=== PATIENT | female | born 1960 | race Caucasian/White ===

== ENCOUNTER 2017-08-25 00:15 | Inpatient (IN) ==
--- NOTE | 2017-08-25 00:44 | Emergency Department Note ---
Disposition Clinical Impression: New onset a-fib, New onset of congestive heart failure Disposition: Admitted As Inpatient Condition: Good Referrals: NONE,PCP [Primary Care Provider] - Forms: ED Satisfaction Letter Time of Disposition: 01:49 SOB [facility] - General Chief Complaint: ED Shortness of Breath/Dyspnea Stated Complaint: SOB Time Seen by Provider: 08/25/17 00:38 Source: patient Mode of arrival: ambulatory Limitations: no limitations Nursing Notes Reviewed: Yes Vital Signs Reviewed: Yes - History of Present Illness Patient presents to the ED with the chief complaint of dyspnea and peripheral edema. States that onset about 2 weeks ago and the shortness of breath has gradually worsened to the point today where she bent over to pick something up and almost passed out. No chest pain or heaviness. She does have bilateral large semi-swelling. No history of DVT, PE or malignancy. States that she does not go to doctors and she is otherwise healthy. No fever or rash. - Related Data Allergies Allergy/AdvReac Type Severity Reaction Status Date / Time No Known Allergies Allergy Verified 08/25/17 00:25 Review of Systems: As reviewed in the HPI. All other systems reviewed are negative or normal. Constitutional: Reports: as per HPI Eyes: Reports: as per HPI Cardiovascular: Reports: as per HPI Past Medical History - Past Medical History Attestation: Yes The following information was validated with the patient. Source: patient Medical history: Reports: no medical history Psychiatric history: Reports: no psych history - Social History Smoking Status: Current every day smoker Alcohol use: Reports: none Drug use: Reports: none Physical Exam - General Limitations: no limitations General appearance: alert, in no apparent distress, anxious - Respiratory Respiratory exam: Present: normal lung sounds bilaterally - Cardiovascular Cardiovascular exam: Present: tachycardia, irregular rhythm - Abdominal Exam Abdominal exam: Present: soft, Non-Tender. Absent: tenderness, distention, guarding, rebound, rigidity - Extremities Exam Extremities exam: Present: full ROM, pedal edema - Neurological Exam Neurological exam: Present: alert, oriented X3 - Psychiatric Psychiatric exam: Present: anxious - Skin Skin exam: Present: warm, dry, intact, normal color Course Course Narrative: Patient presenting with new onset A. fib with RVR. We will workup and admit - Reevaluation(s) Reevaluation #1: Workup his back. Troponins normal, but BNP is elevated. We will give her dose of Lasix. Cardizem bolus and ip started. Admitted to the hospitalist service. Patient stable. Vital Signs Temperature 97.3 F L 08/25/17 00:19 Pulse Rate 160 08/25/17 00:19 Respiratory Rate 22 08/25/17 00:19 Blood Pressure 142/101 08/25/17 00:19 O2 Sat by Pulse Oximetry 96 08/25/17 00:19 Temperature 97.3 F L 08/25/17 00:19 Pulse Rate 150 08/25/17 01:39 Respiratory Rate 17 08/25/17 01:39 Blood Pressure 143/103 08/25/17 01:39 O2 Sat by Pulse Oximetry 96 08/25/17 01:39 Oxygen Delivery Oxygen Delivery Room Air Shortness of Breath/Dyspnea - Medical Records Medical records reviewed: Yes I reviewed the patient's medical records. - Lab Data Lab results reviewed: Yes I reviewed the patient's lab results. Result diagrams: 08/25/17 00:12 08/25/17 00:12 Lab Results 08/25/17 08/25/17 08/25/17 Range/Units 00:12 00:12 00:12 WBC 4.4 (4.3-11.1) K/mcL RBC 3.55 L (3.82-4.97) M/mcL Hgb 10.5 L (11.5-15.4) g/dL Hct 32.7 L (35.3-44.9) % MCV 92.1 (83.0-100.0) fL MCH 29.6 (28.0-33.3) pg MCHC 32.1 (31.6-35.5) g/dL RDW 17.4 H (11.5-14.5) % Plt Count 91 L (140-400) K/mcL MPV 9.5 (9.4-12.4) fL Immature Gran % 0.7 (0-4) % Seg Neutrophils % 72.2 % Lymphocytes % 20.0 % Monocytes % 6.4 % Eosinophils % 0.2 % Basophils % 0.5 % Neutrophils # 3.2 (1.6-8.9) K/mcL Lymphocytes # 0.9 (0.6-4.6) K/mcL Monocytes # 0.3 (0.0-1.3) K/mcL Eosinophils # 0.0 (0.0-0.6) K/mcL Basophils # 0.0 (0.0-0.2) K/mcL Platelet Estimate Decreased L (Normal) Immature Plt Fraction 2.5 (1.1-6.1) % Polychromasia 1+ A (Not Present) Hypochromasia Present A (Not Present) Anisocytosis 2+ A (Not Present) Macrocytosis Present A (Not Present) PT 16.9 H (9.4-12.1) Seconds INR 1.6 APTT 34.0 (26.0-36.0) Seconds Sodium (136-145) mEq/L Potassium (3.5-5.1) mEq/L Chloride (98-107) mEq/L Carbon Dioxide (23-29) mEq/L BUN (6-20) mg/dL Creatinine (0.60-1.20) mg/dL Est GFR ( Amer) (> 60) Est GFR (Non-Af Amer) (> 60) BUN/Creatinine Ratio (6-26) Glucose (70-105) mg/dL Calculated Osmolality (280-300) Calcium (8.6-10.3) mg/dL Troponin I (< 0.04) ng/mL B-Natriuretic Peptide 604 H (Less than 100) pg/mL 08/25/17 Range/Units 00:12 WBC (4.3-11.1) K/mcL RBC (3.82-4.97) M/mcL Hgb (11.5-15.4) g/dL Hct (35.3-44.9) % MCV (83.0-100.0) fL MCH (28.0-33.3) pg MCHC (31.6-35.5) g/dL RDW (11.5-14.5) % Plt Count (140-400) K/mcL MPV (9.4-12.4) fL Immature Gran % (0-4) % Seg Neutrophils % % Lymphocytes % % Monocytes % % Eosinophils % % Basophils % % Neutrophils # (1.6-8.9) K/mcL Lymphocytes # (0.6-4.6) K/mcL Monocytes # (0.0-1.3) K/mcL Eosinophils # (0.0-0.6) K/mcL Basophils # (0.0-0.2) K/mcL Platelet Estimate (Normal) Immature Plt Fraction (1.1-6.1) % Polychromasia (Not Present) Hypochromasia (Not Present) Anisocytosis (Not Present) Macrocytosis (Not Present) PT (9.4-12.1) Seconds INR APTT (26.0-36.0) Seconds Sodium 133 L (136-145) mEq/L Potassium 3.8 (3.5-5.1) mEq/L Chloride 105 (98-107) mEq/L Carbon Dioxide 21 L (23-29) mEq/L BUN 22 H (6-20) mg/dL Creatinine 0.72 (0.60-1.20) mg/dL Est GFR ( Amer) > 60 (> 60) Est GFR (Non-Af Amer) > 60 (> 60) BUN/Creatinine Ratio 31 H (6-26) Glucose 130 H (70-105) mg/dL Calculated Osmolality 281 (280-300) Calcium 9.0 (8.6-10.3) mg/dL Troponin I < 0.03 (< 0.04) ng/mL B-Natriuretic Peptide (Less than 100) pg/mL - Radiology Data Radiology results reviewed: Yes I reviewed the patient's radiology results. - EKG Data EKG attestation: Yes I reviewed and interpreted this EKG. EKG results narrative: A. fib with RVR, rate 163, QRS 84, QTC 377, right axis deviation, no acute ischemic changes
[2017-08-25 00:49] LABS: Basophils % 0.5 %; Immature Granulocytes % 0.7 % (0-4); Segmented Neutrophils % 72.2 %
[2017-08-25 00:51] LABS: Eosinophils % 0.2 %; Hematocrit 32.7 % (35.3-44.9); Hemoglobin 10.5 g/dL (11.5-15.4); Immature Platelets 2.5 % (1.1-6.1); Lymphocytes # 0.9 K/mcL (0.6-4.6); Mean Corpuscular HGB Conc 32.1 g/dL (31.6-35.5); Mean Corpuscular Hemoglobin 29.6 pg (28.0-33.3); Mean Corpuscular Volume 92.1 fL (83.0-100.0); Mean Platelet Volume 9.5 fL (9.4-12.4); Monocytes # 0.3 K/mcL (0.0-1.3); Monocytes % 6.4 %; Neutrophils # 3.2 K/mcL (1.6-8.9); Red Blood Count 3.55 M/mcL (3.82-4.97); Red Cell Distribution Width 17.4 % (11.5-14.5)
[2017-08-25 00:58] LABS: INR 1.6; Prothrombin Time 16.9 Seconds (9.4-12.1)
[2017-08-25 01:16] LABS: Platelet Count 91 K/mcL (140-400)
[2017-08-25 01:18] LABS: Anisocytosis 2+ (Not Present); Hypochromasia Present (Not Present); Macrocytosis Present (Not Present); Polychromasia 1+ (Not Present)
[2017-08-25 01:19] LABS: Platelet Estimate Decreased (Normal)
[2017-08-25 01:38] LABS: BUN/Creatinine Ratio 31 (6-26); Blood Urea Nitrogen 22 mg/dL (6-20); Carbon Dioxide 21 mEq/L (23-29); Chloride 105 mEq/L (98-107); Glucose 130 mg/dL (70-105); Osmolality,Calculated 281 (280-300); Potassium 3.8 mEq/L (3.5-5.1); Sodium 133 mEq/L (136-145); eGFR For African Americans > 60 (> 60); eGFR For Non-African Americans > 60 (> 60)
[2017-08-25 01:39] LABS: Troponin I < 0.03 ng/mL (< 0.04)
[2017-08-25] MEDS ORDERED: Furosemide 40 MG/4 ML VIAL IVP ONE (01:46)
[2017-08-25] MEDS ORDERED: Furosemide 40 MG/4 ML VIAL ONE (01:47)
[2017-08-25] MEDS ORDERED: 0.9 % Sodium Chloride 500 ML ONE (02:04)
[2017-08-25] MEDS: 0.9 % Sodium Chloride 500 ML IVC SCH (02:07)
[2017-08-25] MEDS ORDERED: Acetaminophen 325 MG TABLET PO ONE (03:57)
--- NOTE | 2017-08-25 04:10 | Internal Med History&Physical ---
<Marce White H - Last Filed: 08/25/17 04:30> Date of Encounter: 08/25/17 Time of Encounter: 04:10 Internal Medicine - H&P: HPI Chief complaint: shortness of breath and lower extremity edema Admitted From: Emergency Dept Plans for Post Hospital Care: Home History of present illness: Ms. Sales is a 57 year old female with no known past medical history who presented to [facility] on 08/25/2017 with chief complaints of shortness of breath and bilateral lower extremity edema. Ms. Sales states she has not seen a doctor or been to a hospital in several years. She denies any medical problems whatsoever. She states for the past 2 weeks she has been experiencing progressively worsening shortness of breath and lower extremity swelling. She states this evening she was bending over when she became lightheaded, dizzy, and felt as though she would pass out. At that point she decided to present to the emergency department. In the emergency department she was found to be in atrial fibrillation with RVR. She was started on a Cardizem drip. Her BNP was elevated and she was given a dose of IV Lasix. During examination, patient is resting comfortably. She states her shortness of breath has improved since being started on the medication given in the emergency department. She denies any active chest pain, nausea, vomiting, or diaphoresis. She does report shortness of air. She denies feeling palpitations. She denies orthopnea. She denies nausea, vomiting, diarrhea, melena, hematochezia, or hematemesis. She reports a headache. She denies any visual changes or sensory or motor weaknesses. Past Med Surg Social Fam HX - Past Medical History Attestation: Yes The following information was validated with the patient. Source: patient Medical history: no medical history Psychiatric history: no psych history - Social History Smoking Status: Current every day smoker Alcohol use: none Drug use: none - Family History Mother Adopted: No Cause of : heart attack Hx Family Cardiac Disorders: Yes (mother heart attack) Hx Family Respiratory Disorders: Yes (mother, brother, father COPD) Hx Family Cancer: Yes (mother, breast) Hx Family GI Disorders: No Hx Family Genitourinary Disorders: No Hx Family Endocrine Disorder: Yes (mother dm) Hx Family Musculoskeletal Disorders: No Hx Family Neuromuscular Disorders: No Hx Family Neurologic Disorders: No Hx Family HEENT Disorders: No Hx Family Autoimmune Disorders: No Hx Family Reproductive Disorders: No Hx Family Psychosocial Disorders: No Hx Family Medical Disorders: No Internal Medicine - H&P: Meds 3 Allergy/AdvReac Type Severity Reaction Status Date / Time No Known Allergies Allergy Verified 08/25/17 00:25 All Systems PM: A 10-system review of systems was performed and is negative for pertinent findings except as documented above in the HPI. - Constitutional Constitutional: lethargy, no chills, no fever(s), no falls, no night sweats, no weakness, no weight gain, no weight loss - EENT Eyes: no change in vision Nose, mouth and throat: no nasal congestion, no nasal discharge - Cardiovascular Cardiovascular ROS IM: dyspnea, dyspnea on exertion, edema, irregular heart rhythm, lightheadedness, no chest pain, no claudication, no diaphoresis, no orthopnea, no palpitations, no paroxysmal nocturnal dyspnea - Respiratory Respiratory: no cough, no dyspnea - Gastrointestinal Gastrointestinal: no abdominal pain, no diarrhea, no hematemesis, no hematochezia, no melena, no nausea, no vomiting - Musculoskeletal Musculoskeletal ROS IM: no numbness, no tingling - Integumentary Integumentary IM: no rash, no jaundice - Neurological Neurological ROS: headache(s), no abnormal hearing, no abnormal movements, no abnormal speech, no focal weakness, no loss of vision - Psychiatric Psychiatric: depression (Son two months ago) - Hematologic/Lymphatic Hematologic/Lymphatic: no easy bruising - Constitutional Vitals: Temp Pulse Resp BP Pulse Ox 98.2 F 130 18 118/65 96 08/25/17 03:10 08/25/17 03:10 08/25/17 03:10 08/25/17 03:10 08/25/17 03:10 General appearance: Present: A&O X 3, pleasant, no acute distress, answers questions appropriately - Head Head exam: Present: atraumatic, normocephalic - Eye Eye exam: Present: conjuntiva pink, sclera anicteric - Neck Neck exam general surgery: Present: supple, trachea midline. Absent: lymphadenopathy - Respiratory Respiratory exam: Present: prolonged expiratory phase, rhonchi. Absent: accessory muscle use, rales, respiratory distress, wheezes - Cardiovascular Cardiovascular exam: Present: irregular rhythm, +S1, +S2, tachycardia. Absent: diastolic murmur, gallop, rubs, systolic murmur - GI/Abdominal GI/Abdominal exam: Present: normal bowel sounds, soft, no peritoneal signs. Absent: distended, firm, guarding, tenderness - Extremities Exam Extremities exam: Present: pedal edema (3+), warm, radial pulses palpable and symmetrical. Absent: calf tenderness, cyanotic - Neurological Exam Neurological exam: Present: alert, oriented X3, no focal deficits. Absent: motor sensory deficit, facial droop, speech deficit - Psychiatric Psychiatric exam: Present: normal affect, normal mood - Skin Skin exam: Present: dry, intact, normal color Internal Med - H&P Results - Labs CBC & Chem 7: 08/25/17 00:12 08/25/17 00:12 - Assessment and plan (1) Atrial fibrillation with RVR Current Visit: Yes Status: Acute Assessment and plan: 57-year-old lady with unknown medical history of present with new onset atrial fibrillation with RVR. -Continue Cardizem drip. -Consult to cardiology. Day team to call in the morning. -Echocardiogram. -Aspirin -Cardiac monitoring. -TSH, magnesium (2) New onset of congestive heart failure Current Visit: Yes Status: Acute Assessment and plan: Patient given one-time dose of Lasix in the emergency department. -Significant pedal edema appreciated during physical exam and elevated BNP. -Echocardiogram ordered for the morning. Consult to cardiology placed. -Daily weights, I&O. -ASA (3) Anemia Current Visit: Yes Status: Acute Assessment and plan: Patient with anemia. Unknown chronicity. -We will perform anemia workup including iron profile, ferritin, B12, and folic levels. Qualifiers: Anemia type: unspecified type Qualified Code(s): D64.9 - Anemia, unspecified (4) Tobacco abuse Current Visit: Yes Status: Acute Assessment and plan: Nicotine replacement therapy. (5) DVT prophylaxis Current Visit: Yes Status: Acute Assessment and plan: Heparin 5000 units subcutaneous twice a day. - Time Spent With Patient Total time spent is greater than 50% in coordination of care (as documented) at patient's floor/unit and/or counseling patient: <Deni Eisenberg - Last Filed: 08/25/17 06:07> Date of Encounter: 04/14/18 Internal Medicine - H&P: HPI History of present illness: Ms. Sales is a 57 year old female All Systems PM: A 10-system review of systems was performed and is negative for pertinent findings except as documented above in the HPI. - Constitutional Vitals: Temp Pulse Resp BP Pulse Ox 98.2 F 130 18 118/65 96 08/25/17 03:10 08/25/17 03:10 08/25/17 03:10 08/25/17 03:10 08/25/17 03:10 Internal Med - H&P Results - Labs CBC & Chem 7: 08/25/17 00:12 08/25/17 00:12 - Attending Attestation I have seen and examined this patient independently. I have discussed with resident physician Dr. White regarding the management plan. Agree with the documentation. - Assessment and plan (1) New onset of congestive heart failure Current Visit: Yes Status: Acute (2) Atrial fibrillation with RVR Current Visit: Yes Status: Acute (3) Anemia Current Visit: Yes Status: Acute Qualifiers: Anemia type: unspecified type Qualified Code(s): D64.9 - Anemia, unspecified (4) Tobacco abuse Current Visit: Yes Status: Acute (5) DVT prophylaxis Current Visit: Yes Status: Acute - Time Spent With Patient Total time spent is greater than 50% in coordination of care (as documented) at patient's floor/unit and/or counseling patient:
[2017-08-25] MEDS ORDERED: Naloxone 0.4 MG/ML INJ IVP PRN (04:24)
--- NOTE | 2017-08-25 05:30 | Emergency Department Note ---
Disposition Clinical Impression: New onset a-fib, New onset of congestive heart failure Disposition: Admitted As Inpatient Condition: Good General Adult HPI - General Chief complaint: ED Shortness of Breath/Dyspnea Stated complaint: SOB Time Seen by Provider: 08/25/17 00:38 Source: patient Mode of arrival: ambulatory Limitations: no limitations Nursing Notes Reviewed: Yes Vital Signs Reviewed: Yes - History of Present Illness Pain Scale: 0 - Related Data Allergies Allergy/AdvReac Type Severity Reaction Status Date / Time No Known Allergies Allergy Verified 08/25/17 00:25 Constitutional: Reports: as per HPI Eyes: Reports: as per HPI Cardiovascular: Reports: as per HPI Past Medical History - Past Medical History Medical history: Reports: no medical history Psychiatric history: Reports: no psych history - Social History Smoking Status: Current every day smoker Alcohol use: Reports: none Drug use: Reports: none Physical Exam - General Limitations: no limitations General appearance: alert, in no apparent distress, anxious Course Vital Signs Temperature 97.3 F L 08/25/17 00:19 Pulse Rate 160 08/25/17 00:19 Respiratory Rate 22 08/25/17 00:19 Blood Pressure 142/101 08/25/17 00:19 O2 Sat by Pulse Oximetry 96 08/25/17 00:19 Temperature 98.2 F 08/25/17 03:10 Pulse Rate 130 08/25/17 03:10 Respiratory Rate 18 08/25/17 03:10 Blood Pressure 118/65 08/25/17 03:10 O2 Sat by Pulse Oximetry 96 08/25/17 03:10 Oxygen Delivery Oxygen Delivery Room Air Medical Decision Making - Lab Data Result diagrams: 08/25/17 00:12 08/25/17 00:12 Lab Results 08/25/17 08/25/17 08/25/17 Range/Units 00:12 00:12 00:12 WBC 4.4 (4.3-11.1) K/mcL RBC 3.55 L (3.82-4.97) M/mcL Hgb 10.5 L (11.5-15.4) g/dL Hct 32.7 L (35.3-44.9) % MCV 92.1 (83.0-100.0) fL MCH 29.6 (28.0-33.3) pg MCHC 32.1 (31.6-35.5) g/dL RDW 17.4 H (11.5-14.5) % Plt Count 91 L (140-400) K/mcL MPV 9.5 (9.4-12.4) fL Immature Gran % 0.7 (0-4) % Seg Neutrophils % 72.2 % Lymphocytes % 20.0 % Monocytes % 6.4 % Eosinophils % 0.2 % Basophils % 0.5 % Neutrophils # 3.2 (1.6-8.9) K/mcL Lymphocytes # 0.9 (0.6-4.6) K/mcL Monocytes # 0.3 (0.0-1.3) K/mcL Eosinophils # 0.0 (0.0-0.6) K/mcL Basophils # 0.0 (0.0-0.2) K/mcL Platelet Estimate Decreased L (Normal) Immature Plt Fraction 2.5 (1.1-6.1) % Polychromasia 1+ A (Not Present) Hypochromasia Present A (Not Present) Anisocytosis 2+ A (Not Present) Macrocytosis Present A (Not Present) PT 16.9 H (9.4-12.1) Seconds INR 1.6 APTT 34.0 (26.0-36.0) Seconds Sodium (136-145) mEq/L Potassium (3.5-5.1) mEq/L Chloride (98-107) mEq/L Carbon Dioxide (23-29) mEq/L BUN (6-20) mg/dL Creatinine (0.60-1.20) mg/dL Est GFR ( Amer) (> 60) Est GFR (Non-Af Amer) (> 60) BUN/Creatinine Ratio (6-26) Glucose (70-105) mg/dL Calculated Osmolality (280-300) Calcium (8.6-10.3) mg/dL Troponin I (< 0.04) ng/mL B-Natriuretic Peptide 604 H (Less than 100) pg/mL 08/25/17 Range/Units 00:12 WBC (4.3-11.1) K/mcL RBC (3.82-4.97) M/mcL Hgb (11.5-15.4) g/dL Hct (35.3-44.9) % MCV (83.0-100.0) fL MCH (28.0-33.3) pg MCHC (31.6-35.5) g/dL RDW (11.5-14.5) % Plt Count (140-400) K/mcL MPV (9.4-12.4) fL Immature Gran % (0-4) % Seg Neutrophils % % Lymphocytes % % Monocytes % % Eosinophils % % Basophils % % Neutrophils # (1.6-8.9) K/mcL Lymphocytes # (0.6-4.6) K/mcL Monocytes # (0.0-1.3) K/mcL Eosinophils # (0.0-0.6) K/mcL Basophils # (0.0-0.2) K/mcL Platelet Estimate (Normal) Immature Plt Fraction (1.1-6.1) % Polychromasia (Not Present) Hypochromasia (Not Present) Anisocytosis (Not Present) Macrocytosis (Not Present) PT (9.4-12.1) Seconds INR APTT (26.0-36.0) Seconds Sodium 133 L (136-145) mEq/L Potassium 3.8 (3.5-5.1) mEq/L Chloride 105 (98-107) mEq/L Carbon Dioxide 21 L (23-29) mEq/L BUN 22 H (6-20) mg/dL Creatinine 0.72 (0.60-1.20) mg/dL Est GFR ( Amer) > 60 (> 60) Est GFR (Non-Af Amer) > 60 (> 60) BUN/Creatinine Ratio 31 H (6-26) Glucose 130 H (70-105) mg/dL Calculated Osmolality 281 (280-300) Calcium 9.0 (8.6-10.3) mg/dL Troponin I < 0.03 (< 0.04) ng/mL B-Natriuretic Peptide (Less than 100) pg/mL Critical Care Time Critical Care Time: Yes Total Critical Care Time: 35 Attestation: Critical care performed: Time is exclusive of separately billable procedures. Time includes: direct patient care, patient reassessment, coordination of patient care, interpretation of data (laboratory data, radiology data, and respiratory data), review of patient's medical records, medical consultation and documentation of patient care. Procedures included in critical care time: Procedures excluded from critical care time: Attestation Statement - Attestation Attestation: Cesar Berrios MD, personally evaluated this patient and discussed their management with the resident physician. I reviewed the resident's note and agree with the documented findings, medical decision making, and plan of care. 57-year-old female presents to the emergency department with a one-day history of shortness of breath. She states it started last evening and she had some difficulty sleeping. No chest pain. No cough or fever. She denies history of breathing problems previously. No history of heart problems. She does admit to some palpitations today. On arrival the patient was found to be in atrial fibrillation with RVR with a heart rate in the 160s. On examination patient is a well-developed obese female in no acute distress. She is alert and oriented 3. There is no cyanosis or diaphoresis. Chest is nontender to palpation. Breath sounds are clear and equal bilaterally. Heart is irregularly irregular with a marked tachycardia. Abdomen soft and nontender with normal bowel sounds. There is 1+ pedal edema bilaterally. EKG shows atrial fibrillation with RVR with a ventricular rate of 163. No acute ST segment elevation or depression noted. Chest x-ray negative. Labs reviewed. Patient received IV Cardizem and placed on Cardizem drip. The hospitalist, Dr. Eisenberg, was consulted and accepted admission of the patient.
[2017-08-25] MEDS: Nicotine 21 MG PATCH.TD24 TD SCH (07:10)
[2017-08-25] MEDS: Aspirin 81 MG TAB.CHEW PO SCH (07:10)
[2017-08-25] MEDS: Acetaminophen 325 MG TABLET PO PRN ×2 (10:03→16:36)
--- NOTE | 2017-08-25 11:15 | Cardiology Consult Note ---
<Martha Perkins Bree - Last Filed: 08/25/17 11:38> Date of Encounter: 08/25/17 Time of Encounter: 11:20 Assessment and Plan (1) New onset a-fib Current Visit: Yes Status: Acute Newly discovered atrial fibrillation, etiology/chronicity unclear. HR 167 RVR upon admission, control improved with cardizem gtt. Continue cardizem gtt, titrate to keep HR less than 100. Will add low dose betablocker today. Check TTE, TSH. CHA2Ds Vasc=1 (female) currently, however has not followed with provider in 10+ years. TTE pending, may need ischemic eval. Unable to anticoagulate at this time d/t anemia/thrombocytopenia of unclear origin. Recommend further work-up. (2) CHF (congestive heart failure) Current Visit: Yes Status: Acute Presents with CHF symptoms--etiology/type/chroncity unclear. No prior work-up. Reports increased stress d/t passing of her son 2 months ago. IFB=589, CXR stable. Check TTE. Start low dose betablocker today. Cautious diuresis. Strict I&Os, daily weights, and Na/fluid restriction diet. Will continue to follow. Qualifiers: Heart failure type: unspecified Heart failure chronicity: unspecified Qualified Code(s): I50.9 - Heart failure, unspecified (3) Anemia Current Visit: Yes Status: Acute With thrombocytopenia, PLT 91. Recommend hem/onc consult. Qualifiers: Anemia type: unspecified type Qualified Code(s): D64.9 - Anemia, unspecified Discussion w patient/family: The assessment and plan as outlined above was discussed with the patient and/or family members who expressed understanding and agreement. All questions were answered. Thank you for involving us in the care of your patient. Please call with any questions. History of Present Illness Consult date: 08/25/17 Requesting physician: Marce White Consult reason: CHF, AFib Chief complaint: Shortness of breath History of present illness: Ms. Sales is a 57 year old female with no significant PMHx who presented to the ED with complaints of a 2 week history shortness of breath. Associated symptoms include fatigue, activity intolerance, PND, and orthopnea. Notes has been sleeping in the recliner. Reports was making a bed yesterday and nearly passed out which prompted ED evaluation. Ms. Sales has not followed with healthcare provider in 10+ years. Reports 1.5 ppd smoking since she was 14 years old. Significant family hx for CAD, [place]. Upon arrival she was noted to be in atrial fibrillation with RVR and was started on a cardizem gtt. Past Med Surg Social Fam HX - Past Medical History Medical history: no medical history Psychiatric history: no psych history - Social History Smoking Status: Current every day smoker Alcohol use: none Drug use: none - Family History Mother Adopted: No Cause of : heart attack Hx Family Cardiac Disorders: Yes (mother heart attack) Hx Family Respiratory Disorders: Yes (mother, brother, father COPD) Hx Family Cancer: Yes (mother, breast) Hx Family GI Disorders: No Hx Family Genitourinary Disorders: No Hx Family Endocrine Disorder: Yes (mother dm) Hx Family Musculoskeletal Disorders: No Hx Family Neuromuscular Disorders: No Hx Family Neurologic Disorders: No Hx Family HEENT Disorders: No Hx Family Autoimmune Disorders: No Hx Family Reproductive Disorders: No Hx Family Psychosocial Disorders: No Hx Family Medical Disorders: No Medications and Allergies No Known Home Drugs 08/25/17 [History] 3 Allergy/AdvReac Type Severity Reaction Status Date / Time No Known Allergies Allergy Verified 08/25/17 00:25 All Systems Review: The remainder of the systems were reviewed and are negative - Cardiovascular Cardiovascular: as per HPI Physical Examination Vital Signs, Last 4 Hours Temp Pulse Resp BP Pulse Ox 08/25/17 07:37 98.2 F 108 18 105/71 96 General: Conversant HEENT: Atraumatic, Normocephaly Cardiac: Other (irregularly irregular) Neuro: Alert and responsive Abdomen: Soft Skin: Other (palmar erythema) Extremities: Other (+2 BLE edema) Results 08/25/17 00:12 08/25/17 00:12 Active Medications Acetaminophen (Tylenol) 650 mg PO Q6H PRN PRN Reason: Mild Pain/Fever Stop: 02/24/18 04:25 Last Admin: 08/25/17 10:03 Dose: 650 mg Aspirin (Aspirin) 81 mg PO DAILY LEANN Stop: 02/24/18 09:01 Last Admin: 08/25/17 07:10 Dose: 81 mg Diltiazem HCl 125 mg/ Sodium (Chloride) 125 mls @ 5 mls/hr IVC .Q24H LEANN PRN Reason: 5 MG/HR Stop: 02/24/18 01:31 Last Infusion: 08/25/17 09:57 Dose: 10 mg/hr, 10 mls/hr Sodium Chloride (0.9 % Sodium Chloride) 500 mls @ 20 mls/hr IVC .Q24H LEANN Stop: 02/24/18 02:16 Last Admin: 08/25/17 02:07 Dose: 20 mls/hr Naloxone HCl (Narcan) 0.4 mg IVP Q2MIN PRN PRN Reason: SEE COMMENTS Stop: 02/24/18 04:25 Nicotine (Nicoderm) 21 mg TD DAILY LEANN PRN Reason: Protocol Stop: 02/24/18 09:01 Last Admin: 08/25/17 07:10 Dose: 21 mg - Imaging and Cardiology Echo: pending Other Results: 12 hour tele: avg BY=[id number] afib. 7 beat run NSVT - EKG Interpretation EKG results cardiology: personally reviewed Consult Discharge Plan - Plan Referrals: NONE,PCP [Primary Care Provider] - <Barrett Nuno - Last Filed: 08/25/17 19:17> Date of Encounter: 08/25/17 - Attending Attestation I have personally performed a face to face evaluation on this patient. I have reviewed and agree with the care plan. History and Exam by me shows: CC: Shortness of breath PT reports increasing shortness of breath over the last two weeks. She first noted symptoms with exercise, with progressive less tolerance of physical exertion. She was able to mop and sweep her entire house without stopping a month ago, now has to stop after two rooms sweeping only due to SOB. She has three pillow orthopnea, and has been unable to sleep in a bed the last three nights. She also notes increased lower extremity edema. She denies chest pain or pressure, does feel occasional palpitations, however reports activity does not provoke palpitations. PMH reviewed, pt has chronic back pain due to lumbar disc disease. PE: pt seen and examined, agree with documented findings, with addendum lungs are clear anteriorly, bilat basilar crackles, normal S1 and S2. IMP/Plan 1. Atrial fib with rapid ventricular response, 160s to 180s in ER, improved with IV diltiazem, now mid 80s, continue IV dilt, heparin, will need echo, nocturnal pulse ox. 2. Acute congestive heart failure, unclear if systolic or diastolic, echo pending, continue IV diuresis, further recs pending cardiac imaging. 3. Anemia - unlcear etiolgy, no labs to compare in last decade, will monitor stools for occult blood, TSH, free TX 4. Chronic low back pain - reports she is just tolerating pain, does not like hospitals. Assessment and Plan Discussion w patient/family: The assessment and plan as outlined above was discussed with the patient and/or family members who expressed understanding and agreement. All questions were answered. Thank you for involving us in the care of your patient. Please call with any questions. History of Present Illness History of present illness: Ms. Sales is a 57 year old female All Systems Review: The remainder of the systems were reviewed and are negative Physical Examination Vital Signs, Last 4 Hours Temp Pulse Resp BP Pulse Ox 08/25/17 18:56 98.6 F 90 16 112/58 95 08/25/17 15:54 98.2 F 93 18 111/78 93 Results 08/25/17 00:12 08/25/17 00:12 Lab Results 08/25/17 11:21 Troponin I < 0.03
[2017-08-25] MEDS: Metoprolol XL (24 HR) Succ 25 MG TAB.ER.24H PO SCH (12:43)
[2017-08-25] MEDS: *HR* OxyCODONE Immed Rel 5 MG TABLET PO PRN ×2 (14:33→20:35)
--- NOTE | 2017-08-25 15:47 | Internal Med Progress Note ---
Date of Encounter: 08/25/17 Time of Encounter: 15:44 - Assessment and plan (1) New onset of congestive heart failure Current Visit: Yes Status: Acute Assessment and plan: Possible diastolic CHF exacerbation in the setting of A. fib with RVR Chest x-ray does not report normality but there is some vascular congestion Patient given one-time dose of Lasix in the emergency department. -Echocardiogram ordered Continue IV Lasix . Consulted cardiology -Daily weights, I&O. -ASA (2) Atrial fibrillation with RVR Current Visit: Yes Status: Acute Assessment and plan: 57-year-old lady with unknown medical history of present with new onset atrial fibrillation with RVR. -Continue Cardizem drip. Cardiology recommendations appreciated -Echocardiogram. -Aspirin -Cardiac monitoring. - Test for respiratory viral panel (3) Anemia Current Visit: Yes Status: Acute Assessment and plan: Patient with anemia. Unknown chronicity. Possible iron deficiency anemia. Qualifiers: Anemia type: unspecified type Qualified Code(s): D64.9 - Anemia, unspecified (4) Tobacco abuse Current Visit: Yes Status: Acute Assessment and plan: Nicotine replacement therapy. (5) DVT prophylaxis Current Visit: Yes Status: Acute Assessment and plan: Heparin 5000 units subcutaneous twice a day. (6) Thrombocytopenia Current Visit: Yes Status: Acute Assessment and plan: Unknown etiology - Time Spent With Patient Total time spent is greater than 50% in coordination of care (as documented) at patient's floor/unit and/or counseling patient: - Subjective Interval history: Feeling less short of breath, irregular heart rate, palpitations at times, dry cough, sporadic abdominal pain crampy like, no dysuria or diarrhea, no fevers - Constitutional Vitals: Temp Pulse Resp BP Pulse Ox 98.1 F 92 17 105/73 96 08/25/17 11:48 08/25/17 11:48 08/25/17 11:48 08/25/17 11:48 08/25/17 11:48 General appearance: Present: A&O X 3, pleasant, no acute distress, answers questions appropriately - Head Head exam: Present: atraumatic, normocephalic - Eye Eye exam: Present: PERRL, conjuntiva pink, sclera anicteric Pupils: Present: PERRL - Neck Neck exam general surgery: Present: supple, trachea midline. Absent: lymphadenopathy - Respiratory Respiratory exam: Present: CTAB, rales (Bibasilar fine crackles). Absent: accessory muscle use, rhonchi, wheezes - Cardiovascular Cardiovascular exam: Present: RRR, +S1, +S2. Absent: diastolic murmur, gallop, rubs, systolic murmur - GI/Abdominal GI/Abdominal exam: Present: normal bowel sounds, soft, no peritoneal signs. Absent: distended, tenderness - Extremities Exam Extremities exam: Present: pedal edema (+1 pitting edema in both lower extremities has improved), warm, radial pulses palpable and symmetrical. Absent : calf tenderness, cyanotic - Neurological Exam Neurological exam: Present: CN II-XII intact, oriented X3, no focal deficits. Absent: pronater drift, facial droop, speech deficit - Skin Skin exam: Present: dry, intact Internal Medicine: Result - Labs CBC & Chem 7: 08/25/17 00:12 08/25/17 00:12 Labs: Cardiac Enzymes 08/25/17 Range/Units 11:21 Troponin I < 0.03 (< 0.04) ng/mL - ABG Interpretation ABG results: PT/INR, D-dimer PT 16.9 Seconds (9.4-12.1) H 08/25/17 00:12 Consult Discharge Plan - Plan Referrals: NONE,PCP [Primary Care Provider] -
[2017-08-25 18:09] LABS: Adenovirus Not Detected (Not Detect); Bordetella Pertussis Not Detected (Not Detect); Chlamydophila pneumoniae Not Detected (Not Detect); Coronavirus 229E Not Detected (Not Detect); Coronavirus HKU1 Not Detected (Not Detect); Coronavirus NL63 Not Detected (Not Detect); Coronavirus OC43 Not Detected (Not Detect); Human Metapneumovirus Not Detected (Not Detect); Human Rhinovirus/Enterovirus Not Detected (Not Detect); Influenza A Subtype 2009 H1 Not Detected (Not Detect); Influenza A Untypeable Not Detected (Not Detect); Influenza B Not Detected (Not Detect); Mycoplasma pneumoniae Not Detected (Not Detect); Parainfluenza Virus 1 Not Detected (Not Detect); Parainfluenza Virus 2 Not Detected (Not Detect); Parainfluenza Virus 3 Not Detected (Not Detect); Parainfluenza Virus 4 Not Detected (Not Detect); Respiratory Syncytial Virus Not Detected (Not Detect)
[2017-08-25] MEDS: Furosemide 20 MG/2 ML VIAL IVP SCH (20:29)
[2017-08-26] MEDS: *HR* OxyCODONE Immed Rel 5 MG TABLET PO PRN ×4 (02:32→20:49)
[2017-08-26 05:06] LABS: % Iron Saturation 3 % (15-50); Alanine Aminotransferase 17 Units/L (7-52); Albumin 3.4 g/dL (3.5-5.7); Albumin/Globulin Ratio 0.8 (1.1-2.2); Alkaline Phosphatase 80 Units/L (34-104); Aspartate Amino Transferase 37 Units/L (13-39); BUN/Creatinine Ratio 31 (6-26); Bilirubin,Total 0.8 mg/dL (0.3-1.0); Blood Urea Nitrogen 26 mg/dL (6-20); Calcium 8.6 mg/dL (8.6-10.3); Carbon Dioxide 23 mEq/L (23-29); Chloride 105 mEq/L (98-107); Ferritin 33 ng/ml (10-120); Globulin 4.1 g/dL (2.4-3.5); Glucose 92 mg/dL (70-105); Iron 18 mcg/dL (50-170); Osmolality,Calculated 284 (280-300); Potassium 3.7 mEq/L (3.5-5.1); Sodium 135 mEq/L (136-145); Total Protein 7.5 g/dL (6.4-8.9); Transferrin 406 mg/dL (203-362); eGFR For African Americans > 60 (> 60); eGFR For Non-African Americans > 60 (> 60)
[2017-08-26 05:18] LABS: Thyroid Stimulating Hormone 7.583 mcIU/mL (0.340-5.600)
[2017-08-26] MEDS: 0.9 % Sodium Chloride 500 ML IVC SCH (05:26)
[2017-08-26 05:28] LABS: Folate 15.7 ng/mL (3.0-16.0)
[2017-08-26 05:30] LABS: Vitamin B12 > 1500 pg/mL (250-1100)
[2017-08-26] MEDS: Acetaminophen 325 MG TABLET PO PRN ×3 (05:32→23:17)
[2017-08-26] MEDS: Aspirin 81 MG TAB.CHEW PO SCH (08:32)
[2017-08-26] MEDS: Nicotine 21 MG PATCH.TD24 TD SCH (08:32)
[2017-08-26] MEDS: Metoprolol XL (24 HR) Succ 25 MG TAB.ER.24H PO SCH (08:32)
[2017-08-26] MEDS: Furosemide 20 MG/2 ML VIAL IVP SCH ×3 (08:32→16:47)
[2017-08-26] MEDS ORDERED: Ipratropium/Albuterol Neb 3 ML IH PRN (10:24)
--- NOTE | 2017-08-26 10:29 | Internal Med Progress Note ---
Date of Encounter: 08/26/17 Time of Encounter: 10:26 - Assessment and plan (1) New onset of congestive heart failure Current Visit: Yes Status: Acute Assessment and plan: Possible diastolic CHF exacerbation in the setting of A. fib with RVR, and acute COPD exacerbation Chest x-ray does not report normal findings but there is some vascular congestion Patient given one-time dose of Lasix in the emergency department. -Echocardiogram ordered, pending Increased IV Lasix up to 40 mg twice a day . Consulted cardiology -Daily weights, I&O. -ASA (2) Acute exacerbation of chronic obstructive pulmonary disease (COPD) Current Visit: Yes Status: Acute Assessment and plan: Acute COPD exacerbation likely secondary to acute bacterial bronchitis Start Solu-Medrol, Rocephin DuoNeb nebs as needed, oxygen therapy Needs pulmonary function tests as outpatient (3) Atrial fibrillation with RVR Current Visit: Yes Status: Acute Assessment and plan: 57-year-old lady with unknown medical history of present with new onset atrial fibrillation with RVR. -Continue Cardizem drip. Cardiology recommendations appreciated -Echocardiogram. -Aspirin -Cardiac monitoring. - Tested negative for respiratory viral panel (4) Anemia Current Visit: Yes Status: Acute Assessment and plan: Patient with anemia. Unknown chronicity. Possible iron deficiency anemia. Qualifiers: Anemia type: unspecified type Qualified Code(s): D64.9 - Anemia, unspecified (5) Tobacco abuse Current Visit: Yes Status: Acute Assessment and plan: Nicotine replacement therapy. (6) DVT prophylaxis Current Visit: Yes Status: Acute Assessment and plan: Heparin 5000 units subcutaneous twice a day. (7) Thrombocytopenia Current Visit: Yes Status: Acute Assessment and plan: Unknown etiology - Time Spent With Patient Total time spent is greater than 50% in coordination of care (as documented) at patient's floor/unit and/or counseling patient: - Subjective Interval history: Feeling still short of breath, irregular heart rate, palpitations at times, dry cough, sporadic abdominal pain crampy like, no dysuria or diarrhea, no fevers - Constitutional Vitals: Temp Pulse Resp BP Pulse Ox 98.3 F 104 16 119/83 95 08/26/17 07:54 08/26/17 07:54 08/26/17 07:54 08/26/17 07:54 08/26/17 09:45 General appearance: Present: A&O X 3, pleasant, no acute distress, answers questions appropriately Exam: - Head Head exam: Present: atraumatic, normocephalic - Eye Eye exam: Present: PERRL, conjuntiva pink, sclera anicteric Pupils: Present: PERRL - Neck Neck exam general surgery: Present: supple, trachea midline. Absent: lymphadenopathy - Respiratory Respiratory exam: Present: CTAB, rales (Bibasilar fine crackles with wheezing). Absent: accessory muscle use, rhonchi, wheezes - Cardiovascular Cardiovascular exam: Present: RRR, +S1, +S2. Absent: diastolic murmur, gallop, rubs, systolic murmur - GI/Abdominal GI/Abdominal exam: Present: normal bowel sounds, soft, no peritoneal signs. Absent: distended, tenderness - Extremities Exam Extremities exam: Present: pedal edema (+1 pitting edema in both lower extremities has improved), warm, radial pulses palpable and symmetrical. Absent : calf tenderness, cyanotic - Neurological Exam Neurological exam: Present: CN II-XII intact, oriented X3, no focal deficits. Absent: pronater drift, facial droop, speech deficit - Skin Skin exam: Present: dry, intact Internal Medicine: Result - Labs CBC & Chem 7: 08/25/17 00:12 08/26/17 04:11 Labs: BMP 08/26/17 04:11 Sodium 135 L Potassium 3.7 Chloride 105 Carbon Dioxide 23 BUN 26 H Creatinine 0.85 Glucose 92 Calcium 8.6 Cardiac Enzymes 08/25/17 Range/Units 11:21 Troponin I < 0.03 (< 0.04) ng/mL Liver Function 08/26/17 Range/Units 04:11 Total Bilirubin 0.8 (0.3-1.0) mg/dL AST 37 (13-39) Units/L ALT 17 (7-52) Units/L Alkaline Phosphatase 80 (34-104) Units/L Albumin 3.4 L (3.5-5.7) g/dL - ABG Interpretation ABG results: PT/INR, D-dimer PT 16.9 Seconds (9.4-12.1) H 08/25/17 00:12 Consult Discharge Plan - Plan Referrals: NONE,PCP [Primary Care Provider] -
[2017-08-26] MEDS: MethylPREDNISolone 40 MG/ML VIAL IVP SCH ×3 (10:48→23:21)
[2017-08-26] MEDS: cefTRIAXone 1,000 MG in Water for inj. (sterile) 20 ML 10 ML IVP SCH (11:12)
--- NOTE | 2017-08-26 12:36 | Cardiology Progress Note ---
Date of Encounter: 08/26/17 Time of Encounter: 12:00 Assessment and Plan (1) New onset a-fib Current Visit: Yes Status: Acute Newly discovered atrial fibrillation, etiology/chronicity unclear. HR 167 RVR upon admission, control improved with cardizem gtt. Improved from yesterday, not ideal. Recommend rate control strategy for now, unable to anticoagulate. Continue cardizem gtt, titrate to keep HR less than 100. Will increase BB today. TTE pending. TSH abnormal--defer to primary service. CHA2Ds Vasc=1 (female) currently, however has not followed with provider in 10+ years. TTE pending, may need ischemic eval. Unable to anticoagulate at this time d/t anemia/thrombocytopenia of unclear origin. Recommend further work-up. (2) CHF (congestive heart failure) Current Visit: Yes Status: Acute Presents with CHF symptoms--etiology/type/chroncity unclear. No prior work-up. Suspect systolic CHF. Reports increased stress d/t passing of her son 2 months ago. EDG=805, CXR stable. Echo pending. Optimize betablocker today. Cautious diuresis. Consider ACEi/ARB upon d/c if able Strict I&Os, daily weights, and Na/fluid restriction diet. Will continue to follow. Qualifiers: Heart failure type: unspecified Heart failure chronicity: unspecified Qualified Code(s): I50.9 - Heart failure, unspecified (3) Anemia Current Visit: Yes Status: Acute With thrombocytopenia, PLT 91. Recommend hem/onc consult. Qualifiers: Anemia type: unspecified type Qualified Code(s): D64.9 - Anemia, unspecified Discussion w patient/family: The assessment and plan as outlined above was discussed with the patient and/or family members who expressed understanding and agreement. All questions were answered. Thank you for involving us in the care of your patient. Please call with any questions. The patient will be discussed and reviewed with Dr. Nuno; changes to be made accordingly. Subjective Principal diagnosis: Afib, CHF Interval history: Seen and examined. Overall feels better today, continues to have dyspnea with minimal exertion. No reported chest pain. Objective Vital Signs, Last 4 Hours Pulse Ox 08/26/17 09:45 95 General: Conversant HEENT: Atraumatic, Normocephaly Cardiac: Other (tachycardiac, irregularly irregular) Lungs: Normal Breath Sounds Neuro: Alert and responsive Abdomen: Soft Skin: No rashes noted on visualized skin Musculoskeletal: No Chest Wall Tenderness Extremities: Other (+2 BLE edema to knees) Results 08/25/17 00:12 08/26/17 04:11 Lab Results 08/26/17 04:11 Sodium 135 L Potassium 3.7 Chloride 105 Carbon Dioxide 23 BUN 26 H Creatinine 0.85 Glucose 92 Calcium 8.6 Total Bilirubin 0.8 AST 37 ALT 17 Alkaline Phosphatase 80 TSH 7.583 H Active Medications Acetaminophen (Tylenol) 650 mg PO Q6H PRN PRN Reason: Mild Pain/Fever Stop: 02/24/18 04:25 Last Admin: 08/26/17 11:12 Dose: 650 mg Albuterol/Ipratropium (Duoneb) 3 ml IH [id number] PRN; Protocol PRN Reason: Shortness Of Breath/Wheezing Stop: 02/25/18 10:25 Aspirin (Aspirin) 81 mg PO DAILY LEANN Stop: 02/24/18 09:01 Last Admin: 08/26/17 08:32 Dose: 81 mg Furosemide (Lasix) 40 mg IVP BIDDIURETIC LEANN Stop: 02/25/18 10:26 Last Admin: 08/26/17 10:47 Dose: 40 mg Ceftriaxone Sodium 1,000 mg/ (Sterile Water) 10 mls @ 300 mls/hr IVP DAILY LEANN Stop: 02/25/18 11:01 Last Admin: 08/26/17 11:12 Dose: 300 mls/hr Diltiazem HCl 125 mg/ Sodium (Chloride) 125 mls @ 7.5 mls/hr IVC .[id number] LEANN; Titrate PRN Reason: Protocol Stop: 02/25/18 10:39 Last Admin: 08/26/17 12:02 Dose: 10 mls/hr, 10 mls/hr Methylprednisolone (Solu-Medrol) 40 mg IVP Q8HR LEANN Stop: 02/25/18 10:26 Last Admin: 08/26/17 10:48 Dose: 40 mg Metoprolol Succinate (Toprol Xl) 12.5 mg PO DAILY [facility] Stop: 02/25/18 12:46 Metoprolol Succinate (Toprol Xl) 25 mg PO DAILY [facility] Stop: 02/26/18 09:01 Naloxone HCl (Narcan) 0.4 mg IVP Q2MIN PRN PRN Reason: SEE COMMENTS Stop: 02/24/18 04:25 Nicotine (Nicoderm) 21 mg TD DAILY LEANN PRN Reason: Protocol Stop: 02/24/18 09:01 Last Admin: 08/26/17 08:32 Dose: 21 mg Oxycodone HCl (Roxicodone) 5 mg PO Q6H PRN; Protocol PRN Reason: Moderate Pain Stop: 02/24/18 14:11 Last Admin: 08/26/17 08:32 Dose: 5 mg Potassium Chloride (Potassium Chloride) 10 meq PO DAILY LEANN Stop: 02/25/18 10:31 Last Admin: 08/26/17 10:48 Dose: 10 meq Zolpidem Tartrate (Ambien) 5 mg PO HS PRN; Protocol PRN Reason: Insomnia Stop: 02/24/18 20:44 Last Admin: 08/25/17 21:49 Dose: 5 mg - Imaging and Cardiology Echo: pending Other Results: 12 hour tele: avg EC=270 afib. NSVT noted. - EKG Interpretation EKG results cardiology: personally reviewed Consult Discharge Plan - Plan Referrals: NONE,PCP [Primary Care Provider] -
[2017-08-26] MEDS ORDERED: Metoprolol XL (24 HR) Succ 25 MG TAB.ER.24H PO ONE (12:45)
[2017-08-26 22:54] LABS: Estimated Average Glucose 114 mg/dl; Hemoglobin A1C 5.6 %
[2017-08-27] MEDS: *HR* OxyCODONE Immed Rel 5 MG TABLET PO PRN ×4 (02:51→22:47)
[2017-08-27 05:16] LABS: Hemoglobin 9.7 g/dL (11.5-15.4)
[2017-08-27 05:18] LABS: Hematocrit 30.1 % (35.3-44.9); Immature Platelets 2.3 % (1.1-6.1); Mean Corpuscular HGB Conc 32.2 g/dL (31.6-35.5); Mean Corpuscular Hemoglobin 29.4 pg (28.0-33.3); Mean Corpuscular Volume 91.2 fL (83.0-100.0); Mean Platelet Volume 9.6 fL (9.4-12.4); Red Blood Count 3.3 M/mcL (3.82-4.97); Red Cell Distribution Width 17.4 % (11.5-14.5)
[2017-08-27 05:34] LABS: BUN/Creatinine Ratio 36 (6-26); Blood Urea Nitrogen 36 mg/dL (6-20); Calcium 8.6 mg/dL (8.6-10.3); Carbon Dioxide 21 mEq/L (23-29); Chloride 105 mEq/L (98-107); Glucose 177 mg/dL (70-105); Osmolality,Calculated 287 (280-300); Potassium 3.9 mEq/L (3.5-5.1); Sodium 132 mEq/L (136-145); eGFR For African Americans > 60 (> 60); eGFR For Non-African Americans 58 (> 60)
[2017-08-27] MEDS ORDERED: 0.9 % Sodium Chloride 250 ML ONE (06:50)
[2017-08-27] MEDS: 0.9 % Sodium Chloride 500 ML IVC SCH (06:51)
[2017-08-27] MEDS: Aspirin 81 MG TAB.CHEW PO SCH (07:55)
[2017-08-27] MEDS: Metoprolol XL (24 HR) Succ 25 MG TAB.ER.24H PO SCH (07:55)
[2017-08-27] MEDS: MethylPREDNISolone 40 MG/ML VIAL IVP SCH ×3 (07:56→22:47)
[2017-08-27] MEDS: Furosemide 20 MG/2 ML VIAL IVP SCH ×2 (07:56→17:10)
[2017-08-27] MEDS: Nicotine 21 MG PATCH.TD24 TD SCH (07:56)
[2017-08-27] MEDS: cefTRIAXone 1,000 MG in Water for inj. (sterile) 20 ML 10 ML IVP SCH (07:56)
--- NOTE | 2017-08-27 08:18 | Internal Med Progress Note ---
Date of Encounter: 08/27/17 Time of Encounter: 08:16 - Assessment and plan (1) New onset of congestive heart failure Current Visit: Yes Status: Acute Assessment and plan: Possible diastolic CHF exacerbation in the setting of A. fib with RVR, and acute COPD exacerbation Chest x-ray does not report normal findings but there is some vascular congestion Patient given one-time dose of Lasix in the emergency department. -Echocardiogram ordered, pending Continue IV Lasix up to 40 mg twice a day Cardiology recommendations appreciated -Daily weights, I&O. -ASA (2) Acute exacerbation of chronic obstructive pulmonary disease (COPD) Current Visit: Yes Status: Acute Assessment and plan: Acute COPD exacerbation likely secondary to acute bacterial bronchitis Decrease dose of Solu-Medrol, Rocephin day #2 DuoNeb nebs as needed, oxygen therapy Needs pulmonary function tests as outpatient (3) Atrial fibrillation with RVR Current Visit: Yes Status: Acute Assessment and plan: 57-year-old lady with unknown medical history of present with new onset atrial fibrillation with RVR. -Continue Cardizem drip. Cardiology recommendations appreciated -Echocardiogram still pending. -Aspirin -Cardiac monitoring. - Tested negative for respiratory viral panel (4) Anemia Current Visit: Yes Status: Acute Assessment and plan: Patient with anemia. Unknown chronicity. Possible iron deficiency anemia. Qualifiers: Anemia type: unspecified type Qualified Code(s): D64.9 - Anemia, unspecified (5) Tobacco abuse Current Visit: Yes Status: Acute Assessment and plan: Nicotine replacement therapy. (6) DVT prophylaxis Current Visit: Yes Status: Acute Assessment and plan: Heparin 5000 units subcutaneous twice a day. (7) Thrombocytopenia Current Visit: Yes Status: Acute Assessment and plan: Unknown etiology (8) Hypothyroidism Current Visit: Yes Status: Acute Assessment and plan: Start low dose levothyroxine TSH was 7.5 Qualifiers: Hypothyroidism type: unspecified Qualified Code(s): E03.9 - Hypothyroidism , unspecified (9) Anxiety Current Visit: Yes Status: Acute Assessment and plan: Hydroxyzine as needed - Time Spent With Patient Total time spent is greater than 50% in coordination of care (as documented) at patient's floor/unit and/or counseling patient: - Subjective Interval history: Very anxious. Feeling less short of breath, irregular heart rate, palpitations at times, dry cough, sporadic abdominal pain crampy like, no dysuria or diarrhea , no fevers - Constitutional Vitals: Temp Pulse Resp BP Pulse Ox 97.5 F L 98 16 125/65 92 08/27/17 07:38 08/27/17 07:38 08/27/17 07:38 08/27/17 07:38 08/27/17 08:11 General appearance: Present: A&O X 3, pleasant, no acute distress, answers questions appropriately Exam: - Head Head exam: Present: atraumatic, normocephalic - Eye Eye exam: Present: PERRL, conjuntiva pink, sclera anicteric Pupils: Present: PERRL - Neck Neck exam general surgery: Present: supple, trachea midline. Absent: lymphadenopathy - Respiratory Respiratory exam: Present: CTAB, rales (Bibasilar fine crackles with minimal wheezing). Absent: accessory muscle use, rhonchi, wheezes - Cardiovascular Cardiovascular exam: Present: RRR, +S1, +S2. Absent: diastolic murmur, gallop, rubs, systolic murmur - GI/Abdominal GI/Abdominal exam: Present: normal bowel sounds, soft, no peritoneal signs. Absent: distended, tenderness - Extremities Exam Extremities exam: Present: pedal edema (+1 pitting edema in both lower extremities has improved), warm, radial pulses palpable and symmetrical. Absent : calf tenderness, cyanotic - Neurological Exam Neurological exam: Present: CN II-XII intact, oriented X3, no focal deficits. Absent: pronater drift, facial droop, speech deficit - Skin Skin exam: Present: dry, intact Internal Medicine: Result - Labs CBC & Chem 7: 08/27/17 05:03 08/27/17 05:03 Labs: Short CBC 08/27/17 Range/Units 05:03 WBC 7.9 D (4.3-11.1) K/mcL Hgb 9.7 L (11.5-15.4) g/dL Hct 30.1 L (35.3-44.9) % Plt Count 76 L (140-400) K/mcL BMP 08/27/17 05:03 Sodium 132 L Potassium 3.9 Chloride 105 Carbon Dioxide 21 L BUN 36 H Creatinine 0.99 Glucose 177 H Calcium 8.6 - ABG Interpretation ABG results: PT/INR, D-dimer PT 16.9 Seconds (9.4-12.1) H 08/25/17 00:12 Consult Discharge Plan - Plan Referrals: NONE,PCP [Primary Care Provider] -
[2017-08-27] MEDS ORDERED: *HR* Digoxin 0.5 MG/2 ML AMPUL IVP ONE (10:31)
--- NOTE | 2017-08-27 10:44 | Cardiology Progress Note ---
Date of Encounter: 08/27/17 Time of Encounter: 10:30 Assessment and Plan (1) New onset a-fib Current Visit: Yes Status: Acute Newly discovered atrial fibrillation, etiology/chronicity unclear. HR 167 RVR upon admission, control improved with cardizem gtt. Improved from yesterday, not ideal. Recommend rate control strategy for now, unable to anticoagulate. Discussed with Dr. Mercado; will IV digoxin load today, stop IV cardizem gtt as not ideal d/t systolic CHF. Continue BB. TTE shows severely reduced LVEF, 35%, mild-moderate MR, moderate PH TSH abnormal--defer to primary service. CHA2Ds Vasc=2 (female, CHF). H/H and platelets continue to downtrend, unable to safely anticoagulate. Discussed with primary service, recommend inpatient Hem/ Onc consult. (2) CHF (congestive heart failure) Current Visit: Yes Status: Acute Presents with CHF symptoms--found to have acute systolic CHF, chronicity unclear. Patient reports feeling unwell for months. Reports increased stress d/t passing of her son 2 months ago. FFT=179, CXR stable. Cumulative I&O: +2200 mL (? accuracy) Recommend LHC to r/o ischemic etiology; however unable to safely proceed due to declining H/H and platelets. Again, recommend Hem/Onc consult. Continue BB. Cautious diuresis. Consider ACEi/ARB upon d/c if able Strict I&Os, daily weights, and Na/fluid restriction diet. Will continue to follow. Qualifiers: Heart failure type: unspecified Heart failure chronicity: unspecified Qualified Code(s): I50.9 - Heart failure, unspecified (3) Anemia Current Visit: Yes Status: Acute With thrombocytopenia, PLT 76 Patient reports she takes 3-6 OTC excedrin for years for chronic headaches. Recommend hem/onc consult. Qualifiers: Anemia type: unspecified type Qualified Code(s): D64.9 - Anemia, unspecified Discussion w patient/family: The assessment and plan as outlined above was discussed with the patient and/or family members who expressed understanding and agreement. All questions were answered. Thank you for involving us in the care of your patient. Please call with any questions. The patient will be discussed and reviewed with Dr. Mercado; changes to be made accordingly. Subjective Principal diagnosis: Afib, CHF Interval history: Seen and examined. Overall feels better today, continues to have dyspnea with minimal exertion. Reports leg edema somewhat improved. Tearful, anxious upon exam. Objective Vital Signs, Last 4 Hours Temp Pulse Resp BP Pulse Ox 08/27/17 08:11 92 08/27/17 07:38 97.5 F L 98 16 125/65 92 General: Conversant, No Apparent Distress HEENT: Atraumatic, Normocephaly, Mucus Membranes Moist Cardiac: Other (irregularly irregular) Lungs: Normal Breath Sounds Neuro: Alert and responsive Abdomen: Soft Skin: Other (palmar erythema) Extremities: Other (+1-2 BLE to knees) Results 08/27/17 05:03 08/27/17 05:03 Lab Results 08/27/17 08/27/17 05:03 05:03 WBC 7.9 D Hgb 9.7 L Hct 30.1 L Plt Count 76 L Sodium 132 L Potassium 3.9 Chloride 105 Carbon Dioxide 21 L BUN 36 H Creatinine 0.99 Glucose 177 H Calcium 8.6 Active Medications Acetaminophen (Tylenol) 650 mg PO Q6H PRN PRN Reason: Mild Pain/Fever Stop: 02/24/18 04:25 Last Admin: 08/26/17 23:17 Dose: 650 mg Albuterol/Ipratropium (Duoneb) 3 ml IH [id number] PRN; Protocol PRN Reason: Shortness Of Breath/Wheezing Stop: 02/25/18 10:25 Aspirin (Aspirin) 81 mg PO DAILY LEANN Stop: 02/24/18 09:01 Last Admin: 08/27/17 07:55 Dose: 81 mg Digoxin (Lanoxin) 0.25 mg IVP Q8H LEANN Stop: 08/28/17 02:01 Furosemide (Lasix) 40 mg IVP BIDDIURETIC LEANN Stop: 02/25/18 10:26 Last Admin: 08/27/17 07:56 Dose: 40 mg Hydroxyzine HCl (Hydroxyzine) 10 mg PO TID PRN PRN Reason: Anxiety Stop: 02/25/18 15:48 Last Admin: 08/27/17 07:56 Dose: 10 mg Ceftriaxone Sodium 1,000 mg/ (Sterile Water) 10 mls @ 300 mls/hr IVP DAILY LEANN Stop: 02/25/18 11:01 Last Admin: 08/27/17 07:56 Dose: 300 mls/hr Diltiazem HCl 125 mg/ Sodium (Chloride) 125 mls @ 7.5 mls/hr IVC .[id number] [facility]; Titrate PRN Reason: Protocol Stop: 02/25/18 10:39 Last Titration: 08/26/17 18:29 Dose: 5 mls/hr, 5 mls/hr Levothyroxine Sodium (Synthroid) 25 mcg PO DAILY@0630 [facility] Stop: 02/27/18 07:38 Methylprednisolone (Solu-Medrol) 40 mg IVP BID [facility] Stop: 02/26/18 09:01 Last Admin: 08/27/17 09:04 Dose: 40 mg Metoprolol Succinate (Toprol Xl) 25 mg PO DAILY [facility] Stop: 02/26/18 09:01 Last Admin: 08/27/17 07:55 Dose: 25 mg Naloxone HCl (Narcan) 0.4 mg IVP Q2MIN PRN PRN Reason: SEE COMMENTS Stop: 02/24/18 04:25 Nicotine (Nicoderm) 21 mg TD DAILY [facility] PRN Reason: Protocol Stop: 02/24/18 09:01 Last Admin: 08/27/17 07:56 Dose: 21 mg Oxycodone HCl (Roxicodone) 10 mg PO Q6H PRN; Protocol PRN Reason: Moderate Pain Stop: 02/24/18 14:11 Last Admin: 08/27/17 09:06 Dose: 10 mg Potassium Chloride (Potassium Chloride) 10 meq PO DAILY [facility] Stop: 02/25/18 10:31 Last Admin: 08/27/17 07:56 Dose: 10 meq Zolpidem Tartrate (Ambien) 5 mg PO HS PRN; Protocol PRN Reason: Insomnia Stop: 02/24/18 20:44 Last Admin: 08/26/17 20:49 Dose: 5 mg - Imaging and Cardiology Echo: report reviewed Other Results: 12 hour tele: avg HR=92 - EKG Interpretation EKG results cardiology: personally reviewed Consult Discharge Plan - Plan Referrals: NONE,PCP [Primary Care Provider] -
[2017-08-27] MEDS: Acetaminophen 325 MG TABLET PO PRN ×2 (11:52→23:38)
[2017-08-27 13:16] LABS: Immature Reticulocyte % 27.8 % (11.0-38.0); Retculocyte # 0.07 M/mcL (0.05-0.10); Reticulocyte % 2.3 % (1.6-2.8)
[2017-08-27 14:20] LABS: HIV-1&2 Antibody & p24 Ag Nonreactive (Nonreactive); Hepatitis A Antibody IgM Nonreactive (Nonreactive)
[2017-08-27 14:56] LABS: Hepatitis B Surface Antigen Reactive (Nonreactive); Hepatitis C Virus Antibody Reactive (Nonreactive)
[2017-08-27 14:57] LABS: Hepatitis B Core IgM Reactive (Nonreactive)
--- NOTE | 2017-08-27 16:09 | Oncology Inp Consult Note ---
<Aleida Lobo L - Last Filed: 08/27/17 15:54> Date of Encounter: 08/27/17 Time of Encounter: 14:00 Assessment and Plan (1) Anemia Status: Acute Assessment and plan: Normocytic, Normochromic. Chronicity unclear as patient has not had regular health care in a number of years. Etiology unclear at this time-likely secondary to anemia of chronic disease pending further workup, however, given her iron deficiency acute blood loss cannot be ruled out at this time/may play factor in anemia. Underlying liver disease is of suspect- Patient is reactive for hepatitis C Ab and Hepatitis Bs Antigen/Hepatitis B Core IgM Abdominal US-pending, scheduled for 8 pm tonight If signs of end stage liver disease identified with varices, upper GI blood loss cannot be ruled out. Occult stool sample ordered-pending No history of prior screening colonoscopy/EGD, denies recent s/s bleeding such as melena, hematochezia, hematemesis, hematuria. B12 and folate replete. LDH normal. Iron deficient-start oral iron Further GI consultation inpatient vs. outpatient to be considered. Presently, patient is not receiving anticoagulation for new onset A-fib given her anemia/thrombocytopenia with unestablished etiology. She is rate controlled at this time. Qualifiers: Anemia type: unspecified type Qualified Code(s): D64.9 - Anemia, unspecified (2) Thrombocytopenia Status: Acute Assessment and plan: As discussed above, acute vs chronic in nature is TBD pending further workup. Given reactive hepatitis B&C, thrombocytopenia may be chronic in nature and secondary to liver disease. Abdominal US planned for this evening. Further determination on etiology to be determined pending US results. Please refer to Dr. Rivera's attestation below for additional details. - Data of Consult Patient: new to practice Consult date: 08/27/17 Requesting Physician: Shawn Vick Primary Care Provider: PCP NONE - Consult Narrative Reason for consult: Bicytopenia History of present illness: Ms. Sales is a 57 year old female who presented to ER on 08/25/2017 with acute and progressively worsening SOB and LE edema. Patient states she has not been to physician or hospital in years and has no prior medical history. She was found to be in a-fib with RVR and placed on cardizem gtt. Her BNP is elevated with signs of congestion on her CXR. She was admitted with further cardiology workup. She was found to have acute systolic CHF with LVEF 35%, chronicity unclear. Patient states she has not felt well over past 2 months since her son has . Cardiology considering [facility], hematology consulted for further evaluation of bicytopenia. Unable to safely anticoagulate at this time. Past Med Surg Social Fam HX - Past Medical History Medical history: no medical history Psychiatric history: no psych history - Social History Smoking Status: Current every day smoker Alcohol use: none Drug use: none - Family History Mother Adopted: No Cause of : heart attack Hx Family Cardiac Disorders: Yes (mother heart attack) Hx Family Respiratory Disorders: Yes (mother, brother, father COPD) Hx Family Cancer: Yes (mother, breast) Hx Family GI Disorders: No Hx Family Genitourinary Disorders: No Hx Family Endocrine Disorder: Yes (mother dm) Hx Family Musculoskeletal Disorders: No Hx Family Neuromuscular Disorders: No Hx Family Neurologic Disorders: No Hx Family HEENT Disorders: No Hx Family Autoimmune Disorders: No Hx Family Reproductive Disorders: No Hx Family Psychosocial Disorders: No Hx Family Medical Disorders: No Medications and Allergies No Known Home Drugs 08/25/17 [History] 3 Allergy/AdvReac Type Severity Reaction Status Date / Time No Known Allergies Allergy Verified 08/25/17 00:25 Constitutional: Present: fatigue, headache(s). Absent: chills, fever(s) Eyes: Present: floaters. Absent: blurry vision Nose, mouth and throat: Present: headache(s) Additional comments: reports chronic migraines Cardiovascular: Present: dyspnea, edema. Absent: chest pain Respiratory: Present: dyspnea. Absent: cough Gastrointestinal: Present: abdominal pain. Absent: change in bowel habits, change in stool character, diarrhea, hematemesis, hematochezia, melena, nausea, vomiting Genitourinary: Absent: dysuria, hematuria Integumentary: Absent: wounds Neurological: Absent: focal weakness, frequent falls Psychiatric: Absent: change in appetite Hematologic/Lymphatic: Present: as per HPI Oncology - Exam - Constitutional Vitals: Temp Pulse Resp BP Pulse Ox 98.2 F 82 16 94/65 98 08/27/17 11:00 08/27/17 11:00 08/27/17 11:00 08/27/17 11:00 08/27/17 11:00 General appearance: cooperative, no acute distress, obese, no febrile - Head Head exam: Present: atraumatic - ENT ENT exam: Present: mucous membranes moist - Respiratory Respiratory exam: Present: CTAB. Absent: respiratory distress - Cardiovascular Cardiovascular exam: Present: irregular rhythm - GI/Abdominal GI/Abdominal exam: Present: normal bowel sounds, soft. Absent: tenderness - Extremities Exam Extremities exam: Absent: calf tenderness Additional comments: +2 BLE edema extending to knees - Neurological Exam Neurological exam: Present: alert, oriented X3, no focal deficits, strengths equal and symetr throughout - Psychiatric Psychiatric exam: Present: anxious Additional comments: tearful at times - Skin Skin exam: Present: dry, intact, normal color, warm Oncology - Results Labs: Short CBC 08/27/17 Range/Units 05:03 WBC 7.9 D (4.3-11.1) K/mcL Hgb 9.7 L (11.5-15.4) g/dL Hct 30.1 L (35.3-44.9) % Plt Count 76 L (140-400) K/mcL BMP 08/27/17 05:03 Sodium 132 L Potassium 3.9 Chloride 105 Carbon Dioxide 21 L BUN 36 H Creatinine 0.99 Glucose 177 H Calcium 8.6 Consult Discharge Plan - Plan Referrals: NONE,PCP [Primary Care Provider] - <Jonn Rivera - Last Filed: 08/28/17 08:19> Date of Encounter: 08/27/17 - Data of Consult Requesting Physician: Shawn Vick Primary Care Provider: CÉSAR NONE - Consult Narrative History of present illness: Ms. Sales is a 57 year old female Oncology - Exam - Constitutional Vitals: Temp Pulse Resp BP Pulse Ox 98.0 F 81 17 102/65 92 08/28/17 06:38 08/28/17 06:38 08/28/17 06:38 08/28/17 06:38 08/28/17 06:38 Oncology - Results Labs: Short CBC 08/28/17 Range/Units 05:23 WBC 14.3 H D (4.3-11.1) K/mcL Hgb 9.6 L (11.5-15.4) g/dL Hct 29.7 L (35.3-44.9) % Plt Count 85 L (140-400) K/mcL Neutrophils # 12.6 H (1.6-8.9) K/mcL BMP 08/28/17 05:23 Sodium 133 L Potassium 4.3 Chloride 105 Carbon Dioxide 22 L BUN 50 H Creatinine 1.30 H Glucose 142 H Calcium 8.7 - Attending Attestation Seen and examined patient and agree with assessment and plan. Patient with iron deficiency anemia and thrombocytopenia. Getting u/s. I suspect that she likely has liver disease casusing portal hypertension resulting in splenic sequestration and potentially varices causing blood loss anemia. Will need endoscopic evaluation.
[2017-08-27] MEDS: *HR* Digoxin 0.5 MG/2 ML AMPUL IVP SCH (17:10)
--- NOTE | 2017-08-28 00:03 | Event Note ---
Date of Encounter: 08/27/17 Time of Encounter: 21:15 Notified by ultrasound that patient's ordered ultrasound of abdomen was going to be inconclusive due to presence of extensive gas in colon which would make results of US essentially inconclusive. I canceled ultrasound and had patient transported back to room. Patient reported she had not had bowel movement in 2 days. MiraLAX ordered. Pt. to be NPO at midnight d/t planned cardiology intervention. US will need to be re-scheduled once pt. is able to have BM and provide better imaging.
[2017-08-28] MEDS: *HR* Digoxin 0.5 MG/2 ML AMPUL IVP SCH (01:33)
[2017-08-28] MEDS: *HR* OxyCODONE Immed Rel 5 MG TABLET PO PRN ×3 (05:18→18:10)
[2017-08-28 05:36] LABS: Basophils % 0.1 %; Immature Granulocytes % 1.1 % (0-4); Mean Corpuscular Volume 93.1 fL (83.0-100.0); Red Cell Distribution Width 17.4 % (11.5-14.5)
[2017-08-28 05:38] LABS: Hematocrit 29.7 % (35.3-44.9); Hemoglobin 9.6 g/dL (11.5-15.4); Immature Platelets 2.1 % (1.1-6.1); Mean Corpuscular HGB Conc 32.3 g/dL (31.6-35.5); Mean Corpuscular Hemoglobin 30.1 pg (28.0-33.3); Monocytes # 0.5 K/mcL (0.0-1.3); Monocytes % 3.6 %; Red Blood Count 3.19 M/mcL (3.82-4.97); Segmented Neutrophils % 88.2 %
[2017-08-28 05:39] LABS: Neutrophils # 12.6 K/mcL (1.6-8.9); Platelet Count 85 K/mcL (140-400)
[2017-08-28 05:59] LABS: Calcium 8.7 mg/dL (8.6-10.3); Potassium 4.3 mEq/L (3.5-5.1)
[2017-08-28] MEDS: Metoprolol XL (24 HR) Succ 25 MG TAB.ER.24H PO SCH (07:26)
[2017-08-28] MEDS: Aspirin 81 MG TAB.CHEW PO SCH (07:26)
[2017-08-28] MEDS: Acetaminophen 325 MG TABLET PO PRN ×3 (07:26→21:20)
[2017-08-28] MEDS: Nicotine 21 MG PATCH.TD24 TD SCH (07:26)
[2017-08-28] MEDS: MethylPREDNISolone 40 MG/ML VIAL IVP SCH ×2 (07:26→21:21)
[2017-08-28] MEDS: Furosemide 20 MG/2 ML VIAL IVP SCH (07:27)
[2017-08-28] MEDS: cefTRIAXone 1,000 MG in Water for inj. (sterile) 20 ML 10 ML IVP SCH (07:27)
[2017-08-28] MEDS: Levothyroxine 25 MCG TABLET PO SCH (07:28)
--- NOTE | 2017-08-28 09:14 | Cardiology Progress Note ---
Date of Encounter: 08/28/17 Time of Encounter: 08:30 Assessment and Plan (1) New onset a-fib Current Visit: Yes Status: Acute Newly discovered atrial fibrillation, etiology/chronicity unclear. HR 167 RVR upon admission, control improved with cardizem gtt. Improved from yesterday, not ideal. Recommend rate control strategy for now, unable to anticoagulate. Avg HR=82 afib overnight s/p IV digoxin load. Stop cardizem gtt. Continue BB-- continue to increase as BP will tolerate. TTE shows severely reduced LVEF, 35%, mild-moderate MR, moderate PH TSH abnormal--defer to primary service. CHA2Ds Vasc=2 (female, CHF). H/H and platelets continue to downtrend, unable to safely anticoagulate. Hem/onc consulted, appreciate recommendations. (2) CHF (congestive heart failure) Current Visit: Yes Status: Acute Presents with CHF symptoms--found to have acute systolic CHF, chronicity unclear. Patient reports feeling unwell for months. Reports increased stress d/t passing of her son 2 months ago. BTA=287, CXR stable. Cumulative I&O: +2645 mL (? accuracy) Weight appears to have increased; however patient reports symptoms have improved. Mild SCr bump today, 1.3--will stop IV lasix and start PO lasix daily. Recommend LHC to r/o ischemic etiology; however unable to safely proceed due to declining H/H and platelets. Occult stool pending. Continue BB. Consider ACEi/ARB upon d/c if able Strict I&Os, daily weights, and Na/fluid restriction diet. Will continue to follow. Qualifiers: Heart failure type: unspecified Heart failure chronicity: unspecified Qualified Code(s): I50.9 - Heart failure, unspecified (3) Anemia Current Visit: Yes Status: Acute With thrombocytopenia, PLT 76 Patient reports she takes 3-6 OTC excedrin for years for chronic headaches. Hep B/C positive--pending ultrasound of Abd/liver today, was unable to complete yesterday d/t gas--will keep NPO until completed. Appreciate hem/onc recommendations. Qualifiers: Anemia type: unspecified type Qualified Code(s): D64.9 - Anemia, unspecified Discussion w patient/family: The assessment and plan as outlined above was discussed with the patient and/or family members who expressed understanding and agreement. All questions were answered. Thank you for involving us in the care of your patient. Please call with any questions. The patient will be discussed and reviewed with Dr. Mercado; changes to be made accordingly. Subjective Principal diagnosis: Afib, CHF Interval history: Seen and examined. Overall feels better today, continues to have dyspnea with minimal exertion. Reports leg edema somewhat improved. No chest pain reported. Tachycardia improved. Tearful, anxious upon exam. Objective Vital Signs, Last 4 Hours Temp Pulse Resp BP Pulse Ox 08/28/17 06:38 98.0 F 81 17 102/65 92 General: Conversant, No Apparent Distress, Other (tearful, anxious) HEENT: Atraumatic, Normocephaly, Mucus Membranes Moist Neck: No JVD Cardiac: Other (irregularly irregular) Lungs: Other (Wheezes throughout) Neuro: Alert and responsive Abdomen: Soft Skin: No rashes noted on visualized skin Musculoskeletal: No Chest Wall Tenderness Extremities: Other (+1-2 BLE edema to knees) Results 08/28/17 05:23 08/28/17 05:23 Lab Results 08/28/17 08/28/17 05:23 05:23 WBC 14.3 H D Hgb 9.6 L Hct 29.7 L Plt Count 85 L Sodium 133 L Potassium 4.3 Chloride 105 Carbon Dioxide 22 L BUN 50 H Creatinine 1.30 H Glucose 142 H Calcium 8.7 Active Medications Acetaminophen (Tylenol) 650 mg PO Q6H PRN PRN Reason: Mild Pain/Fever Stop: 02/24/18 04:25 Last Admin: 08/28/17 07:26 Dose: 650 mg Albuterol/Ipratropium (Duoneb) 3 ml IH [id number] PRN; Protocol PRN Reason: Shortness Of Breath/Wheezing Stop: 02/25/18 10:25 Aspirin (Aspirin) 81 mg PO DAILY LEANN Stop: 02/24/18 09:01 Last Admin: 08/28/17 07:26 Dose: 81 mg Ferrous Sulfate (Ferrous Sulfate) 325 mg PO DAILY@0800 LEANN Stop: 03/01/18 08:01 Furosemide (Lasix) 40 mg PO DAILY LEANN Stop: 02/27/18 09:01 Hydroxyzine HCl (Hydroxyzine) 10 mg PO TID PRN PRN Reason: Anxiety Stop: 02/25/18 15:48 Last Admin: 08/28/17 07:26 Dose: 10 mg Ceftriaxone Sodium 1,000 mg/ (Sterile Water) 10 mls @ 300 mls/hr IVP DAILY [facility] Stop: 02/25/18 11:01 Last Admin: 08/28/17 07:27 Dose: 300 mls/hr Levothyroxine Sodium (Synthroid) 25 mcg PO DAILY@0630 [facility] Stop: 02/27/18 07:38 Last Admin: 08/28/17 07:28 Dose: 25 mcg Methylprednisolone (Solu-Medrol) 40 mg IVP BID [facility] Stop: 02/26/18 09:01 Last Admin: 08/28/17 07:26 Dose: 40 mg Metoprolol Succinate (Toprol Xl) 25 mg PO DAILY [facility] Stop: 02/26/18 09:01 Last Admin: 08/28/17 07:26 Dose: 25 mg Naloxone HCl (Narcan) 0.4 mg IVP Q2MIN PRN PRN Reason: SEE COMMENTS Stop: 02/24/18 04:25 Nicotine (Nicoderm) 21 mg TD DAILY LEANN PRN Reason: Protocol Stop: 02/24/18 09:01 Last Admin: 08/28/17 07:26 Dose: 21 mg Oxycodone HCl (Roxicodone) 10 mg PO Q6H PRN; Protocol PRN Reason: Moderate Pain Stop: 02/24/18 14:11 Last Admin: 08/28/17 05:18 Dose: 10 mg Polyethylene Glycol (Miralax) 17 gm PO DAILY [facility] Stop: 02/26/18 22:31 Last Admin: 08/27/17 23:33 Dose: 17 gm Potassium Chloride (Potassium Chloride) 10 meq PO DAILY [facility] Stop: 02/25/18 10:31 Last Admin: 08/28/17 07:26 Dose: 10 meq Zolpidem Tartrate (Ambien) 5 mg PO HS PRN; Protocol PRN Reason: Insomnia Stop: 02/24/18 20:44 Last Admin: 08/27/17 22:48 Dose: 5 mg - Imaging and Cardiology Echo: report reviewed Other Results: 12 hour tele: avg HR=82 afib. - EKG Interpretation EKG results cardiology: personally reviewed Consult Discharge Plan - Plan Referrals: NONE,PCP [Primary Care Provider] -
[2017-08-28] MEDS: Furosemide 40 MG TABLET PO SCH (09:39)
[2017-08-28] MEDS ORDERED: *HR* OxyCODONE/APAP 5/325 TABLET PO PRN (10:26)
--- NOTE | 2017-08-28 11:04 | Internal Med Progress Note ---
<Asia Romeo - Last Filed: 08/28/17 14:48> Date of Encounter: 08/28/17 Time of Encounter: 10:51 - Assessment and plan (1) New onset of congestive heart failure Current Visit: Yes Status: Acute Assessment and plan: Acute systolic heart failure Cardiology recommends LHC, possibly tomorrow, to rule out ischemic etiology. Stop IV lasix, start PO lasix Cardiology recommendations appreciated Daily weights, I&O (2) Atrial fibrillation with RVR Current Visit: Yes Status: Acute Assessment and plan: Rate currently controlled. Completed IV digoxin load last night. New onset Afib with RVR, etiology and chronicity remain unclear. Cardizem drip stopped. Continue Toprol XL 25 mg once daily; if further rate control needed change to BID dosing. Not anticoagulated d/t thrombocytopenia and anemia, CHA2Ds VASC=2. Cardiology following, further recommendations appreciated. (3) Anemia Current Visit: Yes Status: Acute Assessment and plan: Normochromic, normocytic iron deficiency anemia Iron supplementation started No signs of active bleeding Heme/onc following, recommendations appreciated Qualifiers: Anemia type: unspecified type Qualified Code(s): D64.9 - Anemia, unspecified (4) Thrombocytopenia Current Visit: Yes Status: Acute Assessment and plan: Stable. Platelet count 85. Etiology unclear. Suspect related to liver disease, given reactive Hep B and C results. Abdominal ultrasound to assist in determining etiology. Abdominal ultrasound pending--Unable to be performed last night d/t large amounts of gas in colon. Heme/onc following, recommendations appreciated. (5) Acute exacerbation of chronic obstructive pulmonary disease (COPD) Current Visit: Yes Status: Acute Assessment and plan: Needs PFT as out-patient Continue DuoNebs as needed Continue Rocephin, day 3 Stop IV Solu-medrol, start PO prednisone (6) Hypothyroidism Current Visit: Yes Status: Acute Assessment and plan: TSH elevated 7.58 Begin synthroid 24 mcg daily Qualifiers: Hypothyroidism type: unspecified Qualified Code(s): E03.9 - Hypothyroidism , unspecified (7) Tobacco abuse Current Visit: Yes Status: Acute Assessment and plan: Nicotine patch. (8) DVT prophylaxis Current Visit: Yes Status: Acute Assessment and plan: Heparin 5000 units subcutaneous twice a day. (9) Anxiety Current Visit: Yes Status: Acute Assessment and plan: Hydroxyzine 10 mg TID PRN - Time Spent With Patient Total time spent is greater than 50% in coordination of care (as documented) at patient's floor/unit and/or counseling patient: - Subjective Interval history: Seen and examined at bedside. Pt is feeling okay today. Continues to have generalized abdominal discomfort worse with palpation and sitting up or leaning forward. Bilateral lower extremities continue to feel "tight." Hasn't had bowel movement yet, but reports flatus last night. Denies nausea, vomiting, fever, chills, chest pain, dysuria, hematuria. Admits: some shortness of breath on exertion, migraine this morning (resolved), constipation. - Constitutional Vitals: Temp Pulse Resp BP Pulse Ox 98.0 F 81 17 102/65 92 08/28/17 06:38 08/28/17 06:38 08/28/17 06:38 08/28/17 06:38 08/28/17 06:38 General appearance: Present: A&O X 3, pleasant, no acute distress, answers questions appropriately - Head Head exam: Present: atraumatic, normocephalic - Eye Eye exam: Present: EOMI, sclera anicteric - Neck Neck exam general surgery: Present: supple, trachea midline - Respiratory Respiratory exam: Present: CTAB. Absent: rales, respiratory distress, rhonchi, wheezes - Cardiovascular Cardiovascular exam: Present: RRR, +S1, +S2. Absent: diastolic murmur, systolic murmur - GI/Abdominal GI/Abdominal exam: Present: normal bowel sounds, soft, tenderness. Absent: distended, guarding, rigid - Extremities Exam Extremities exam: Present: pedal edema, tenderness, warm. Absent: cyanotic, mottling Additional comments: DP pulses present and equal bilaterally - Neurological Exam Neurological exam: Present: alert, oriented X3. Absent: motor sensory deficit, no focal deficits, speech deficit - Psychiatric Psychiatric exam: Present: normal affect, normal mood - Skin Skin exam: Present: rash, warm Additional comments: petechial-like; bilateral palms peripherally, central aspect of palms clear Internal Medicine: Result - Labs CBC & Chem 7: 08/28/17 05:23 08/28/17 05:23 Labs: Short CBC 08/28/17 Range/Units 05:23 WBC 14.3 H D (4.3-11.1) K/mcL Hgb 9.6 L (11.5-15.4) g/dL Hct 29.7 L (35.3-44.9) % Plt Count 85 L (140-400) K/mcL Neutrophils # 12.6 H (1.6-8.9) K/mcL BMP 08/28/17 05:23 Sodium 133 L Potassium 4.3 Chloride 105 Carbon Dioxide 22 L BUN 50 H Creatinine 1.30 H Glucose 142 H Calcium 8.7 - ABG Interpretation ABG results: PT/INR, D-dimer PT 16.9 Seconds (9.4-12.1) H 08/25/17 00:12 Consult Discharge Plan - Plan Referrals: NONE,PCP [Primary Care Provider] - Abner Mcdaniels MD [Non-Partnered Physician] - 09/05/17 10:30 am (Please follow up as schedule...) <Nettie Verdin - Last Filed: 08/28/17 16:37> Date of Encounter: 08/28/17 - Assessment and plan (1) New onset of congestive heart failure Current Visit: Yes Status: Acute (2) Atrial fibrillation with RVR Current Visit: Yes Status: Acute (3) Anemia Current Visit: Yes Status: Acute Qualifiers: Anemia type: unspecified type Qualified Code(s): D64.9 - Anemia, unspecified (4) Tobacco abuse Current Visit: Yes Status: Acute (5) DVT prophylaxis Current Visit: Yes Status: Acute (6) Thrombocytopenia Current Visit: Yes Status: Acute (7) Acute exacerbation of chronic obstructive pulmonary disease (COPD) Current Visit: Yes Status: Acute (8) Hypothyroidism Current Visit: Yes Status: Acute Qualifiers: Hypothyroidism type: unspecified Qualified Code(s): E03.9 - Hypothyroidism , unspecified (9) Anxiety Current Visit: Yes Status: Acute - Time Spent With Patient Total time spent is greater than 50% in coordination of care (as documented) at patient's floor/unit and/or counseling patient: - Constitutional Vitals: Temp Pulse Resp BP Pulse Ox 96.5 F L 90 18 113/69 93 08/28/17 16:19 08/28/17 16:19 08/28/17 16:19 08/28/17 16:19 08/28/17 16:19 Internal Medicine: Result - Labs CBC & Chem 7: 08/28/17 05:23 08/28/17 05:23 Labs: Short CBC 08/28/17 Range/Units 05:23 WBC 14.3 H D (4.3-11.1) K/mcL Hgb 9.6 L (11.5-15.4) g/dL Hct 29.7 L (35.3-44.9) % Plt Count 85 L (140-400) K/mcL Neutrophils # 12.6 H (1.6-8.9) K/mcL BMP 08/28/17 05:23 Sodium 133 L Potassium 4.3 Chloride 105 Carbon Dioxide 22 L BUN 50 H Creatinine 1.30 H Glucose 142 H Calcium 8.7 - ABG Interpretation ABG results: PT/INR, D-dimer PT 16.9 Seconds (9.4-12.1) H 08/25/17 00:12 - Attending Attestation I examined this patient and my medical decision-making was reviewed with the Resident Physician Dr. Romeo. I agree with the documented findings, disposition and treatment plan as described except to the extent set forth below. Ms. Sales is a 57 y/o F admitted here for acute CHF exacerbation. She also happened to have slightly elevated LFT's, anemia and throbocytopenia. Pt states she is feeling little better today. Denied any CP. Denied any Abd pain. Gen: A, A< O x 3 Chest: Diminished BS b/l no crackles Heart: S1S2 + No murmurs Abd: Soft, NT a/p 1. Acute systolic CHF exacerbation Improving Scheduled for LHC in AM Switched to PO Lasix cont ACEI ad BB 2.Afib with RVR rate controlled with Digoxin and Metoprolol d/c cardizem after GI work up will start her on anti coag 3. Acute vs Chronic anemia 4. Thrombocytopenia U/S Liver - P GI consulted Heme onc on board 5. Hepatitis B inf GI consulted
[2017-08-29] MEDS: *HR* OxyCODONE Immed Rel 5 MG TABLET PO PRN ×4 (03:03→21:58)
[2017-08-29] MEDS: Levothyroxine 25 MCG TABLET PO SCH (05:08)
[2017-08-29] MEDS: Acetaminophen 325 MG TABLET PO PRN ×2 (06:21→13:49)
[2017-08-29 06:43] LABS: Mean Corpuscular HGB Conc 31.1 g/dL (31.6-35.5); Red Cell Distribution Width 17.3 % (11.5-14.5)
[2017-08-29 06:45] LABS: Basophils % 0.1 %; Hematocrit 30.2 % (35.3-44.9); Hemoglobin 9.4 g/dL (11.5-15.4); Immature Granulocytes % 0.7 % (0-4); Immature Platelets 1.8 % (1.1-6.1); Lymphocytes # 0.8 K/mcL (0.6-4.6); Lymphocytes % 9.5 %; Mean Corpuscular Hemoglobin 29.1 pg (28.0-33.3); Mean Corpuscular Volume 93.5 fL (83.0-100.0); Mean Platelet Volume 9.5 fL (9.4-12.4); Monocytes # 0.3 K/mcL (0.0-1.3); Monocytes % 3.3 %; Neutrophils # 7.6 K/mcL (1.6-8.9); Platelet Count 73 K/mcL (140-400); Red Blood Count 3.23 M/mcL (3.82-4.97); Segmented Neutrophils % 86.4 %
[2017-08-29 07:23] LABS: BUN/Creatinine Ratio 50 (6-26); Blood Urea Nitrogen 43 mg/dL (6-20); Calcium 8.5 mg/dL (8.6-10.3); Carbon Dioxide 25 mEq/L (23-29); Chloride 110 mEq/L (98-107); Glucose 157 mg/dL (70-105); Osmolality,Calculated 298 (280-300); Potassium 4.3 mEq/L (3.5-5.1); Sodium 137 mEq/L (136-145); eGFR For African Americans > 60 (> 60); eGFR For Non-African Americans > 60 (> 60)
[2017-08-29] MEDS: cefTRIAXone 1,000 MG in Water for inj. (sterile) 20 ML 10 ML IVP SCH (09:31)
[2017-08-29] MEDS: *HR* Digoxin 0.125 MG TABLET PO SCH (09:32)
[2017-08-29] MEDS: Nicotine 21 MG PATCH.TD24 TD SCH (09:32)
[2017-08-29] MEDS: Metoprolol XL (24 HR) Succ 25 MG TAB.ER.24H PO SCH (09:32)
[2017-08-29] MEDS: Aspirin 81 MG TAB.CHEW PO SCH (09:32)
[2017-08-29] MEDS: Furosemide 40 MG TABLET PO SCH (09:32)
[2017-08-29] MEDS: MethylPREDNISolone 40 MG/ML VIAL IVP SCH (09:33)
--- NOTE | 2017-08-29 09:58 | Internal Med Progress Note ---
<Asia Romeo - Last Filed: 08/29/17 18:45> Date of Encounter: 08/29/17 Time of Encounter: 09:58 - Assessment and plan (1) New onset of congestive heart failure Current Visit: Yes Status: Acute Assessment and plan: Acute systolic heart failure Cardiology recommends LHC to rule out ischemic etiology. Continue PO lasix Cardiology recommendations appreciated Daily weights, I&O (2) Atrial fibrillation with RVR Current Visit: Yes Status: Acute Assessment and plan: Rate currently controlled. New onset Afib with RVR, etiology and chronicity remain unclear--Cardiology recommends LHC to rule out ischemia as cause. Continue digoxin 0.125mg daily Continue Toprol XL 25 mg once daily; if further rate control needed change to BID dosing. Not anticoagulated d/t thrombocytopenia and anemia, CHA2Ds VASC=2. Cardiology following, further recommendations appreciated. (3) Anemia Current Visit: Yes Status: Acute Assessment and plan: Hgb 9.4 and Hct 30.2 today Normochromic, normocytic iron deficiency anemia--stable since admission Iron supplementation started, continue No signs of active bleeding Possible slow GI bleed, stool occult ordered and pending GI consulted for possible endoscopy need Heme/onc following, recommendations appreciated Qualifiers: Anemia type: unspecified type Qualified Code(s): D64.9 - Anemia, unspecified (4) Thrombocytopenia Current Visit: Yes Status: Acute Assessment and plan: Stable. Platelet count 73. Etiology unclear, but likely related to underlying liver cirrhosis. . Heme/onc following, recommendations appreciated. (5) Acute exacerbation of chronic obstructive pulmonary disease (COPD) Current Visit: Yes Status: Acute Assessment and plan: Needs PFT as out-patient Continue DuoNebs as needed Continue Rocephin, day 4 Start PO prednisone (6) Cirrhosis Current Visit: Yes Status: Acute Assessment and plan: Cirrhotic appearance of liver seen on RUQ ultrasound Most likely d/t Hep B and Hep C infection. LFTs have been within normal range. Will need endoscopy per GI GI following, recommendations appreciated Qualifiers: Hepatic cirrhosis type: unspecified hepatic cirrhosis Ascites presence: without ascites Qualified Code(s): K74.60 - Unspecified cirrhosis of liver (7) Hepatitis B Current Visit: Yes Status: Acute Assessment and plan: Hep B (+) on hepatitis panel Labs for active infection currently pending GI consulted, recommendations appreciated (8) Hepatitis C Current Visit: Yes Status: Acute Assessment and plan: Hep C (+) on hepatitis panel Labs pending for active infection Likely d/t multiple non-professional tattoosl GI consulted, recommendations appreciated Qualifiers: Viral hepatitis chronicity: unspecified Hepatic coma status: without hepatic coma Qualified Code(s): B19.20 - Unspecified viral hepatitis C without hepatic coma (9) Hypothyroidism Current Visit: Yes Status: Acute Assessment and plan: TSH elevated 7.58 Continue synthroid 24 mcg daily Qualifiers: Hypothyroidism type: unspecified Qualified Code(s): E03.9 - Hypothyroidism , unspecified (10) Anxiety Current Visit: Yes Status: Acute Assessment and plan: Hydroxyzine 10 mg TID PRN (11) Tobacco abuse Current Visit: Yes Status: Acute Assessment and plan: Nicotine patch. (12) DVT prophylaxis Current Visit: Yes Status: Acute Assessment and plan: Not on anticoagulation d/t thrombocytopenia and suspicion for slow GI bleed. (13) Common bile duct dilation Current Visit: Yes Status: Acute Assessment and plan: RUQ ultrasound shows CBD dilated to 11 mm, no intrahepatic biliary dilation, gallbladder visualization was limited but no findings specific for acute cholecystitis GI following - Time Spent With Patient Total time spent is greater than 50% in coordination of care (as documented) at patient's floor/unit and/or counseling patient: - Subjective Interval history: Seen and examined at bedside. Pt is feeling okay today.Denies nausea, vomiting, fever, chills, chest pain, dysuria, hematuria. - Constitutional Vitals: Temp Pulse Resp BP Pulse Ox 98.1 F 101 15 113/76 94 08/29/17 07:23 08/29/17 07:23 08/29/17 07:23 08/29/17 07:23 08/29/17 07:23 General appearance: Present: A&O X 3, pleasant, no acute distress, answers questions appropriately - Other Additional findings: General: AAOx3, No acute distress, resting comfortably in bed HEENT: PERRL/ EOMI, moist mucus membranes, non traumatic, normocephalic Neck: Supple, trachea midline Cardio: RRR, no murmurs, S1/S2 Pulm: CTAB, no wheezing, rhonchi, rales. Normal respiratory effort. Abdomen: soft, generalized tenderness, BS+, no rebound, rigidity, guarding, distention Extremities: Bilateral pedal edema, DP pulses present and equal bilaterally Back: Nontender throughout Neuro: AAOx3, no focal neurological defecit, normal gait, CN II-XII intact grossly MSK: Strength 5/5 throughout Psych: Appropriate mood and affect. Answers questions appropriately. Cooperative with exam Internal Medicine: Result - Labs CBC & Chem 7: 08/29/17 06:13 08/29/17 08:33 Labs: Short CBC 08/29/17 Range/Units 06:13 WBC 8.8 (4.3-11.1) K/mcL Hgb 9.4 L (11.5-15.4) g/dL Hct 30.2 L (35.3-44.9) % Plt Count 73 L (140-400) K/mcL Neutrophils # 7.6 (1.6-8.9) K/mcL BMP 08/29/17 06:13 Sodium 137 Potassium 4.3 Chloride 110 H Carbon Dioxide 25 BUN 43 H Creatinine 0.86 Glucose 157 H Calcium 8.5 L - ABG Interpretation ABG results: PT/INR, D-dimer PT 16.9 Seconds (9.4-12.1) H 08/25/17 00:12 Consult Discharge Plan - Plan Referrals: NONE,PCP [Primary Care Provider] - Abner Mcdaniels MD [Non-Partnered Physician] - 09/05/17 10:30 am (Please follow up as schedule...) <Nettie Verdin - Last Filed: 08/30/17 07:57> Date of Encounter: 08/29/17 - Assessment and plan (1) New onset of congestive heart failure Current Visit: Yes Status: Acute (2) Atrial fibrillation with RVR Current Visit: Yes Status: Acute (3) Anemia Current Visit: Yes Status: Acute Qualifiers: Anemia type: unspecified type Qualified Code(s): D64.9 - Anemia, unspecified (4) Tobacco abuse Current Visit: Yes Status: Acute (5) DVT prophylaxis Current Visit: Yes Status: Acute (6) Thrombocytopenia Current Visit: Yes Status: Acute (7) Acute exacerbation of chronic obstructive pulmonary disease (COPD) Current Visit: Yes Status: Acute (8) Hypothyroidism Current Visit: Yes Status: Acute Qualifiers: Hypothyroidism type: unspecified Qualified Code(s): E03.9 - Hypothyroidism , unspecified (9) Anxiety Current Visit: Yes Status: Acute (10) Cirrhosis Current Visit: Yes Status: Acute Qualifiers: Hepatic cirrhosis type: unspecified hepatic cirrhosis Ascites presence: without ascites Qualified Code(s): K74.60 - Unspecified cirrhosis of liver (11) Hepatitis B Current Visit: Yes Status: Acute Qualifiers: Viral hepatitis chronicity: unspecified Hepatic coma status: without hepatic coma Qualified Code(s): B19.10 - Unspecified viral hepatitis B without hepatic coma (12) Hepatitis C Current Visit: Yes Status: Acute Qualifiers: Viral hepatitis chronicity: unspecified Hepatic coma status: without hepatic coma Qualified Code(s): B19.20 - Unspecified viral hepatitis C without hepatic coma (13) Common bile duct dilation Current Visit: Yes Status: Acute - Time Spent With Patient Total time spent is greater than 50% in coordination of care (as documented) at patient's floor/unit and/or counseling patient: - Constitutional Vitals: Temp Pulse Resp BP Pulse Ox 98.0 F 95 16 116/77 97 08/30/17 06:47 08/30/17 06:47 08/30/17 06:47 08/30/17 06:47 08/30/17 06:47 Internal Medicine: Result - Labs CBC & Chem 7: 08/30/17 03:25 08/30/17 03:25 Labs: Short CBC 08/30/17 Range/Units 03:25 WBC 10.3 (4.3-11.1) K/mcL Hgb 10.2 L (11.5-15.4) g/dL Hct 32.4 L (35.3-44.9) % Plt Count 84 L (140-400) K/mcL Neutrophils # 7.5 (1.6-8.9) K/mcL BMP 08/29/17 08/30/17 08:33 03:25 Sodium 136 136 Potassium 4.2 4.4 Chloride 108 H 108 H Carbon Dioxide 23 23 BUN 42 H 35 H Creatinine 0.81 0.71 Glucose 155 H 124 H Calcium 8.4 L 8.9 Liver Function 08/29/17 Range/Units 08:33 Total Bilirubin 0.9 (0.3-1.0) mg/dL AST 27 (13-39) Units/L ALT 17 (7-52) Units/L Alkaline Phosphatase 71 (34-104) Units/L Albumin 3.2 L (3.5-5.7) g/dL - ABG Interpretation ABG results: PT/INR, D-dimer PT 16.9 Seconds (9.4-12.1) H 08/25/17 00:12 - Impressions Impressions Liver Ultrasound 08/29/17 08:24 IMPRESSION: 1. Limited visualization of the gallbladder, which may contain internal stones or sludge. No findings specific for acute cholecystitis are present. 2. The common bile duct is dilated to 11 mm. No evidence of intrahepatic biliary dilation. 3. Cirrhotic appearance of the liver, without focal mass. D/ / 08/29/2017 11:11:29 Berto Jackson MD / [facility] Interpreting Provider: Berto Jackson MD Abdomen MRI 08/29/17 13:14 IMPRESSION: Motion limited study. Markedly dilated common bile duct and dilated pancreatic duct. Obstructing mass is not excluded on the basis of this examination. Consider further evaluation with ERCP. Hepatic cirrhosis. Cholelithiasis. D/ / 08/29/2017 18:34:55 Mykel Rivera MD / [facility] Interpreting Provider: Mykel Rivera MD - Attending Attestation I examined this patient and my medical decision-making was reviewed with the Resident Physician Dr. Romeo. I agree with the documented findings, disposition and treatment plan as described except to the extent set forth below. Ms. Sales is a 57 y/o F admitted here for acute CHF exacerbation. She also happened to have slightly elevated LFT's, anemia and throbocytopenia. Pt states she is feeling little better today. Denied any CP. She does c/o epigastric pain Gen: A, A, O x 3 Chest: Diminished BS b/l no crackles Heart: S1S2 + No murmurs Abd: Soft, NT a/p 1. Acute systolic CHF exacerbation Improving LHC by Card when pt cleared from GI stand point Cont PO Lasix cont ACEI ad BB 2.Afib with RVR rate controlled with Digoxin and Metoprolol d/c cardizem after GI work up will start her on anti coag 3. Acute vs Chronic anemia 4. Thrombocytopenia U/S Liver -slightly dilated CBD MRCP needed GI consulted Heme onc on board 5. Hepatitis B inf GI consulted
[2017-08-29 10:54] LABS: Alanine Aminotransferase 17 Units/L (7-52); Albumin 3.2 g/dL (3.5-5.7); Albumin/Globulin Ratio 0.8 (1.1-2.2); Alkaline Phosphatase 71 Units/L (34-104); Aspartate Amino Transferase 27 Units/L (13-39); BUN/Creatinine Ratio 52 (6-26); Bilirubin,Total 0.9 mg/dL (0.3-1.0); Blood Urea Nitrogen 42 mg/dL (6-20); Calcium 8.4 mg/dL (8.6-10.3); Carbon Dioxide 23 mEq/L (23-29); Chloride 108 mEq/L (98-107); Globulin 4.1 g/dL (2.4-3.5); Glucose 155 mg/dL (70-105); Osmolality,Calculated 296 (280-300); Potassium 4.2 mEq/L (3.5-5.1); Sodium 136 mEq/L (136-145); Total Protein 7.3 g/dL (6.4-8.9); eGFR For African Americans > 60 (> 60); eGFR For Non-African Americans > 60 (> 60)
[2017-08-29 12:16] LABS: Hepatitis B Surface Antibody 7.52 mIU/mL
--- NOTE | 2017-08-29 12:23 | Cardiology Progress Note ---
Date of Encounter: 08/29/17 Time of Encounter: 08:45 Assessment and Plan (1) New onset a-fib Current Visit: Yes Status: Acute Newly diagnosed atrial fibrillation this admisson. Deies previous history. HR 167 RVR upon admission, control improved with cardizem gtt and IV dig load. Converted to oral cardizem yesterday. BB continued. Telemetry review shows avg HR 72 bmp. There was intermittent runs NSVT up to 22 beats long. TTE shows severely reduced LVEF, 35%, mild-moderate MR, moderate PH TSH abnormal--defer to primary service. CHA2Ds Vasc=2 (female, CHF). H/H and platelets continue to downtrend, unable to safely anticoagulate. Hem/onc consulted. Oncology and GI eval pending. (2) CHF (congestive heart failure) Current Visit: Yes Status: Acute Presents with CHF symptoms--found to have acute systolic CHF, chronicity unclear. Patient reports feeling unwell for months. UEX=984, CXR stable. Cumulative I&O: +2400 mL, negative 450 for 24 hours. Continues to have BLE edema but improved per patient. Mild SCr bump yesterday and IV lasix changed to oral. May have been intravascularly dry. Edema likely multifactoral. Continue oral lasix. Recommend LHC to r/o ischemic etiology once GI evaluation for possible esophogeal varicies completed. Continue to monitor PLT and HGB. Continue BB. Consider ACEi/ARB upon d/c if able Strict I&Os, daily weights, and Na/fluid restriction diet. Will continue to follow. Qualifiers: Heart failure type: unspecified Heart failure chronicity: unspecified Qualified Code(s): I50.9 - Heart failure, unspecified (3) Anemia Current Visit: Yes Status: Acute With thrombocytopenia, PLT 73 Patient reports she takes 3-6 OTC excedrin for years for chronic headaches. Hep B/C positive-liver US completed. Cirrhotic appearing liver. Appreciate hem/onc and GI recommendations. Qualifiers: Anemia type: unspecified type Qualified Code(s): D64.9 - Anemia, unspecified Discussion w patient/family: The assessment and plan as outlined above was discussed with the patient and/or family members who expressed understanding and agreement. All questions were answered. Thank you for involving us in the care of your patient. Please call with any questions. Subjective Principal diagnosis: Afib, CHF Interval history: C/o lower back pain and stomach burning today. Objective Vital Signs, Last 4 Hours Temp Pulse Resp BP Pulse Ox 08/29/17 11:05 98.0 F 94 18 123/88 95 General: Conversant, No Apparent Distress HEENT: Atraumatic, Normocephaly, Mucus Membranes Moist Neck: No JVD, Normal carotid pulses Cardiac: Reg Rate and Rhythm, Normal S1 and S2, No Murmur Lungs: Normal Breath Sounds, No Wheeze, Rales, Rhonchi Neuro: Alert and responsive, No focal deficits noted Abdomen: Soft, Non-Tender Skin: No rashes noted on visualized skin Musculoskeletal: Other (mid epigastric pain. ) Extremities: No Clubbing, No Cyanosis, No Edema, Normal Pulses Results 08/29/17 06:13 08/29/17 08:33 Lab Results 08/29/17 08/29/17 08/29/17 06:13 06:13 08:33 WBC 8.8 Hgb 9.4 L Hct 30.2 L Plt Count 73 L Sodium 137 136 Potassium 4.3 4.2 Chloride 110 H 108 H Carbon Dioxide 25 23 BUN 43 H 42 H Creatinine 0.86 0.81 Glucose 157 H 155 H Calcium 8.5 L 8.4 L Total Bilirubin 0.9 AST 27 ALT 17 Alkaline Phosphatase 71 Consult Discharge Plan - Plan Referrals: NONE,PCP [Primary Care Provider] - Abner Mcdaniels MD [Non-Partnered Physician] - 09/05/17 10:30 am (Please follow up as schedule...)
[2017-08-29 12:36] LABS: Hepatitis B Core IgM Nonreactive (Nonreactive)
--- NOTE | 2017-08-29 14:12 | Gastroenterology Consult Note ---
<Reginaldo Elizabethn Kem - Last Filed: 08/30/17 09:47> Date of Encounter: 08/30/17 Time of Encounter: 12:00 - Assessment and plan (1) Cirrhosis Status: Acute Assessment and plan: Likely due to Hep B/C infection. Labs ordered. LFTs normal. Will need EGD. Advised pt to avoid tylenol, alcohol. Qualifiers: Hepatic cirrhosis type: unspecified hepatic cirrhosis Ascites presence: without ascites Qualified Code(s): K74.60 - Unspecified cirrhosis of liver (2) Hepatitis B Status: Acute Assessment and plan: Labs ordered to test for active infection Qualifiers: Viral hepatitis chronicity: unspecified Hepatic coma status: without hepatic coma Qualified Code(s): B19.10 - Unspecified viral hepatitis B without hepatic coma (3) Hepatitis C Status: Acute Assessment and plan: Likely due to nonprofessional tattoos. labs pending for active infection Qualifiers: Viral hepatitis chronicity: unspecified Hepatic coma status: without hepatic coma Qualified Code(s): B19.20 - Unspecified viral hepatitis C without hepatic coma (4) Common bile duct dilation Status: Acute Assessment and plan: Pt has abdominal pain, MRCP ordered, may need ERcP if abnormal - Time Spent With Patient Total time spent is greater than 50% in coordination of care (as documented) at patient's floor/unit and/or counseling patient: GI History of Present Illness - Data of Consult Patient: new to practice Consult date: 08/29/17 Requesting Physician: Shawn Vick - Consult Narrative Reason for consult: abd pain, hepb/c History of present illness: Ms. Sales is a 57 year old female with no known past medical history who presented to [facility] on 08/25/2017 with chief complaints of shortness of breath and bilateral lower extremity edema. Ms. Sales states she has not seen a doctor or been to a hospital in at least 10 years. She states for the past 2 weeks she has been experiencing progressively worsening shortness of breath and lower extremity swelling. In the emergency department she was found to be in atrial fibrillation with RVR. She was started on a Cardizem drip. Her BNP was elevated and she was given a dose of IV Lasix. During examination, patient is resting comfortably. She states her shortness of breath has improved since being started on the medication given in the emergency department. She denies any active chest pain, nausea, vomiting, or diaphoresis. She does report shortness of air. She denies feeling palpitations. She denies orthopnea. She admits to nausea and vomiting, she denies diarrhea, melena, hematochezia, or hematemesis. She complains of constipation. She reports a headache and reports that she takes otc NSAIDS several times a day at home. She was also found to have anemia and thrombocytopenia. Hep B and C were reactive. She denies knowing about hepatitis infection. she denies history of IV drug use. She states she has 11 homemade tattoos. She denies any alcohol use. MELD NA 14 CHILD PEARL: 6 Colonoscopy: denies EGD: denies NSAIDS/ASA: ASA 81 mg Anticoagulants: denies Past Med Surg Social Fam HX - Past Medical History Medical history: no medical history Psychiatric history: no psych history - Social History Smoking Status: Current every day smoker Alcohol use: none Drug use: none - Family History Mother Adopted: No Cause of : heart attack Hx Family Cardiac Disorders: Yes (mother heart attack) Hx Family Respiratory Disorders: Yes (mother, brother, father COPD) Hx Family Cancer: Yes (mother, breast) Hx Family GI Disorders: No Hx Family Genitourinary Disorders: No Hx Family Endocrine Disorder: Yes (mother dm) Hx Family Musculoskeletal Disorders: No Hx Family Neuromuscular Disorders: No Hx Family Neurologic Disorders: No Hx Family HEENT Disorders: No Hx Family Autoimmune Disorders: No Hx Family Reproductive Disorders: No Hx Family Psychosocial Disorders: No Hx Family Medical Disorders: No Review of Systems: GI: as per [place] GENERAL: denies fever or chills EYES: denies yellow discoloration ENT: denies pain with swallowing or difficulty swallowing CARDIO: denies chest pain, palpitations RESP: Shortness of breath with exertion : dark urine NEURO: weakness HEME: Denies any bruising MS: chronic back and joint pain DERM: denies rash or itching PSYCH: history of anxiety and depression - Constitutional Vitals: Temp Pulse Resp BP Pulse Ox 98.0 F 94 18 123/88 95 08/29/17 11:05 08/29/17 11:05 08/29/17 11:05 08/29/17 11:05 08/29/17 11:05 Exam: CONSTITUTIONAL:~alert, no acute distress.~HEAD:~normocephalic.~EYES:~no jaundice.~NECK:~no obvious swelling.~HEART:~regular rate and rhythm, no murmurs. ~LUNGS:~bilateral poor air entry.~ABDOMEN:~non distended, soft, non tender, no masses palpable, no organomegaly.~RECTAL EXAM:~Deferred.~EXTREMITIES:~no clubbing, cyanosis or edema.~SKIN:~no stigmata of chronic liver disease.~ NEUROLOGIC:~no obvious focal defect.~~~~ Results - Labs CBC & Chem 7: 08/30/17 03:25 08/30/17 03:25 Labs: Last Result Calcium 8.4 mg/dL (8.6-10.3) L 08/29/17 08:33 Iron 18 mcg/dL (50-170) L 08/26/17 04:11 % Saturation 3 % (15-50) L 08/26/17 04:11 Transferrin 406 mg/dL (203-362) H 08/26/17 04:11 Ferritin 33 ng/ml (10-120) 08/26/17 04:11 Troponin I < 0.03 ng/mL (< 0.04) 08/25/17 11:21 Vitamin B12 > 1500 pg/mL (250-1100) H 08/26/17 04:11 Folate 15.7 ng/mL (3.0-16.0) 08/26/17 04:11 Entire Visit Hgb 9.4 g/dL (11.5-15.4) L 08/29/17 06:13 Hct 30.2 % (35.3-44.9) L 08/29/17 06:13 Haptoglobin 83 mg/dL (30-200) 08/27/17 12:13 PT 16.9 Seconds (9.4-12.1) H 08/25/17 00:12 Ferritin 33 ng/ml (10-120) 08/26/17 04:11 Total Bilirubin 0.9 mg/dL (0.3-1.0) 08/29/17 08:33 AST 27 Units/L (13-39) 08/29/17 08:33 ALT 17 Units/L (7-52) 08/29/17 08:33 Folate 15.7 ng/mL (3.0-16.0) 08/26/17 04:11 - ABG ABG results: PT/INR, D-dimer PT 16.9 Seconds (9.4-12.1) H 08/25/17 00:12 - Impressions Impressions Liver Ultrasound 08/29/17 08:24 IMPRESSION: 1. Limited visualization of the gallbladder, which may contain internal stones or sludge. No findings specific for acute cholecystitis are present. 2. The common bile duct is dilated to 11 mm. No evidence of intrahepatic biliary dilation. 3. Cirrhotic appearance of the liver, without focal mass. D/ / 08/29/2017 11:11:29 Berto Jackson MD / [facility] Interpreting Provider: Berto Jackson MD Consult Discharge Plan - Plan Referrals: NONE,PCP [Primary Care Provider] - Abner Mcdaniels MD [Non-Partnered Physician] - 09/05/17 10:30 am (Please follow up as schedule...) - Attending Attestation alejandra <Bandar Brewster - Last Filed: 09/05/17 05:35> Date of Encounter: 08/30/17 - Time Spent With Patient Total time spent is greater than 50% in coordination of care (as documented) at patient's floor/unit and/or counseling patient: GI History of Present Illness - Data of Consult Requesting Physician: Shawn Vick - Consult Narrative History of present illness: Ms. Sales is a 57 year old female - Constitutional Vitals: Temp Pulse Resp BP Pulse Ox 97.9 F 110 16 110/69 98 08/30/17 18:52 08/30/17 18:52 08/30/17 18:52 08/30/17 18:52 08/30/17 18:52 Results - Labs CBC & Chem 7: 08/30/17 03:25 08/30/17 03:25 Labs: Last Result Calcium 8.9 mg/dL (8.6-10.3) 08/30/17 03:25 Iron 18 mcg/dL (50-170) L 08/26/17 04:11 % Saturation 3 % (15-50) L 08/26/17 04:11 Transferrin 406 mg/dL (203-362) H 08/26/17 04:11 Ferritin 33 ng/ml (10-120) 08/26/17 04:11 Troponin I < 0.03 ng/mL (< 0.04) 08/25/17 11:21 Vitamin B12 > 1500 pg/mL (250-1100) H 08/26/17 04:11 Folate 15.7 ng/mL (3.0-16.0) 08/26/17 04:11 Hep Bs Ag Confirmation POSITIVE (Non Confirmed) A 08/27/17 12:13 HCV RNA (PCR) IUs/ml <15 IU/mL 08/29/17 08:33 HCV RNA PCR log IUs/ml <1.2 log IU 08/29/17 08:33 HCV RNA (PCR) Interp NOT DETECTED (Not Detected) 08/29/17 08:33 Entire Visit Hgb 10.2 g/dL (11.5-15.4) L 08/30/17 03:25 Hct 32.4 % (35.3-44.9) L 08/30/17 03:25 Haptoglobin 83 mg/dL (30-200) 08/27/17 12:13 PT 16.9 Seconds (9.4-12.1) H 08/25/17 00:12 Ferritin 33 ng/ml (10-120) 08/26/17 04:11 Total Bilirubin 1.0 mg/dL (0.3-1.0) 08/30/17 09:03 AST 32 Units/L (13-39) 08/30/17 09:03 ALT 21 Units/L (7-52) 08/30/17 09:03 Folate 15.7 ng/mL (3.0-16.0) 08/26/17 04:11 - ABG ABG results: PT/INR, D-dimer PT 16.9 Seconds (9.4-12.1) H 08/25/17 00:12 - Attending Attestation Patient with double duct sign. Multiple comorbid problems. Normal liver enzymes. Grade III esophageal varices. Hepatitis B and C. Recommend transferring this patient to [facility] for present. Discussed with team. I have personally performed a face to face evaluation on this patient. I have reviewed and agree with the care plan. History and Exam by me shows:
--- NOTE | 2017-08-29 15:11 | Oncology Inp Progress Note ---
Date of Encounter: 08/29/17 Time of Encounter: 14:30 (1) Anemia Current Visit: Yes Status: Acute Assessment and plan: Normocytic, Normochromic. Stable since admission. NATHANAEL of unclear etiology, slow GI loss is of concern, will defer to GI for scopes needed inpatient vs. outpatient. Occult stool sample ordered-pending, no BM since admission. No history of prior screening colonoscopy/EGD, denies recent s/s bleeding such as melena, hematochezia, hematemesis, hematuria. B12 and folate replete. LDH normal. Iron deficient-started oral iron Presently, patient is not receiving anticoagulation for new onset A-fib given her anemia. This may be better determined following EGD. She is rate controlled at this time, cardiology managing. Awaiting GI consultation prior to decision on LHC. Discussed the above plan with patient at today's visit. Qualifiers: Anemia type: unspecified type Qualified Code(s): D64.9 - Anemia, unspecified (2) Thrombocytopenia Current Visit: Yes Status: Acute Assessment and plan: Stable since admission. Patient is reactive for hepatitis C Ab and Hepatitis Bs Antigen/Hepatitis B Core IgM-GI has been consulted. Lab work pending to help delineate active infection. Thrombocytopenia secondary to underlying liver cirrhosis. Discussed with patient at appointment today. GI now on board, appreciate recommendations. At this time, hematology will sign off case. Please feel free to contact with any further questions or concerns. Oncology: Subj Interval history: Ms. Sales is resting in bed. She is preparing for her MRI soon. She reports generalized weakness. Her sister is at bedside. She is frustrated and upset regarding her newly diagnosed hepatitis infection. Verbal support given. - Constitutional Vitals: Vital Signs Temp Pulse Resp BP Pulse Ox 08/29/17 11:05 98.0 F 94 18 123/88 95 08/29/17 07:23 98.1 F 101 15 113/76 94 08/29/17 04:02 97.9 F 85 16 111/74 96 08/28/17 23:30 97.9 F 71 16 117/80 96 08/28/17 18:50 97.5 F L 76 16 108/70 97 08/28/17 16:19 96.5 F L 90 18 113/69 93 Intake and Output 08/28/17 08/29/17 08/29/17 23:59 07:59 15:59 Other: Weight 119 kg Patient Weight 08/29/17 23:59 Weight 119 kg General appearance: cooperative, no acute distress, no febrile - Head Head exam: Present: atraumatic - ENT ENT exam: Present: mucous membranes moist - Respiratory Respiratory exam: Present: CTAB. Absent: respiratory distress - Cardiovascular Cardiovascular exam: Present: irregular rhythm - GI/Abdominal GI/Abdominal exam: Present: normal bowel sounds, soft, tenderness - Extremities Exam Extremities exam: Present: pedal edema Additional comments: +1-2 pitting edema BLE - Neurological Exam Neurological exam: Present: alert, oriented X3, no focal deficits, strengths equal and symetr throughout - Psychiatric Psychiatric exam: Present: depressed Additional comments: tearful at times - Skin Skin exam: Present: dry, intact, normal color, warm Oncology: Obj Data - Labs CBC & Chem 7: 08/29/17 06:13 08/29/17 08:33 - Impressions Impressions Liver Ultrasound 08/29/17 08:24 IMPRESSION: 1. Limited visualization of the gallbladder, which may contain internal stones or sludge. No findings specific for acute cholecystitis are present. 2. The common bile duct is dilated to 11 mm. No evidence of intrahepatic biliary dilation. 3. Cirrhotic appearance of the liver, without focal mass. D/ / 08/29/2017 11:11:29 Berto Jackson MD / [facility] Interpreting Provider: Berto Jackson MD - ABG Interpretation ABG results: PT/INR, D-dimer PT 16.9 Seconds (9.4-12.1) H 08/25/17 00:12 Consult Discharge Plan - Plan Referrals: NONE,PCP [Primary Care Provider] - Abner Mcdaniels MD [Non-Partnered Physician] - 09/05/17 10:30 am (Please follow up as schedule...)
[2017-08-29] MEDS: *HR* OxyCODONE/APAP 5/325 TABLET PO PRN (18:53)
[2017-08-29] MEDS: Ondansetron 4 MG/2 ML VIAL IVP PRN (21:04)
[2017-08-30] MEDS: *HR* OxyCODONE/APAP 5/325 TABLET PO PRN (01:01)
[2017-08-30 03:43] LABS: Red Blood Count 3.44 M/mcL (3.82-4.97); Red Cell Distribution Width 17.5 % (11.5-14.5)
[2017-08-30 03:45] LABS: Hematocrit 32.4 % (35.3-44.9); Hemoglobin 10.2 g/dL (11.5-15.4); Immature Granulocytes % 0.9 % (0-4); Immature Platelets 1.6 % (1.1-6.1); Lymphocytes # 1.6 K/mcL (0.6-4.6); Lymphocytes % 15.5 %; Mean Corpuscular HGB Conc 31.5 g/dL (31.6-35.5); Mean Corpuscular Hemoglobin 29.7 pg (28.0-33.3); Mean Corpuscular Volume 94.2 fL (83.0-100.0); Mean Platelet Volume 9.4 fL (9.4-12.4); Monocytes # 1.1 K/mcL (0.0-1.3); Monocytes % 10.5 %; Neutrophils # 7.5 K/mcL (1.6-8.9); Nucleated Red Blood Cells 0.2 /100 WBC (0); Segmented Neutrophils % 73.1 %
[2017-08-30 03:50] LABS: Platelet Count 84 K/mcL (140-400)
[2017-08-30] MEDS: *HR* OxyCODONE Immed Rel 5 MG TABLET PO PRN (04:04)
[2017-08-30 04:09] LABS: BUN/Creatinine Ratio 49 (6-26); Blood Urea Nitrogen 35 mg/dL (6-20); Calcium 8.9 mg/dL (8.6-10.3); Carbon Dioxide 23 mEq/L (23-29); Chloride 108 mEq/L (98-107); Glucose 124 mg/dL (70-105); Osmolality,Calculated 291 (280-300); Potassium 4.4 mEq/L (3.5-5.1); Sodium 136 mEq/L (136-145); eGFR For African Americans > 60 (> 60); eGFR For Non-African Americans > 60 (> 60)
[2017-08-30] MEDS: Levothyroxine 25 MCG TABLET PO SCH (05:54)
[2017-08-30] MEDS ORDERED: Sennosides/Docusate Sodium TABLET PO PRN (07:59)
[2017-08-30 08:09] LABS: Magnesium 2.1 mg/dL (1.6-2.6)
[2017-08-30] MEDS ORDERED: *HR* FentaNYL (PF) 100 MCG/2 ML VIAL IVP PRN (08:30)
[2017-08-30] MEDS ORDERED: Morphine Oral CONC 5 MG/0.25 ML ORAL.SYG PO PRN (08:30)
[2017-08-30] MEDS ORDERED: predniSONE 20 MG TABLET PO SCH ×2 (09:00)
[2017-08-30] MEDS: Aspirin 81 MG TAB.CHEW PO SCH (09:08)
[2017-08-30] MEDS: *HR* Digoxin 0.125 MG TABLET PO SCH (09:09)
[2017-08-30] MEDS: Nicotine 21 MG PATCH.TD24 TD SCH (09:10)
[2017-08-30] MEDS: cefTRIAXone 1,000 MG in Water for inj. (sterile) 20 ML 10 ML IVP SCH (09:10)
[2017-08-30] MEDS: Metoprolol XL (24 HR) Succ 25 MG TAB.ER.24H PO SCH (09:10)
[2017-08-30] MEDS: Furosemide 40 MG TABLET PO SCH (09:10)
[2017-08-30] MEDS: MORPHINE SUL Oral CONC 10 MG/0.5 ML ORAL.SYG SL PRN ×3 (09:16→18:03)
[2017-08-30] MEDS: Ondansetron 4 MG/2 ML VIAL IVP PRN ×2 (09:16→18:03)
[2017-08-30 09:37] LABS: Albumin 3.2 g/dL (3.5-5.7); Albumin/Globulin Ratio 0.8 (1.1-2.2); Bilirubin,Direct 0.4 mg/dL (0.0-0.2); Bilirubin,Indirect 0.6 mg/dL (0.0-1.2); Globulin 4.1 g/dL (2.4-3.5); Total Protein 7.3 g/dL (6.4-8.9)
--- NOTE | 2017-08-30 09:37 | Gastroenterology Progress Note ---
<Cynthia Elizabeth - Last Filed: 08/30/17 09:34> Date of Encounter: 08/30/17 Time of Encounter: 09:00 - Assessment and plan (1) Cirrhosis Status: Acute Assessment and plan: Likely due to Hep B/C infection. Labs ordered. LFTs normal. Will need EGD. Advised pt to avoid tylenol, alcohol. US does not show discreet mass.LFTs pending. Qualifiers: Hepatic cirrhosis type: unspecified hepatic cirrhosis Ascites presence: without ascites Qualified Code(s): K74.60 - Unspecified cirrhosis of liver (2) Hepatitis B Status: Acute Assessment and plan: Labs pending Qualifiers: Viral hepatitis chronicity: unspecified Hepatic coma status: without hepatic coma Qualified Code(s): B19.10 - Unspecified viral hepatitis B without hepatic coma (3) Hepatitis C Status: Acute Assessment and plan: Labs pending Qualifiers: Viral hepatitis chronicity: unspecified Hepatic coma status: without hepatic coma Qualified Code(s): B19.20 - Unspecified viral hepatitis C without hepatic coma (4) Common bile duct dilation Status: Acute Assessment and plan: MRCP showed Nodular contour of the liver with areas of fibrosis and widening of the perifissural spaces is consistent with hepatic cirrhosis. No focal liver lesion is seen. Mild intrahepatic ductal dilatation. Cholelithiasis. Common bile duct is markedly dilated measuring up to 18 mm. There is focal narrowing near the pancreatic head. The pancreatic duct appears dilated near the head of the pancreas. No discrete pancreatic lesion is seen although evaluation is limited by significant motion. Discussed with Dr Brewster, he feels pt is a very high risk bleeding due to varices and thrombocytopenia he will discuss transfer to [facility] with Dr Verdin. Discussed with pt and she verbalizes understanding. - Time Spent With Patient Total time spent is greater than 50% in coordination of care (as documented) at patient's floor/unit and/or counseling patient: - Subjective Interval history: 57 year old female. She continues to complain of pain across her abdomen. She is tearful and asking for something for pain. She complains of nausea denies vomiting. - Constitutional Vitals: Temp Pulse Resp BP Pulse Ox 98.0 F 95 16 116/77 97 08/30/17 06:47 08/30/17 06:47 08/30/17 06:47 08/30/17 06:47 08/30/17 06:47 Exam: CONSTITUTIONAL:~alert, acute distress.~HEAD:~normocephalic.~EYES:~no jaundice.~ NECK:~no obvious swelling.~HEART:~ tachycardia, no murmurs.~LUNGS:~bilateral good air entry.~ABDOMEN:~ softly distended, very tender, difficult to assess due to tenderness.~RECTAL EXAM:~Deferred.~EXTREMITIES:~no clubbing, cyanosis, 2 + ble edema, multiple tattoos, linear scars to left forearm.~SKIN:~sallow color noted.~NEUROLOGIC:~no obvious focal defect.~~~~ Results - Labs CBC & Chem 7: 08/30/17 03:25 08/30/17 03:25 Labs: Last Result Calcium 8.9 mg/dL (8.6-10.3) 08/30/17 03:25 Iron 18 mcg/dL (50-170) L 08/26/17 04:11 % Saturation 3 % (15-50) L 08/26/17 04:11 Transferrin 406 mg/dL (203-362) H 08/26/17 04:11 Ferritin 33 ng/ml (10-120) 08/26/17 04:11 Troponin I < 0.03 ng/mL (< 0.04) 08/25/17 11:21 Vitamin B12 > 1500 pg/mL (250-1100) H 08/26/17 04:11 Folate 15.7 ng/mL (3.0-16.0) 08/26/17 04:11 Entire Visit Hgb 10.2 g/dL (11.5-15.4) L 08/30/17 03:25 Hct 32.4 % (35.3-44.9) L 08/30/17 03:25 Haptoglobin 83 mg/dL (30-200) 08/27/17 12:13 PT 16.9 Seconds (9.4-12.1) H 08/25/17 00:12 Ferritin 33 ng/ml (10-120) 08/26/17 04:11 Total Bilirubin 0.9 mg/dL (0.3-1.0) 08/29/17 08:33 AST 27 Units/L (13-39) 08/29/17 08:33 ALT 17 Units/L (7-52) 08/29/17 08:33 Folate 15.7 ng/mL (3.0-16.0) 08/26/17 04:11 - ABG ABG results: PT/INR, D-dimer PT 16.9 Seconds (9.4-12.1) H 08/25/17 00:12 - Impressions Impressions Liver Ultrasound 08/29/17 08:24 IMPRESSION: 1. Limited visualization of the gallbladder, which may contain internal stones or sludge. No findings specific for acute cholecystitis are present. 2. The common bile duct is dilated to 11 mm. No evidence of intrahepatic biliary dilation. 3. Cirrhotic appearance of the liver, without focal mass. D/ / 08/29/2017 11:11:29 Berto Jackson MD / [facility] Interpreting Provider: Berto Jackson MD Abdomen MRI 08/29/17 13:14 IMPRESSION: Motion limited study. Markedly dilated common bile duct and dilated pancreatic duct. Obstructing mass is not excluded on the basis of this examination. Consider further evaluation with ERCP. Hepatic cirrhosis. Cholelithiasis. D/ / 08/29/2017 18:34:55 Mykel Rivera MD / [facility] Interpreting Provider: Mykel Rivera MD Consult Discharge Plan - Plan Referrals: NONE,PCP [Primary Care Provider] - Abner Mcdaniels MD [Non-Partnered Physician] - 09/05/17 10:30 am (Please follow up as schedule...) <Bandar Brewster - Last Filed: 09/05/17 05:55> Date of Encounter: 08/30/17 - Time Spent With Patient Total time spent is greater than 50% in coordination of care (as documented) at patient's floor/unit and/or counseling patient: - Constitutional Vitals: Temp Pulse Resp BP Pulse Ox 97.9 F 110 16 110/69 98 08/30/17 18:52 08/30/17 18:52 08/30/17 18:52 08/30/17 18:52 08/30/17 18:52 Results - Labs CBC & Chem 7: 08/30/17 03:25 08/30/17 03:25 Labs: Last Result Calcium 8.9 mg/dL (8.6-10.3) 08/30/17 03:25 Iron 18 mcg/dL (50-170) L 08/26/17 04:11 % Saturation 3 % (15-50) L 08/26/17 04:11 Transferrin 406 mg/dL (203-362) H 08/26/17 04:11 Ferritin 33 ng/ml (10-120) 08/26/17 04:11 Troponin I < 0.03 ng/mL (< 0.04) 08/25/17 11:21 Vitamin B12 > 1500 pg/mL (250-1100) H 08/26/17 04:11 Folate 15.7 ng/mL (3.0-16.0) 08/26/17 04:11 Hep Bs Ag Confirmation POSITIVE (Non Confirmed) A 08/27/17 12:13 HCV RNA (PCR) IUs/ml <15 IU/mL 08/29/17 08:33 HCV RNA PCR log IUs/ml <1.2 log IU 08/29/17 08:33 HCV RNA (PCR) Interp NOT DETECTED (Not Detected) 08/29/17 08:33 Entire Visit Hgb 10.2 g/dL (11.5-15.4) L 08/30/17 03:25 Hct 32.4 % (35.3-44.9) L 08/30/17 03:25 Haptoglobin 83 mg/dL (30-200) 08/27/17 12:13 PT 16.9 Seconds (9.4-12.1) H 08/25/17 00:12 Ferritin 33 ng/ml (10-120) 08/26/17 04:11 Total Bilirubin 1.0 mg/dL (0.3-1.0) 08/30/17 09:03 AST 32 Units/L (13-39) 08/30/17 09:03 ALT 21 Units/L (7-52) 08/30/17 09:03 Folate 15.7 ng/mL (3.0-16.0) 08/26/17 04:11 - ABG ABG results: PT/INR, D-dimer PT 16.9 Seconds (9.4-12.1) H 08/25/17 00:12 - Attending Attestation Double duct sign. Severe comorbidities. Grade III varices. Recommend transfer to [facility]. I have personally performed a face to face evaluation on this patient. I have reviewed and agree with the care plan. History and Exam by me shows:
--- NOTE | 2017-08-30 10:22 | Cardiology Progress Note ---
Date of Encounter: 08/30/17 Time of Encounter: 10:20 Assessment and Plan (1) New onset a-fib Current Visit: Yes Status: Acute Newly diagnosed atrial fibrillation this admission. Denies previous history. HR 167 RVR upon admission, control improved with cardizem gtt and IV dig load. On toprol XL and digoxin and maintaining rate control. Telemetry review shows avg HR 75 bmp. There was intermittent runs NSVT during stay up to 22 beats long, no recurrent VT seen in last 24 hours. TTE shows severely reduced LVEF, 35%, mild-moderate MR, moderate PH, TSH abnormal--defer to primary service. CHA2Ds Vasc=2 (female, CHF). H/H and platelets downtrend ed during stay and now stable today. Consider AC after ERCP. (2) CHF (congestive heart failure) Current Visit: Yes Status: Acute Presents with CHF symptoms--found to have acute systolic CHF, chronicity unclear. Patient reports feeling unwell for months. Troponin negative x3. SCO=193, CXR stable. Cumulative I&O: +2400 mL, negative 450 for 24 hours. Continues to have BLE edema but improved per patient. Mild SCr bump with IV lasix, changed to oral. May have been intravascularly dry. Edema likely multifactoral. Continue oral lasix. Recommend LHC to r/o ischemic etiology once GI evaluation for possible esophogeal varicies completed/ ERCP completed. Agree with transfer to facility with high level of care. Continue BB. Consider ACEi/ARB upon d/c if able Strict I&Os, daily weights, and Na/fluid restriction diet. We will sign off now that patient is being transferred to [facility]. Please call with changes. Qualifiers: Heart failure type: unspecified Heart failure chronicity: unspecified Qualified Code(s): I50.9 - Heart failure, unspecified (3) Anemia Current Visit: Yes Status: Acute With thrombocytopenia, PLT stable today. GI eval pending. Patient reports she takes 3-6 OTC excedrin for years for chronic headaches. Qualifiers: Anemia type: unspecified type Qualified Code(s): D64.9 - Anemia, unspecified Discussion w patient/family: The assessment and plan as outlined above was discussed with the patient and/or family members who expressed understanding and agreement. All questions were answered. Thank you for involving us in the care of your patient. Please call with any questions. Subjective Principal diagnosis: Afib, CHF Interval history: C/o "pain all over". Patient just given pain medication. Reports she is going to [facility] today. Objective Vital Signs, Last 4 Hours Temp Pulse Resp BP Pulse Ox 08/30/17 06:47 98.0 F 95 16 116/77 97 General: Conversant HEENT: Atraumatic, Normocephaly, Mucus Membranes Moist Neck: No JVD, Normal carotid pulses Cardiac: Other (Irregular) Lungs: Other (Respirations easy, LSCTA) Neuro: Alert and responsive Abdomen: Soft, Other (Tender to palpation) Musculoskeletal: Other (Reproducible lower mid sternal wall pain.) Extremities: Other (genralized edema) Results 08/30/17 03:25 08/30/17 03:25 Lab Results 08/29/17 08/30/17 08/30/17 08:33 03:25 03:25 WBC 10.3 Hgb 10.2 L Hct 32.4 L Plt Count 84 L Sodium 136 136 Potassium 4.2 4.4 Chloride 108 H 108 H Carbon Dioxide 23 23 BUN 42 H 35 H Creatinine 0.81 0.71 Glucose 155 H 124 H Calcium 8.4 L 8.9 Magnesium 2.1 Total Bilirubin 0.9 AST 27 ALT 17 Alkaline Phosphatase 71 08/30/17 09:03 WBC Hgb Hct Plt Count Sodium Potassium Chloride Carbon Dioxide BUN Creatinine Glucose Calcium Magnesium Total Bilirubin 1.0 AST 32 ALT 21 Alkaline Phosphatase 74 - Imaging and Cardiology Echo: report reviewed - EKG Interpretation EKG results cardiology: personally reviewed Consult Discharge Plan - Plan Referrals: NONE,PCP [Primary Care Provider] - Abner Mcdaniels MD [Non-Partnered Physician] - 09/05/17 10:30 am (Please follow up as schedule...)
--- NOTE | 2017-08-30 12:00 | Discharge Summary ---
<CalinNettie najera - Last Filed: 08/30/17 15:27> Orders not resulted at time of discharge: Pending orders 08/27/17 12:13 HBSAG Confirmation Routine 08/27/17 12:58 Occult Blood,Stool [BF] Routine 08/29/17 08:33 AFP Tumor Marker Non- Routine Hepatitis B Virus Quant PCR Routine Hepatitis C Qnt Reflx Genotype Routine Date of Encounter: 08/30/17 - Discharge Diagnosis (1) New onset of congestive heart failure Status: Acute (2) Atrial fibrillation with RVR Status: Acute (3) Anemia Status: Acute Qualifiers: Anemia type: unspecified type Qualified Code(s): D64.9 - Anemia, unspecified (4) Tobacco abuse Status: Acute (5) DVT prophylaxis Status: Acute (6) Thrombocytopenia Status: Acute (7) Acute exacerbation of chronic obstructive pulmonary disease (COPD) Status: Acute (8) Hypothyroidism Status: Acute Qualifiers: Hypothyroidism type: unspecified Qualified Code(s): E03.9 - Hypothyroidism , unspecified (9) Anxiety Status: Acute (10) Cirrhosis Status: Acute Qualifiers: Hepatic cirrhosis type: unspecified hepatic cirrhosis Ascites presence: without ascites Qualified Code(s): K74.60 - Unspecified cirrhosis of liver (11) Hepatitis B Status: Acute Qualifiers: Viral hepatitis chronicity: unspecified Hepatic coma status: without hepatic coma (12) Hepatitis C Status: Acute Qualifiers: Viral hepatitis chronicity: unspecified Hepatic coma status: without hepatic coma Qualified Code(s): B19.20 - Unspecified viral hepatitis C without hepatic coma (13) Common bile duct dilation Status: Acute Hospital course: Ms. Sales is a 57 year old female - Time Spent with Patient Total time spent providing and/or coordinating discharge services: - Discharge Medications Home Medications: No Known Home Drugs 08/25/17 [History] Allergies/Adverse Reactions: 3 Allergy/AdvReac Type Severity Reaction Status Date / Time No Known Allergies Allergy Verified 08/25/17 00:25 Date of admission: 08/25/17 06:08 Primary care physician: PCP NONE Consults: 08/27/17 11:51 Consult to Oncology [CONS] Routine Consulting Provider: [facility] Reason for Consult: Pancytopenia Call Completed: Yes 08/28/17 11:09 Consult to Nurse Navigator [CONS] Routine Comment: CHF 08/28/17 21:55 Consult to Gastroenterology [CONS] Routine Consulting Provider: Cristian Aaron Reason for Consult: rule out GI bleed Call Completed: No - Constitutional Vitals: Temp Pulse Resp BP Pulse Ox 98.2 F 97 16 116/78 96 08/30/17 10:44 08/30/17 10:44 08/30/17 10:44 08/30/17 10:44 08/30/17 10:44 - Patient Status Disposition: Transfer Other Condition: Good - Discharge Instructions Follow Up With: NONE,PCP [Primary Care Provider] - Abner Mcdaniels MD [Non-Partnered Physician] - 09/05/17 10:30 am (Please follow up as schedule...) - Attending Attestation I examined this patient and my medical decision-making was reviewed with the Resident Physician Dr. Romeo. I agree with the documented findings, disposition and treatment plan as described except to the extent set forth below. Ms. Sales is a 57 y/o F admitted here for acute CHF exacerbation. She also happened to have slightly elevated LFT's, anemia and throbocytopenia. Pt states she is feeling little better today. Denied any CP. She does c/o epigastric pain Gen: A, A, O x 3 Chest: Diminished BS b/l no crackles Heart: S1S2 + No murmurs Abd: Soft, NT a/p 1. Acute systolic CHF exacerbation Improving LHC by Card when pt cleared from GI stand point Cont PO Lasix cont ACEI ad BB 2.Afib with RVR rate controlled with Digoxin and Metoprolol d/c cardizem after GI work up will start her on anti coag 3. Acute vs Chronic anemia 4. Thrombocytopenia U/S Liver -slightly dilated CBD MRI of abd showed - CBD dilation and ?? obstruction at pancreatic head need ERCP GI suggested to transfer to [facility] for higher level of care so will transfer to [facility] today GI consulted Heme onc on board 5. Hepatitis B inf out pt f/u GI <Asia Romeo - Last Filed: 08/30/17 15:57> Orders not resulted at time of discharge: Pending orders 08/27/17 12:13 HBSAG Confirmation Routine 08/27/17 12:58 Occult Blood,Stool [BF] Routine 08/29/17 08:33 AFP Tumor Marker Non- Routine Hepatitis B Virus Quant PCR Routine Hepatitis C Qnt Reflx Genotype Routine Date of Encounter: 08/30/17 Time of Encounter: 10:40 - Discharge Diagnosis (1) New onset of congestive heart failure Priority: Primary Status: Acute (2) Atrial fibrillation with RVR Priority: Secondary Status: Acute (3) Anemia Priority: Secondary Status: Acute Qualifiers: Anemia type: unspecified type Qualified Code(s): D64.9 - Anemia, unspecified (4) Thrombocytopenia Priority: Secondary Status: Acute (5) Common bile duct dilation Priority: Secondary Status: Acute (6) Acute exacerbation of chronic obstructive pulmonary disease (COPD) Priority: Secondary Status: Acute (7) Cirrhosis Priority: Secondary Status: Acute Qualifiers: Hepatic cirrhosis type: unspecified hepatic cirrhosis Ascites presence: without ascites Qualified Code(s): K74.60 - Unspecified cirrhosis of liver (8) Hepatitis B Priority: Secondary Status: Acute Qualifiers: Viral hepatitis chronicity: unspecified Hepatic coma status: without hepatic coma (9) Hepatitis C Priority: Secondary Status: Acute Qualifiers: Viral hepatitis chronicity: unspecified Hepatic coma status: without hepatic coma Qualified Code(s): B19.20 - Unspecified viral hepatitis C without hepatic coma (10) Hypothyroidism Priority: Secondary Status: Acute Qualifiers: Hypothyroidism type: unspecified Qualified Code(s): E03.9 - Hypothyroidism , unspecified (11) Anxiety Priority: Secondary Status: Acute (12) Tobacco abuse Priority: Secondary Status: Acute (13) DVT prophylaxis Priority: Secondary Status: Acute Hospital course: Ms. Sales is a 57 year old female who presented to the emergency department for shortness of breath and bilateral LE swelling. She denied past hx of any heart problems. On arrival, she was found to be in atrial fibrillation with RVR and pulse in the 160's as seen on EKG, no ST segment elevations or depressions noted. CXR was negative. Initial lab work showed Hgb 10.5, Hct 32.7, Plt count 91, troponin negative, INR 1.6, and BNP 604. Pt received IV cardizem drip and was accepted for admission. Echocardiogram showed CHF with EF 35%, pulmonary hypertension, and tricuspid and mitral regurgitation. Unknown etiology of new onset CHF, ischemic etiology unable to be ruled out and [facility] recommended--but has been delayed by anemia and thrombocytopenia. Afib rate controlled with metoprolol and digoxin. Further work up showed positive Hep B and Hep C, liver ultrasound showed cirrhotic appearance and dilated CBD. Based on liver ultrasound and complaints of abdominal pain, MRCP and possible ERCP recommended ; gastroenterology also recommended EGD. Abdominal MRI showed hepatic cirrhosis , cholelithiasis, markedly dilated CBD and pancreatic duct, focal narrowing near the pancreatic head, and splenic varices. After discussion with gastroenterology, due to complexity and high risk of this patient it was decided that transfer to [facility] for ERCP and eventual LHC was necessary. Patient and her family were informed, they agreed to the transfer. [facility] transfer center was contacted and patient was accepted for transfer; accepting physician Dr. Noel. Patient is medically stable for transfer. Discharge discussed with: patient, family - Time Spent with Patient Total time spent providing and/or coordinating discharge services: Date of admission: 08/25/17 06:08 Primary care physician: PCP NONE Consults: 08/27/17 11:51 Consult to Oncology [CONS] Routine Consulting Provider: [facility] Reason for Consult: Pancytopenia Call Completed: Yes 08/28/17 11:09 Consult to Nurse Navigator [CONS] Routine Comment: CHF 08/28/17 21:55 Consult to Gastroenterology [CONS] Routine Consulting Provider: [facility] Reason for Consult: rule out GI bleed Call Completed: No Discharging clinician: Asia Romeo Anticipated date of discharge: 08/30/17 - Constitutional Vitals: Temp Pulse Resp BP Pulse Ox 98.2 F 97 16 116/78 96 08/30/17 10:44 08/30/17 10:44 08/30/17 10:44 08/30/17 10:44 08/30/17 10:44 General appearance: Present: A&O X 3, pleasant, no acute distress, answers questions appropriately - Other Additional findings: General: AAOx3, No acute distress, resting in bed HEENT: PERRL/ EOMI, moist mucus membranes, non traumatic, normocephalic Neck: Supple, trachea midline Cardio: RRR, no murmurs, S1/S2 Pulm: CTAB, no wheezing, rhonchi, rales. Normal respiratory effort. Abdomen: soft, nontender to palpation, BS+, no rebound, rigidity, guarding, distention Extremities: improving lower extremitiy edema, no calf tenderness, no cyanosis Back: Nontender throughout Neuro: AAOx3, no focal neurological defecit, normal gait, mentation intact MSK: Strength 5/5 throughout Psych: Appropriate mood and affect. Answers questions appropriately. Cooperative with exam - Patient Status Functional capacity at discharge: independent ambulation Overall status at discharge: patient is not back to baseline
[2017-08-30] MEDS ORDERED: *HR* Promethazine 25 MG/ML VIAL IVP PRN (13:32)
[2017-08-30 18:54] VITALS: BP 110/69
--- NOTE | 2017-08-31 09:04 | Electrocardiograph Report ---
[address] [place] [address] Test Date: 2017-08-25 Pat Name: Rosi Sales Department: [id number] Room: 2A24 Gender: F Cell Maker: DAMON : 1960 Requested By: Cesar Vazquez Order Number: [id number] Reading MD: Dayne Antonio Measurements Intervals Sharon Rate: 163 P: AR: 0 QRS: 115 QRSD: 84 T: 25 QT: 287 QTc: 377 Interpretive Statements ATRIAL FIBRILLATION WITH RAPID VENTRICULAR RESPONSE MARKED RIGHT AXIS DEVIATION LOW QRS VOLTAGE POSSIBLE ANTERIOR MYOCARDIAL INFARCTION, PROBABLY OLD Electronically Signed On 08-31-2017 9:03:14 EDT by Dayne Antonio
[2017-08-31 13:14] LABS: HCV Quant Interpretation NOT DETECTED (Not Detected)
[2017-08-31 14:54] LABS: HBV Quant Interpretation DETECTED (Not Detected); HBV Quant Log by PCR >8.2 log IU
== END 2017-08-30 22:09 | disposition other institution (70) | DRG 292 ==
LOC: EMEROO 00:15 → 2ANU 00:15
PROVIDERS: ADMIT Internal Medicine; ATTEND Internal Medicine

== ENCOUNTER 2018-01-09 19:47 | Inpatient (IN) ==
--- NOTE | 2018-01-09 20:39 | Emergency Department Note ---
Disposition Clinical Impression: Atrial fibrillation with RVR CHF (congestive heart failure) Qualifiers: Heart failure type: unspecified Heart failure chronicity: acute on chronic Qualified Code(s): I50.9 - Heart failure, unspecified Disposition: Admitted As Inpatient Condition: Fair Referrals: NONE,PCP [Primary Care Provider] - General Adult HPI - General Chief complaint: ED Shortness of Breath/Dyspnea Stated complaint: swelling in both legs/sob Time Seen by Provider: 01/09/18 19:51 Source: patient Mode of arrival: ambulatory Limitations: no limitations Nursing Notes Reviewed: Yes Vital Signs Reviewed: Yes - History of Present Illness HPI Narrative: Patient is a 57-year-old female presenting with bilateral lower cavity swelling and increased dyspnea. Patient has history significant for COPD, CHF, atrial fibrillation, hepatitis, cirrhosis. Patient states that over the past couple of weeks she has been having increasing shortness of breath as well as bilateral lower extrude a swelling however over the past 2-3 days she has noticed significant progression of the symptoms. She states that over the past few days she has had increased shortness of breath only when sleeping at night, has had to prop herself up with multiple pillows and wakes up short of breath in the middle the night. She denies associated chest pain. She has also noticed increasing bilateral lower extremity edema, generally takes 20 mg Lasix however over the past 2 days has increased this to 40 mg Lasix. She states that this has not changed her swelling, also has developed pain surrounding the swelling areas. She denies history of DVT or blood clots in the lower extremities. She also has had a mild headache over the past couple of days, she has history of migraines and states this is her typical mild headache, no blurry vision or vision changes. She denies photophobia or phonophobia, had gradual onset over the past 4 days, no abrupt onset. She denies nausea vomiting or abdominal pain. She denies fever chills or recent illness. Patient states that she has been taking her usual medications as prescribed, however has been unable to take her beta sania this evening as she has currently run out of medication. Pain Scale: 3 - Related Data Previous Rx's Medication Instructions Recorded Furosemide [Lasix] 20 mg PO DAILY #60 tablet 12/20/17 Metoprolol XL (24 HR) Succ [Toprol 25 mg PO BID 60 Days #180 12/20/17 Xl] tab.er.24h Allergies Allergy/AdvReac Type Severity Reaction Status Date / Time No Known Allergies Allergy Verified 12/19/17 21:16 All systems ED: reviewed and negative except as stated. Review of Systems: As Per HPI Constitutional: Denies: fever, chills, weakness ENT ED: Denies: congestion Cardiovascular: Reports: palpitations, dyspnea on exertion, orthopnea, edema, paroxysmal nocturnal dyspnea. Denies: chest pain, syncope Respiratory: Reports: cough (Chronic), dyspnea, wheezes. Denies: hemoptysis, stridor, sputum production Gastrointestinal: Denies: abdominal pain, nausea, vomiting, diarrhea, constipation Genitourinary: Denies: urgency, dysuria Musculoskeletal: Denies: back pain Integumentary: Denies: rash Neurological: Reports: headache. Denies: weakness Endocrine: Denies: fatigue Hematological/Lymphatic: Reports: easy bruising (On warfarin) Past Medical History - Past Medical History Medical history: Reports: atrial fibrillation, cirrhosis, COPD, hepatitis Psychiatric history: Reports: no psych history - Social History Smoking Status: Current every day smoker Smokeless Tobacco Status: No Alcohol use: Reports: none Drug use: Reports: none Physical Exam - General Limitations: no limitations General appearance: alert, in no apparent distress - Head Head exam: atraumatic, normocephalic - Eye Eye exam: Present: normal appearance, PERRL, EOMI - ENT ENT exam: normal exam, mucous membranes moist - Neck Neck exam: Present: normal inspection - Chest Chest inspection: Present: normal inspection, symmetric chest wall rise - Respiratory Respiratory exam: Present: wheezes (Throughout, scattered crackles at the bases) , prolonged expiratory phase. Absent: accessory muscle use - Cardiovascular Cardiovascular exam: Present: tachycardia (And irregularly irregular rhythm) - Abdominal Exam Abdominal exam: Present: soft, Non-Tender, normal bowel sounds. Absent: distention, guarding, rebound, rigidity - Extremities Exam Extremities exam: Present: normal capillary refill, pedal edema (2+ to 3+ bilaterally [place] brace throughout the ankle and feet up to the knee). Absent: tenderness - Expanded Lower Extremity Exam Neurovascular/Tendon exam: Present: normal capillary refill. Absent: pulse deficit, motor deficit, sensory deficit - Back Exam Back exam: Present: normal inspection. Absent: tenderness - Neurological Exam Neurological exam: Present: alert, oriented X3, CN II-XII intact - Psychiatric Psychiatric exam: Present: normal affect, normal mood - Skin Skin exam: Present: warm, dry, intact Course Course Narrative: We will order CBC, BMP, BNP, LFTs, chest x-ray, troponin. Vital Signs Temperature 97.9 F 01/09/18 19:57 Pulse Rate 158 01/09/18 19:57 Respiratory Rate 22 01/09/18 19:57 Blood Pressure 114/81 01/09/18 19:57 O2 Sat by Pulse Oximetry 99 01/09/18 19:57 Temperature 97.9 F 01/09/18 19:58 Pulse Rate 158 01/09/18 19:58 Respiratory Rate 22 01/09/18 19:58 Blood Pressure 114/81 01/09/18 19:58 O2 Sat by Pulse Oximetry 99 01/09/18 19:58 Oxygen Delivery Oxygen Delivery Room Air Medical Decision Making - MDM Narrative Medical decision making narrative: Patient is a 57-year-old female presenting with bilateral lower extremity swelling and increasing dyspnea. On initial evaluation, patient's heart rate was tachycardic in the 160s and irregular irregular, patient was immediately started on Cardizem bolus and drip. Workup in the emergency department showed CBC that was relatively unremarkable, BMP that was read as limited unremarkable , BNP that was elevated around 320, over the baseline however elevated, troponins within normal limits, LFTs within normal limits. Chest x-ray showed mild yet stable cardiomegaly, with pulmonary venous congestion. Upon reevaluation, patient has essentially started the Cardizem drip, heart rate has come down to 118 at this point in time, we will continue Cardizem drip at this point. We will continue to titrate until patient's heart rate is below 100. Patient was also given migraine cocktail as well as Lasix 40 mg IV. Overall, patient was recommended to be admitted for further evaluation for A. fib with RVR, currently on Cardizem drip as well as CHF exacerbation. Spoke with hospitalist at 2200, hospitalist has excepted the patient's plan time did recommend possible PE rule out with CTA, however with discussion with my attending, Dr. Pfeiffer, at this time, low suspicion as well as INR being therapeutic and currently on warfarin low likelihood at this point in time and recommend that CTA be performed when patient is up to the floor if hospitalist evaluation requires this management . - Medical Records Medical records reviewed: Yes I reviewed the patient's medical records. - Lab Data Lab results reviewed: Yes I reviewed the patient's lab results. Result diagrams: 01/09/18 20:18 01/09/18 20:18 Lab Results 01/09/18 01/09/18 01/09/18 Range/Units 20:18 20:18 20:19 WBC 5.5 (4.3-11.1) K/mcL RBC 4.00 (3.82-4.97) M/mcL Hgb 13.3 (11.5-15.4) g/dL Hct 40.0 (35.3-44.9) % MCV 100.0 (83.0-100.0) fL MCH 33.3 (28.0-33.3) pg MCHC 33.3 (31.6-35.5) g/dL RDW 16.8 H (11.5-14.5) % Plt Count 75 L (140-400) K/mcL MPV 9.6 (9.4-12.4) fL Immature Gran % 0.4 (0-4) % Seg Neutrophils % 53.7 % Lymphocytes % 28.1 % Monocytes % 15.0 % Eosinophils % 2.4 % Basophils % 0.4 % Neutrophils # 3.0 (1.6-8.9) K/mcL Lymphocytes # 1.6 (0.6-4.6) K/mcL Monocytes # 0.8 (0.0-1.3) K/mcL Eosinophils # 0.1 (0.0-0.6) K/mcL Basophils # 0.0 (0.0-0.2) K/mcL PT 27.5 H (9.4-12.1) Seconds INR 2.4 APTT 43.8 H (26.0-36.0) Seconds Sodium 138 (136-145) mEq/L Potassium 4.2 (3.5-5.1) mEq/L Chloride 106 (98-107) mEq/L Carbon Dioxide 28 (23-29) mEq/L BUN 18 (6-20) mg/dL Creatinine 0.70 (0.60-1.20) mg/dL Est GFR ( Amer) > 60 (> 60) Est GFR (Non-Af Amer) > 60 (> 60) BUN/Creatinine Ratio 26 (6-26) Glucose 108 H (70-105) mg/dL Calculated Osmolality 288 (280-300) Lactic Acid (0.5-2.2) mmol/L Calcium 9.1 (8.6-10.3) mg/dL Total Bilirubin 0.7 (0.3-1.0) mg/dL Direct Bilirubin 0.2 (0.0-0.2) mg/dL Indirect Bilirubin 0.5 (0.0-1.2) mg/dL AST 26 (13-39) Units/L ALT 14 (7-52) Units/L Alkaline Phosphatase 74 (34-104) Units/L Troponin I < 0.03 (< 0.04) ng/mL B-Natriuretic Peptide (Less than 100) pg/mL Serum Total Protein 6.9 (6.4-8.9) g/dL Albumin 3.3 L (3.5-5.7) g/dL Globulin 3.6 H (2.4-3.5) g/dL Albumin/Globulin Ratio 0.9 L (1.1-2.2) 01/09/18 01/09/18 Range/Units 20:35 20:39 WBC (4.3-11.1) K/mcL RBC (3.82-4.97) M/mcL Hgb (11.5-15.4) g/dL Hct (35.3-44.9) % MCV (83.0-100.0) fL MCH (28.0-33.3) pg MCHC (31.6-35.5) g/dL RDW (11.5-14.5) % Plt Count (140-400) K/mcL MPV (9.4-12.4) fL Immature Gran % (0-4) % Seg Neutrophils % % Lymphocytes % % Monocytes % % Eosinophils % % Basophils % % Neutrophils # (1.6-8.9) K/mcL Lymphocytes # (0.6-4.6) K/mcL Monocytes # (0.0-1.3) K/mcL Eosinophils # (0.0-0.6) K/mcL Basophils # (0.0-0.2) K/mcL PT (9.4-12.1) Seconds INR APTT (26.0-36.0) Seconds Sodium (136-145) mEq/L Potassium (3.5-5.1) mEq/L Chloride (98-107) mEq/L Carbon Dioxide (23-29) mEq/L BUN (6-20) mg/dL Creatinine (0.60-1.20) mg/dL Est GFR ( Amer) (> 60) Est GFR (Non-Af Amer) (> 60) BUN/Creatinine Ratio (6-26) Glucose (70-105) mg/dL Calculated Osmolality (280-300) Lactic Acid 1.1 (0.5-2.2) mmol/L Calcium (8.6-10.3) mg/dL Total Bilirubin (0.3-1.0) mg/dL Direct Bilirubin (0.0-0.2) mg/dL Indirect Bilirubin (0.0-1.2) mg/dL AST (13-39) Units/L ALT (7-52) Units/L Alkaline Phosphatase (34-104) Units/L Troponin I (< 0.04) ng/mL B-Natriuretic Peptide 320 H (Less than 100) pg/mL Serum Total Protein (6.4-8.9) g/dL Albumin (3.5-5.7) g/dL Globulin (2.4-3.5) g/dL Albumin/Globulin Ratio (1.1-2.2) - Radiology Data Radiology results reviewed: Yes I reviewed the patient's radiology results. Chest X-Ray 01/09/18 20:18 IMPRESSION: 1. Stable chest with mild cardiomegaly. 2. Mild pulmonary venous congestion. D/ / Tu Ulloa / Tu Ulloa Interpreting Provider: Tu Ulloa - EKG Data EKG #1 EKG attestation: Yes I reviewed and interpreted this EKG. EKG results narrative: EKG performed on 2017 with ventricular rate of 161, irregularly irregular rate, QRS at 79, QT at 305, QTC at 509, low voltage noted, left axis deviation, no acute ischemic changes noted. Overall impression is atrial fibrillation with RVR When compared to previous EKG there are: previous EKG unavailable
[2018-01-09 20:50] LABS: Basophils % 0.4 %; Eosinophils # 0.1 K/mcL (0.0-0.6); Eosinophils % 2.4 %; Hemoglobin 13.3 g/dL (11.5-15.4); Immature Granulocytes % 0.4 % (0-4); Lymphocytes % 28.1 %; Mean Corpuscular HGB Conc 33.3 g/dL (31.6-35.5); Mean Corpuscular Hemoglobin 33.3 pg (28.0-33.3); Mean Platelet Volume 9.6 fL (9.4-12.4); Monocytes # 0.8 K/mcL (0.0-1.3); Red Cell Distribution Width 16.8 % (11.5-14.5); Segmented Neutrophils % 53.7 %
[2018-01-09 20:51] LABS: Lymphocytes # 1.6 K/mcL (0.6-4.6); Platelet Count 75 K/mcL (140-400)
[2018-01-09] MEDS ORDERED: Acetaminophen 325 MG TABLET PO ONE (20:52)
[2018-01-09 20:55] LABS: INR 2.4; Prothrombin Time 27.5 Seconds (9.4-12.1)
[2018-01-09 20:58] LABS: Activated Partial Thrombo Time 43.8 Seconds (26.0-36.0)
[2018-01-09 21:15] LABS: Alanine Aminotransferase 14 Units/L (7-52); Albumin 3.3 g/dL (3.5-5.7); Albumin/Globulin Ratio 0.9 (1.1-2.2); Alkaline Phosphatase 74 Units/L (34-104); Aspartate Amino Transferase 26 Units/L (13-39); BUN/Creatinine Ratio 26 (6-26); Bilirubin,Direct 0.2 mg/dL (0.0-0.2); Bilirubin,Indirect 0.5 mg/dL (0.0-1.2); Bilirubin,Total 0.7 mg/dL (0.3-1.0); Blood Urea Nitrogen 18 mg/dL (6-20); Calcium 9.1 mg/dL (8.6-10.3); Carbon Dioxide 28 mEq/L (23-29); Chloride 106 mEq/L (98-107); Globulin 3.6 g/dL (2.4-3.5); Glucose 108 mg/dL (70-105); Osmolality,Calculated 288 (280-300); Potassium 4.2 mEq/L (3.5-5.1); Sodium 138 mEq/L (136-145); Total Protein 6.9 g/dL (6.4-8.9); Troponin I < 0.03 ng/mL (< 0.04); eGFR For Non-African Americans > 60 (> 60)
[2018-01-09] MEDS ORDERED: Ketorolac 30 MG/ML VIAL IVP ONE (21:25)
[2018-01-09] MEDS ORDERED: Ondansetron 4 MG/2 ML VIAL IVP ONE (21:25)
[2018-01-09] MEDS ORDERED: Metoclopramide 10 MG/2 ML VIAL IVP ONE (21:25)
[2018-01-09] MEDS ORDERED: Furosemide 40 MG/4 ML VIAL IVP ONE (21:25)
[2018-01-09] MEDS ORDERED: Ondansetron 4 MG/2 ML VIAL ONE (21:44)
--- NOTE | 2018-01-09 21:53 | Emergency Department Note ---
Disposition Clinical Impression: Atrial fibrillation with RVR CHF (congestive heart failure) Qualifiers: Heart failure type: systolic Heart failure chronicity: acute on chronic Qualified Code(s): I50.23 - Acute on chronic systolic (congestive) heart failure Disposition: Admitted As Inpatient Condition: Fair General Adult HPI - General Chief complaint: ED Shortness of Breath/Dyspnea Stated complaint: swelling in both legs/sob Time Seen by Provider: 01/09/18 19:51 Source: patient Mode of arrival: ambulatory Limitations: no limitations - History of Present Illness Pain Scale: 3 - Related Data Home Medications Medication Instructions Recorded Confirmed Warfarin [Coumadin] 1.25 mg PO SUMOWETHFR 01/10/18 01/10/18 Warfarin [Coumadin] 2.5 mg PO TUSA 01/10/18 01/10/18 Previous Rx's Medication Instructions Recorded Furosemide [Lasix] 40 mg PO BID 30 Days #60 tablet 01/11/18 Metoprolol XL (24 HR) Succ [Toprol 25 mg PO BID 30 Days #60 tab.er.24h 01/11/18 Xl] Spironolactone [Aldactone] 50 mg PO DAILY 30 Days #30 tablet 01/11/18 Allergies Allergy/AdvReac Type Severity Reaction Status Date / Time No Known Allergies Allergy Verified 12/19/17 21:16 Constitutional: Denies: fever, chills, weakness ENT ED: Denies: congestion Cardiovascular: Reports: palpitations, dyspnea on exertion, orthopnea, edema, paroxysmal nocturnal dyspnea. Denies: chest pain, syncope Respiratory: Reports: cough (Chronic), dyspnea, wheezes. Denies: hemoptysis, stridor, sputum production Gastrointestinal: Denies: abdominal pain, nausea, vomiting, diarrhea, constipation Genitourinary: Denies: urgency, dysuria Musculoskeletal: Denies: back pain Integumentary: Denies: rash Neurological: Reports: headache. Denies: weakness Endocrine: Denies: fatigue Hematological/Lymphatic: Reports: easy bruising (On warfarin) Past Medical History - Past Medical History Medical history: Reports: atrial fibrillation, cirrhosis, COPD, hepatitis Psychiatric history: Reports: no psych history - Social History Smoking Status: Current every day smoker Smokeless Tobacco Status: No Alcohol use: Reports: none Drug use: Reports: none Physical Exam - General Limitations: no limitations General appearance: alert, in no apparent distress Course Vital Signs Temperature 97.9 F 01/09/18 19:57 Pulse Rate 158 01/09/18 19:57 Respiratory Rate 22 01/09/18 19:57 Blood Pressure 114/81 01/09/18 19:57 O2 Sat by Pulse Oximetry 99 01/09/18 19:57 Temperature 98.2 F 01/11/18 07:18 Pulse Rate 98 01/11/18 07:18 Respiratory Rate 18 01/11/18 04:20 Blood Pressure 96/65 01/11/18 07:18 O2 Sat by Pulse Oximetry 92 01/11/18 04:20 Oxygen Delivery Oxygen Delivery Room Air Medical Decision Making - Lab Data Result diagrams: 01/10/18 02:52 01/10/18 02:52 Lab Results 01/09/18 01/09/18 01/09/18 Range/Units 20:18 20:18 20:19 WBC 5.5 (4.3-11.1) K/mcL RBC 4.00 (3.82-4.97) M/mcL Hgb 13.3 (11.5-15.4) g/dL Hct 40.0 (35.3-44.9) % MCV 100.0 (83.0-100.0) fL MCH 33.3 (28.0-33.3) pg MCHC 33.3 (31.6-35.5) g/dL RDW 16.8 H (11.5-14.5) % Plt Count 75 L (140-400) K/mcL MPV 9.6 (9.4-12.4) fL Immature Gran % 0.4 (0-4) % Seg Neutrophils % 53.7 % Lymphocytes % 28.1 % Monocytes % 15.0 % Eosinophils % 2.4 % Basophils % 0.4 % Neutrophils # 3.0 (1.6-8.9) K/mcL Lymphocytes # 1.6 (0.6-4.6) K/mcL Monocytes # 0.8 (0.0-1.3) K/mcL Eosinophils # 0.1 (0.0-0.6) K/mcL Basophils # 0.0 (0.0-0.2) K/mcL PT 27.5 H (9.4-12.1) Seconds INR 2.4 APTT 43.8 H (26.0-36.0) Seconds Sodium 138 (136-145) mEq/L Potassium 4.2 (3.5-5.1) mEq/L Chloride 106 (98-107) mEq/L Carbon Dioxide 28 (23-29) mEq/L BUN 18 (6-20) mg/dL Creatinine 0.70 (0.60-1.20) mg/dL Est GFR ( Amer) > 60 (> 60) Est GFR (Non-Af Amer) > 60 (> 60) BUN/Creatinine Ratio 26 (6-26) Glucose 108 H (70-105) mg/dL Calculated Osmolality 288 (280-300) Lactic Acid (0.5-2.2) mmol/L Calcium 9.1 (8.6-10.3) mg/dL Total Bilirubin 0.7 (0.3-1.0) mg/dL Direct Bilirubin 0.2 (0.0-0.2) mg/dL Indirect Bilirubin 0.5 (0.0-1.2) mg/dL AST 26 (13-39) Units/L ALT 14 (7-52) Units/L Alkaline Phosphatase 74 (34-104) Units/L Troponin I < 0.03 (< 0.04) ng/mL B-Natriuretic Peptide (Less than 100) pg/mL Serum Total Protein 6.9 (6.4-8.9) g/dL Albumin 3.3 L (3.5-5.7) g/dL Globulin 3.6 H (2.4-3.5) g/dL Albumin/Globulin Ratio 0.9 L (1.1-2.2) 01/09/18 01/09/18 Range/Units 20:35 20:39 WBC (4.3-11.1) K/mcL RBC (3.82-4.97) M/mcL Hgb (11.5-15.4) g/dL Hct (35.3-44.9) % MCV (83.0-100.0) fL MCH (28.0-33.3) pg MCHC (31.6-35.5) g/dL RDW (11.5-14.5) % Plt Count (140-400) K/mcL MPV (9.4-12.4) fL Immature Gran % (0-4) % Seg Neutrophils % % Lymphocytes % % Monocytes % % Eosinophils % % Basophils % % Neutrophils # (1.6-8.9) K/mcL Lymphocytes # (0.6-4.6) K/mcL Monocytes # (0.0-1.3) K/mcL Eosinophils # (0.0-0.6) K/mcL Basophils # (0.0-0.2) K/mcL PT (9.4-12.1) Seconds INR APTT (26.0-36.0) Seconds Sodium (136-145) mEq/L Potassium (3.5-5.1) mEq/L Chloride (98-107) mEq/L Carbon Dioxide (23-29) mEq/L BUN (6-20) mg/dL Creatinine (0.60-1.20) mg/dL Est GFR ( Amer) (> 60) Est GFR (Non-Af Amer) (> 60) BUN/Creatinine Ratio (6-26) Glucose (70-105) mg/dL Calculated Osmolality (280-300) Lactic Acid 1.1 (0.5-2.2) mmol/L Calcium (8.6-10.3) mg/dL Total Bilirubin (0.3-1.0) mg/dL Direct Bilirubin (0.0-0.2) mg/dL Indirect Bilirubin (0.0-1.2) mg/dL AST (13-39) Units/L ALT (7-52) Units/L Alkaline Phosphatase (34-104) Units/L Troponin I (< 0.04) ng/mL B-Natriuretic Peptide 320 H (Less than 100) pg/mL Serum Total Protein (6.4-8.9) g/dL Albumin (3.5-5.7) g/dL Globulin (2.4-3.5) g/dL Albumin/Globulin Ratio (1.1-2.2) Attestation Statement - Attestation Attestation: I examined this patient and my medical decision-making was reviewed with the Resident Physician. I agree with the documented findings, disposition and treatment plan as described except to the extent set forth below. Findings consistent with A. fib with RVR, lower extremity swelling. The patient arrived with heart rates in the 160s. She is currently on beta sania medicine. She is taking Coumadin. We will bolus with Cardizem, start Cardizem infusion. She has no chest pain at this time. We will diuresis for lower extremity edema. The patient will be admitted for further management of A. fib with RVR and for cardiac consultation. I spent greater than 35 minutes of critical care time resuscitating this acutely ill patient suffering from A. fib with RVR. This was excluding billable procedures.
[2018-01-10] MEDS ORDERED: Naloxone 0.4 MG/ML INJ IVP PRN (02:18)
[2018-01-10] MEDS ORDERED: Ipratropium/Albuterol Neb 3 ML IH PRN (02:28)
--- NOTE | 2018-01-10 02:33 | Internal Med History&Physical ---
Date of Encounter: 01/10/18 Time of Encounter: 01:40 Internal Medicine - H&P: HPI Chief complaint: CHF exacerbation Admitted From: Emergency Dept Plans for Post Hospital Care: Home History of present illness: Ms. Sales is a 57 year old female Patient presented for increased swelling in her legs. She has a history of CHF, COPD, Atrial fibrillation and cirrhosis. She states that the swelling started about 1 week ago. She takes lasix at home but it has not helped. She denies changes in her diet. She has also been experiencing shortness of breath as well , but only at night. She is not on oxygen at home. She denies chest pain, nausea , vomiting, diarrhea, constipation and abdominal pain. In the ER her BNP was 320, which is improved from her last visit in the ER about 3 weeks ago. The ER started her on Cardizem drip as she was found to be in Afib with RVR. She has required this intervention in the past. She has a significant history of needing transfer to [facility] for management of her cirrhosis/ CHF/thrombocytopenia/atrial fibrillation, however she is unable to continue going back and forth to her appointments there. She has a history of medication non-compliance as well. Upon my assessment patient is resting comfortably in the hospital bed. She denies SOB and chest pain. Past Med Surg Social Fam HX - Past Medical History Medical history: atrial fibrillation, cirrhosis, COPD, hepatitis Additional medical history: 4 herniated disks to lower back Psychiatric history: anxiety - Past Surgical History Additional surgical history: tubal ligation. cataracts - Social History Smoking Status: Current every day smoker Smokeless Tobacco Status: No Alcohol use: none Drug use: none - Family History Mother Adopted: No Hx Family Cardiac Disorders: Yes ([place]) Hx Family Respiratory Disorders: Yes (mother, brother, father COPD) Hx Family Cancer: Yes (breast, stomach) Hx Family GI Disorders: No Hx Family Endocrine Disorder: Yes (mother dm) Hx Family Neuromuscular Disorders: No Hx Family Neurologic Disorders: No Hx Family HEENT Disorders: No Hx Family Autoimmune Disorders: No Father History Unknown: Yes Internal Medicine - H&P: Meds Furosemide [Lasix] 20 mg PO DAILY #60 tablet 12/20/17 [Rx] Metoprolol XL (24 HR) Succ [Toprol Xl] 25 mg PO BID 60 Days #180 tab.er.24h 01/29 [Rx] 3 Allergy/AdvReac Type Severity Reaction Status Date / Time No Known Allergies Allergy Verified 12/19/17 21:16 All Systems PM: A 10-system review of systems was performed and is negative for pertinent findings except as documented above in the HPI. - Constitutional Vitals: Temp Pulse Resp BP Pulse Ox 98.1 F 125 15 93/59 94 01/09/18 23:24 01/09/18 23:24 01/09/18 23:24 01/09/18 23:24 01/09/18 23:24 General appearance: Present: cooperative, A&O X 3, pleasant, no acute distress, answers questions appropriately Exam: as above - Head Head exam: Present: normal inspection - Eye Eye exam: Present: EOMI, normal appearance, sclera anicteric - Neck Neck exam general surgery: Present: full ROM - Respiratory Respiratory exam: Present: wheezes. Absent: chest wall tenderness, respiratory distress - Cardiovascular Cardiovascular exam: Present: irregular rhythm. Absent: diastolic murmur, systolic murmur - GI/Abdominal GI/Abdominal exam: Present: normal bowel sounds, soft. Absent: tenderness - Extremities Exam Extremities exam: Present: pedal edema, warm, radial pulses palpable and symmetrical. Absent: calf tenderness, tenderness Additional comments: 2+ pitting edema bilaterally - Neurological Exam Neurological exam: Present: no focal deficits, strengths equal and symetr throughout. Absent: motor sensory deficit, facial droop, speech deficit - Skin Skin exam: Present: dry, normal color, warm Internal Med - H&P Results - Labs CBC & Chem 7: 01/09/18 20:18 01/09/18 20:18 - Assessment and plan (1) CHF (congestive heart failure) Current Visit: Yes Status: Acute Assessment and plan: Bilateral swelling, worsening last few days. Continue IV lasix Strict I's & O's Daily weights. Unclear if patient has optimal medication management at home as she does not know her full medication list and has history of medication non-compliance. Daughter is bringing medication list in the morning. Qualifiers: Heart failure type: unspecified Heart failure chronicity: acute on chronic Qualified Code(s): I50.9 - Heart failure, unspecified (2) Atrial fibrillation with RVR Current Visit: Yes Status: Acute Assessment and plan: On cardizem drip Continue to monitor. (3) Bilateral lower extremity edema Current Visit: Yes Status: Acute Assessment and plan: Secondary to CHF, tried lasix at home but swelling remained. Treatment for CHF as above. (4) Tobacco abuse Current Visit: No Status: Acute Assessment and plan: Nicotine patch at patients request. (5) Thrombocytopenia Current Visit: No Status: Acute Assessment and plan: Likely secondary to cirrhosis, Patient near her baseline. No signs of bleeding. On Coumadin as well. Continue to monitor closely. (6) Cirrhosis Current Visit: No Status: Acute Assessment and plan: Secondary to Hep C. Low platelets as well. No Jaundice on exam. Continue to monitor. Qualifiers: Qualified Code(s): K74.60 - Unspecified cirrhosis of liver (7) DVT prophylaxis Current Visit: No Status: Acute Assessment and plan: Coumadin - Time Spent With Patient Total time spent is greater than 50% in coordination of care (as documented) at patient's floor/unit and/or counseling patient: Greater than 35 minutes
[2018-01-10 04:14] LABS: Hematocrit 36.9 % (35.3-44.9); Hemoglobin 12.1 g/dL (11.5-15.4); Immature Platelets 4.1 % (1.1-6.1); Mean Corpuscular HGB Conc 32.8 g/dL (31.6-35.5); Mean Corpuscular Volume 100.5 fL (83.0-100.0); Mean Platelet Volume 10.2 fL (9.4-12.4); Red Blood Count 3.67 M/mcL (3.82-4.97); Red Cell Distribution Width 16.7 % (11.5-14.5)
[2018-01-10 04:28] LABS: BUN/Creatinine Ratio 26 (6-26); Blood Urea Nitrogen 20 mg/dL (6-20); Calcium 8.5 mg/dL (8.6-10.3); Carbon Dioxide 26 mEq/L (23-29); Chloride 108 mEq/L (98-107); Glucose 131 mg/dL (70-105); Osmolality,Calculated 292 (280-300); Potassium 3.9 mEq/L (3.5-5.1); Sodium 139 mEq/L (136-145); eGFR For Non-African Americans > 60 (> 60)
[2018-01-10 06:38] LABS: INR 2.7; Prothrombin Time 30.2 Seconds (9.4-12.1)
--- NOTE | 2018-01-10 08:06 | Event Note ---
Date of Encounter: 01/10/18 Time of Encounter: 08:00 Seen and assessed. Agree with plan per night team. Continue management for afib and acute CHF. Will continue IV lasix BID and monitor ins and outs. Will attempt to wean off cardizem drip and start on po beta blockers. Patient is currently stable
[2018-01-10] MEDS: Nicotine 21 MG PATCH.TD24 TD SCH (08:52)
[2018-01-10] MEDS: Metoprolol XL (24 HR) Succ 25 MG TAB.ER.24H PO SCH ×2 (08:53→23:20)
[2018-01-10] MEDS ORDERED: Furosemide 40 MG/4 ML VIAL IVP SCH (09:00)
[2018-01-10] MEDS ORDERED: Acetaminophen 325 MG TABLET PO PRN (09:05)
[2018-01-10] MEDS: Furosemide 40 MG/4 ML VIAL IVP SCH (17:38)
[2018-01-10] MEDS ORDERED: Warfarin perPT PO PRN (18:00)
[2018-01-10] MEDS ORDERED: *HR* Warfarin 2.5 MG TABLET PO ONE (18:00)
[2018-01-10] MEDS: Acetaminophen/Aspirin/Caffeine TABLET PO PRN (19:32)
[2018-01-11 04:35] LABS: INR 2.3; Prothrombin Time 26.3 Seconds (9.4-12.1)
[2018-01-11] MEDS: Acetaminophen/Aspirin/Caffeine TABLET PO PRN (05:12)
[2018-01-11 07:21] VITALS: BP 96/65
--- NOTE | 2018-01-11 08:37 | Discharge Summary ---
Orders not resulted at time of discharge: Pending orders 01/12/18 04:00 PT/INR [Prothrombin Time INR] [COAG] AM 0400 01/13/18 04:00 PT/INR [Prothrombin Time INR] [COAG] AM 0400 01/14/18 04:00 PT/INR [Prothrombin Time INR] [COAG] AM 0400 Date of Encounter: 01/11/18 Time of Encounter: 08:30 - Discharge Diagnosis (1) CHF (congestive heart failure) Priority: Primary Status: Acute Assessment and Plan: 57 year old female patient presented for increased swelling in her legs. She has a history of CHF, COPD, Atrial fibrillation and cirrhosis. She states that the swelling started about 1 week ago. She takes lasix at home but it has not helped. She denies changes in her diet. She has also been experiencing shortness of breath as well, but only at night. In the ER, she was found to be in afib with RVR, started on a cardizem drip and admitted for further management. On the floor she was assessed with atrial fibrillation with RVR and an acute worsening of chronic systolic CHF. She was successfully weaned off her cardizem drip and transitioned to oral beta blockers. She was also on IV diuresis with lasix BID. Her shortness of breath and swelling improved throughout her hospital course. Her dose of lasix was increased to 40mg BID on discharge. She was also given prescriptions for her beta blockers which she said had previously been too expensive to fill. Pharmacy was able to check the prices of her meds prior to discharge and they all came to below $10. She was counseled on medication compliance and discharged in a stable condition Qualifiers: Heart failure type: systolic Heart failure chronicity: acute on chronic Qualified Code(s): I50.23 - Acute on chronic systolic (congestive) heart failure (2) Atrial fibrillation with RVR Priority: Primary Status: Acute Hospital course: Ms. Sales is a 57 year old female - Time Spent with Patient Total time spent providing and/or coordinating discharge services: - Discharge Medications Prescriptions: Furosemide [Lasix] 40 mg PO BID 30 Days #60 tablet Metoprolol XL (24 HR) Succ [Toprol Xl] 25 mg PO BID 30 Days #60 tab.er.24h Spironolactone [Aldactone] 50 mg PO DAILY 30 Days #30 tablet Home Medications: Warfarin [Coumadin] 1.25 mg PO SUMOWETHFR 01/10/18 [History] Warfarin [Coumadin] 2.5 mg PO TUSA 01/10/18 [History] Furosemide [Lasix] 40 mg PO BID 30 Days #60 tablet 01/11/18 [Rx] Metoprolol XL (24 HR) Succ [Toprol Xl] 25 mg PO BID 30 Days #60 tab.er.24h 01/11 [Rx] Spironolactone [Aldactone] 50 mg PO DAILY 30 Days #30 tablet 01/11/18 [Rx] Allergies/Adverse Reactions: 3 Allergy/AdvReac Type Severity Reaction Status Date / Time No Known Allergies Allergy Verified 12/19/17 21:16 Date of admission: 01/10/18 02:36 Primary care physician: PCP NONE - Constitutional Vitals: Temp Pulse Resp BP Pulse Ox 98.2 F 98 18 96/65 92 01/11/18 07:18 01/11/18 07:18 01/11/18 04:20 01/11/18 07:18 01/11/18 04:20 General appearance: Present: cooperative, A&O X 3, pleasant, no acute distress, answers questions appropriately Exam: as above - Head Head exam: Present: atraumatic, normocephalic - Eye Eye exam: Present: PERRL, conjuntiva pink, sclera anicteric Pupils: Present: PERRL - Neck Neck exam general surgery: Present: supple, trachea midline. Absent: lymphadenopathy - Respiratory Respiratory exam: Present: CTAB. Absent: accessory muscle use, rales, rhonchi, wheezes - Cardiovascular Cardiovascular exam: Present: irregular rhythm, +S1, +S2. Absent: diastolic murmur, gallop, rubs, systolic murmur - GI/Abdominal GI/Abdominal exam: Present: normal bowel sounds, soft, no peritoneal signs. Absent: distended, tenderness - Extremities Exam Extremities exam: Present: pedal edema, warm, radial pulses palpable and symmetrical. Absent: calf tenderness, cyanotic - Neurological Exam Neurological exam: Present: CN II-XII intact, oriented X3, no focal deficits. Absent: pronater drift, facial droop, speech deficit - Skin Skin exam: Present: dry, intact - Patient Status Disposition: Home, Self-Care Condition: Fair - Discharge Instructions Follow Up With: Raymond Arredondo MD [Non-Partnered Physician] - 01/18/18 10:00 am
[2018-01-11] MEDS: Nicotine 21 MG PATCH.TD24 TD SCH (09:45)
[2018-01-11] MEDS: Furosemide 40 MG/4 ML VIAL IVP SCH (09:45)
[2018-01-11] MEDS: Metoprolol XL (24 HR) Succ 25 MG TAB.ER.24H PO SCH (09:46)
[2018-01-11] MEDS ORDERED: *HR* Warfarin 3 MG TABLET PO ONE (18:00)
--- NOTE | 2018-01-14 13:06 | Electrocardiograph Report ---
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
== END 2018-01-11 16:57 | disposition home or self-care (01) | DRG 308 ==
LOC: 2NENU 19:47 → EMEROOARM 19:47 → 2NENU 23:08 → SUATTDRO 01-10 02:36
PROVIDERS: ADMIT Internal Medicine; ATTEND Student in an Organized Health Care Education/Training Program

== ENCOUNTER 2018-09-30 03:43 | Inpatient (IN) ==
[2018-09-30] MEDS ORDERED: *HR* Metoprolol 5 MG/5 ML VIAL IVP ONE (04:00)
[2018-09-30] MEDS ORDERED: Isovue-370 500 ML BOTTLE IVP ONE ×2 (04:00→04:15)
[2018-09-30] MEDS ORDERED: *HR* Morphine 2 MG/ML SYRINGE IVP ONE (04:02)
--- NOTE | 2018-09-30 04:05 | Emergency Department Note ---
Disposition Clinical Impression: Pleurisy, Subtherapeutic international normalized ratio (INR), Atrial fibrillation with RVR Pneumonia Qualifiers: Pneumonia type: due to unspecified organism Laterality: right Lung location: unspecified part of lung Qualified Code(s): J18.9 - Pneumonia, unspecified organism Hypotension Qualifiers: Hypotension type: unspecified hypotension type Qualified Code(s): I95.9 - Hypotension, unspecified CHF (congestive heart failure) Qualifiers: Heart failure type: unspecified Heart failure chronicity: acute Qualified Cod e(s): I50.9 - Heart failure, unspecified Disposition: Admitted As Inpatient Condition: Critical Time of Disposition: 06:00 Chest Pain HPI - General Chief Complaint: ED Chest Pain Stated Complaint: chest pain Time Seen by Provider: 09/30/18 03:47 Source: patient Mode of arrival: private vehicle Limitations: no limitations Vital Signs Reviewed: Yes Nursing Notes Reviewed: Yes - History of Present Illness HPI Narrative: 58-year-old female presents emergency department for evaluation of sharp stabbing "ripping" right lower chest pain, right upper quadrant radiates around to her back that started all of a sudden at 3 AM. Patient states she was already up with today, she was sitting in her furniture and started having a constant 8/10 sharp pain in her back to her right upper abdomen/lower chest and then has "waves" that are very frequent of increasing pain 10/10 from the abdomen to the back. Patient states it is worse with deep breathing, coughing, movement. It is worse with exertion. Patient is utilize during of/Tylenol prior to arrival this did not help. Nothing has helped this. Patient she has never had anything like this before. Last food substance was 1700 yesterday. Patient with a history of A. fib, she is on Coumadin and metoprolol, COPD. She does not utilize home oxygen. She states she is no longer a smoker. Pt complaint: other Time: 03:00 Duration: constant, gradually worsening Onset: during rest Pain Location: right chest, other Severity: severe Severity scale (1-10): 10 Quality: sharp, ripping Pain Radiation: back Improves with: nothing Worsens with: exertion, inspiration, movement Associated symptoms: Reports: diaphoresis, dyspnea, cough, leg swelling. Denies: nausea, vomiting, sense of impending doom, syncope, palpitations, fever Treatments prior to arrival chest pain: other - Related Data On Oral Contraceptives: No Home Medications Medication Instructions Recorded Confirmed Warfarin [Coumadin] 1.25 mg PO SUMOWETHFR 01/10/18 09/30/18 Warfarin [Coumadin] 2.5 mg PO MOWEFR 01/10/18 09/30/18 Tenofovir Alafenamide Fumarate 25 mg PO DAILY 09/30/18 09/30/18 [Vemlidy] Previous Rx's Medication Instructions Recorded Metoprolol XL (24 HR) Succ [Toprol 25 mg PO BID 30 Days #60 tab.er.24h 01/11/18 Xl] Spironolactone [Aldactone] 50 mg PO DAILY 30 Days #30 tablet 01/11/18 Allergies Allergy/AdvReac Type Severity Reaction Status Date / Time No Known Allergies Allergy Verified 12/19/17 21:16 All systems ED: reviewed and negative except as stated. Review of Systems: As Per HPI Chest Pain PMH - Past Medical History Medical history: Reports: atrial fibrillation, cirrhosis, COPD, hepatitis Psychiatric history: Reports: anxiety - Social History Smoking Status: Current every day smoker Alcohol use: Reports: none Drug use: Reports: none Physical Exam - General Limitations: no limitations General appearance: alert, in distress (Related to pain) - Head Head exam: atraumatic, normocephalic, normal inspection - Eye Eye exam: Present: normal appearance - ENT ENT exam: mucous membranes moist - Neck Neck exam: Present: normal inspection, full ROM, trachea midline - Chest Chest inspection: Present: normal inspection, symmetric chest wall rise - Respiratory Respiratory exam: Present: other (Congestion throughout all lobes). Absent: respiratory distress, wheezes, accessory muscle use, prolonged expiratory phase - Cardiovascular Cardiovascular exam: Present: tachycardia, irregular rhythm - Abdominal Exam Abdominal exam: Present: soft, tenderness, normal bowel sounds. Absent: distention, guarding, rebound, rigidity Abdominal tenderness: Present: RUQ - Extremities Exam Extremities exam: Present: normal inspection, full ROM. Absent: tenderness, pedal edema - Neurological Exam Neurological exam: Present: alert, oriented X3 - Psychiatric Psychiatric exam: Present: anxious - Skin Skin exam: Present: warm, dry, intact, normal color Course Course Narrative: Well-developed female in moderate amount of distress related to pain. Patient is writhing on the bed, she is crying out in pain. She arrives afebrile, normotensive. She is in A. fib RVR, pulse ranging from 150-190. EKG completed at 03:55 reveals atrial fib with RVR, ventricular rate of 185 bpm. No evidence of ischemic morphology. Tenderness with palpation to the lower anterior right ribs, right upper quadrant. Respirations are easy and even, patient is not hypoxic. Lungs are congested throughout, she does cough and it does clear some, no wheezing, rales or stridor. No surgical abdominal signs. Slight edema to the bilateral lower extremities. Patient utilize the term "ripping" for her pain, she initially stated it started in her back. Consideration for dissection as well as PE, cardiac etiologies, pneumonia. We will treat the RVR. Some of the pulse is related to the increasing amounts pain however I do feel patient will require medication as well. We will give her a dose of metoprolol. We will obtain labs. Given that the pain is also in the right lower quadrant we will grab liver enzymes and a lipase as well. We will treat pain, monitor patient. Disposition will be pending testing, most likely will require admission. Patient seen in conjunction with attending Dr. Vazquez he has had one-on-one face time with patient and is agreeable to plan of care - Reevaluation(s) Reevaluation #1: Patient has continued to complain of significant pain, she was given 1 mg morphine, this did not take pain from a 10 to a 8 the patient still was severe pain. Noted to be having decreasing blood pressures, becoming hypotensive however her map remains good, she is perfusing well. Blood pressures are fluid responsive pressure increasing with fluids. Heart rate is remaining in the 130s and 140s, however due to low blood pressures unable to initiate a Cardizem drip to help control rate. Patient on 2 L of oxygen, saturation 95%. Again, some of the tachycardia can be attributed to the pain though she still does remain in RVR. Chest x-ray return to the right perihilar pneumonia, CT of the chest without evidence of dissection, PE however there is pneumonia to the right perihilar region, couple pulmonary nodules, cirrhosis. Labs are unremarkable, no white count, chronic thrombocytopenia metabolic panel and liver panel to normal limits. Troponin negative, lipase negative. INR is 1.4, apparently was 2.5 last week per patient. After 1 L fluid, patient's blood pressure is no longer receptive fluids, systolic sustaining in the 80s and 90s, she does appear to be having increasing work of breathing and she is still maintaining saturation on O2. Consideration for developing sepsis, septic shock though presentation without SIRS criteria. I do feel that pneumonia is most likely causing her symptoms along with an A. fib RVR. We will treat with IV antibiotics. Patient will require admission. We will obtain blood cultures, lactic acid. We will continue to give fluid boluses as blood pressures fluid responsive, treat pneumonia, treat her great aunts available as well as pain. We will give one extra dose of her Coumadin will she was here in the emergency department. We did discuss this with patient, she is agreeable to plan of care. Time: 05:25 Reevaluation #2: Blood pressure continues to sustain 80s and 90s systolic. Patient has had 2 L of fluid. She is having increasing work of breathing, she continues to be a very anxious. Her breathing sounds and congestion are increasing. We will repeat chest x-ray, with called for BiPAP. We will give a small dose of Ativan to help facilitate BiPAP usage as patient is alert and anxious, barely tolerating oxygen due to the work of breathing. Continuously monitoring patient's blood pressure, heart rate. Map remains good with good perfusion. Heart rate continues to range between 130 and 150. 0600-patient continues to decline, she is not tolerating BiPAP. Continues with moist congestion. Concern for airway management. Unable to give any more fluids due to the increased breathing, blood pressure is low though map remains good with good perfusion, she is tachypneic and hypoxic. We do feel be best to intubate to maintain airway, control heart rate and blood pressure. This was discussed with patient, she has been told wrist and benefits agreeable to intubation and treatment. At this time, patient will be transferred to attending Dr. Vazquez and medical representative and Diego Pendleton CNP for continuation of care due to shift change. Time: 05:39 Vital Signs Pulse Rate 157 09/30/18 04:52 Respiratory Rate 24 09/30/18 04:52 Blood Pressure 86/59 09/30/18 04:52 O2 Sat by Pulse Oximetry 95 09/30/18 04:52 Temperature 100.1 F H 09/30/18 20:21 Pulse Rate 125 09/30/18 18:00 Respiratory Rate 22 05/20/19 19:43 Blood Pressure 99/79 09/30/18 19:43 O2 Sat by Pulse Oximetry 94 09/30/18 19:43 Oxygen Delivery Oxygen Delivery Ventilator Chest Pain - Medical Records Medical records reviewed: Yes I reviewed the patient's medical records. - Lab Data Lab results reviewed: Yes I reviewed the patient's lab results. Result diagrams: 09/30/18 20:00 09/30/18 20:00 Lab Results 09/30/18 09/30/18 09/30/18 Range/Units 04:00 04:00 04:00 WBC 8.2 (4.3-11.1) K/mcL RBC 4.20 (3.82-4.97) M/mcL Hgb 12.8 (11.5-15.4) g/dL Hct 40.4 (35.3-44.9) % MCV 96.2 (83.0-100.0) fL MCH 30.5 (28.0-33.3) pg MCHC 31.7 (31.6-35.5) g/dL RDW 19.7 H (11.5-14.5) % Plt Count 64 L (140-400) K/mcL MPV 10.4 (9.4-12.4) fL Seg Neutrophils % 62.0 % Band Neutrophils % 30.0 H (0-4) % Lymphocytes % 8.0 % Neutrophils # 7.5 (1.6-8.9) K/mcL Lymphocytes # 0.7 (0.6-4.6) K/mcL Platelet Estimate Decreased L (Normal) Immature Plt Fraction 2.1 (1.1-6.1) % PT 16.3 H (9.4-12.1) Seconds INR 1.4 APTT 29.6 (26.0-36.0) Seconds ABG pH (7.32-7.45) pH Units ABG pCO2 (35-45) mmHg ABG pO2 (85-104) mmHg ABG HCO3 (21-27) mEq/L ABG Total CO2 (20-26) mEq/L ABG O2 Saturation (95-98) % ABG Base Excess (-2 to 3) mEq/L Respiration Rate O2 Delivery Device Inspired O2 (1-15=lpm [id number]=%) Tidal Volume cc PEEP cm H2O Sodium (136-145) mEq/L Potassium (3.5-5.1) mEq/L Chloride (98-107) mEq/L Carbon Dioxide (23-29) mEq/L BUN (6-20) mg/dL Creatinine (0.60-1.20) mg/dL Est GFR ( Amer) (> 60) Est GFR (Non-Af Amer) (> 60) BUN/Creatinine Ratio (6-26) Glucose (70-105) mg/dL Calculated Osmolality (280-300) Lactic Acid (0.5-2.2) mmol/L Calcium (8.6-10.3) mg/dL Magnesium (1.6-2.6) mg/dL Total Bilirubin (0.3-1.0) mg/dL Direct Bilirubin (0.0-0.2) mg/dL Indirect Bilirubin (0.0-1.2) mg/dL AST (13-39) Units/L ALT (7-52) Units/L Alkaline Phosphatase (34-104) Units/L Troponin I (< 0.04) ng/mL B-Natriuretic Peptide 856 H (Less than 100) pg/mL Serum Total Protein (6.4-8.9) g/dL Albumin (3.5-5.7) g/dL Globulin (2.4-3.5) g/dL Albumin/Globulin Ratio (1.1-2.2) Lipase (11-82) Units/L Person Notif of Crit 09/30/18 09/30/18 09/30/18 Range/Units 04:00 04:00 05:59 WBC (4.3-11.1) K/mcL RBC (3.82-4.97) M/mcL Hgb (11.5-15.4) g/dL Hct (35.3-44.9) % MCV (83.0-100.0) fL MCH (28.0-33.3) pg MCHC (31.6-35.5) g/dL RDW (11.5-14.5) % Plt Count (140-400) K/mcL MPV (9.4-12.4) fL Seg Neutrophils % % Band Neutrophils % (0-4) % Lymphocytes % % Neutrophils # (1.6-8.9) K/mcL Lymphocytes # (0.6-4.6) K/mcL Platelet Estimate (Normal) Immature Plt Fraction (1.1-6.1) % PT (9.4-12.1) Seconds INR APTT (26.0-36.0) Seconds ABG pH (7.32-7.45) pH Units ABG pCO2 (35-45) mmHg ABG pO2 (85-104) mmHg ABG HCO3 (21-27) mEq/L ABG Total CO2 (20-26) mEq/L ABG O2 Saturation (95-98) % ABG Base Excess (-2 to 3) mEq/L Respiration Rate O2 Delivery Device Inspired O2 (1-15=lpm [id number]=%) Tidal Volume cc PEEP cm H2O Sodium 138 (136-145) mEq/L Potassium 4.1 (3.5-5.1) mEq/L Chloride 109 H (98-107) mEq/L Carbon Dioxide 19 L (23-29) mEq/L BUN 27 H (6-20) mg/dL Creatinine 0.86 (0.60-1.20) mg/dL Est GFR ( Amer) > 60 (> 60) Est GFR (Non-Af Amer) > 60 (> 60) BUN/Creatinine Ratio 31 H (6-26) Glucose 150 H (70-105) mg/dL Calculated Osmolality 294 (280-300) Lactic Acid 1.8 (0.5-2.2) mmol/L Calcium 8.6 (8.6-10.3) mg/dL Magnesium 1.4 L (1.6-2.6) mg/dL Total Bilirubin 0.9 (0.3-1.0) mg/dL Direct Bilirubin 0.3 H (0.0-0.2) mg/dL Indirect Bilirubin 0.6 (0.0-1.2) mg/dL AST 49 H (13-39) Units/L ALT 25 (7-52) Units/L Alkaline Phosphatase 84 (34-104) Units/L Troponin I < 0.03 (< 0.04) ng/mL B-Natriuretic Peptide (Less than 100) pg/mL Serum Total Protein 6.3 L (6.4-8.9) g/dL Albumin 2.9 L (3.5-5.7) g/dL Globulin 3.4 (2.4-3.5) g/dL Albumin/Globulin Ratio 0.9 L (1.1-2.2) Lipase 17 (11-82) Units/L Person Notif of Crit 09/30/18 Range/Units 08:48 WBC (4.3-11.1) K/mcL RBC (3.82-4.97) M/mcL Hgb (11.5-15.4) g/dL Hct (35.3-44.9) % MCV (83.0-100.0) fL MCH (28.0-33.3) pg MCHC (31.6-35.5) g/dL RDW (11.5-14.5) % Plt Count (140-400) K/mcL MPV (9.4-12.4) fL Seg Neutrophils % % Band Neutrophils % (0-4) % Lymphocytes % % Neutrophils # (1.6-8.9) K/mcL Lymphocytes # (0.6-4.6) K/mcL Platelet Estimate (Normal) Immature Plt Fraction (1.1-6.1) % PT (9.4-12.1) Seconds INR APTT (26.0-36.0) Seconds ABG pH 7.17 L* (7.32-7.45) pH Units ABG pCO2 49 H (35-45) mmHg ABG pO2 72 L (85-104) mmHg ABG HCO3 18 L (21-27) mEq/L ABG Total CO2 19 L (20-26) mEq/L ABG O2 Saturation 89 L (95-98) % ABG Base Excess -11 L (-2 to 3) mEq/L Respiration Rate 18 O2 Delivery Device Adult Vent Inspired O2 100.0 (1-15=lpm [id number]=%) Tidal Volume 480 cc PEEP 12 cm H2O Sodium (136-145) mEq/L Potassium (3.5-5.1) mEq/L Chloride (98-107) mEq/L Carbon Dioxide (23-29) mEq/L BUN (6-20) mg/dL Creatinine (0.60-1.20) mg/dL Est GFR ( Amer) (> 60) Est GFR (Non-Af Amer) (> 60) BUN/Creatinine Ratio (6-26) Glucose (70-105) mg/dL Calculated Osmolality (280-300) Lactic Acid (0.5-2.2) mmol/L Calcium (8.6-10.3) mg/dL Magnesium (1.6-2.6) mg/dL Total Bilirubin (0.3-1.0) mg/dL Direct Bilirubin (0.0-0.2) mg/dL Indirect Bilirubin (0.0-1.2) mg/dL AST (13-39) Units/L ALT (7-52) Units/L Alkaline Phosphatase (34-104) Units/L Troponin I (< 0.04) ng/mL B-Natriuretic Peptide (Less than 100) pg/mL Serum Total Protein (6.4-8.9) g/dL Albumin (3.5-5.7) g/dL Globulin (2.4-3.5) g/dL Albumin/Globulin Ratio (1.1-2.2) Lipase (11-82) Units/L Person Notif of Howie MARIE - Radiology Data Radiology results reviewed: Yes I reviewed the patient's radiology results. - EKG Data EKG attestation: Yes I reviewed and interpreted this EKG.
[2018-09-30 04:20] LABS: Mean Corpuscular Volume 96.2 fL (83.0-100.0); Red Cell Distribution Width 19.7 % (11.5-14.5)
[2018-09-30 04:22] LABS: Hematocrit 40.4 % (35.3-44.9); Hemoglobin 12.8 g/dL (11.5-15.4); Immature Platelets 2.1 % (1.1-6.1); Mean Corpuscular HGB Conc 31.7 g/dL (31.6-35.5); Mean Corpuscular Hemoglobin 30.5 pg (28.0-33.3); Mean Platelet Volume 10.4 fL (9.4-12.4)
[2018-09-30 04:23] LABS: Platelet Count 64 K/mcL (140-400)
[2018-09-30 04:33] LABS: INR 1.4; Prothrombin Time 16.3 Seconds (9.4-12.1)
[2018-09-30 04:36] LABS: Activated Partial Thrombo Time 29.6 Seconds (26.0-36.0); Albumin 2.9 g/dL (3.5-5.7); Albumin/Globulin Ratio 0.9 (1.1-2.2); Bilirubin,Direct 0.3 mg/dL (0.0-0.2); Bilirubin,Indirect 0.6 mg/dL (0.0-1.2); Bilirubin,Total 0.9 mg/dL (0.3-1.0); Globulin 3.4 g/dL (2.4-3.5); Total Protein 6.3 g/dL (6.4-8.9)
[2018-09-30 04:37] LABS: BUN/Creatinine Ratio 31 (6-26); Blood Urea Nitrogen 27 mg/dL (6-20); Calcium 8.6 mg/dL (8.6-10.3); Carbon Dioxide 19 mEq/L (23-29); Chloride 109 mEq/L (98-107); Glucose 150 mg/dL (70-105); Osmolality,Calculated 294 (280-300); Potassium 4.1 mEq/L (3.5-5.1); Sodium 138 mEq/L (136-145); eGFR For Non-African Americans > 60 (> 60)
[2018-09-30 04:38] LABS: Troponin I < 0.03 ng/mL (< 0.04)
[2018-09-30] MEDS ORDERED: *HR* FentaNYL (PF) 100 MCG/2 ML VIAL IVP ONE ×4 (04:38→09:47)
--- NOTE | 2018-09-30 04:39 | Emergency Department Note ---
Disposition Clinical Impression: Pleurisy, Subtherapeutic international normalized ratio (INR), Atrial fibrillation with RVR Pneumonia Qualifiers: Pneumonia type: due to unspecified organism Laterality: right Lung location: unspecified part of lung Qualified Code(s): J18.9 - Pneumonia, unspecified organism Hypotension Qualifiers: Hypotension type: unspecified hypotension type Qualified Code(s): I95.9 - Hypotension, unspecified CHF (congestive heart failure) Qualifiers: Heart failure type: unspecified Heart failure chronicity: acute Qualified Cod e(s): I50.9 - Heart failure, unspecified Disposition: Admitted As Inpatient Condition: Critical Instructions: Pleurisy (ED) Referrals: NONE,PCP [Primary Care Provider] - Forms: ED Satisfaction Letter General Adult HPI - General Chief complaint: ED Chest Pain Stated complaint: chest pain Time Seen by Provider: 09/30/18 03:47 Source: patient Mode of arrival: private vehicle Limitations: no limitations Nursing Notes Reviewed: Yes Vital Signs Reviewed: Yes - History of Present Illness Pain Scale: 10 - Related Data Home Medications Medication Instructions Recorded Confirmed Warfarin [Coumadin] 1.25 mg PO SUMOWETHFR 01/10/18 01/10/18 Warfarin [Coumadin] 2.5 mg PO TUSA 01/10/18 01/10/18 Previous Rx's Medication Instructions Recorded Metoprolol XL (24 HR) Succ [Toprol 25 mg PO BID 30 Days #60 tab.er.24h 01/11/18 Xl] Spironolactone [Aldactone] 50 mg PO DAILY 30 Days #30 tablet 01/11/18 Albuterol Sulfate [Albuterol 2 puff IH Q6HR #1 hfa.aer.ad 05/31/18 Inhaler] Allergies Allergy/AdvReac Type Severity Reaction Status Date / Time No Known Allergies Allergy Verified 12/19/17 21:16 Past Medical History - Past Medical History Medical history: Reports: atrial fibrillation, cirrhosis, COPD, hepatitis Psychiatric history: Reports: anxiety - Social History Smoking Status: Current every day smoker Smokeless Tobacco Status: No Alcohol use: Reports: none Drug use: Reports: none Physical Exam - General Limitations: no limitations General appearance: alert, in distress (Related to pain) Course Vital Signs Pulse Rate 157 09/30/18 04:52 Respiratory Rate 24 09/30/18 04:52 Blood Pressure 86/59 09/30/18 04:52 O2 Sat by Pulse Oximetry 95 09/30/18 04:52 Temperature 98.3 F 09/30/18 06:17 Pulse Rate 196 09/30/18 07:03 Respiratory Rate 18 09/30/18 07:03 Blood Pressure 146/113 09/30/18 07:03 O2 Sat by Pulse Oximetry 94 09/30/18 07:03 Oxygen Delivery Oxygen Delivery Ventilator Medical Decision Making - Medical Records Medical records reviewed: Yes I reviewed the patient's medical records. - Lab Data Lab results reviewed: Yes I reviewed the patient's lab results. Result diagrams: 09/30/18 04:00 09/30/18 04:00 Lab Results 09/30/18 09/30/18 09/30/18 Range/Units 04:00 04:00 04:00 WBC 8.2 (4.3-11.1) K/mcL RBC 4.20 (3.82-4.97) M/mcL Hgb 12.8 (11.5-15.4) g/dL Hct 40.4 (35.3-44.9) % MCV 96.2 (83.0-100.0) fL MCH 30.5 (28.0-33.3) pg MCHC 31.7 (31.6-35.5) g/dL RDW 19.7 H (11.5-14.5) % Plt Count 64 L (140-400) K/mcL MPV 10.4 (9.4-12.4) fL Seg Neutrophils % 62.0 % Band Neutrophils % 30.0 H (0-4) % Lymphocytes % 8.0 % Neutrophils # 7.5 (1.6-8.9) K/mcL Lymphocytes # 0.7 (0.6-4.6) K/mcL Platelet Estimate Decreased L (Normal) Immature Plt Fraction 2.1 (1.1-6.1) % PT 16.3 H (9.4-12.1) Seconds INR 1.4 APTT 29.6 (26.0-36.0) Seconds Sodium (136-145) mEq/L Potassium (3.5-5.1) mEq/L Chloride (98-107) mEq/L Carbon Dioxide (23-29) mEq/L BUN (6-20) mg/dL Creatinine (0.60-1.20) mg/dL Est GFR ( Amer) (> 60) Est GFR (Non-Af Amer) (> 60) BUN/Creatinine Ratio (6-26) Glucose (70-105) mg/dL Calculated Osmolality (280-300) Lactic Acid (0.5-2.2) mmol/L Calcium (8.6-10.3) mg/dL Total Bilirubin (0.3-1.0) mg/dL Direct Bilirubin (0.0-0.2) mg/dL Indirect Bilirubin (0.0-1.2) mg/dL AST (13-39) Units/L ALT (7-52) Units/L Alkaline Phosphatase (34-104) Units/L Troponin I (< 0.04) ng/mL B-Natriuretic Peptide 856 H (Less than 100) pg/mL Serum Total Protein (6.4-8.9) g/dL Albumin (3.5-5.7) g/dL Globulin (2.4-3.5) g/dL Albumin/Globulin Ratio (1.1-2.2) Lipase (11-82) Units/L 09/30/18 09/30/18 09/30/18 Range/Units 04:00 04:00 05:59 WBC (4.3-11.1) K/mcL RBC (3.82-4.97) M/mcL Hgb (11.5-15.4) g/dL Hct (35.3-44.9) % MCV (83.0-100.0) fL MCH (28.0-33.3) pg MCHC (31.6-35.5) g/dL RDW (11.5-14.5) % Plt Count (140-400) K/mcL MPV (9.4-12.4) fL Seg Neutrophils % % Band Neutrophils % (0-4) % Lymphocytes % % Neutrophils # (1.6-8.9) K/mcL Lymphocytes # (0.6-4.6) K/mcL Platelet Estimate (Normal) Immature Plt Fraction (1.1-6.1) % PT (9.4-12.1) Seconds INR APTT (26.0-36.0) Seconds Sodium 138 (136-145) mEq/L Potassium 4.1 (3.5-5.1) mEq/L Chloride 109 H (98-107) mEq/L Carbon Dioxide 19 L (23-29) mEq/L BUN 27 H (6-20) mg/dL Creatinine 0.86 (0.60-1.20) mg/dL Est GFR ( Amer) > 60 (> 60) Est GFR (Non-Af Amer) > 60 (> 60) BUN/Creatinine Ratio 31 H (6-26) Glucose 150 H (70-105) mg/dL Calculated Osmolality 294 (280-300) Lactic Acid 1.8 (0.5-2.2) mmol/L Calcium 8.6 (8.6-10.3) mg/dL Total Bilirubin 0.9 (0.3-1.0) mg/dL Direct Bilirubin 0.3 H (0.0-0.2) mg/dL Indirect Bilirubin 0.6 (0.0-1.2) mg/dL AST 49 H (13-39) Units/L ALT 25 (7-52) Units/L Alkaline Phosphatase 84 (34-104) Units/L Troponin I < 0.03 (< 0.04) ng/mL B-Natriuretic Peptide (Less than 100) pg/mL Serum Total Protein 6.3 L (6.4-8.9) g/dL Albumin 2.9 L (3.5-5.7) g/dL Globulin 3.4 (2.4-3.5) g/dL Albumin/Globulin Ratio 0.9 L (1.1-2.2) Lipase 17 (11-82) Units/L - Radiology Data Radiology results reviewed: Yes I reviewed the patient's radiology results. CT Dissection 09/30/18 04:00 IMPRESSION: 1. Abdominal aortic aneurysm measures 3.5 cm. The recommended follow-up for an aneurysm of this size is every 2 years. 2. No dissection. 3. Multiple pulmonary nodules measuring up to 1.0 x 1.6 cm. Recommend follow-up: In a low-risk patient, CT at 3-6 months, then consider CT at 18-24 months. In a high-risk patient, CT at 3-6 months, then CT at 18-24 months. 4. Right lower lobe pneumonia or aspiration. 5. Cirrhosis. D/ / Daniel Razo MD / Daniel Razo MD Interpreting Provider: Daniel Razo MD Chest X-Ray 09/30/18 06:58 IMPRESSION: 1. Support devices as above. Consider retraction of the endotracheal tube by approximately 1-2 cm. 2. Otherwise, no significant change in the appearance of the chest. D/ / Berto David MD / Berto David MD Interpreting Provider: Berto David MD - EKG Data EKG #1 EKG attestation: Yes I reviewed and interpreted this EKG. EKG results narrative: EKG shows atrial fibrillation with RVR with a ventricular rate of 185. No acute ST segment elevation or depression. Critical Care Time Critical Care Time: Yes Total Critical Care Time: 90 Attestation: Critical care performed: Time is exclusive of separately billable procedures. Time includes: direct patient care, patient reassessment, coordination of patient care, interpretation of data (laboratory data, radiology data, and respiratory data), review of patient's medical records, medical consultation and documentation of patient care. Procedures included in critical care time: Procedures excluded from critical care time: Endotracheal intubation, left internal jugular central line placement Attestation Statement - Attestation Attestation: I, Cesar Vazquez MD, personally evaluated this patient and discussed their management with the midlevel provicer, [employer]. I reviewed the midlevel provider's note and agree with the documented findings, medical decision making, and plan of care. 58-year-old female presents to the emergency department with a complaint of acute onset of sharp stabbing right mid back pain radiating around to the right upper quadrant of the abdomen and right lower chest. The pain started about one hour prior to arrival. She also complains of shortness of breath due to the pain but states it just hurts to breathe. It also hurts to move. She has had some increased shortness of breath over the past few days and also some increased cough. No sputum production. No fever. She has a history of chronic atrial fibrillation and is on Coumadin. She does not have any left-sided chest pain and did not really notice any palpitations no dizziness or syncope. No diaphoresis. On examination patient is a well-developed well-nourished female in moderate discomfort. She is alert and oriented 3. There is no cyanosis or diaphoresis. There is tenderness to palpation over the right mid and lower anterior chest wall. No bony crepitus or subcutaneous emphysema. Breath sounds are clear and equal bilaterally. No rales or wheezes noted. Heart is irregularly irregular with a marked tachycardia. Abdomen soft with normal bowel sounds. Mild right upper quadrant tenderness. EKG shows atrial fibrillation with RVR with a ventricular rate of 185. No acute ST segment elevation or depression. Chest x-ray showed a right perihilar pneumonia. CTA of the chest and aortogram showed a 2.5 cm abdominal aortic aneurysm, no dissection, right lower lobe pneumonia. Labs reviewed. The radiology report did not mention any evidence of pulmonary emboli. I reviewed the films myself and did not see any obvious large vessel filling defects. Patient received morphine and 2 doses of fentanyl for her pain the right lung. She received Lopressor 5 mg IV for her atrial fibrillation. Patient had a normal blood pressure on arrival but after she had been here a while she became hypotensive. She received approximately 2 L of IV fluid. She initially had a good response in her blood pressure to the first liter but then she dropped her blood pressure again and it did not respond to the second liter. She did develop some increased work of breathing and developed increased rales in her lungs after the fluid. A repeat chest x-ray was obtained which did show pulmonary edema. She received IV Lasix. Patient received Ativan for anxiety and was placed on BiPAP. She did not tolerate the BiPAP well but was able to keep it on for a short time. She had no improvement with this. Decision was made to move the patient to the trauma bay. Patient was intubated orally by Dr. Hicks under my direct supervision. Intubated on first attempt without difficulty or complication. She received etomidate 20 mg and rocuronium 100 mg IV for the intubation. A left internal jugular central line was placed by Dr. Hicks under my direct supervision for the patient's hypotension. However after intubation and IJ placement the patient's blood pressures improved and she was not started on pressors at this time. She was given amiodarone for her atrial fibrillation. Care was assumed at 6 AM by Aries Pendleton from [facility]. At 7 AM shift change the patient was [facility] Dr[facility] Toussaint. Plan is to consult the coordinating producer and admit patient to ICU when bed available.
[2018-09-30] MEDS ORDERED: 0.9 % Sodium Chloride 1,000 ML ONE (04:48)
[2018-09-30] MEDS: 0.9 % Sodium Chloride 1,000 ML IVC ONE ×2 (04:51→05:13)
[2018-09-30 04:52] LABS: Lymphocytes # 0.7 K/mcL (0.6-4.6); Neutrophils # 7.5 K/mcL (1.6-8.9)
[2018-09-30 04:53] LABS: Platelet Estimate Decreased (Normal)
[2018-09-30] MEDS ORDERED: Azithromycin 500 MG in D5% in Water 250 ML IVPB ONE (04:54)
[2018-09-30] MEDS ORDERED: cefTRIAXone 1,000 MG in 0.9 % Sodium Chloride Mini Bag 100 ML IVPB ONE (04:55)
[2018-09-30] MEDS ORDERED: 0.9 % Sodium Chloride 1,000 ML IVC ONE (05:12)
[2018-09-30] MEDS ORDERED: methylPREDNISolone 125 MG/2 ML VIAL IVP ONE (05:17)
[2018-09-30] MEDS ORDERED: *HR* Warfarin 2.5 MG TABLET PO ONE (05:20)
[2018-09-30] MEDS ORDERED: *HR* LORazepam 2 MG/ML VIAL IVP ONE (05:37)
[2018-09-30] MEDS ORDERED: Furosemide 40 MG/4 ML VIAL IVP ONE (05:55)
[2018-09-30] MEDS ORDERED: *HR* Etomidate 40 MG/20 ML VIAL IVP ONE (06:27)
[2018-09-30] MEDS ORDERED: *HR* Rocuronium Bromide 50 MG/5 ML VIAL IVP ONE (06:30)
[2018-09-30] MEDS ORDERED: Amiodarone Premix 150 MG/100 ML BAG IVPB ONE (07:04)
[2018-09-30] MEDS ORDERED: Amiodarone Premix 360 MG/200 ML BAG IVC ONE (07:04)
--- NOTE | 2018-09-30 07:12 | Emergency Department Note ---
Disposition Clinical Impression: Pleurisy, Subtherapeutic international normalized ratio (INR), Atrial fibrillation with RVR Pneumonia Qualifiers: Pneumonia type: due to unspecified organism Laterality: right Lung location: unspecified part of lung Qualified Code(s): J18.9 - Pneumonia, unspecified organism Hypotension Qualifiers: Hypotension type: unspecified hypotension type Qualified Code(s): I95.9 - Hypotension, unspecified Disposition: Still a Patient Condition: Fair Instructions: Pleurisy (ED) Referrals: NONE,PCP [Primary Care Provider] - Forms: ED Satisfaction Letter Time of Disposition: 07:12 General Adult HPI - General Chief complaint: ED Chest Pain Stated complaint: chest pain Time Seen by Provider: 09/30/18 03:47 Source: patient Mode of arrival: private vehicle Limitations: no limitations - History of Present Illness HPI Narrative: This is just a procedure note. For full history and physical referred to the note written by Sharda Wong. Pain Scale: 10 - Related Data Home Medications Medication Instructions Recorded Confirmed Warfarin [Coumadin] 1.25 mg PO SUMOWETHFR 01/10/18 01/10/18 Warfarin [Coumadin] 2.5 mg PO TUSA 01/10/18 01/10/18 Previous Rx's Medication Instructions Recorded Metoprolol XL (24 HR) Succ [Toprol 25 mg PO BID 30 Days #60 tab.er.24h 01/11/18 Xl] Spironolactone [Aldactone] 50 mg PO DAILY 30 Days #30 tablet 01/11/18 Albuterol Sulfate [Albuterol 2 puff IH Q6HR #1 hfa.aer.ad 05/31/18 Inhaler] Allergies Allergy/AdvReac Type Severity Reaction Status Date / Time No Known Allergies Allergy Verified 12/19/17 21:16 Past Medical History - Past Medical History Medical history: Reports: atrial fibrillation, cirrhosis, COPD, hepatitis Psychiatric history: Reports: anxiety - Social History Smoking Status: Current every day smoker Smokeless Tobacco Status: No Alcohol use: Reports: none Drug use: Reports: none Physical Exam - General Limitations: no limitations General appearance: alert, in distress (Related to pain) Course Vital Signs Pulse Rate 157 09/30/18 04:52 Respiratory Rate 24 09/30/18 04:52 Blood Pressure 86/59 09/30/18 04:52 O2 Sat by Pulse Oximetry 95 09/30/18 04:52 Temperature 98.3 F 09/30/18 06:17 Pulse Rate 196 09/30/18 07:03 Respiratory Rate 18 09/30/18 07:03 Blood Pressure 146/113 09/30/18 07:03 O2 Sat by Pulse Oximetry 94 09/30/18 07:03 Oxygen Delivery Oxygen Delivery Ventilator Procedures - Central Line Placement Left IJ Central Line Inserted*: Yes Central Line Catheter Replacement*: No Central Line Insertion: emergent Consent Obtained: verbal consent Procedural Pause: verify patient name and date of , timeout performed per policy, lana and assess the site, assemble equipment and verify supplies, perform hand hygiene Patient Placed on Monitor/Pulse Ox: Yes During the Procedure: clinician is wearing sterile gloves, cap, mask,& gown during insertion, sterile field and sterile technique are maintained, patient's face is covered with drape or mask and wearing a cap, everyone in room is wearing a mask Central Line Prep: Chlorhexidine scrub Prep the Procedure Site: apply chloraprep to the skin using a back and forth scrubbing motion, apply chloraprep for 30 seconds (upper body), 1-2 min (femoral sites), allow prep to dry, drape the patient with a full body drape Ultrasound Used for Placement: Yes Central Line Lumen Inserted: triple Post Procedure: sutured in place, good blood return, all ports aspirated, flushed, capped, sterile dressing applied, guide wire removed and visualized, dressing is dated Post Procedure X-Ray: tip of catheter in good position, no pneumothorax seen Patient Tolerated Procedure: well Complications: none Name of Clinician Inserting Central Line: Rose iHcks Clinician Assisting/Completing Checklist: Cesar Vazquez Date: 09/30/18 Time: 07:11 - Intubation Time out performed: Yes sedative: Etomidate Mg Given: 20 paralytic: Rocuronium Mg Given: 100 Laryngoscope: Deborah ET Tube Size: 7.5 ET Tube Uncuffed: No Tube Secured Depth (cm): 24 Tube Secured Location: lips Tube Placement Confirmation: visualized tube passing through cords, equal breath sounds bilaterally, no breath sounds over epigastrium, confirmation by capnometry Patient Tolerated Procedure: well Intubation Complications: none Medical Decision Making - Lab Data Result diagrams: 09/30/18 04:00 09/30/18 04:00 Lab Results 09/30/18 09/30/18 09/30/18 Range/Units 04:00 04:00 04:00 WBC 8.2 (4.3-11.1) K/mcL RBC 4.20 (3.82-4.97) M/mcL Hgb 12.8 (11.5-15.4) g/dL Hct 40.4 (35.3-44.9) % MCV 96.2 (83.0-100.0) fL MCH 30.5 (28.0-33.3) pg MCHC 31.7 (31.6-35.5) g/dL RDW 19.7 H (11.5-14.5) % Plt Count 64 L (140-400) K/mcL MPV 10.4 (9.4-12.4) fL Seg Neutrophils % 62.0 % Band Neutrophils % 30.0 H (0-4) % Lymphocytes % 8.0 % Neutrophils # 7.5 (1.6-8.9) K/mcL Lymphocytes # 0.7 (0.6-4.6) K/mcL Platelet Estimate Decreased L (Normal) Immature Plt Fraction 2.1 (1.1-6.1) % PT 16.3 H (9.4-12.1) Seconds INR 1.4 APTT 29.6 (26.0-36.0) Seconds Sodium (136-145) mEq/L Potassium (3.5-5.1) mEq/L Chloride (98-107) mEq/L Carbon Dioxide (23-29) mEq/L BUN (6-20) mg/dL Creatinine (0.60-1.20) mg/dL Est GFR ( Amer) (> 60) Est GFR (Non-Af Amer) (> 60) BUN/Creatinine Ratio (6-26) Glucose (70-105) mg/dL Calculated Osmolality (280-300) Lactic Acid (0.5-2.2) mmol/L Calcium (8.6-10.3) mg/dL Total Bilirubin (0.3-1.0) mg/dL Direct Bilirubin (0.0-0.2) mg/dL Indirect Bilirubin (0.0-1.2) mg/dL AST (13-39) Units/L ALT (7-52) Units/L Alkaline Phosphatase (34-104) Units/L Troponin I (< 0.04) ng/mL B-Natriuretic Peptide 856 H (Less than 100) pg/mL Serum Total Protein (6.4-8.9) g/dL Albumin (3.5-5.7) g/dL Globulin (2.4-3.5) g/dL Albumin/Globulin Ratio (1.1-2.2) Lipase (11-82) Units/L 09/30/18 09/30/18 09/30/18 Range/Units 04:00 04:00 05:59 WBC (4.3-11.1) K/mcL RBC (3.82-4.97) M/mcL Hgb (11.5-15.4) g/dL Hct (35.3-44.9) % MCV (83.0-100.0) fL MCH (28.0-33.3) pg MCHC (31.6-35.5) g/dL RDW (11.5-14.5) % Plt Count (140-400) K/mcL MPV (9.4-12.4) fL Seg Neutrophils % % Band Neutrophils % (0-4) % Lymphocytes % % Neutrophils # (1.6-8.9) K/mcL Lymphocytes # (0.6-4.6) K/mcL Platelet Estimate (Normal) Immature Plt Fraction (1.1-6.1) % PT (9.4-12.1) Seconds INR APTT (26.0-36.0) Seconds Sodium 138 (136-145) mEq/L Potassium 4.1 (3.5-5.1) mEq/L Chloride 109 H (98-107) mEq/L Carbon Dioxide 19 L (23-29) mEq/L BUN 27 H (6-20) mg/dL Creatinine 0.86 (0.60-1.20) mg/dL Est GFR ( Amer) > 60 (> 60) Est GFR (Non-Af Amer) > 60 (> 60) BUN/Creatinine Ratio 31 H (6-26) Glucose 150 H (70-105) mg/dL Calculated Osmolality 294 (280-300) Lactic Acid 1.8 (0.5-2.2) mmol/L Calcium 8.6 (8.6-10.3) mg/dL Total Bilirubin 0.9 (0.3-1.0) mg/dL Direct Bilirubin 0.3 H (0.0-0.2) mg/dL Indirect Bilirubin 0.6 (0.0-1.2) mg/dL AST 49 H (13-39) Units/L ALT 25 (7-52) Units/L Alkaline Phosphatase 84 (34-104) Units/L Troponin I < 0.03 (< 0.04) ng/mL B-Natriuretic Peptide (Less than 100) pg/mL Serum Total Protein 6.3 L (6.4-8.9) g/dL Albumin 2.9 L (3.5-5.7) g/dL Globulin 3.4 (2.4-3.5) g/dL Albumin/Globulin Ratio 0.9 L (1.1-2.2) Lipase 17 (11-82) Units/L Attestation Statement - Attestation Attestation: I reviewed the residents documentation and agree with the residents assessment and plan of care. I have personally had face to face time with the patient. I personally supervised and was present for the ye/critical portions of the following procedures completed by the resident: Endotracheal intubation, left IJ central line placement.
--- NOTE | 2018-09-30 07:22 | Emergency Department Note ---
Disposition Clinical Impression: Pleurisy, Subtherapeutic international normalized ratio (INR), Atrial fibrillation with RVR Pneumonia Qualifiers: Pneumonia type: due to unspecified organism Laterality: right Lung location: unspecified part of lung Qualified Code(s): J18.9 - Pneumonia, unspecified organism Hypotension Qualifiers: Hypotension type: unspecified hypotension type Qualified Code(s): I95.9 - Hypotension, unspecified CHF (congestive heart failure) Qualifiers: Heart failure type: unspecified Heart failure chronicity: acute Qualified Cod e(s): I50.9 - Heart failure, unspecified Disposition: Admitted As Inpatient Condition: Critical Time of Disposition: 13:09 General Adult HPI - General Chief complaint: ED Chest Pain Stated complaint: chest pain Time Seen by Provider: 09/30/18 03:47 Source: patient Mode of arrival: private vehicle Limitations: no limitations - History of Present Illness Pain Scale: 10 - Related Data Home Medications Medication Instructions Recorded Confirmed Warfarin [Coumadin] 1.25 mg PO SUMOWETHFR 01/10/18 01/10/18 Warfarin [Coumadin] 2.5 mg PO TUSA 01/10/18 01/10/18 Previous Rx's Medication Instructions Recorded Metoprolol XL (24 HR) Succ [Toprol 25 mg PO BID 30 Days #60 tab.er.24h 01/11/18 Xl] Spironolactone [Aldactone] 50 mg PO DAILY 30 Days #30 tablet 01/11/18 Albuterol Sulfate [Albuterol 2 puff IH Q6HR #1 hfa.aer.ad 05/31/18 Inhaler] Allergies Allergy/AdvReac Type Severity Reaction Status Date / Time No Known Allergies Allergy Verified 12/19/17 21:16 Past Medical History - Past Medical History Medical history: Reports: atrial fibrillation, cirrhosis, COPD, hepatitis Psychiatric history: Reports: anxiety - Social History Smoking Status: Current every day smoker Smokeless Tobacco Status: No Alcohol use: Reports: none Drug use: Reports: none Physical Exam - General Limitations: no limitations General appearance: alert, in distress (Related to pain) Course Course Narrative: 0600: I have assumed care of this patient from WOLF Robin due to mid-level shift change. Please see Sharda's documentation for care performed prior to my arrival. Briefly, this is a 58-year-old female that presented from home for evaluation of pain that she localizes the right lower chest that radiated to the right scapular region. His pain that began abruptly at approximately 3:00 AM. She describes the pain as sharp, stabbing, and ripping. It was worse with cough, deep breathing, movement, and exertion. The patient does have a history of atrial fibrillation and is on Coumadin and metoprolol for this. Also history of COPD without oxygen dependency. On arrival, EKG showed atrial fibrillation with RVR at a rate of 185 bpm. She was given 5 mg of IV Lopressor with modest improvement. Heart rate improved to the 120s to 130s range. Chest x-ray showed a right perihilar pneumonia. The patient did undergo a CTA of the chest to rule out dissection or pulmonary embolism. CTA showed no pulmonary embolism or dissection but did confirm the right perihilar pneumonia. The patient was given 2 L of IV fluids. Her work of breathing slowly increased. She began to sound congested and a repeat x-ray was ordered which showed pulmonary edema. He was placed on BiPAP but her blood pressure did not tolerate BiPAP well, as her blood pressure dropped to the 80s to 90s systolic. It was decided to intubate this patient and place a central line. Intubation and central line placement performed by Dr. Vazquez and Dr. Hicks. Please see their respective procedural notes for further details. After intubation, blood pressure has improved to 140-150 systolic. The patient will be admitted to the intensive care unit. 0745: I spoke with Dr. Salgado, button sawyer consumer electronics merchandiser. He will evaluate the patient in the ED 0820: Dr. Salgado at bedside. He agrees with interventions performed so far, as well as the Levophed that has recently been ordered for hypotension. The patient will be admitted to the ICU. Vital Signs Pulse Rate 157 09/30/18 04:52 Respiratory Rate 24 09/30/18 04:52 Blood Pressure 86/59 09/30/18 04:52 O2 Sat by Pulse Oximetry 95 09/30/18 04:52 Temperature 98.5 F 09/30/18 12:22 Pulse Rate 130 09/30/18 12:00 Respiratory Rate 23 09/30/18 12:00 Blood Pressure 79/69 09/30/18 12:00 O2 Sat by Pulse Oximetry 89 09/30/18 12:00 Oxygen Delivery Oxygen Delivery Ventilator Medical Decision Making - Medical Records Medical records reviewed: Yes I reviewed the patient's medical records. - Lab Data Lab results reviewed: Yes I reviewed the patient's lab results. Lab results narrative: Lab Results 09/30/18 09/30/18 09/30/18 Range/Units 04:00 04:00 04:00 WBC 8.2 (4.3-11.1) K/mcL RBC 4.20 (3.82-4.97) M/mcL Hgb 12.8 (11.5-15.4) g/dL Hct 40.4 (35.3-44.9) % MCV 96.2 (83.0-100.0) fL MCH 30.5 (28.0-33.3) pg MCHC 31.7 (31.6-35.5) g/dL RDW 19.7 H (11.5-14.5) % Plt Count 64 L (140-400) K/mcL MPV 10.4 (9.4-12.4) fL Seg Neutrophils % 62.0 % Band Neutrophils % 30.0 H (0-4) % Lymphocytes % 8.0 % Neutrophils # 7.5 (1.6-8.9) K/mcL Lymphocytes # 0.7 (0.6-4.6) K/mcL Platelet Estimate Decreased L (Normal) Immature Plt Fraction 2.1 (1.1-6.1) % PT 16.3 H (9.4-12.1) Seconds INR 1.4 APTT 29.6 (26.0-36.0) Seconds Sodium (136-145) mEq/L Potassium (3.5-5.1) mEq/L Chloride (98-107) mEq/L Carbon Dioxide (23-29) mEq/L BUN (6-20) mg/dL Creatinine (0.60-1.20) mg/dL Est GFR ( Amer) (> 60) Est GFR (Non-Af Amer) (> 60) BUN/Creatinine Ratio (6-26) Glucose (70-105) mg/dL Calculated Osmolality (280-300) Lactic Acid (0.5-2.2) mmol/L Calcium (8.6-10.3) mg/dL Total Bilirubin (0.3-1.0) mg/dL Direct Bilirubin (0.0-0.2) mg/dL Indirect Bilirubin (0.0-1.2) mg/dL AST (13-39) Units/L ALT (7-52) Units/L Alkaline Phosphatase (34-104) Units/L Troponin I (< 0.04) ng/mL B-Natriuretic Peptide 856 H (Less than 100) pg/mL Serum Total Protein (6.4-8.9) g/dL Albumin (3.5-5.7) g/dL Globulin (2.4-3.5) g/dL Albumin/Globulin Ratio (1.1-2.2) Lipase (11-82) Units/L 09/30/18 09/30/18 09/30/18 Range/Units 04:00 04:00 05:59 WBC (4.3-11.1) K/mcL RBC (3.82-4.97) M/mcL Hgb (11.5-15.4) g/dL Hct (35.3-44.9) % MCV (83.0-100.0) fL MCH (28.0-33.3) pg MCHC (31.6-35.5) g/dL RDW (11.5-14.5) % Plt Count (140-400) K/mcL MPV (9.4-12.4) fL Seg Neutrophils % % Band Neutrophils % (0-4) % Lymphocytes % % Neutrophils # (1.6-8.9) K/mcL Lymphocytes # (0.6-4.6) K/mcL Platelet Estimate (Normal) Immature Plt Fraction (1.1-6.1) % PT (9.4-12.1) Seconds INR APTT (26.0-36.0) Seconds Sodium 138 (136-145) mEq/L Potassium 4.1 (3.5-5.1) mEq/L Chloride 109 H (98-107) mEq/L Carbon Dioxide 19 L (23-29) mEq/L BUN 27 H (6-20) mg/dL Creatinine 0.86 (0.60-1.20) mg/dL Est GFR ( Amer) > 60 (> 60) Est GFR (Non-Af Amer) > 60 (> 60) BUN/Creatinine Ratio 31 H (6-26) Glucose 150 H (70-105) mg/dL Calculated Osmolality 294 (280-300) Lactic Acid 1.8 (0.5-2.2) mmol/L Calcium 8.6 (8.6-10.3) mg/dL Total Bilirubin 0.9 (0.3-1.0) mg/dL Direct Bilirubin 0.3 H (0.0-0.2) mg/dL Indirect Bilirubin 0.6 (0.0-1.2) mg/dL AST 49 H (13-39) Units/L ALT 25 (7-52) Units/L Alkaline Phosphatase 84 (34-104) Units/L Troponin I < 0.03 (< 0.04) ng/mL B-Natriuretic Peptide (Less than 100) pg/mL Serum Total Protein 6.3 L (6.4-8.9) g/dL Albumin 2.9 L (3.5-5.7) g/dL Globulin 3.4 (2.4-3.5) g/dL Albumin/Globulin Ratio 0.9 L (1.1-2.2) Lipase 17 (11-82) Units/L Result diagrams: 09/30/18 04:00 09/30/18 04:00 Lab Results 09/30/18 09/30/18 09/30/18 Range/Units 04:00 04:00 04:00 WBC 8.2 (4.3-11.1) K/mcL RBC 4.20 (3.82-4.97) M/mcL Hgb 12.8 (11.5-15.4) g/dL Hct 40.4 (35.3-44.9) % MCV 96.2 (83.0-100.0) fL MCH 30.5 (28.0-33.3) pg MCHC 31.7 (31.6-35.5) g/dL RDW 19.7 H (11.5-14.5) % Plt Count 64 L (140-400) K/mcL MPV 10.4 (9.4-12.4) fL Seg Neutrophils % 62.0 % Band Neutrophils % 30.0 H (0-4) % Lymphocytes % 8.0 % Neutrophils # 7.5 (1.6-8.9) K/mcL Lymphocytes # 0.7 (0.6-4.6) K/mcL Platelet Estimate Decreased L (Normal) Immature Plt Fraction 2.1 (1.1-6.1) % PT 16.3 H (9.4-12.1) Seconds INR 1.4 APTT 29.6 (26.0-36.0) Seconds ABG pH (7.32-7.45) pH Units ABG pCO2 (35-45) mmHg ABG pO2 (85-104) mmHg ABG HCO3 (21-27) mEq/L ABG Total CO2 (20-26) mEq/L ABG O2 Saturation (95-98) % ABG Base Excess (-2 to 3) mEq/L Respiration Rate O2 Delivery Device Inspired O2 (1-15=lpm [id number]=%) Tidal Volume cc PEEP cm H2O Sodium (136-145) mEq/L Potassium (3.5-5.1) mEq/L Chloride (98-107) mEq/L Carbon Dioxide (23-29) mEq/L BUN (6-20) mg/dL Creatinine (0.60-1.20) mg/dL Est GFR ( Amer) (> 60) Est GFR (Non-Af Amer) (> 60) BUN/Creatinine Ratio (6-26) Glucose (70-105) mg/dL Calculated Osmolality (280-300) Lactic Acid (0.5-2.2) mmol/L Calcium (8.6-10.3) mg/dL Magnesium (1.6-2.6) mg/dL Total Bilirubin (0.3-1.0) mg/dL Direct Bilirubin (0.0-0.2) mg/dL Indirect Bilirubin (0.0-1.2) mg/dL AST (13-39) Units/L ALT (7-52) Units/L Alkaline Phosphatase (34-104) Units/L Troponin I (< 0.04) ng/mL B-Natriuretic Peptide 856 H (Less than 100) pg/mL Serum Total Protein (6.4-8.9) g/dL Albumin (3.5-5.7) g/dL Globulin (2.4-3.5) g/dL Albumin/Globulin Ratio (1.1-2.2) Lipase (11-82) Units/L Person Notif of Crit 09/30/18 09/30/18 09/30/18 Range/Units 04:00 04:00 05:59 WBC (4.3-11.1) K/mcL RBC (3.82-4.97) M/mcL Hgb (11.5-15.4) g/dL Hct (35.3-44.9) % MCV (83.0-100.0) fL MCH (28.0-33.3) pg MCHC (31.6-35.5) g/dL RDW (11.5-14.5) % Plt Count (140-400) K/mcL MPV (9.4-12.4) fL Seg Neutrophils % % Band Neutrophils % (0-4) % Lymphocytes % % Neutrophils # (1.6-8.9) K/mcL Lymphocytes # (0.6-4.6) K/mcL Platelet Estimate (Normal) Immature Plt Fraction (1.1-6.1) % PT (9.4-12.1) Seconds INR APTT (26.0-36.0) Seconds ABG pH (7.32-7.45) pH Units ABG pCO2 (35-45) mmHg ABG pO2 (85-104) mmHg ABG HCO3 (21-27) mEq/L ABG Total CO2 (20-26) mEq/L ABG O2 Saturation (95-98) % ABG Base Excess (-2 to 3) mEq/L Respiration Rate O2 Delivery Device Inspired O2 (1-15=lpm [id number]=%) Tidal Volume cc PEEP cm H2O Sodium 138 (136-145) mEq/L Potassium 4.1 (3.5-5.1) mEq/L Chloride 109 H (98-107) mEq/L Carbon Dioxide 19 L (23-29) mEq/L BUN 27 H (6-20) mg/dL Creatinine 0.86 (0.60-1.20) mg/dL Est GFR ( Amer) > 60 (> 60) Est GFR (Non-Af Amer) > 60 (> 60) BUN/Creatinine Ratio 31 H (6-26) Glucose 150 H (70-105) mg/dL Calculated Osmolality 294 (280-300) Lactic Acid 1.8 (0.5-2.2) mmol/L Calcium 8.6 (8.6-10.3) mg/dL Magnesium 1.4 L (1.6-2.6) mg/dL Total Bilirubin 0.9 (0.3-1.0) mg/dL Direct Bilirubin 0.3 H (0.0-0.2) mg/dL Indirect Bilirubin 0.6 (0.0-1.2) mg/dL AST 49 H (13-39) Units/L ALT 25 (7-52) Units/L Alkaline Phosphatase 84 (34-104) Units/L Troponin I < 0.03 (< 0.04) ng/mL B-Natriuretic Peptide (Less than 100) pg/mL Serum Total Protein 6.3 L (6.4-8.9) g/dL Albumin 2.9 L (3.5-5.7) g/dL Globulin 3.4 (2.4-3.5) g/dL Albumin/Globulin Ratio 0.9 L (1.1-2.2) Lipase 17 (11-82) Units/L Person Notif of Crit 09/30/18 Range/Units 08:48 WBC (4.3-11.1) K/mcL RBC (3.82-4.97) M/mcL Hgb (11.5-15.4) g/dL Hct (35.3-44.9) % MCV (83.0-100.0) fL MCH (28.0-33.3) pg MCHC (31.6-35.5) g/dL RDW (11.5-14.5) % Plt Count (140-400) K/mcL MPV (9.4-12.4) fL Seg Neutrophils % % Band Neutrophils % (0-4) % Lymphocytes % % Neutrophils # (1.6-8.9) K/mcL Lymphocytes # (0.6-4.6) K/mcL Platelet Estimate (Normal) Immature Plt Fraction (1.1-6.1) % PT (9.4-12.1) Seconds INR APTT (26.0-36.0) Seconds ABG pH 7.17 L* (7.32-7.45) pH Units ABG pCO2 49 H (35-45) mmHg ABG pO2 72 L (85-104) mmHg ABG HCO3 18 L (21-27) mEq/L ABG Total CO2 19 L (20-26) mEq/L ABG O2 Saturation 89 L (95-98) % ABG Base Excess -11 L (-2 to 3) mEq/L Respiration Rate 18 O2 Delivery Device Adult Vent Inspired O2 100.0 (1-15=lpm [id number]=%) Tidal Volume 480 cc PEEP 12 cm H2O Sodium (136-145) mEq/L Potassium (3.5-5.1) mEq/L Chloride (98-107) mEq/L Carbon Dioxide (23-29) mEq/L BUN (6-20) mg/dL Creatinine (0.60-1.20) mg/dL Est GFR ( Amer) (> 60) Est GFR (Non-Af Amer) (> 60) BUN/Creatinine Ratio (6-26) Glucose (70-105) mg/dL Calculated Osmolality (280-300) Lactic Acid (0.5-2.2) mmol/L Calcium (8.6-10.3) mg/dL Magnesium (1.6-2.6) mg/dL Total Bilirubin (0.3-1.0) mg/dL Direct Bilirubin (0.0-0.2) mg/dL Indirect Bilirubin (0.0-1.2) mg/dL AST (13-39) Units/L ALT (7-52) Units/L Alkaline Phosphatase (34-104) Units/L Troponin I (< 0.04) ng/mL B-Natriuretic Peptide (Less than 100) pg/mL Serum Total Protein (6.4-8.9) g/dL Albumin (3.5-5.7) g/dL Globulin (2.4-3.5) g/dL Albumin/Globulin Ratio (1.1-2.2) Lipase (11-82) Units/L Person Notif of Howie MARIE - Radiology Data Radiology results reviewed: Yes I reviewed the patient's radiology results. CT Dissection 09/30/18 04:00 IMPRESSION: 1. Abdominal aortic aneurysm measures 3.5 cm. The recommended follow-up for an aneurysm of this size is every 2 years. 2. No dissection. 3. Multiple pulmonary nodules measuring up to 1.0 x 1.6 cm. Recommend follow-up: In a low-risk patient, CT at 3-6 months, then consider CT at 18-24 months. In a high-risk patient, CT at 3-6 months, then CT at 18-24 months. 4. Right lower lobe pneumonia or aspiration. 5. Cirrhosis. D/ / Daniel Razo MD / Daniel Razo MD Interpreting Provider: Daniel Razo MD Chest X-Ray 09/30/18 06:58 IMPRESSION: 1. Support devices as above. Consider retraction of the endotracheal tube by approximately 1-2 cm. 2. Otherwise, no significant change in the appearance of the chest. D/ / Berto David MD / Berto David MD Interpreting Provider: Berto David MD
[2018-09-30] MEDS: Levalbuterol Neb 1.25 MG/3 ML IH SCH ×4 (08:01→21:42)
[2018-09-30] MEDS ORDERED: Norepinephrine 4 MG in D5% in Water 250 ML IVC SCH (08:15)
[2018-09-30 08:54] LABS: ABG Base Excess -11 mEq/L (-2 to 3); ABG HCO3 18 mEq/L (21-27); ABG Oxygen Saturation 89 % (95-98); ABG PCO2 49 mmHg (35-45); ABG PH 7.17 pH Units (7.32-7.45); ABG PO2 72 mmHg (85-104); ABG TCO2 19 mEq/L (20-26); Blood Gas PEEP 12 cm H2O; Blood Gas Respiration Rate 18; Blood Gas VT 480 cc
[2018-09-30] MEDS ORDERED: *HR* Midazolam HCl 5 MG/5 ML VIAL IVP ONE ×3 (09:41→14:30)
[2018-09-30] MEDS ORDERED: *HR* Midazolam HCl 2 MG/2 ML VIAL IVP ONE (09:47)
[2018-09-30] MEDS ORDERED: Phenylephrine 10 MG in D5% in Water 250 ML IVC SCH (10:30)
[2018-09-30] MEDS ORDERED: *HR* Etomidate 20 MG/10 ML AMPUL IVP ONE (10:45)
[2018-09-30] MEDS ORDERED: *HR* Rocuronium Bromide 100 MG/10 ML VIAL IVC ONE (10:45)
[2018-09-30 11:05] LABS: Magnesium 1.4 mg/dL (1.6-2.6)
[2018-09-30] MEDS ORDERED: Artificial Tears SOLN 15 ML BOTTLE BOTH EYES PRN (11:23)
[2018-09-30] MEDS: FentaNYL (PF) 1,000 MCG in 0.9 % Sodium Chloride 80 ML IVC SCH ×2 (11:43→20:22)
[2018-09-30] MEDS: Dexmedetomidine HCl 400 MCG/100 ML MLS IVC SCH ×3 (11:45→20:26)
[2018-09-30] MEDS: Norepinephrine 8 MG in D5% in Water 250 ML IVC SCH (11:54)
[2018-09-30] MEDS: Artificial Tears SOLN 15 ML BOTTLE BOTH EYES SCH ×3 (11:58→19:46)
[2018-09-30] MEDS: Chlorhexidine Rinse 15 ML MOUTHWASH MM SCH ×2 (11:59→19:46)
[2018-09-30] MEDS: Phenylephrine 50 MG in D5% in Water 250 ML IVC SCH ×3 (12:17→22:02)
[2018-09-30 12:21] LABS: Adenovirus Not Detected (Not Detect); Bordetella Pertussis Not Detected (Not Detect); Chlamydophila pneumoniae Not Detected (Not Detect); Coronavirus 229E Not Detected (Not Detect); Coronavirus HKU1 Not Detected (Not Detect); Coronavirus NL63 Not Detected (Not Detect); Coronavirus OC43 Not Detected (Not Detect); Human Metapneumovirus Not Detected (Not Detect); Human Rhinovirus/Enterovirus Not Detected (Not Detect); Influenza A Subtype 2009 H1 Not Detected (Not Detect); Influenza A Untypeable Not Detected (Not Detect); Influenza B Not Detected (Not Detect); Mycoplasma pneumoniae Not Detected (Not Detect); Parainfluenza Virus 1 Not Detected (Not Detect); Parainfluenza Virus 2 Not Detected (Not Detect); Parainfluenza Virus 3 Not Detected (Not Detect); Parainfluenza Virus 4 Not Detected (Not Detect); Respiratory Syncytial Virus Not Detected (Not Detect)
[2018-09-30] MEDS: Amiodarone Premix 360 MG/200 ML BAG IVC SCH (14:19)
[2018-09-30 14:23] LABS: ABG Base Excess -12 mEq/L (-2 to 3); ABG HCO3 15 mEq/L (21-27); ABG Oxygen Saturation 84 % (95-98); ABG PCO2 40 mmHg (35-45); ABG PH 7.19 pH Units (7.32-7.45); ABG PO2 60 mmHg (85-104); ABG TCO2 17 mEq/L (20-26); Blood Gas PEEP 12 cm H2O; Blood Gas Respiration Rate 20; Blood Gas VT 480 cc
[2018-09-30] MEDS ORDERED: Sodium Bicarbonate 50 MEQ/50 ML VIAL ONE ×2 (14:23→14:25)
[2018-09-30] MEDS ORDERED: Sodium Bicarbonate 50 MEQ/50 ML VIAL IVP ONE (14:27)
[2018-09-30] MEDS: Piperacillin/Tazobactam 3.375 GM in 0.9 % Sodium Chloride Mini Bag 100 ML IVPB SCH ×2 (14:44→23:57)
--- NOTE | 2018-09-30 14:54 | Pulmonology History & Physical ---
<Darlene Greer - Last Filed: 09/30/18 16:42> Date of Encounter: 09/30/18 Time of Encounter: 14:40 Assessment and Plan (1) Pneumonia Current visit: Yes Status: Acute Presented to the ED complaining of shortness of breath ongoing for 3 days as wel l as pain upon inspiration. Was not requiring any oxygen at presentation the with anxiety worsening required BiPAP could not tolerate BiPAP and was subsequently intubated in the ED. CT dissection does show right lower lobe pneumonia versus aspiration. Nasal MRSA swab is positive. -Blood cultures pending -Sputum cultures pending -Continue vancomycin and Zosyn -Continue ventilation setting to keep oxygen saturation above 80% -Received 125 mg Solu-Medrol in the ED will continue 40 mg Solu-Medrol every 8 hours Qualifiers: Pneumonia type: due to unspecified organism Laterality: right Lung location: unspecified part of lung Qualified Code(s): J18.9 - Pneumonia, unspecified organism (2) Acute exacerbation of CHF (congestive heart failure) Current visit: Yes Status: Acute Likely exacerbation secondary to fluid overload, BNP at admission was 856 Presented to the ED complaining of worsening shortness of breath does have history of CHF with EF of 35% one year ago Was initially on room air in the ED respiratory rate worsened subsequently required reintubation Is on spironolactone at home but unsure last taken as daughter reports she does not follow with PCP. Due to septic shock developing received over 3 L of IV fluids in the ED -Repeat echo pending -Continue telemetry -Continue to monitor intake and output -Repeat chest x-ray pending Qualifiers: Heart failure type: unspecified Qualified Code(s): I50.9 - Heart failure, unspecified (3) Acute respiratory failure with hypoxia Current visit: Yes Status: Acute Acute respiratory failure with hypoxia likely secondary to pneumonia and CHF exacerbation MRSA swab is positive Respiratory panel was negative -Continue to treat pneumonia -Repeat echo pending -Currently intubated on vent -Sputum cultures pending -Continue vancomycin (4) Cirrhosis Current visit: Yes Status: Acute 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 Was noted to have a 2 fibrillation with RVR in the ED Septic shock could be secondary to infectious versus cardiogenic In the ED did not respond to IV fluids requiring pressors -Blood cultures pending -Continue IV antibiotics, currently MRSA nasal swab -Need to titrate pressors as tolerated, currently on norepinephrine and phenylephrine (6) Atrial fibrillation with RVR Current visit: Yes Status: Acute History of atrial fibrillation at presentation was noted to have H fibrillation with RVR with heart rate in the 180s Was on warfarin at home but was therapeutic with INR 1.4 Started on amiodarone drip in the ED Currently heart rate is in the 130s Currently requiring pressors due to septic shock, which may affect rate control -Continue titrating amiodarone drip -Echo pending -Continue cardiac monitoring -Holding anticoagulation at this time given mixture of coffee-ground emesis with bright red blood from her OG tube (7) DVT prophylaxis Current visit: No Status: Acute Noted to have coffee-ground emesis with bright red blood will hold anticoagulation at this time Continue SCDs History of Present Illness Chief complaint: Shortness of breath HPI: Ms. Sales is a 58 year old female with history of cirrhosis, CHF, atrial fibrillation who was seen in the ED and was intubated prior to admission to the ICU. Information was obtained from chart review. She had presented to the ED complaining of acute onset of sharp stabbing right back pain radiating around her right upper quadrant of her abdomen as well as right lower chest. She had reported worsening shortness of breath over the past a few days with increased cough and pain upon deep breaths. She had denied any palpitation, diaphoresis, left-sided chest pain in the ED. Her EKG showed A. fib with RVR, heart rate in the 180s in the ED with no ST elevation or depression noted and chest x-ray showed right perihilar pneumonia. She subsequently had CTA of the chest and aortogram which showed 2.5 cm abdominal aortic aneurysm with no dissection. During her stay in the ED her blood pressure continued to decline she was also having worsening shortness of breath anxiety with BiPAP and due to not tolerating BiPAP was subsequently intubated. In the ED she had a left internal jugular central line placed. She was started on amiodarone drip and was on propofol drip upon presentation to the ICU. In the Intensive Care Unit her blood pressure continued to decline with her map in the mid 50s. She was started on norepinephrine in the ER and phenylephrine was subsequently added. Past Med Surg Social Fam HX - Past Medical History Medical history: atrial fibrillation, cirrhosis, COPD, hepatitis Additional medical history: 4 herniated disks to lower back Psychiatric history: anxiety - Past Surgical History Additional surgical history: tubal ligation. cataracts - Social History Smoking Status: Current every day smoker Smokeless Tobacco Status: No Alcohol use: none Drug use: none - Family History Mother Adopted: No Hx Family Cardiac Disorders: Yes ([place]) Hx Family Respiratory Disorders: Yes (mother, brother, father COPD) Hx Family Cancer: Yes (breast, stomach) Hx Family GI Disorders: No Hx Family Endocrine Disorder: Yes (mother dm) Hx Family Neuromuscular Disorders: No Hx Family Neurologic Disorders: No Hx Family HEENT Disorders: No Hx Family Autoimmune Disorders: No Medications and Allergies Warfarin [Coumadin] 1.25 mg PO SUMOWETHFR 01/10/18 [History] Warfarin [Coumadin] 2.5 mg PO MOWEFR 01/10/18 [History] Metoprolol XL (24 HR) Succ [Toprol Xl] 25 mg PO BID 30 Days #60 tab.er.24h 01/11/18 [Rx] Spironolactone [Aldactone] 50 mg PO DAILY 30 Days #30 tablet 01/11/18 [Rx] Tenofovir Alafenamide Fumarate [Vemlidy] 25 mg PO DAILY 09/30/18 [History] Allergy/AdvReac Type Severity Reaction Status Date / Time No Known Allergies Allergy Verified 12/19/17 21:16 ROS unobtainable: due to endotracheal tube All Systems: The remainder of the systems were reviewed and are negative Physical Examination Vital Signs: Vital Signs, Last 4 Hours Temp Pulse Resp BP Pulse Ox 09/30/18 14:00 137 26 69/58 88 09/30/18 13:00 121 22 72/54 88 09/30/18 12:22 98.5 F 09/30/18 12:00 130 23 79/69 89 09/30/18 11:36 25 89 09/30/18 11:00 150 20 82/58 88 General appearance: other (Comfortable and intubated) Eyes: nonicteric ENT: oropharynx moist Neck: supple Effort: mildly labored Auscultation: bilateral: diminished breath sounds Cardiovascular: irregular rhythm (Atrial fibrillation) Gastrointestinal: normoactive bowel sounds, soft, non-tender, non-distended Integumentary: normal Extremities: no cyanosis, no edema, no clubbing Musculoskeletal: no deformities other (Sedated and intubated) Results - Laboratory Findings CBC and BMP: 09/30/18 04:00 09/30/18 14:51 ABG ABG pH 7.19 pH Units (7.32-7.45) L* 09/30/18 14:18 ABG pCO2 40 mmHg (35-45) 09/30/18 14:18 ABG pO2 60 mmHg (85-104) L 09/30/18 14:18 ABG O2 Saturation 84 % (95-98) L 09/30/18 14:18 PT/INR, D-dimer PT 16.3 Seconds (9.4-12.1) H 09/30/18 04:00 Abnormal lab findings: Abnormal lab results RDW 19.7 % (11.5-14.5) H 09/30/18 04:00 Plt Count 64 K/mcL (140-400) L 09/30/18 04:00 30.0 % (0-4) H 09/30/18 04:00 Decreased (Normal) L 09/30/18 04:00 PT 16.3 Seconds (9.4-12.1) H 09/30/18 04:00 ABG pH 7.19 pH Units (7.32-7.45) L* 09/30/18 14:18 ABG pCO2 49 mmHg (35-45) H 09/30/18 08:48 ABG pO2 60 mmHg (85-104) L 09/30/18 14:18 ABG HCO3 15 mEq/L (21-27) L 09/30/18 14:18 ABG Total CO2 17 mEq/L (20-26) L 09/30/18 14:18 ABG O2 Saturation 84 % (95-98) L 09/30/18 14:18 ABG Base Excess -12 mEq/L (-2 to 3) L 09/30/18 14:18 Chloride 109 mEq/L (98-107) H 09/30/18 04:00 Carbon Dioxide 19 mEq/L (23-29) L 09/30/18 04:00 BUN 27 mg/dL (6-20) H 09/30/18 04:00 31 (6-26) H 09/30/18 04:00 Glucose 150 mg/dL (70-105) H 09/30/18 04:00 Magnesium 1.4 mg/dL (1.6-2.6) L 09/30/18 04:00 0.3 mg/dL (0.0-0.2) H 09/30/18 04:00 AST 49 Units/L (13-39) H 09/30/18 04:00 B-Natriuretic Peptide 856 pg/mL (Less than 100) H 09/30/18 04:00 6.3 g/dL (6.4-8.9) L 09/30/18 04:00 2.9 g/dL (3.5-5.7) L 09/30/18 04:00 0.9 (1.1-2.2) L 09/30/18 04:00 Positive (Negative) A 09/30/18 11:20 <Kyrie Salgado S - Last Filed: 09/30/18 21:38> Date of Encounter: 09/30/18 History of Present Illness HPI: Ms. Sales is a 58 year old female All Systems: The remainder of the systems were reviewed and are negative Physical Examination Vital Signs: Vital Signs, Last 4 Hours Temp Pulse Resp BP Pulse Ox 09/30/18 20:21 100.1 F H 09/30/18 19:43 22 99/79 94 09/30/18 18:00 125 22 99/77 95 Results - Laboratory Findings CBC and BMP: 09/30/18 20:00 09/30/18 20:00 ABG ABG pH 7.28 pH Units (7.32-7.45) L 09/30/18 20:27 ABG pCO2 37 mmHg (35-45) 09/30/18 20:27 ABG pO2 70 mmHg (85-104) L 09/30/18 20:27 ABG O2 Saturation 92 % (95-98) L 09/30/18 20:27 PT/INR, D-dimer PT 19.5 Seconds (9.4-12.1) H 09/30/18 18:19 Abnormal lab findings: Abnormal lab results WBC 25.5 K/mcL (4.3-11.1) H D 09/30/18 20:00 Hct 47.8 % (35.3-44.9) H 09/30/18 20:00 MCHC 31.2 g/dL (31.6-35.5) L 09/30/18 20:00 RDW 20.7 % (11.5-14.5) H 09/30/18 20:00 Plt Count 98 K/mcL (140-400) L D 09/30/18 20:00 30.0 % (0-4) H 09/30/18 04:00 Decreased (Normal) L 09/30/18 04:00 PT 19.5 Seconds (9.4-12.1) H 09/30/18 18:19 ABG pH 7.28 pH Units (7.32-7.45) L 09/30/18 20:27 ABG pCO2 49 mmHg (35-45) H 09/30/18 08:48 ABG pO2 70 mmHg (85-104) L 09/30/18 20:27 ABG HCO3 18 mEq/L (21-27) L 09/30/18 20:27 ABG Total CO2 19 mEq/L (20-26) L 09/30/18 20:27 ABG O2 Saturation 92 % (95-98) L 09/30/18 20:27 ABG Base Excess -8 mEq/L (-2 to 3) L 09/30/18 20:27 Sodium 134 mEq/L (136-145) L 09/30/18 20:00 Potassium 5.2 mEq/L (3.5-5.1) H 09/30/18 20:00 Chloride 109 mEq/L (98-107) H 09/30/18 04:00 Carbon Dioxide 20 mEq/L (23-29) L 09/30/18 14:51 BUN 32 mg/dL (6-20) H 09/30/18 20:00 1.67 mg/dL (0.60-1.20) H 09/30/18 20:00 Est GFR ( Amer) 38 (> 60) L 09/30/18 20:00 Est GFR (Non-Af Amer) 32 (> 60) L 09/30/18 20:00 31 (6-26) H 09/30/18 04:00 Glucose 160 mg/dL (70-105) H 09/30/18 20:00 Lactic Acid 3.2 mmol/L (0.5-2.2) H 09/30/18 18:19 Calcium 8.1 mg/dL (8.6-10.3) L 09/30/18 20:00 Magnesium 1.4 mg/dL (1.6-2.6) L 09/30/18 04:00 0.3 mg/dL (0.0-0.2) H 09/30/18 04:00 AST 49 Units/L (13-39) H 09/30/18 04:00 79 mcmol/L (16-53) H 09/30/18 20:00 B-Natriuretic Peptide 856 pg/mL (Less than 100) H 09/30/18 04:00 6.3 g/dL (6.4-8.9) L 09/30/18 04:00 2.9 g/dL (3.5-5.7) L 09/30/18 04:00 0.9 (1.1-2.2) L 09/30/18 04:00 7.75 ng/mL (0.00-0.15) H 09/30/18 14:51 Positive (Negative) A 09/30/18 11:20 - Attending Attestation I saw and evaluated this patient and my medical decision-making was reviewed with the Resident Physician. I agree with the documented findings, disposition and treatment plan as described except to the extent set forth below. We independently had qskh-my-jjnu contact with the patient I spent 70 minutes of Critical Care time with this patient. It involved decision making of high complexity to assess, manipulate, and support vital organ system failure and/or to prevent further life threatening deterioration of the patient's condition. The time involved in the performance of separately reportable procedures was not counted toward critical care time. Patient seen and examined at bedside Labs, radiology, chart personally reviewed. Management was reviewed during multidisciplinary critical care rounds. 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 Pulm: Patient had difficult oxygenation and ventilation and said that tidal volume inspiratory time, PEEP acceptable oxygenation and ventilation was achieved patient had clinical scenario is complicated by right lower lobe pneumonia COPD exacerbation and acute on chronic systolic heart failure. To continue with the bronchodilator steroids and antibiotics patient is in septic shock cannot be diuresed. Cards: Shock most likely septic shock due to pneumonia acute on chronic systolic heart failure complicated with atrial fibrillation with RVR to continue amiodarone. FEN-GI: Nothing by mouth for now will try to advance diet by tomorrow. 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 Will evaluate for portal hypertension with portal venous Doppler patient has some GI bleed most likely due to gastritis to use IV PPI twice a day. Renal: Celebrex acute kidney injury most likely due to sepsis induced acute kidney injury. Patient most likely will be needing and dialysis tomorrow patient has some non-gap acidosis give some bicarbonate to IV push is a non-gap acidosis getting worse and was started on bicarbonate drip. ID: To cover with broad-spectrum antibiotics Heme/Onc: Patient has chronic thrombocytopenia secondary to cirrhosis and possible chronic hepatitis C. Endo: Glucose Monitored Integ/MSK: Skin Care per routine ICU Nursing Protocol to prevent ulcers. Lines: All lines examined without evidence of infection : Dispo: Critically ill CODE:Full Code
[2018-09-30] MEDS ORDERED: Vancomycin 1,750 MG in 0.9 % Sodium Chloride 250 ML IVPB SCH (15:00)
[2018-09-30] MEDS ORDERED: Pantoprazole 40 MG VIAL IVP SCH (16:10)
[2018-09-30 16:12] LABS: Potassium 4.8 mEq/L (3.5-5.1)
--- NOTE | 2018-09-30 17:46 | Electrocardiograph Report ---
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
[2018-09-30 18:33] LABS: INR 1.7; Prothrombin Time 19.5 Seconds (9.4-12.1)
[2018-09-30 20:23] LABS: Mean Corpuscular HGB Conc 31.2 g/dL (31.6-35.5)
[2018-09-30 20:24] LABS: Hematocrit 47.8 % (35.3-44.9); Hemoglobin 14.9 g/dL (11.5-15.4); Mean Corpuscular Hemoglobin 30.7 pg (28.0-33.3); Mean Corpuscular Volume 98.6 fL (83.0-100.0); Mean Platelet Volume 10.5 fL (9.4-12.4); Red Blood Count 4.85 M/mcL (3.82-4.97); Red Cell Distribution Width 20.7 % (11.5-14.5); Sodium, Urine 14.6 mEq/L
[2018-09-30 20:25] LABS: Platelet Count 98 K/mcL (140-400)
[2018-09-30 20:35] LABS: Calcium 8.1 mg/dL (8.6-10.3); Potassium 5.2 mEq/L (3.5-5.1)
[2018-09-30 20:39] LABS: ABG Base Excess -8 mEq/L (-2 to 3); ABG HCO3 18 mEq/L (21-27); ABG Oxygen Saturation 92 % (95-98); ABG PCO2 37 mmHg (35-45); ABG PH 7.28 pH Units (7.32-7.45); ABG PO2 70 mmHg (85-104); ABG TCO2 19 mEq/L (20-26); Blood Gas Modality ASSIST CONTROL; Blood Gas PEEP 10 cm H2O; Blood Gas Respiration Rate 20; Blood Gas VT 480 cc
[2018-09-30] MEDS ORDERED: Perflutren Lipid Microsphere 1.3 ML in 0.9 % Sodium Chloride 8.7 ML IVP ONE (21:06)
[2018-09-30] MEDS ORDERED: *HR* Heparin 5,000 UNIT/ML VIAL SQ SCH (22:00)
[2018-10-01] MEDS: Artificial Tears SOLN 15 ML BOTTLE BOTH EYES SCH ×7 (00:19→23:19)
[2018-10-01] MEDS: Dexmedetomidine HCl 400 MCG/100 ML MLS IVC SCH ×7 (00:22→23:17)
[2018-10-01] MEDS: Amiodarone Premix 360 MG/200 ML BAG IVC SCH (01:43)
[2018-10-01] MEDS: Levalbuterol Neb 1.25 MG/3 ML IH SCH ×4 (03:27→21:36)
[2018-10-01] MEDS ORDERED: Acetaminophen 650 MG RECTAL SUPP RC ONE (03:56)
[2018-10-01] MEDS: Phenylephrine 50 MG in D5% in Water 250 ML IVC SCH ×2 (04:33→11:24)
[2018-10-01] MEDS ORDERED: Nystatin POWDER 30 GM BOTTLE TP PRN (04:34)
[2018-10-01 04:39] LABS: Hemoglobin 14.4 g/dL (11.5-15.4); Mean Corpuscular Volume 97.7 fL (83.0-100.0)
[2018-10-01 04:41] LABS: Hematocrit 46.3 % (35.3-44.9); Mean Corpuscular HGB Conc 31.1 g/dL (31.6-35.5); Mean Corpuscular Hemoglobin 30.4 pg (28.0-33.3); Mean Platelet Volume 11.2 fL (9.4-12.4); Red Blood Count 4.74 M/mcL (3.82-4.97); Red Cell Distribution Width 21.2 % (11.5-14.5)
[2018-10-01 04:45] LABS: Platelet Count 94 K/mcL (140-400)
[2018-10-01 04:47] LABS: INR 2.2; Prothrombin Time 25.3 Seconds (9.4-12.1)
[2018-10-01 04:54] LABS: ABG Base Excess -9 mEq/L (-2 to 3); ABG HCO3 18 mEq/L (21-27); ABG Oxygen Saturation 93 % (95-98); ABG PCO2 39 mmHg (35-45); ABG PH 7.26 pH Units (7.32-7.45); ABG PO2 76 mmHg (85-104); ABG TCO2 19 mEq/L (20-26); Blood Gas Modality ASSIST CONTROL; Blood Gas PEEP 10 cm H2O; Blood Gas Respiration Rate 20; Blood Gas VT 480 cc
[2018-10-01] MEDS ORDERED: Permethrin Cream Rinse 60 ML LIQUID TP ONE (04:54)
[2018-10-01 05:12] LABS: Albumin 2.7 g/dL (3.5-5.7); Albumin/Globulin Ratio 0.7 (1.1-2.2); Bilirubin,Direct 0.3 mg/dL (0.0-0.2); Bilirubin,Indirect 0.8 mg/dL (0.0-1.2); Bilirubin,Total 1.1 mg/dL (0.3-1.0); Calcium 7.3 mg/dL (8.6-10.3); Globulin 4.1 g/dL (2.4-3.5); Potassium 5.7 mEq/L (3.5-5.1); Total Protein 6.8 g/dL (6.4-8.9)
[2018-10-01 05:24] LABS: Lymphocytes # 1.1 K/mcL (0.6-4.6); Monocytes # 2.2 K/mcL (0.0-1.3); Neutrophils # 23.8 K/mcL (1.6-8.9)
[2018-10-01 05:25] LABS: Platelet Estimate Slight Decrease (Normal)
[2018-10-01] MEDS: Pantoprazole 40 MG VIAL IVP SCH ×2 (06:45→18:13)
[2018-10-01] MEDS: Piperacillin/Tazobactam 3.375 GM in 0.9 % Sodium Chloride Mini Bag 100 ML IVPB SCH ×3 (08:07→23:18)
[2018-10-01] MEDS: MethylPREDNISolone 40 MG/ML VIAL IVP SCH ×3 (08:07→23:19)
[2018-10-01] MEDS: Chlorhexidine Rinse 15 ML MOUTHWASH MM SCH ×2 (08:11→19:21)
[2018-10-01] MEDS: FentaNYL (PF) 1,000 MCG in 0.9 % Sodium Chloride 80 ML IVC SCH ×4 (08:12→23:21)
[2018-10-01] MEDS ORDERED: Acetylcysteine 15,000 MG in D5% in Water 250 ML IVC ONE (09:09)
--- NOTE | 2018-10-01 09:51 | Nephrology Consult Note ---
Date of Encounter: 10/01/18 Time of Encounter: 09:30 Assessment and Plan (1) EMMA (acute kidney injury) Current Visit: Yes Status: Acute For this critically ill patient, who has rapidly worsening creatinine, hyperkalemia, and difficult to manage volume status given her cirrhosis, I recommend initiating renal replacement therapy, specifically with CVVHDF for clearance and volume control. Will not be able to utilize Citrate/Ca++ gtt for regional Anticoagulation due to her elevated LFts. Will start with a blood flow rate (BFR) of 100 and absolute zero fluid removal. Depending upon how well she responds, I intend to increase the UF over time. I suspect this EMMA is multifactorial and includes relatively wide differential diagnosis. Will order an EMMA work up. To help preserve renal function, and ideally to help allow the best possible chances of renal recovery, I recommend following a renal protective strategy: Strict I's and O's, avoidance of nephrotoxic agents as able, renal dosing of medications. Thank you for consulting the [facility] on this critically ill, severely sick, and complex patient. Critical care time provided was approximately 47 minutes including documentation, laboratory review, [id number]-[id number] exam, [place] orders, evaluation and management and complex medical decision-making. Thank you (2) Oliguria Current Visit: Yes Status: Acute (3) Hyperkalemia Current Visit: Yes Status: Acute (4) Acute exacerbation of CHF (congestive heart failure) Current Visit: Yes Status: Acute Qualifiers: Heart failure type: systolic Qualified Code(s): I50.23 - Acute on chronic systolic (congestive) heart failure (5) Atrial fibrillation with RVR Current Visit: Yes Status: Acute (6) Cirrhosis Current Visit: Yes Status: Acute Qualifiers: Hepatic cirrhosis type: unspecified hepatic cirrhosis Ascites presence: without ascites Qualified Code(s): K74.60 - Unspecified cirrhosis of liver (7) Hypotension Current Visit: Yes Status: Acute Qualifiers: Hypotension type: unspecified hypotension type Qualified Code(s): I95.9 - Hypotension, unspecified (8) Pneumonia Current Visit: Yes Status: Acute Qualifiers: Pneumonia type: due to unspecified organism Laterality: right Lung location: unspecified part of lung Qualified Code(s): J18.9 - Pneumonia, unspecified organism (9) Septic shock Current Visit: Yes Status: Acute (10) Anemia Current Visit: No Status: Acute Qualifiers: Anemia type: unspecified type Qualified Code(s): D64.9 - Anemia, unspecified (11) Hepatitis C Current Visit: No Status: Acute Will check Rheumatoid factor and Cryoglobulin labs. Qualifiers: Qualified Code(s): B19.20 - Unspecified viral hepatitis C without hepatic coma (12) Thrombocytopenia Current Visit: No Status: Acute History of Present Illness - Reason for Consult Consult date: 10/01/18 Acute Kidney Injury, hyperkalemia Requesting physician: Kyrie Salgado - Chief Complaint EMMA with hyperkalemia - History of Present Illness The patient is a 58-year-old female with a past medical history of trial fibrillation, cirrhosis, COPD, hepatitis and et al who was found to have rapidly worsening renal function, and nephrology was consulted. She was noted to be hyperkalemic, hyponatremic, elevated lactic acid, worsening urine output and serum creatinine. She was already intubated, and so the history of present illness and review of systems in this note are therefore limited. In reviewing her chart, she was not taking NSAIDs as an outpatient, and there is no documented family history of end-stage renal disease. She was receiving Spironolactone presumably for cirrhosis/ascites, and this can induce hyperk alemia. I do not see documentation of any previous nephrologists. Past Med Surg Social Fam HX - Past Medical History Medical history: atrial fibrillation, cirrhosis, COPD, hepatitis Additional medical history: 4 herniated disks to lower back Psychiatric history: anxiety - Past Surgical History Additional surgical history: tubal ligation. cataracts - Social History Smoking Status: Current every day smoker Smokeless Tobacco Status: No Alcohol use: none Drug use: none - Family History Mother Adopted: No Hx Family Cardiac Disorders: Yes ([place]) Hx Family Respiratory Disorders: Yes (mother, brother, father COPD) Hx Family Cancer: Yes (breast, stomach) Hx Family GI Disorders: No Hx Family Endocrine Disorder: Yes (mother dm) Hx Family Neuromuscular Disorders: No Hx Family Neurologic Disorders: No Hx Family HEENT Disorders: No Hx Family Autoimmune Disorders: No Medications and Allergies Warfarin [Coumadin] 1.25 mg PO SUMOWETHFR 01/10/18 [History] Warfarin [Coumadin] 2.5 mg PO MOWEFR 01/10/18 [History] Metoprolol XL (24 HR) Succ [Toprol Xl] 25 mg PO BID 30 Days #60 tab.er.24h 01/11/18 [Rx] Spironolactone [Aldactone] 50 mg PO DAILY 30 Days #30 tablet 01/11/18 [Rx] Tenofovir Alafenamide Fumarate [Vemlidy] 25 mg PO DAILY 09/30/18 [History] Allergy/AdvReac Type Severity Reaction Status Date / Time No Known Allergies Allergy Verified 12/19/17 21:16 Review of Systems ROS unobtainable: due to endotracheal tube Exam - Vital Signs Vital signs: Initial Vital Signs Pulse Resp BP Pulse Ox 157 24 86/59 95 09/30/18 04:52 09/30/18 04:52 09/30/18 04:52 09/30/18 04:52 Vital Signs - Last 8 Hours Temp Pulse Resp BP Pulse Ox 10/01/18 08:17 101.3 F H 10/01/18 08:00 118 25 98/84 95 10/01/18 07:00 120 25 104/82 96 10/01/18 06:00 120 22 91/71 95 10/01/18 05:10 22 96/69 98 10/01/18 05:00 125 26 87/72 97 10/01/18 04:00 101.2 F H 122 22 84/69 95 10/01/18 03:27 24 85/65 96 10/01/18 03:00 123 24 83/71 95 10/01/18 02:00 115 24 85/66 95 Intake and Output 09/30/18 10/01/18 10/01/18 23:59 07:59 15:59 Intake Total 1095.5 / 4443.0 955 / 955 Output Total 350 / 635 350 / 475 125 / 475 Balance 745.5 / 3808.0 605 / 480 -125 / 480 Intake: IV Fluids 1095.5 / 4443.0 955 / 955 Amiodarone Drip Premix 360mg/ 200 / 200 200mL 360 mg In 200 ml @ 0.5 MG /MIN 16.667 mls/hr IVC [facility] Rx#:[id number] PRECEDEX Premix 400 mcg In 100 176 / 200 300 / 300 ml @ 0.2 MCG/KG/HR 5.985 mls/hr IVC .[id number] [facility] Rx#: [id number] FentaNYL (PF) 1,000 MCG In 0.9 87.5 / 100.0 100 / 100 % Sodium Chloride 80 ML @ 50 MCG/HR 5 mls/hr IVC [facility] Rx #:[id number] Versed 50 MG In 0.9 % Sodium 20 / 20 Chloride 90 ML @ 2 MG/HR 4 mls/ hr IVC [facility] Rx#:[id number] Levophed 8 MG In Dextrose 5% 202 / 243 250 ML @ 8 MCG/MIN 15.48 mls/hr IVC [facility] Rx#:[id number] Phenylephrine 50 MG In Dextrose 510 / 510 255 / 255 5% 250 ML @ 40 MCG/MIN 12.24 mls/hr IVC [facility] Rx#: [id number] Zosyn 3.375 GM In 0.9 % Sodium 100 / 100 100 / 100 Chloride (Mini-Bag +) 100 ML @ 25 mls/hr IVPB Q8HR [facility] Rx#: [id number] Output: Catheter 150 / 325 150 / 225 75 / 225 Gastric Drainage 200 / 310 200 / 250 50 / 250 Other: Weight 121.2 kg Blood Glucose* 109 Patient Weight 10/01/18 23:59 Weight 121.2 kg - General Appearance General appearance: severe distress, sedated on ventilator, intubated, fatigue, frail EENT: ATNC, mucous membranes moist Additional Comments: Intubated with moist mucous membranes Neck: supple Respiratory: rales, course breath sounds, rhonchi Cardiology: edema, rapid rhythm, irregular rhythm, normal S1, normal S2 Gastrointestinal: normoactive bowel sounds, no tenderness, no guarding, distended Integumentary: cool/clammy, ecchymotic Additional Comments: Limited neuro exam: she is sedated and on the vent in the ICU Musculoskeletal: no cyanosis, no clubbing Results - Lab Results 10/02/18 03:35 10/02/18 13:00 Most recent lab results 10/01/18 10/01/18 04:10 04:37 ABG pH 7.26 L ABG pCO2 39 ABG pO2 76 L ABG HCO3 18 L ABG O2 Saturation 93 L Calcium 7.3 L Consult Discharge Plan - Plan Referrals: NONE,PCP [Primary Care Provider] -
[2018-10-01] MEDS: Doxycycline 100 MG CAPSULE PO SCH ×2 (09:59→19:21)
[2018-10-01] MEDS ORDERED: 0.9 % Sodium Chloride 1,000 ML PRIME SCH (10:00)
[2018-10-01] MEDS ORDERED: Acetylcysteine 5,000 MG in D5% in Water 500 ML IVC ONE (10:30)
[2018-10-01] MEDS ORDERED: Heparin 1,000 UNITS/500 mL 500 ML ONE (10:34)
[2018-10-01] MEDS: Norepinephrine 8 MG in D5% in Water 250 ML IVC SCH ×2 (10:46→19:23)
[2018-10-01] MEDS ORDERED: *HR* Phytonadione 10 MG/ML AMPUL SQ ONE (11:35)
[2018-10-01] MEDS ORDERED: Vancomycin 1 EACH in EMPTY BAG 1 EACH IVPB SCH (14:00)
[2018-10-01] MEDS ORDERED: Acetylcysteine 10,000 MG in D5% in Water 1,000 ML IVC ONE (14:45)
[2018-10-01] MEDS ORDERED: *HR* Heparin 5,000 UNIT/ML VIAL ONE ×2 (14:59→21:59)
[2018-10-01] MEDS ORDERED: D5% in Water 1,000 ML IVC PRN (15:04)
[2018-10-01] MEDS ORDERED: Dextrose Gel 15 GM/37.5 ML TUBE PO PRN ×2 (15:04)
[2018-10-01] MEDS ORDERED: *HR* Dextrose 50 % in Water (Syg) 50 ML SYRINGE IVP PRN (15:04)
--- NOTE | 2018-10-01 15:04 | IR Procedure Note ---
Date of procedure: 10/01/18 Consent Obtained: Verbal consent Timeout: Correct patient and procedure verified, Time out performed, Skin prep completed Local anesthetic: Lidocaine 1% Indications: ARF Procedure Performed: temp dialysis catheter placement Was there an drilling assistant present: No Results/Findings: rij 12.5 f 16 cm temp dialysis cath placement Estimated blood loss (cc): 0 Complications: None; Tolerated procedure well Post Procedure Treatment Plan: monitor on floor Specimen: none
[2018-10-01 15:08] LABS: INR 2.4; Prothrombin Time 27.4 Seconds (9.4-12.1)
[2018-10-01] MEDS: PrismaSATE BGK 4/2.5 5,000 ML CRRT SCH ×6 (15:50→23:20)
[2018-10-01] MEDS: Lactulose Oral Soln 20 GM/30 ML UDC PO SCH ×3 (15:54→19:21)
[2018-10-01 16:09] LABS: ABG Base Excess -10 mEq/L (-2 to 3); ABG HCO3 17 mEq/L (21-27); ABG Oxygen Saturation 90 % (95-98); ABG PCO2 38 mmHg (35-45); ABG PH 7.25 pH Units (7.32-7.45); ABG PO2 67 mmHg (85-104); ABG TCO2 18 mEq/L (20-26); Blood Gas Modality VC; Blood Gas PEEP 8 cm H2O; Blood Gas Respiration Rate 22; Blood Gas VT 500 cc
[2018-10-01 16:25] LABS: Hematocrit 42.8 % (35.3-44.9); Hemoglobin 13.6 g/dL (11.5-15.4); Mean Corpuscular HGB Conc 31.8 g/dL (31.6-35.5); Mean Corpuscular Hemoglobin 30.9 pg (28.0-33.3); Mean Corpuscular Volume 97.3 fL (83.0-100.0); Mean Platelet Volume 11.4 fL (9.4-12.4); Nucleated Red Blood Cells 0.1 /100 WBC (0); Red Cell Distribution Width 20.5 % (11.5-14.5)
[2018-10-01 16:30] LABS: Platelet Count 82 K/mcL (140-400)
[2018-10-01 16:50] LABS: Lymphocytes # 1.1 K/mcL (0.6-4.6); Monocytes # 3.4 K/mcL (0.0-1.3); Neutrophils # 23.8 K/mcL (1.6-8.9); Platelet Estimate Decreased (Normal)
[2018-10-01 17:05] LABS: Albumin 2.5 g/dL (3.5-5.7); Albumin/Globulin Ratio 0.7 (1.1-2.2); Bilirubin,Direct 0.7 mg/dL (0.0-0.2); Bilirubin,Indirect 0.7 mg/dL (0.0-1.2); Bilirubin,Total 1.4 mg/dL (0.3-1.0); Calcium 6.9 mg/dL (8.6-10.3); Globulin 3.6 g/dL (2.4-3.5); Potassium 4.9 mEq/L (3.5-5.1); Total Protein 6.1 g/dL (6.4-8.9)
--- NOTE | 2018-10-01 23:18 | Pulmonology Progress Note ---
Date of Encounter: 10/01/18 Time of Encounter: 09:00 Assessment and Plan (1) Acute respiratory failure with hypoxia Current Visit: Yes Status: Acute Patient has difficult oxygenation and ventilation complicated by acute on chronic systolic heart failure, end-stage COPD, pneumonia. Whole picture is complicated by severe pulmonary hypertension which is worsened by mechanical ventilation. Compliance continues to improve that will help in gas exchange. To try low volume strategy to accept the hypercapnia to minimize biotrauma. (2) Acute exacerbation of chronic obstructive pulmonary disease (COPD) Current Visit: No Status: Acute To continue with scheduled bronchodilators, steroids to keep patient on the respiratory acidotic side since patient has poor compliance we will not push the more tidal volume off increased respiratory rate cause air-trapping which will compromise preload in the setting of pulmonary hypertension. Difficult Case to ventilate because of severe heart failure and pulmonary hypertension on top of that end-stage COPD (3) Cirrhosis Current Visit: No Status: Acute Qualifiers: Hepatic cirrhosis type: unspecified hepatic cirrhosis Qualified Code(s): K74.60 - Unspecified cirrhosis of liver (4) Acute exacerbation of CHF (congestive heart failure) Current Visit: Yes Status: Acute Patient has acute on chronic systolic heart failure with pulmonary hypertension complicated by septic shock patient has poor prognosis. The rate control atrial fibrillation with amiodarone Qualifiers: Heart failure type: systolic Qualified Code(s): I50.23 - Acute on chronic systolic (congestive) heart failure (5) Septic shock Current Visit: Yes Status: Acute To continue with their current vasopressor to titrate between norepinephrine and phenylephrine will try to liberate phenylephrine for systolic heart failure norepinephrine will be the choice but in the setting of atrial fibrillation RVR using norepinephrine alone will not be a viable alternative.. (6) Shock liver Current Visit: Yes Status: Acute Patient has shock liver and will use N-acetylcysteine to aid glutathione replenishment into the hepatocytes. (7) EMMA (acute kidney injury) Current Visit: Yes Status: Acute Patient has worsening a kidney injury worsening metabolic acidosis and electrolyte imbalance will do CVVH according to nephrology. (8) DVT prophylaxis Current Visit: No Status: Acute Continue the current regimen. Subjective Principal diagnosis: Septic shock secondary to pneumonia complicated by worsening of systolic he Interval history: Patient is still requiring high ventilator support patient is still in persistent shock now with shock liver and acute kidney injury Objective PUL Vital signs: Last Vital Signs Temp 98.4 F 10/01/18 20:00 Pulse 115 10/01/18 23:00 Resp 22 10/01/18 23:00 BP 113/88 10/01/18 23:00 Pulse Ox 95 10/01/18 23:00 General appearance: no acute distress Effort: mildly labored Auscultation: bilateral: diminished breath sounds (Basilar diminished), wheezes (Scattered wheezes), rales (Some scattered rales) Cardiovascular: irregular rhythm Gastrointestinal: hypoactive bowel sounds Extremities: no edema unable to assess due to mental status Ventilator Settings Ventilator Settings: Ventilator Settings, Last 8 Hours Ventilator Tidal Volume 500 Setting Ventilator Tidal Volume 500 Setting Ventilator Tidal Volume 500 Setting Ventilator Tidal Volume 500 Setting Ventilator Tidal Volume 500 Setting Ventilator Tidal Volume 500 Setting Ventilator Tidal Volume 500 Setting Ventilator Tidal Volume 500 Setting Ventilator Tidal Volume 500 Setting Ventilator Tidal Volume 500 Setting Ventilator Tidal Volume 500 Setting Ventilator Tidal Volume 500 Setting Ventilator Tidal Volume 500 Setting Ventilator Respiratory Rate 22 Setting Ventilator Respiratory Rate 22 Setting Ventilator Respiratory Rate 22 Setting Ventilator Respiratory Rate 22 Setting Ventilator Respiratory Rate 22 Setting Ventilator Respiratory Rate 22 Setting Ventilator Respiratory Rate 22 Setting Ventilator Respiratory Rate 22 Setting Ventilator Respiratory Rate 27 Setting Ventilator Respiratory Rate 26 Setting Ventilator Respiratory Rate 22 Setting Ventilator Respiratory Rate 20 Setting Ventilator Respiratory Rate 22 Setting Actual Respiratory Rate 22 Actual Respiratory Rate 22 Actual Respiratory Rate 22 Actual Respiratory Rate 22 Actual Respiratory Rate 22 Actual Respiratory Rate 22 Actual Respiratory Rate 24 Actual Respiratory Rate 27 Actual Respiratory Rate 23 Actual Respiratory Rate 25 Positive End Expiratory 8 Pressure Positive End Expiratory 8 Pressure Positive End Expiratory 8 Pressure Positive End Expiratory 8 Pressure Positive End Expiratory 8 Pressure Positive End Expiratory 8 Pressure Positive End Expiratory 8 Pressure Positive End Expiratory 8 Pressure Positive End Expiratory 8 Pressure Positive End Expiratory 8 Pressure Positive End Expiratory 8 Pressure Positive End Expiratory 8 Pressure Positive End Expiratory 8 Pressure Peak Inspiratory Airway 31 Pressure Peak Inspiratory Airway 34 Pressure Peak Inspiratory Airway 36 Pressure Peak Inspiratory Airway 31 Pressure Peak Inspiratory Airway 33 Pressure Peak Inspiratory Airway 34 Pressure Peak Inspiratory Airway 32 Pressure Peak Inspiratory Airway 25 Pressure Peak Inspiratory Airway 14 Pressure Peak Inspiratory Airway 32 Pressure Peak Inspiratory Airway 27 Pressure Peak Inspiratory Airway 17 Pressure Results - Laboratory Findings CBC and BMP: 10/01/18 13:55 10/01/18 13:55 ABG ABG pH 7.25 pH Units (7.32-7.45) L 10/01/18 16:05 ABG pCO2 38 mmHg (35-45) 10/01/18 16:05 ABG pO2 67 mmHg (85-104) L 10/01/18 16:05 ABG O2 Saturation 90 % (95-98) L 10/01/18 16:05 PT/INR, D-dimer PT 27.4 Seconds (9.4-12.1) H 10/01/18 14:20 Abnormal lab findings: Abnormal lab results WBC 28.3 K/mcL (4.3-11.1) H 10/01/18 13:55 Hct 46.3 % (35.3-44.9) H 10/01/18 04:10 MCHC 31.1 g/dL (31.6-35.5) L 10/01/18 04:10 RDW 20.5 % (11.5-14.5) H 10/01/18 13:55 Plt Count 82 K/mcL (140-400) L 10/01/18 13:55 22.0 % (0-4) H 10/01/18 13:55 2.0 % (0) H 10/01/18 04:10 23.8 K/mcL (1.6-8.9) H 10/01/18 13:55 3.4 K/mcL (0.0-1.3) H 10/01/18 13:55 Nucleated RBCs/100 WBC 0.1 /100 WBC (0) H 10/01/18 13:55 Decreased (Normal) L 10/01/18 13:55 PT 27.4 Seconds (9.4-12.1) H 10/01/18 14:20 ABG pH 7.25 pH Units (7.32-7.45) L 10/01/18 16:05 ABG pCO2 49 mmHg (35-45) H 09/30/18 08:48 ABG pO2 67 mmHg (85-104) L 10/01/18 16:05 ABG HCO3 17 mEq/L (21-27) L 10/01/18 16:05 ABG Total CO2 18 mEq/L (20-26) L 10/01/18 16:05 ABG O2 Saturation 90 % (95-98) L 10/01/18 16:05 ABG Base Excess -10 mEq/L (-2 to 3) L 10/01/18 16:05 Sodium 134 mEq/L (136-145) L 10/01/18 13:55 Potassium 5.7 mEq/L (3.5-5.1) H 10/01/18 04:10 Chloride 109 mEq/L (98-107) H 09/30/18 04:00 Carbon Dioxide 16 mEq/L (23-29) L 10/01/18 13:55 BUN 51 mg/dL (6-20) H 10/01/18 13:55 1.91 mg/dL (0.60-1.20) H 10/01/18 13:55 Est GFR ( Amer) 33 (> 60) L 10/01/18 13:55 Est GFR (Non-Af Amer) 27 (> 60) L 10/01/18 13:55 27 (6-26) H 10/01/18 13:55 Glucose 220 mg/dL (70-105) H 10/01/18 13:55 POC Glucose 109 mg/dL (70-99) H 09/30/18 23:51 Lactic Acid 4.5 mmol/L (0.5-2.2) H* 10/01/18 20:10 Calcium 6.9 mg/dL (8.6-10.3) L 10/01/18 13:55 Magnesium 1.4 mg/dL (1.6-2.6) L 09/30/18 04:00 1.4 mg/dL (0.3-1.0) H 10/01/18 13:55 0.7 mg/dL (0.0-0.2) H 10/01/18 13:55 AST 1099 Units/L (13-39) H 10/01/18 13:55 ALT 489 Units/L (7-52) H 10/01/18 13:55 79 mcmol/L (16-53) H 09/30/18 20:00 0.06 ng/mL (< 0.04) H* 10/01/18 20:10 B-Natriuretic Peptide 856 pg/mL (Less than 100) H 09/30/18 04:00 6.1 g/dL (6.4-8.9) L 10/01/18 13:55 2.5 g/dL (3.5-5.7) L 10/01/18 13:55 3.6 g/dL (2.4-3.5) H 10/01/18 13:55 0.7 (1.1-2.2) L 10/01/18 13:55 7.75 ng/mL (0.00-0.15) H 09/30/18 14:51 Positive (Negative) A 09/30/18 11:20 Vancomycin Trough 24 mcg/mL (5-10) H 10/01/18 13:55 - Microbiology Findings Microbiology Findings: Microbiology, Last 48 Hours 09/30/18 20:00 Legionella Antigen - Final Urine,[place] Streptococcus pneumoniae Antigen (M - Final 09/30/18 05:59 Blood Culture - Preliminary Peripheral Venipuncture Culture is incubating and being continuously monitored for growth. Final report to follow. 09/30/18 05:48 Blood Culture - Preliminary Peripheral Venipuncture Culture is incubating and being continuously monitored for growth. Final report to follow. - Clinical Findings Intake & Output: Intake & Output 10/01/18 10/01/18 10/01/18 07:59 15:59 23:59 Intake Total 955 / 3342.7 718 / 3342.7 1669.7 / 3342.7 Output Total 350 / 1355 425 / 1355 580 / 1355 Balance 605 / 1987.7 293 / 1987.7 1089.7 / 1987.7 Weight 121.2 kg 121 kg Consult Discharge Plan - Plan Referrals: NONE,PCP [Primary Care Provider] - Critical Care Time Critical Care Time: Yes Total Critical Care Time: 60 Attestation: I spent 60 minutes of Critical Care time with this patient. It involved decision making of high complexity to assess, manipulate, and support vital organ system failure and/or to prevent further life threatening deterioration of the patient's condition. The time involved in the performance of separately reportable procedures was not counted toward critical care time.
[2018-10-02] MEDS: Amiodarone Premix 360 MG/200 ML BAG IVC SCH ×2 (01:06→13:08)
[2018-10-02] MEDS: Dexmedetomidine HCl 400 MCG/100 ML MLS IVC SCH ×6 (02:37→23:03)
[2018-10-02] MEDS: PrismaSATE BGK 4/2.5 5,000 ML CRRT SCH ×12 (02:38→21:55)
[2018-10-02] MEDS: Levalbuterol Neb 1.25 MG/3 ML IH SCH ×4 (03:32→22:13)
[2018-10-02 03:57] LABS: Hemoglobin 13.3 g/dL (11.5-15.4)
[2018-10-02 03:59] LABS: Hematocrit 39.7 % (35.3-44.9); Immature Platelets 6.4 % (1.1-6.1); Mean Corpuscular HGB Conc 33.5 g/dL (31.6-35.5); Mean Corpuscular Hemoglobin 30.9 pg (28.0-33.3); Mean Corpuscular Volume 92.3 fL (83.0-100.0); Mean Platelet Volume 10.7 fL (9.4-12.4); Red Cell Distribution Width 19.7 % (11.5-14.5)
[2018-10-02] MEDS: Artificial Tears SOLN 15 ML BOTTLE BOTH EYES SCH ×6 (04:05→23:02)
[2018-10-02 04:07] LABS: INR 2.5; Prothrombin Time 28.1 Seconds (9.4-12.1)
[2018-10-02 04:19] LABS: Albumin 2.4 g/dL (3.5-5.7); Albumin/Globulin Ratio 0.8 (1.1-2.2); Alkaline Phosphatase 84 Units/L (34-104); BUN/Creatinine Ratio 40 (6-26); Bilirubin,Indirect 0.6 mg/dL (0.0-1.2); Bilirubin,Total 1.6 mg/dL (0.3-1.0); Blood Urea Nitrogen 37 mg/dL (6-20); Calcium 7.2 mg/dL (8.6-10.3); Carbon Dioxide 22 mEq/L (23-29); Chloride 101 mEq/L (98-107); Globulin 3.2 g/dL (2.4-3.5); Glucose 226 mg/dL (70-105); Osmolality,Calculated 296 (280-300); Potassium 3.3 mEq/L (3.5-5.1); Sodium 135 mEq/L (136-145); Total Protein 5.6 g/dL (6.4-8.9); eGFR For Non-African Americans > 60 (> 60)
[2018-10-02 04:25] LABS: Platelet Count 48 K/mcL (140-400)
[2018-10-02 04:28] LABS: Lymphocytes # 0.5 K/mcL (0.6-4.6); Monocytes # 0.5 K/mcL (0.0-1.3); Platelet Estimate Decreased (Normal)
[2018-10-02 04:29] LABS: Anisocytosis 1+ (Not Present); Macrocytosis Present (Not Present); Microcytosis Present (Not Present); Tear Drop Cells 1+ (Not Present)
[2018-10-02 04:30] LABS: Smudge Cells Present (Not Present)
[2018-10-02 04:32] LABS: Alanine Aminotransferase 727 Units/L (7-52); Aspartate Amino Transferase 1331 Units/L (13-39)
[2018-10-02 04:38] LABS: ABG Base Excess -2 mEq/L (-2 to 3); ABG HCO3 21 mEq/L (21-27); ABG Oxygen Saturation 93 % (95-98); ABG PCO2 30 mmHg (35-45); ABG PH 7.45 pH Units (7.32-7.45); ABG PO2 62 mmHg (85-104); ABG TCO2 22 mEq/L (20-26); Blood Gas Modality ASSIST CONTROL; Blood Gas PEEP 8 cm H2O; Blood Gas Respiration Rate 22; Blood Gas VT 500 cc
[2018-10-02] MEDS: Pantoprazole 40 MG VIAL IVP SCH ×2 (05:08→18:21)
[2018-10-02] MEDS: FentaNYL (PF) 1,000 MCG in 0.9 % Sodium Chloride 80 ML IVC SCH ×3 (06:28→20:30)
[2018-10-02] MEDS: Lactulose Oral Soln 20 GM/30 ML UDC PO SCH ×3 (07:38→19:27)
[2018-10-02] MEDS: MethylPREDNISolone 40 MG/ML VIAL IVP SCH ×3 (07:38→23:02)
[2018-10-02] MEDS: Chlorhexidine Rinse 15 ML MOUTHWASH MM SCH ×2 (07:38→19:27)
[2018-10-02] MEDS: Piperacillin/Tazobactam 3.375 GM in 0.9 % Sodium Chloride Mini Bag 100 ML IVPB SCH ×3 (07:40→23:03)
[2018-10-02] MEDS: Doxycycline 100 MG CAPSULE PO SCH ×2 (07:40→19:27)
--- NOTE | 2018-10-02 09:05 | Nephrology Progress Note ---
Date of Encounter: 10/02/18 Time of Encounter: 08:55 - Assessment and Plan (1) EMMA (acute kidney injury) Current Visit: Yes Status: Acute Rec continug CVVHDF for clearance and will start towards focusing on volume control with a goal of achieving 1/2Net per hour of I/Os. Due to elevated LFTs, she cannot receive Citrate/Ca gtt for regional A/C. Continue 1500 and 1500 with 100 Blood flow rate. She was oliguric, but if her UOP improves then may soon be able to pause/stop on CVVHDF. Discussed with the ICU, and given the complex, severely ill status of this pt, I spent contributed CCT of approx 37 min in both rounds, logistics of adjusting Catina, documentation and discussion with the ICU team. Thank you (2) Oliguria Current Visit: Yes Status: Acute More UOP noted. Will use her UOP for medical decision making. (3) Hyperkalemia Current Visit: Yes Status: Acute Improved (4) Acute exacerbation of CHF (congestive heart failure) Current Visit: Yes Status: Acute Qualifiers: Heart failure type: systolic Qualified Code(s): I50.23 - Acute on chronic systolic (congestive) heart failure (5) Atrial fibrillation with RVR Current Visit: Yes Status: Acute (6) Cirrhosis Current Visit: Yes Status: Acute Qualifiers: Hepatic cirrhosis type: unspecified hepatic cirrhosis Ascites presence: without ascites Qualified Code(s): K74.60 - Unspecified cirrhosis of liver (7) Hypotension Current Visit: Yes Status: Acute Qualifiers: Hypotension type: unspecified hypotension type Qualified Code(s): I95.9 - Hypotension, unspecified (8) Pneumonia Current Visit: Yes Status: Acute Qualifiers: Pneumonia type: due to unspecified organism Laterality: right Lung location: unspecified part of lung Qualified Code(s): J18.9 - Pneumonia, unspecified organism (9) Septic shock Current Visit: Yes Status: Acute (10) Anemia Current Visit: No Status: Acute Qualifiers: Anemia type: unspecified type Qualified Code(s): D64.9 - Anemia, unspecified (11) Hepatitis C Current Visit: No Status: Acute Qualifiers: Qualified Code(s): B19.20 - Unspecified viral hepatitis C without hepatic coma (12) Thrombocytopenia Current Visit: No Status: Acute Subjective Principal diagnosis: Septic shock secondary to pneumonia complicated by worsening of systolic he Interval history: The patient was seen and examined in the ICU while on Catina earlier today. I discussed her care with the ICU team, and she remains hypotensive. She did make some urine, over the last 24 hours according to the ICU nurse. No family was present at the bedside. Objective - Vital Signs Vital signs: Vital Signs Temp Pulse Resp BP Pulse Ox 10/02/18 08:00 93 22 89/73 95 10/02/18 07:50 22 93/61 95 10/02/18 07:00 93 22 100/88 95 10/02/18 06:00 95.4 F L 93 22 92/78 95 10/02/18 05:06 22 114/90 94 10/02/18 05:00 86 22 110/93 95 10/02/18 04:00 94.9 F L 86 22 108/95 93 10/02/18 03:45 92 10/02/18 03:32 22 106/81 95 10/02/18 03:00 92 22 124/98 93 10/02/18 02:00 95 22 120/94 93 10/02/18 01:22 22 111/85 93 10/02/18 01:00 97 22 114/91 93 10/02/18 00:00 85 22 105/89 94 10/01/18 23:57 85 10/01/18 23:51 22 108/82 96 10/01/18 23:00 115 22 113/88 95 10/01/18 22:00 110 22 102/76 96 10/01/18 21:36 22 118/67 99 10/01/18 21:00 108 22 124/94 96 10/01/18 20:00 98.4 F 121 22 100/58 95 10/01/18 19:45 115 10/01/18 19:40 22 97/68 95 10/01/18 19:00 123 24 103/85 95 10/01/18 18:08 27 111/100 92 10/01/18 18:00 145 27 116/86 94 10/01/18 17:00 143 21 109/83 94 10/01/18 16:00 143 23 94/69 93 10/01/18 15:20 25 86/75 88 10/01/18 15:00 135 21 100/82 95 10/01/18 14:26 16 94 10/01/18 14:00 135 22 96/73 93 10/01/18 13:50 23 98/80 94 10/01/18 13:00 128 23 97/78 93 10/01/18 12:25 101.5 F H 10/01/18 11:05 29 157/121 96 10/01/18 11:00 120 25 108/77 93 10/01/18 10:00 123 24 112/78 95 10/01/18 09:40 23 90/70 96 Intake and Output 10/01/18 10/02/18 10/02/18 23:59 07:59 15:59 Intake Total 1924.0 / 3597.0 1014.8 / 2041.9 1027.1 / 2041.9 Output Total 580 / 1395 400 / 430 30 / 430 Balance 1344.0 / 2202.0 614.8 / 1611.9 997.1 / 1611.9 Intake: IV Fluids 1924.0 / 3597.0 1014.8 / 2041.9 1027.1 / 2041.9 PrismaSATE BGK 4/2.5 5,000 ML @ 0 / 0 0 / 0 1500 mls/hr CRRT [facility] Rx#: [id number] Acetadote 10,000 MG In Dextrose 124 / 124 926 / 926 5% 1,000 ML @ 64.8 mls/hr IVC ONCE ONE Rx#:[id number] Acetadote 15,000 MG In Dextrose 325 / 325 5% 250 ML @ 250 mls/hr IVC ONCE ONE Rx#:[id number] Acetadote 5,000 MG In Dextrose 525 / 525 5% 500 ML @ 125 mls/hr IVC ONCE ONE Rx#:[id number] Amiodarone Drip Premix 360mg/ 200 / 200 200mL 360 mg In 200 ml @ 0.5 MG /MIN 16.667 mls/hr IVC [facility] Rx#:[id number] PRECEDEX Premix 400 mcg In 100 200 / 700 228.5 / 249.1 20.6 / 249.1 ml @ 0.2 MCG/KG/HR 5.985 mls/hr IVC .[id number] [facility] Rx#: [id number] FentaNYL (PF) 1,000 MCG In 0.9 270.0 / 400.0 118 / 130.9 12.9 / 130.9 % Sodium Chloride 80 ML @ 50 MCG/HR 5 mls/hr IVC [facility] Rx #:[id number] Versed 50 MG In 0.9 % Sodium 150.0 / 180.0 112 / 120.6 8.6 / 120.6 Chloride 90 ML @ 2 MG/HR 4 mls/ hr IVC [facility] Rx#:[id number] Levophed 8 MG In Dextrose 5% 230.0 / 273.0 256.3 / 264.4 8.1 / 264.4 250 ML @ 8 MCG/MIN 15.48 mls/hr IVC [facility] Rx#:[id number] Zosyn 3.375 GM In 0.9 % Sodium 100.0 / 300.0 100 / 106.6 6.6 / 106.6 Chloride (Mini-Bag +) 100 ML @ 25 mls/hr IVPB Q8HR [facility] Rx#: [id number] Vancocin 1,500 MG In 0.9 % 44.3 / 44.3 Sodium Chloride 250 ML @ 166. 667 mls/hr IVPB ONCE ONE Rx#: [id number] Output: Catheter 380 / 795 325 / 355 30 / 355 Gastric Drainage 200 / 600 75 / 75 Other: Weight 121 kg 121 kg Blood Glucose* 231 Fluid Removed by Prismaflex 4 -33 -5 Patient Weight 10/02/18 23:59 Weight 121 kg - General Appearance General appearance: Present: well-developed, well-nourished, appears started age, obese, sedated on ventilator, intubated EENT: Present: ATNC, PERRL, mucous membranes moist Neck: Present: no JVD, supple Respiratory: Present: clear Cardiology: Present: edema (trace hand and pedal edema nonpitting bilaterally), rapid rhythm, irregular rhythm, normal S1, normal S2 Dialysis Vascular Access: Venous Catheter (RIJ temporary HD catheter noted) Gastrointestinal: Present: normoactive bowel sounds, no tenderness, no guarding, obese Integumentary: Present: warm and dry, ecchymotic Additional Comments: Neuro: because she is intubated and laying in the ICU bed, this limits the neuro exam Musculoskeletal: Present: no clubbing - Lab 10/02/18 03:35 10/02/18 13:00 Most recent lab results 10/02/18 10/02/18 03:35 04:33 ABG pH 7.45 ABG pCO2 30 L ABG pO2 62 L ABG HCO3 21 ABG O2 Saturation 93 L Calcium 7.2 L Consult Discharge Plan - Plan Referrals: NONE,PCP [Primary Care Provider] -
[2018-10-02] MEDS: Norepinephrine 8 MG in D5% in Water 250 ML IVC SCH (09:19)
--- NOTE | 2018-10-02 11:43 | Pulmonology Progress Note ---
<Darlene Greer - Last Filed: 10/02/18 17:51> Date of Encounter: 10/02/18 Time of Encounter: 08:35 Assessment and Plan (1) Acute respiratory failure with hypoxia Current Visit: Yes Status: Acute Acute respiratory failure with hypoxia likely secondary to pneumonia and CHF exacerbation MRSA swab is positive Respiratory panel was negative -Continue to treat pneumonia -Repeat echo pending -Currently intubated on vent -Sputum cultures -Maintained low tidal volume to minimize barotrauma (2) Pneumonia Current Visit: Yes Status: Acute Presented to the ED complaining of shortness of breath ongoing for 3 days at admission as well as pain upon inspiration. Was not requiring any oxygen at presentation the with anxiety worsening required BiPAP could not tolerate BiPAP and was subsequently intubated in the ED. CT dissection does show right lower lobe pneumonia versus aspiration. Nasal MRSA swab is positive. -Blood cultures pending -Sputum cultures pending -Continue vancomycin, Zosyn and doxycycline -Continue ventilation setting to keep oxygen saturation above 88% -Continue 40 mg Solu-Medrol every 8 hours Qualifiers: Pneumonia type: due to unspecified organism Laterality: right Lung location: unspecified part of lung Qualified Code(s): J18.9 - Pneumonia, unspecified organism (3) Acute exacerbation of CHF (congestive heart failure) Current Visit: Yes Status: Acute Likely exacerbation secondary to fluid overload, BNP at admission was 856 Presented to the ED complaining of worsening shortness of breath does have history of CHF with EF of 35% one year ago Was initially on room air in the ED respiratory rate worsened subsequently required reintubation Is on spironolactone at home but unsure last taken as daughter reports she does not follow with PCP. 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 Was noted to have a 2 fibrillation with RVR in the ED Septic shock could be secondary to infectious versus cardiogenic -Blood cultures pending -Continue IV antibiotics, currently MRSA nasal swab -Need to titrate pressors as tolerated, currently on only on norepinephrine, demand has decreased since yesterday (6) Atrial fibrillation with RVR Current Visit: Yes Status: Acute History of atrial fibrillation at presentation was noted to have H fibrillation with RVR with heart rate in the 180s Was on warfarin at home but was therapeutic with INR 1.4 Started on amiodarone drip in the ED Currently heart rate is in the 130s Currently requiring pressors due to septic shock, which may affect rate control -Continue titrating amiodarone drip -Continue cardiac monitoring -Holding anticoagulation at this time given thrombocytopenia (7) EMMA (acute kidney injury) Current Visit: Yes Status: Acute Renal function improving after starting CVVHDF EMMA was likely secondary to sepsis (8) Shock liver Current Visit: Yes Status: Acute Has history of hepatitis B and hepatitis C given previous liver injury sepsis has caused shock liver continue N-acetylcysteine to decrease oxidative stress (9) Hypokalemia Current Visit: Yes Status: Acute Potassium was noted to be 3.3 Repleted with 40 mg IV potassium (10) DVT prophylaxis Current Visit: No Status: Acute Thrombocytopenia Continue SCDs Subjective Principal diagnosis: Septic shock secondary to pneumonia complicated by wors ening of systolic he Objective PUL Vital signs: Last Vital Signs Temp 96.6 F L 10/02/18 09:00 Pulse 93 10/02/18 11:00 Resp 22 10/02/18 11:31 BP 88/55 10/02/18 11:31 Pulse Ox 93 10/02/18 11:31 General appearance: no acute distress, other (Sedated and intubated) Eyes: nonicteric ENT: oropharynx moist Neck: supple Effort: normal Auscultation: bilateral: diminished breath sounds (lower bases) Cardiovascular: irregular rhythm (atrial fib) Gastrointestinal: normoactive bowel sounds, soft, non-distended Integumentary: normal Extremities: no cyanosis, pulses normal, edema (trace nonitting edema of lower extremity) non-focal exam, unable to assess due to mental status (intubated and sedated) Ventilator Settings Ventilator Settings: Ventilator Settings, Last 8 Hours Ventilator Tidal Volume 450 Setting Ventilator Tidal Volume 450 Setting Ventilator Tidal Volume 450 Setting Ventilator Tidal Volume 450 Setting Ventilator Tidal Volume 450 Setting Ventilator Tidal Volume 450 Setting Ventilator Tidal Volume 450 Setting Ventilator Tidal Volume 450 Setting Ventilator Tidal Volume 500 Setting Ventilator Tidal Volume 500 Setting Ventilator Tidal Volume 500 Setting Ventilator Tidal Volume 500 Setting Ventilator Tidal Volume 500 Setting Ventilator Respiratory Rate 22 Setting Ventilator Respiratory Rate 22 Setting Ventilator Respiratory Rate 22 Setting Ventilator Respiratory Rate 22 Setting Ventilator Respiratory Rate 22 Setting Ventilator Respiratory Rate 22 Setting Ventilator Respiratory Rate 22 Setting Ventilator Respiratory Rate 22 Setting Ventilator Respiratory Rate 22 Setting Ventilator Respiratory Rate 22 Setting Ventilator Respiratory Rate 22 Setting Ventilator Respiratory Rate 22 Setting Ventilator Respiratory Rate 22 Setting Actual Respiratory Rate 22 Actual Respiratory Rate 22 Actual Respiratory Rate 22 Actual Respiratory Rate 22 Actual Respiratory Rate 22 Actual Respiratory Rate 22 Actual Respiratory Rate 22 Actual Respiratory Rate 22 Actual Respiratory Rate 22 Actual Respiratory Rate 22 Actual Respiratory Rate 22 Actual Respiratory Rate 22 Positive End Expiratory 8 Pressure Positive End Expiratory 8 Pressure Positive End Expiratory 8 Pressure Positive End Expiratory 8 Pressure Positive End Expiratory 8 Pressure Positive End Expiratory 8 Pressure Positive End Expiratory 8 Pressure Positive End Expiratory 8 Pressure Positive End Expiratory 8 Pressure Positive End Expiratory 8 Pressure Positive End Expiratory 8 Pressure Positive End Expiratory 8 Pressure Positive End Expiratory 8 Pressure Peak Inspiratory Airway 30 Pressure Peak Inspiratory Airway 30 Pressure Peak Inspiratory Airway 30 Pressure Peak Inspiratory Airway 27 Pressure Peak Inspiratory Airway 29 Pressure Peak Inspiratory Airway 27 Pressure Peak Inspiratory Airway 27 Pressure Peak Inspiratory Airway 27 Pressure Peak Inspiratory Airway 33 Pressure Peak Inspiratory Airway 33 Pressure Peak Inspiratory Airway 33 Pressure Peak Inspiratory Airway 33 Pressure Results - Laboratory Findings CBC and BMP: 10/02/18 03:35 10/02/18 13:00 ABG ABG pH 7.45 pH Units (7.32-7.45) 10/02/18 04:33 ABG pCO2 30 mmHg (35-45) L 10/02/18 04:33 ABG pO2 62 mmHg (85-104) L 10/02/18 04:33 ABG O2 Saturation 93 % (95-98) L 10/02/18 04:33 PT/INR, D-dimer PT 28.1 Seconds (9.4-12.1) H 10/02/18 03:35 Abnormal lab findings: Abnormal lab results WBC 22.9 K/mcL (4.3-11.1) H 10/02/18 03:35 Hct 46.3 % (35.3-44.9) H 10/01/18 04:10 MCHC 31.1 g/dL (31.6-35.5) L 10/01/18 04:10 RDW 19.7 % (11.5-14.5) H 10/02/18 03:35 Plt Count 48 K/mcL (140-400) L 10/02/18 03:35 14.0 % (0-4) H 10/02/18 03:35 2.0 % (0) H 10/01/18 04:10 22.0 K/mcL (1.6-8.9) H 10/02/18 03:35 0.5 K/mcL (0.6-4.6) L 10/02/18 03:35 3.4 K/mcL (0.0-1.3) H 10/01/18 13:55 Nucleated RBCs/100 WBC 0.1 /100 WBC (0) H 10/01/18 13:55 Present (Not Present) A 10/02/18 03:35 Decreased (Normal) L 10/02/18 03:35 Immature Plt Fraction 6.4 % (1.1-6.1) H 10/02/18 03:35 1+ (Not Present) A 10/02/18 03:35 Present (Not Present) A 10/02/18 03:35 Present (Not Present) A 10/02/18 03:35 1+ (Not Present) A 10/02/18 03:35 Acanthocytes (Spur) 2+ (Not Present) A 10/02/18 03:35 PT 28.1 Seconds (9.4-12.1) H 10/02/18 03:35 ABG pH 7.25 pH Units (7.32-7.45) L 10/01/18 16:05 ABG pCO2 30 mmHg (35-45) L 10/02/18 04:33 ABG pO2 62 mmHg (85-104) L 10/02/18 04:33 ABG HCO3 17 mEq/L (21-27) L 10/01/18 16:05 ABG Total CO2 18 mEq/L (20-26) L 10/01/18 16:05 ABG O2 Saturation 93 % (95-98) L 10/02/18 04:33 ABG Base Excess -10 mEq/L (-2 to 3) L 10/01/18 16:05 Sodium 135 mEq/L (136-145) L 10/02/18 03:35 Potassium 3.3 mEq/L (3.5-5.1) L D 10/02/18 03:35 Chloride 109 mEq/L (98-107) H 09/30/18 04:00 Carbon Dioxide 22 mEq/L (23-29) L 10/02/18 03:35 BUN 37 mg/dL (6-20) H 10/02/18 03:35 1.91 mg/dL (0.60-1.20) H 10/01/18 13:55 Est GFR ( Amer) 33 (> 60) L 10/01/18 13:55 Est GFR (Non-Af Amer) 27 (> 60) L 10/01/18 13:55 40 (6-26) H 10/02/18 03:35 Glucose 226 mg/dL (70-105) H 10/02/18 03:35 POC Glucose 201 mg/dL (70-99) H 10/02/18 00:03 Lactic Acid 4.5 mmol/L (0.5-2.2) H* 10/01/18 20:10 Calcium 7.2 mg/dL (8.6-10.3) L 10/02/18 03:35 Magnesium 1.4 mg/dL (1.6-2.6) L 09/30/18 04:00 1.6 mg/dL (0.3-1.0) H 10/02/18 03:35 1.0 mg/dL (0.0-0.2) H 10/02/18 03:35 AST 1331 Units/L (13-39) H 10/02/18 03:35 ALT 727 Units/L (7-52) H 10/02/18 03:35 79 mcmol/L (16-53) H 09/30/18 20:00 0.06 ng/mL (< 0.04) H* 10/01/18 20:10 B-Natriuretic Peptide 856 pg/mL (Less than 100) H 09/30/18 04:00 5.6 g/dL (6.4-8.9) L 10/02/18 03:35 2.4 g/dL (3.5-5.7) L 10/02/18 03:35 3.6 g/dL (2.4-3.5) H 10/01/18 13:55 0.8 (1.1-2.2) L 10/02/18 03:35 7.75 ng/mL (0.00-0.15) H 09/30/18 14:51 Positive (Negative) A 09/30/18 11:20 Vancomycin Trough 24 mcg/mL (5-10) H 10/01/18 13:55 - Microbiology Findings Microbiology Findings: Microbiology, Last 48 Hours 09/30/18 20:00 Legionella Antigen - Final Urine,[place] Streptococcus pneumoniae Antigen (M - Final 09/30/18 05:59 Blood Culture - Preliminary Peripheral Venipuncture Culture is incubating and being continuously monitored for growth. Final report to follow. 09/30/18 05:48 Blood Culture - Preliminary Peripheral Venipuncture Culture is incubating and being continuously monitored for growth. Final report to follow. - Clinical Findings Intake & Output: Intake & Output 10/01/18 10/02/18 10/02/18 23:59 07:59 15:59 Intake Total 1924.0 / 3597.0 1014.8 / 2365.0 1350.2 / 2365.0 Output Total 580 / 1395 400 / 550 150 / 550 Balance 1344.0 / 2202.0 614.8 / 1815.0 1200.2 / 1815.0 Weight 121 kg 121 kg Consult Discharge Plan - Plan Referrals: NONE,PCP [Primary Care Provider] - <Kyrie Salgado - Last Filed: 10/02/18 20:34> Date of Encounter: 10/02/18 Assessment and Plan (1) Acute respiratory failure with hypoxia Current Visit: Yes Status: Acute (2) Acute exacerbation of chronic obstructive pulmonary disease (COPD) Current Visit: No Status: Acute (3) Cirrhosis Current Visit: No Status: Acute Qualifiers: Hepatic cirrhosis type: unspecified hepatic cirrhosis Qualified Code(s): K74.60 - Unspecified cirrhosis of liver (4) Acute exacerbation of CHF (congestive heart failure) Current Visit: Yes Status: Acute Qualifiers: Heart failure type: systolic Qualified Code(s): I50.23 - Acute on chronic systolic (congestive) heart failure (5) Septic shock Current Visit: Yes Status: Acute (6) Shock liver Current Visit: Yes Status: Acute (7) EMMA (acute kidney injury) Current Visit: Yes Status: Acute (8) DVT prophylaxis Current Visit: No Status: Acute Objective PUL Vital signs: Last Vital Signs Temp 97.1 F L 10/02/18 20:00 Pulse 111 10/02/18 20:00 Resp 24 10/02/18 20:12 BP 100/80 10/02/18 20:12 Pulse Ox 92 10/02/18 20:12 Ventilator Settings Ventilator Settings: Ventilator Settings, Last 8 Hours Ventilator Tidal Volume 450 Setting Ventilator Tidal Volume 450 Setting Ventilator Tidal Volume 450 Setting Ventilator Tidal Volume 450 Setting Ventilator Tidal Volume 450 Setting Ventilator Tidal Volume 450 Setting Ventilator Tidal Volume 450 Setting Ventilator Tidal Volume 450 Setting Ventilator Tidal Volume 450 Setting Ventilator Tidal Volume 450 Setting Ventilator Tidal Volume 450 Setting Ventilator Tidal Volume 450 Setting Ventilator Respiratory Rate 22 Setting Ventilator Respiratory Rate 22 Setting Ventilator Respiratory Rate 22 Setting Ventilator Respiratory Rate 22 Setting Ventilator Respiratory Rate 22 Setting Ventilator Respiratory Rate 22 Setting Ventilator Respiratory Rate 22 Setting Ventilator Respiratory Rate 22 Setting Ventilator Respiratory Rate 22 Setting Ventilator Respiratory Rate 22 Setting Ventilator Respiratory Rate 22 Setting Ventilator Respiratory Rate 22 Setting Actual Respiratory Rate 24 Actual Respiratory Rate 22 Actual Respiratory Rate 22 Actual Respiratory Rate 22 Actual Respiratory Rate 22 Actual Respiratory Rate 22 Actual Respiratory Rate 22 Actual Respiratory Rate 22 Actual Respiratory Rate 22 Actual Respiratory Rate 22 Actual Respiratory Rate 22 Actual Respiratory Rate 22 Positive End Expiratory 8 Pressure Positive End Expiratory 8 Pressure Positive End Expiratory 8 Pressure Positive End Expiratory 8 Pressure Positive End Expiratory 8 Pressure Positive End Expiratory 8 Pressure Positive End Expiratory 8 Pressure Positive End Expiratory 8 Pressure Positive End Expiratory 8 Pressure Positive End Expiratory 8 Pressure Positive End Expiratory 8 Pressure Positive End Expiratory 8 Pressure Peak Inspiratory Airway 28 Pressure Peak Inspiratory Airway 28 Pressure Peak Inspiratory Airway 28 Pressure Peak Inspiratory Airway 29 Pressure Peak Inspiratory Airway 31 Pressure Peak Inspiratory Airway 30 Pressure Peak Inspiratory Airway 28 Pressure Peak Inspiratory Airway 28 Pressure Peak Inspiratory Airway 30 Pressure Peak Inspiratory Airway 30 Pressure Peak Inspiratory Airway 28 Pressure Peak Inspiratory Airway 30 Pressure Results - Laboratory Findings CBC and BMP: 10/02/18 03:35 10/02/18 13:00 ABG ABG pH 7.45 pH Units (7.32-7.45) 10/02/18 04:33 ABG pCO2 30 mmHg (35-45) L 10/02/18 04:33 ABG pO2 62 mmHg (85-104) L 10/02/18 04:33 ABG O2 Saturation 93 % (95-98) L 10/02/18 04:33 PT/INR, D-dimer PT 28.1 Seconds (9.4-12.1) H 10/02/18 03:35 Abnormal lab findings: Abnormal lab results WBC 22.9 K/mcL (4.3-11.1) H 10/02/18 03:35 Hct 46.3 % (35.3-44.9) H 10/01/18 04:10 MCHC 31.1 g/dL (31.6-35.5) L 10/01/18 04:10 RDW 19.7 % (11.5-14.5) H 10/02/18 03:35 Plt Count 48 K/mcL (140-400) L 10/02/18 03:35 14.0 % (0-4) H 10/02/18 03:35 2.0 % (0) H 10/01/18 04:10 22.0 K/mcL (1.6-8.9) H 10/02/18 03:35 0.5 K/mcL (0.6-4.6) L 10/02/18 03:35 3.4 K/mcL (0.0-1.3) H 10/01/18 13:55 Nucleated RBCs/100 WBC 0.1 /100 WBC (0) H 10/01/18 13:55 Present (Not Present) A 10/02/18 03:35 Decreased (Normal) L 10/02/18 03:35 Immature Plt Fraction 6.4 % (1.1-6.1) H 10/02/18 03:35 1+ (Not Present) A 10/02/18 03:35 Present (Not Present) A 10/02/18 03:35 Present (Not Present) A 10/02/18 03:35 1+ (Not Present) A 10/02/18 03:35 Acanthocytes (Spur) 2+ (Not Present) A 10/02/18 03:35 PT 28.1 Seconds (9.4-12.1) H 10/02/18 03:35 ABG pH 7.25 pH Units (7.32-7.45) L 10/01/18 16:05 ABG pCO2 30 mmHg (35-45) L 10/02/18 04:33 ABG pO2 62 mmHg (85-104) L 10/02/18 04:33 ABG HCO3 17 mEq/L (21-27) L 10/01/18 16:05 ABG Total CO2 18 mEq/L (20-26) L 10/01/18 16:05 ABG O2 Saturation 93 % (95-98) L 10/02/18 04:33 ABG Base Excess -10 mEq/L (-2 to 3) L 10/01/18 16:05 Sodium 135 mEq/L (136-145) L 10/02/18 03:35 Potassium 3.3 mEq/L (3.5-5.1) L D 10/02/18 03:35 Chloride 109 mEq/L (98-107) H 09/30/18 04:00 Carbon Dioxide 22 mEq/L (23-29) L 10/02/18 03:35 BUN 28 mg/dL (6-20) H 10/02/18 13:00 1.91 mg/dL (0.60-1.20) H 10/01/18 13:55 Est GFR ( Amer) 33 (> 60) L 10/01/18 13:55 Est GFR (Non-Af Amer) 27 (> 60) L 10/01/18 13:55 47 (6-26) H 10/02/18 13:00 Glucose 173 mg/dL (70-105) H 10/02/18 13:00 POC Glucose 201 mg/dL (70-99) H 10/02/18 00:03 Lactic Acid 3.1 mmol/L (0.5-2.2) H 10/02/18 13:00 Calcium 7.2 mg/dL (8.6-10.3) L 10/02/18 13:00 Magnesium 1.4 mg/dL (1.6-2.6) L 09/30/18 04:00 1.6 mg/dL (0.3-1.0) H 10/02/18 03:35 1.0 mg/dL (0.0-0.2) H 10/02/18 03:35 AST 1331 Units/L (13-39) H 10/02/18 03:35 ALT 727 Units/L (7-52) H 10/02/18 03:35 79 mcmol/L (16-53) H 09/30/18 20:00 0.06 ng/mL (< 0.04) H* 10/01/18 20:10 B-Natriuretic Peptide 856 pg/mL (Less than 100) H 09/30/18 04:00 5.6 g/dL (6.4-8.9) L 10/02/18 03:35 2.4 g/dL (3.5-5.7) L 10/02/18 03:35 3.6 g/dL (2.4-3.5) H 10/01/18 13:55 0.8 (1.1-2.2) L 10/02/18 03:35 7.75 ng/mL (0.00-0.15) H 09/30/18 14:51 Positive (Negative) A 09/30/18 11:20 Vancomycin Trough 24 mcg/mL (5-10) H 10/01/18 13:55 - Microbiology Findings Microbiology Findings: Microbiology, Last 48 Hours 09/30/18 20:00 Legionella Antigen - Final Urine,[place] Streptococcus pneumoniae Antigen (M - Final - Clinical Findings Intake & Output: Intake & Output 10/02/18 10/02/18 10/02/18 07:59 15:59 23:59 Intake Total 1014.8 / 3410.7 1917.2 / 3410.7 478.7 / 3410.7 Output Total 400 / 815 280 / 815 135 / 815 Balance 614.8 / 2595.7 1637.2 / 2595.7 343.7 / 2595.7 Weight 121 kg - Attending Attestation I saw and evaluated this patient and my medical decision-making was reviewed with the Resident Physician. I agree with the documented findings, disposition and treatment plan as described except to the extent set forth below. We independently had [id number] contact with the patient I spent 50 minutes of Critical Care time with this patient. It involved decision making of high complexity to assess, manipulate, and support vital organ system failure and/or to prevent further life threatening deterioration of the patient 's condition. The time involved in the performance of separately reportable procedures was not counted toward critical care time. Patient seen and examined at bedside Labs, radiology, chart personally reviewed. Management was reviewed during multidisciplinary critical care rounds. [employer]ORATORY TECHNICIAN: Patient is intubated and mechanical ventilated sedated with the ventilator asynchrony complicated by toxic/metabolic encephalopathy Pulm: Patient has significant V/Q mismatch complicated by COPD exacerbation acute on chronic systolic heart failure complicated by pulmonary hypertension will reduce her tidal volume To limit ventilator-induced lung injury. Cards:Patient is in septic shock complicated by acute on chronic systolic heart failure shock is improving lactic acidosis is improving vasopressor requirement is coming down we will transitioned to levo phed . Atrial fibrillation rate controlled with amiodarone. FEN-GI: To advance diet as tolerated Renal:To continue with renal replacement therapy ID:To continue with broad-spectrum antibiotics. Heme/Onc:Labs reviewed Endo: Glucose Monitored Integ/MSK: Skin Care per routine ICU Nursing Protocol to prevent ulcers. Lines: All lines examined without evidence of infection : Dispo: critically ill CODE: Full Code
[2018-10-02] MEDS: Insulin LISPRO 300 UNITS/3 ML VIAL SQ SCH ×4 (12:18→23:14)
[2018-10-02 13:34] LABS: BUN/Creatinine Ratio 47 (6-26); Blood Urea Nitrogen 28 mg/dL (6-20); Calcium 7.2 mg/dL (8.6-10.3); Carbon Dioxide 25 mEq/L (23-29); Chloride 103 mEq/L (98-107); Glucose 173 mg/dL (70-105); Osmolality,Calculated 294 (280-300); Potassium 3.6 mEq/L (3.5-5.1); Sodium 137 mEq/L (136-145); eGFR For Non-African Americans > 60 (> 60)
[2018-10-02] MEDS ORDERED: *HR* Heparin 5,000 UNIT/ML VIAL ONE (23:40)
[2018-10-03] MEDS: Amiodarone Premix 360 MG/200 ML BAG IVC SCH ×3 (00:43→23:14)
[2018-10-03] MEDS: PrismaSATE BGK 4/2.5 5,000 ML CRRT SCH ×6 (02:05→14:56)
[2018-10-03] MEDS: Dexmedetomidine HCl 400 MCG/100 ML MLS IVC SCH ×6 (03:01→23:54)
[2018-10-03] MEDS: Artificial Tears SOLN 15 ML BOTTLE BOTH EYES SCH ×6 (03:01→23:07)
[2018-10-03] MEDS: Norepinephrine 8 MG in D5% in Water 250 ML IVC SCH ×2 (03:03→23:56)
[2018-10-03] MEDS: FentaNYL (PF) 1,000 MCG in 0.9 % Sodium Chloride 80 ML IVC SCH ×4 (03:37→23:53)
[2018-10-03 03:38] LABS: Basophils % 0.2 %; Hemoglobin 12.8 g/dL (11.5-15.4); Immature Granulocytes % 0.5 % (0-4); Nucleated Red Blood Cells 0.2 /100 WBC (0)
[2018-10-03 03:40] LABS: Basophils # 0.1 K/mcL (0.0-0.2); Hematocrit 38.5 % (35.3-44.9); Lymphocytes # 0.8 K/mcL (0.6-4.6); Lymphocytes % 3.3 %; Mean Corpuscular HGB Conc 33.2 g/dL (31.6-35.5); Mean Corpuscular Hemoglobin 30.1 pg (28.0-33.3); Mean Corpuscular Volume 90.6 fL (83.0-100.0); Mean Platelet Volume 10.7 fL (9.4-12.4); Monocytes # 0.7 K/mcL (0.0-1.3); Monocytes % 2.9 %; Neutrophils # 23.2 K/mcL (1.6-8.9); Red Blood Count 4.25 M/mcL (3.82-4.97); Segmented Neutrophils % 93.1 %
[2018-10-03 03:41] LABS: Platelet Count 37 K/mcL (140-400)
[2018-10-03] MEDS: Levalbuterol Neb 1.25 MG/3 ML IH SCH ×4 (03:43→22:21)
[2018-10-03 03:45] LABS: INR 1.9; Prothrombin Time 21.6 Seconds (9.4-12.1)
[2018-10-03 03:57] LABS: Platelet Estimate Decreased (Normal)
[2018-10-03 03:58] LABS: Anisocytosis 2+ (Not Present); Macrocytosis Present (Not Present); Microcytosis Present (Not Present); Polychromasia 1+ (Not Present)
[2018-10-03 04:07] LABS: Bilirubin,Urine Moderate (Negative); Blood,Urine Large (Negative); Clarity,Urine Cloudy (Clear); Color,Urine Orange (Yellow); Glucose,Urine (UA) Normal (Normal); Ketones,Urine Trace mg/dL (Negative); Leukocyte Esterase,Urine Small (Negative); Nitrite,Urine Negative (Negative); PH,Urine 5.5 pH Units (5.0-8.0); Protein,Urine 100 mg/dL (Neg-Trace); Specific Gravity,Urine > 1.030 (1.010-1.025); Urobilinogen,Urine Normal (Normal)
[2018-10-03 04:09] LABS: RBC,Urine TNTC per hpf (0-3); Squamous Epithelial Cell,Urine Many per lpf (None-Few); WBC,Urine 30-50 per hpf (0-3)
[2018-10-03 04:25] LABS: ABG Base Excess 1 mEq/L (-2 to 3); ABG HCO3 24 mEq/L (21-27); ABG Oxygen Saturation 91 % (95-98); ABG PCO2 32 mmHg (35-45); ABG PH 7.47 pH Units (7.32-7.45); ABG PO2 55 mmHg (85-104); ABG TCO2 25 mEq/L (20-26); Blood Gas Modality ASSIST CONTROL; Blood Gas PEEP 8 cm H2O; Blood Gas Respiration Rate 22; Blood Gas VT 450 cc
[2018-10-03 04:26] LABS: Alanine Aminotransferase 923 Units/L (7-52); Albumin 2.2 g/dL (3.5-5.7); Albumin/Globulin Ratio 0.7 (1.1-2.2); Alkaline Phosphatase 92 Units/L (34-104); Aspartate Amino Transferase 1339 Units/L (13-39); BUN/Creatinine Ratio 47 (6-26); Blood Urea Nitrogen 28 mg/dL (6-20); Carbon Dioxide 25 mEq/L (23-29); Chloride 105 mEq/L (98-107); Globulin 3.1 g/dL (2.4-3.5); Glucose 169 mg/dL (70-105); Osmolality,Calculated 291 (280-300); Sodium 136 mEq/L (136-145); Total Protein 5.3 g/dL (6.4-8.9); eGFR For Non-African Americans > 60 (> 60)
[2018-10-03] MEDS: Insulin LISPRO 300 UNITS/3 ML VIAL SQ SCH ×6 (04:54→23:10)
[2018-10-03 05:03] LABS: Bacteria,Urine Few per hpf (None-Few)
[2018-10-03] MEDS: Pantoprazole 40 MG VIAL IVP SCH ×2 (05:10→17:30)
[2018-10-03] MEDS: Piperacillin/Tazobactam 3.375 GM in 0.9 % Sodium Chloride Mini Bag 100 ML IVPB SCH ×3 (07:51→23:06)
[2018-10-03] MEDS: MethylPREDNISolone 40 MG/ML VIAL IVP SCH ×3 (07:51→23:06)
[2018-10-03] MEDS: Chlorhexidine Rinse 15 ML MOUTHWASH MM SCH ×2 (07:52→19:36)
[2018-10-03] MEDS: Lactulose Oral Soln 20 GM/30 ML UDC PO SCH ×3 (07:52→19:37)
[2018-10-03] MEDS: Doxycycline 100 MG CAPSULE PO SCH ×2 (07:52→19:36)
--- NOTE | 2018-10-03 12:03 | Pulmonology Progress Note ---
<Darlene Greer - Last Filed: 10/03/18 17:42> Date of Encounter: 10/03/18 Time of Encounter: 09:35 Assessment and Plan (1) Acute respiratory failure with hypoxia Current Visit: Yes Status: Acute Acute respiratory failure with hypoxia likely secondary to pneumonia and CHF exacerbation MRSA swab is positive Respiratory panel was negative -Continue to treat pneumonia; vancomycin day 4, Zosyn day 4 -Repeat echo pending -Currently intubated on vent -Sputum cultures -Maintained low tidal volume to minimize barotrauma (2) Pneumonia Current Visit: Yes Status: Acute Presented to the ED complaining of shortness of breath ongoing for 3 days at admission as well as pain upon inspiration. Was not requiring any oxygen at presentation the with anxiety worsening required BiPAP could not tolerate BiPAP and was subsequently intubated in the ED. CT dissection imaging shows right lower lobe pneumonia versus aspiration. Nasal MRSA swab is positive. -Blood cultures pending -Sputum cultures pending -Continue vancomycin, Zosyn and doxycycline, day 4 of antibiotic therapy -Appeared to have respiratory alkalosis today, continue ventilation setting to decrease barotrauma -Continue 40 mg Solu-Medrol every 8 hours Qualifiers: Pneumonia type: due to unspecified organism Laterality: right Lung location: unspecified part of lung Qualified Code(s): J18.9 - Pneumonia, un specified organism (3) Acute exacerbation of CHF (congestive heart failure) Current Visit: Yes Status: Acute Likely exacerbation secondary to fluid overload, BNP at admission was 856 Presented to the ED complaining of worsening shortness of breath does have history of CHF with EF of 35% one year ago on echo Is on spironolactone at home but unsure last taken as daughter reports she does not follow with PCP. 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 Was noted to have a 2 fibrillation with RVR in the ED Septic shock likely secondary to infectious versus cardiogenic -Blood cultures pending -Continue IV antibiotics, currently MRSA nasal swab -Need to titrate pressors as tolerated, currently only on norepinephrine, demand has decreased since yesterday (6) Atrial fibrillation with RVR Current Visit: Yes Status: Acute History of atrial fibrillation at presentation was noted to have H fibrillation with RVR with heart rate in the 180s Was on warfarin at home but was subtherapeutic with INR 1.4 Currently warfarin has been on hold given her liver function her INR has remained elevated at this time is 1.9 Started on amiodarone drip in the ED Heart rate has improved since admission Currently requiring pressors due to septic shock, which may affect rate control -Continue titrating amiodarone drip -Continue cardiac monitoring -Holding anticoagulation at this time given thrombocytopenia (7) EMMA (acute kidney injury) Current Visit: Yes Status: Acute Renal function improving after starting CVVHDF EMMA secondary to sepsis Nephrology following (8) Shock liver Current Visit: Yes Status: Acute Has history of hepatitis B and hepatitis C There are function continues to decline Given previous liver injury, including now sepsis has caused shock liver continue N-acetylcysteine to decrease oxidative stress (9) Hypokalemia Current Visit: Yes Status: Resolved Hypokalemia yesterday repleted with 40 mg IV potassium Repeated BMP today and potassium is 4.0 We will continue to monitor with daily BMP (10) DVT prophylaxis Current Visit: No Status: Acute Thrombocytopenia Continue SCDs Subjective Principal diagnosis: Septic shock secondary to pneumonia complicated by worsening of systolic he Interval history: Ms. Sales was seen at bedside this morning, she was intubated and sedated. Her vitals were reviewed and she was tachycardic and mechanically ventilated. Objective PUL Vital signs: Last Vital Signs Temp 98.8 F 10/03/18 07:00 Pulse 126 10/03/18 11:00 Resp 22 10/03/18 11:00 BP 124/94 10/03/18 11:00 Pulse Ox 88 10/03/18 11:11 General appearance: no acute distress, other (sedated and intubated) Eyes: nonicteric ENT: oropharynx moist Neck: supple Effort: normal Auscultation: bilateral: clear Cardiovascular: irregular rhythm, other (tachycardic ) Gastrointestinal: hypoactive bowel sounds, soft, non-distended Extremities: no cyanosis, pulses normal, edema (trace pitting edema of bilateral lower extremities) Musculoskeletal: no deformities unable to assess due to mental status (sedated and intubated) Ventilator Settings Ventilator Settings: Ventilator Settings, Last 8 Hours Ventilator Tidal Volume 400 Setting Ventilator Tidal Volume 400 Setting Ventilator Tidal Volume 400 Setting Ventilator Tidal Volume 450 Setting Ventilator Tidal Volume 450 Setting Ventilator Tidal Volume 450 Setting Ventilator Tidal Volume 450 Setting Ventilator Tidal Volume 450 Setting Ventilator Tidal Volume 450 Setting Ventilator Tidal Volume 450 Setting Ventilator Tidal Volume 450 Setting Ventilator Tidal Volume 450 Setting Ventilator Respiratory Rate 22 Setting Ventilator Respiratory Rate 22 Setting Ventilator Respiratory Rate 22 Setting Ventilator Respiratory Rate 22 Setting Ventilator Respiratory Rate 22 Setting Ventilator Respiratory Rate 22 Setting Ventilator Respiratory Rate 22 Setting Ventilator Respiratory Rate 22 Setting Ventilator Respiratory Rate 22 Setting Ventilator Respiratory Rate 22 Setting Ventilator Respiratory Rate 22 Setting Actual Respiratory Rate 22 Actual Respiratory Rate 22 Actual Respiratory Rate 22 Actual Respiratory Rate 22 Actual Respiratory Rate 22 Actual Respiratory Rate 22 Actual Respiratory Rate 22 Actual Respiratory Rate 22 Actual Respiratory Rate 22 Actual Respiratory Rate 22 Positive End Expiratory 8 Pressure Positive End Expiratory 8 Pressure Positive End Expiratory 8 Pressure Positive End Expiratory 8 Pressure Positive End Expiratory 8 Pressure Positive End Expiratory 8 Pressure Positive End Expiratory 8 Pressure Positive End Expiratory 8 Pressure Positive End Expiratory 8 Pressure Positive End Expiratory 8 Pressure Positive End Expiratory 8 Pressure Peak Inspiratory Airway 29 Pressure Peak Inspiratory Airway 27 Pressure Peak Inspiratory Airway 29 Pressure Peak Inspiratory Airway 29 Pressure Peak Inspiratory Airway 29 Pressure Peak Inspiratory Airway 29 Pressure Peak Inspiratory Airway 28 Pressure Peak Inspiratory Airway 29 Pressure Peak Inspiratory Airway 29 Pressure Peak Inspiratory Airway 30 Pressure Results - Laboratory Findings CBC and BMP: 10/03/18 03:25 10/03/18 03:25 ABG ABG pH 7.47 pH Units (7.32-7.45) H 10/03/18 04:21 ABG pCO2 32 mmHg (35-45) L 10/03/18 04:21 ABG pO2 55 mmHg (85-104) L 10/03/18 04:21 ABG O2 Saturation 91 % (95-98) L 10/03/18 04:21 PT/INR, D-dimer PT 21.6 Seconds (9.4-12.1) H 10/03/18 03:25 Abnormal lab findings: Abnormal lab results WBC 24.9 K/mcL (4.3-11.1) H 10/03/18 03:25 Hct 46.3 % (35.3-44.9) H 10/01/18 04:10 MCHC 31.1 g/dL (31.6-35.5) L 10/01/18 04:10 RDW 20.0 % (11.5-14.5) H 10/03/18 03:25 Plt Count 37 K/mcL (140-400) L 10/03/18 03:25 14.0 % (0-4) H 10/02/18 03:35 2.0 % (0) H 10/01/18 04:10 23.2 K/mcL (1.6-8.9) H 10/03/18 03:25 0.5 K/mcL (0.6-4.6) L 10/02/18 03:35 3.4 K/mcL (0.0-1.3) H 10/01/18 13:55 Nucleated RBCs/100 WBC 0.2 /100 WBC (0) H 10/03/18 03:25 Present (Not Present) A 10/02/18 03:35 Decreased (Normal) L 10/03/18 03:25 Immature Plt Fraction 8.0 % (1.1-6.1) H 10/03/18 03:25 1+ (Not Present) A 10/03/18 03:25 2+ (Not Present) A 10/03/18 03:25 Present (Not Present) A 10/03/18 03:25 Present (Not Present) A 10/03/18 03:25 1+ (Not Present) A 10/02/18 03:35 Acanthocytes (Spur) 2+ (Not Present) A 10/02/18 03:35 PT 21.6 Seconds (9.4-12.1) H 10/03/18 03:25 ABG pH 7.47 pH Units (7.32-7.45) H 10/03/18 04:21 ABG pCO2 32 mmHg (35-45) L 10/03/18 04:21 ABG pO2 55 mmHg (85-104) L 10/03/18 04:21 ABG HCO3 17 mEq/L (21-27) L 10/01/18 16:05 ABG Total CO2 18 mEq/L (20-26) L 10/01/18 16:05 ABG O2 Saturation 91 % (95-98) L 10/03/18 04:21 ABG Base Excess -10 mEq/L (-2 to 3) L 10/01/18 16:05 Sodium 135 mEq/L (136-145) L 10/02/18 03:35 Potassium 3.3 mEq/L (3.5-5.1) L D 10/02/18 03:35 Chloride 109 mEq/L (98-107) H 09/30/18 04:00 Carbon Dioxide 22 mEq/L (23-29) L 10/02/18 03:35 BUN 28 mg/dL (6-20) H 10/03/18 03:25 1.91 mg/dL (0.60-1.20) H 10/01/18 13:55 Est GFR ( Amer) 33 (> 60) L 10/01/18 13:55 Est GFR (Non-Af Amer) 27 (> 60) L 10/01/18 13:55 47 (6-26) H 10/03/18 03:25 Glucose 169 mg/dL (70-105) H 10/03/18 03:25 POC Glucose 151 mg/dL (70-99) H 10/02/18 23:06 Lactic Acid 3.1 mmol/L (0.5-2.2) H 10/02/18 13:00 Calcium 7.0 mg/dL (8.6-10.3) L 10/03/18 03:25 Magnesium 1.4 mg/dL (1.6-2.6) L 09/30/18 04:00 2.0 mg/dL (0.3-1.0) H 10/03/18 03:25 1.0 mg/dL (0.0-0.2) H 10/03/18 03:25 AST 1339 Units/L (13-39) H 10/03/18 03:25 ALT 923 Units/L (7-52) H 10/03/18 03:25 79 mcmol/L (16-53) H 09/30/18 20:00 0.06 ng/mL (< 0.04) H* 10/01/18 20:10 B-Natriuretic Peptide 856 pg/mL (Less than 100) H 09/30/18 04:00 5.3 g/dL (6.4-8.9) L 10/03/18 03:25 2.2 g/dL (3.5-5.7) L 10/03/18 03:25 3.6 g/dL (2.4-3.5) H 10/01/18 13:55 0.7 (1.1-2.2) L 10/03/18 03:25 7.75 ng/mL (0.00-0.15) H 09/30/18 14:51 Hermann (Yellow) A 10/03/18 03:50 Cloudy (Clear) A 10/03/18 03:50 Ur Specific [place] > 1.030 (1.010-1.025) H 10/03/18 03:50 100 mg/dL (Neg-Trace) H 10/03/18 03:50 Trace mg/dL (Negative) H 10/03/18 03:50 Large (Negative) H 10/03/18 03:50 Moderate (Negative) H 10/03/18 03:50 Ur Leukocyte Esterase Small (Negative) H 10/03/18 03:50 TNTC per hpf (0-3) H 10/03/18 03:50 30-50 per hpf (0-3) H 10/03/18 03:50 Ur Squamous Epith Cells Many per lpf (None-Few) H 10/03/18 03:50 Positive (Negative) A 09/30/18 11:20 Vancomycin Trough 24 mcg/mL (5-10) H 10/01/18 13:55 14 IU/mL (Less than 14) H 10/03/18 03:25 - Clinical Findings Intake & Output: Intake & Output 10/02/18 10/03/18 10/03/18 23:59 07:59 15:59 Intake Total 603.6 / 3535.6 698.9 / 1848.9 1150 / 1848.9 Output Total 505 / 1185 130 / 155 25 / 155 Balance 98.6 / 2350.6 568.9 / 1693.9 1125 / 1693.9 Consult Discharge Plan - Plan Referrals: NONE,PCP [Primary Care Provider] - <Kyrie Salgado - Last Filed: 10/03/18 22:50> Date of Encounter: 10/03/18 Assessment and Plan (1) Acute respiratory failure with hypoxia Current Visit: Yes Status: Acute (2) Acute exacerbation of chronic obstructive pulmonary disease (COPD) Current Visit: No Status: Acute (3) Cirrhosis Current Visit: No Status: Acute Qualifiers: Hepatic cirrhosis type: unspecified hepatic cirrhosis Qualified Code(s): K74.60 - Unspecified cirrhosis of liver (4) Acute exacerbation of CHF (congestive heart failure) Current Visit: Yes Status: Acute Qualifiers: Heart failure type: systolic Qualified Code(s): I50.23 - Acute on chronic systolic (congestive) heart failure (5) Septic shock Current Visit: Yes Status: Acute (6) Shock liver Current Visit: Yes Status: Acute (7) EMMA (acute kidney injury) Current Visit: Yes Status: Acute (8) DVT prophylaxis Current Visit: No Status: Acute Objective PUL Vital signs: Last Vital Signs Temp 98.3 F 10/03/18 20:19 Pulse 131 10/03/18 22:00 Resp 22 10/03/18 22:21 BP 98/71 10/03/18 22:21 Pulse Ox 91 10/03/18 22:21 Ventilator Settings Ventilator Settings: Ventilator Settings, Last 8 Hours Ventilator Tidal Volume 400 Setting Ventilator Tidal Volume 400 Setting Ventilator Tidal Volume 400 Setting Ventilator Tidal Volume 400 Setting Ventilator Tidal Volume 400 Setting Ventilator Tidal Volume 400 Setting Ventilator Tidal Volume 400 Setting Ventilator Tidal Volume 400 Setting Ventilator Tidal Volume 400 Setting Ventilator Tidal Volume 400 Setting Ventilator Tidal Volume 400 Setting Ventilator Tidal Volume 400 Setting Ventilator Respiratory Rate 22 Setting Ventilator Respiratory Rate 22 Setting Ventilator Respiratory Rate 22 Setting Ventilator Respiratory Rate 22 Setting Ventilator Respiratory Rate 22 Setting Ventilator Respiratory Rate 22 Setting Ventilator Respiratory Rate 22 Setting Ventilator Respiratory Rate 22 Setting Ventilator Respiratory Rate 22 Setting Ventilator Respiratory Rate 22 Setting Ventilator Respiratory Rate 22 Setting Ventilator Respiratory Rate 22 Setting Actual Respiratory Rate 22 Actual Respiratory Rate 26 Actual Respiratory Rate 25 Actual Respiratory Rate 25 Actual Respiratory Rate 23 Actual Respiratory Rate 24 Actual Respiratory Rate 23 Actual Respiratory Rate 23 Actual Respiratory Rate 23 Actual Respiratory Rate 22 Actual Respiratory Rate 23 Actual Respiratory Rate 24 Positive End Expiratory 8 Pressure Positive End Expiratory 8 Pressure Positive End Expiratory 8 Pressure Positive End Expiratory 8 Pressure Positive End Expiratory 8 Pressure Positive End Expiratory 8 Pressure Positive End Expiratory 8 Pressure Positive End Expiratory 8 Pressure Positive End Expiratory 8 Pressure Positive End Expiratory 8 Pressure Positive End Expiratory 8 Pressure Positive End Expiratory 8 Pressure Peak Inspiratory Airway 33 Pressure Peak Inspiratory Airway 39 Pressure Peak Inspiratory Airway 30 Pressure Peak Inspiratory Airway 26 Pressure Peak Inspiratory Airway 30 Pressure Peak Inspiratory Airway 27 Pressure Peak Inspiratory Airway 24 Pressure Peak Inspiratory Airway 26 Pressure Peak Inspiratory Airway 29 Pressure Peak Inspiratory Airway 27 Pressure Peak Inspiratory Airway 28 Pressure Peak Inspiratory Airway 29 Pressure Results - Laboratory Findings CBC and BMP: 10/03/18 03:25 10/03/18 03:25 ABG ABG pH 7.47 pH Units (7.32-7.45) H 10/03/18 04:21 ABG pCO2 32 mmHg (35-45) L 10/03/18 04:21 ABG pO2 55 mmHg (85-104) L 10/03/18 04:21 ABG O2 Saturation 91 % (95-98) L 10/03/18 04:21 PT/INR, D-dimer PT 21.6 Seconds (9.4-12.1) H 10/03/18 03:25 Abnormal lab findings: Abnormal lab results WBC 24.9 K/mcL (4.3-11.1) H 10/03/18 03:25 Hct 46.3 % (35.3-44.9) H 10/01/18 04:10 MCHC 31.1 g/dL (31.6-35.5) L 10/01/18 04:10 RDW 20.0 % (11.5-14.5) H 10/03/18 03:25 Plt Count 37 K/mcL (140-400) L 10/03/18 03:25 14.0 % (0-4) H 10/02/18 03:35 2.0 % (0) H 10/01/18 04:10 23.2 K/mcL (1.6-8.9) H 10/03/18 03:25 0.5 K/mcL (0.6-4.6) L 10/02/18 03:35 3.4 K/mcL (0.0-1.3) H 10/01/18 13:55 Nucleated RBCs/100 WBC 0.2 /100 WBC (0) H 10/03/18 03:25 Present (Not Present) A 10/02/18 03:35 Decreased (Normal) L 10/03/18 03:25 Immature Plt Fraction 8.0 % (1.1-6.1) H 10/03/18 03:25 1+ (Not Present) A 10/03/18 03:25 2+ (Not Present) A 10/03/18 03:25 Present (Not Present) A 10/03/18 03:25 Present (Not Present) A 10/03/18 03:25 1+ (Not Present) A 10/02/18 03:35 Acanthocytes (Spur) 2+ (Not Present) A 10/02/18 03:35 PT 21.6 Seconds (9.4-12.1) H 10/03/18 03:25 ABG pH 7.47 pH Units (7.32-7.45) H 10/03/18 04:21 ABG pCO2 32 mmHg (35-45) L 10/03/18 04:21 ABG pO2 55 mmHg (85-104) L 10/03/18 04:21 ABG HCO3 17 mEq/L (21-27) L 10/01/18 16:05 ABG Total CO2 18 mEq/L (20-26) L 10/01/18 16:05 ABG O2 Saturation 91 % (95-98) L 10/03/18 04:21 ABG Base Excess -10 mEq/L (-2 to 3) L 10/01/18 16:05 Sodium 135 mEq/L (136-145) L 10/02/18 03:35 Potassium 3.3 mEq/L (3.5-5.1) L D 10/02/18 03:35 Chloride 109 mEq/L (98-107) H 09/30/18 04:00 Carbon Dioxide 22 mEq/L (23-29) L 10/02/18 03:35 BUN 28 mg/dL (6-20) H 10/03/18 03:25 1.91 mg/dL (0.60-1.20) H 10/01/18 13:55 Est GFR ( Amer) 33 (> 60) L 10/01/18 13:55 Est GFR (Non-Af Amer) 27 (> 60) L 10/01/18 13:55 47 (6-26) H 10/03/18 03:25 Glucose 169 mg/dL (70-105) H 10/03/18 03:25 POC Glucose 151 mg/dL (70-99) H 10/02/18 23:06 Lactic Acid 3.1 mmol/L (0.5-2.2) H 10/02/18 13:00 Calcium 7.0 mg/dL (8.6-10.3) L 10/03/18 03:25 Magnesium 1.4 mg/dL (1.6-2.6) L 09/30/18 04:00 2.0 mg/dL (0.3-1.0) H 10/03/18 03:25 1.0 mg/dL (0.0-0.2) H 10/03/18 03:25 AST 1339 Units/L (13-39) H 10/03/18 03:25 ALT 923 Units/L (7-52) H 10/03/18 03:25 79 mcmol/L (16-53) H 09/30/18 20:00 0.06 ng/mL (< 0.04) H* 10/01/18 20:10 B-Natriuretic Peptide 856 pg/mL (Less than 100) H 09/30/18 04:00 5.3 g/dL (6.4-8.9) L 10/03/18 03:25 2.2 g/dL (3.5-5.7) L 10/03/18 03:25 3.6 g/dL (2.4-3.5) H 10/01/18 13:55 0.7 (1.1-2.2) L 10/03/18 03:25 7.75 ng/mL (0.00-0.15) H 09/30/18 14:51 Hermann (Yellow) A 10/03/18 03:50 Cloudy (Clear) A 10/03/18 03:50 Ur Specific [place] > 1.030 (1.010-1.025) H 10/03/18 03:50 100 mg/dL (Neg-Trace) H 10/03/18 03:50 Trace mg/dL (Negative) H 10/03/18 03:50 Large (Negative) H 10/03/18 03:50 Moderate (Negative) H 10/03/18 03:50 Ur Leukocyte Esterase Small (Negative) H 10/03/18 03:50 TNTC per hpf (0-3) H 10/03/18 03:50 30-50 per hpf (0-3) H 10/03/18 03:50 Ur Squamous Epith Cells Many per lpf (None-Few) H 10/03/18 03:50 Positive (Negative) A 09/30/18 11:20 Vancomycin Trough 24 mcg/mL (5-10) H 10/01/18 13:55 14 IU/mL (Less than 14) H 10/03/18 03:25 - Clinical Findings Intake & Output: Intake & Output 10/03/18 10/03/18 10/03/18 07:59 15:59 23:59 Intake Total 698.9 / 2707.9 1579 / 2707.9 430 / 2707.9 Output Total 130 / 190 60 / 190 0 / 190 Balance 568.9 / 2517.9 1519 / 2517.9 430 / 2517.9 - Attending Attestation - Attending Attestation I saw and evaluated this patient and my medical decision-making was reviewed with the Resident Physician. I agree with the documented findings, disposition and treatment plan as described except to the extent set forth below. We indep endently had [id number] contact with the patient I spent 40 minutes of Critical Care time with this patient. It involved decision making of high complexity to assess, manipulate, and support vital organ system failure and/or to prevent further life threatening deterioration of the patient's condition. The time involved in the performance of separately reportable procedures was not counted toward critical care time. Patient seen and examined at bedside Labs, radiology, chart personally reviewed. Management was reviewed during multidisciplinary critical care rounds. PARARESCUE MANAGER: Patient is intubated and mechanical ventilated sedated with the ventilator asynchrony complicated by toxic/metabolic encephalopathy Pulm: Patient has significant V/Q mismatch complicated by COPD exacerbation ac rafael on chronic systolic heart failure complicated by pulmonary hypertension will reduce her tidal volume To limit ventilator-induced lung injury. 10/03 adjusted tidal volume and minute ventilation. Respirations alkalosis patient has on and off ventilation issues complicated by bronchospasm patient has pneumonia with end-stage COPD to the pulmonary hypertension makes it to difficult case to oxygenate and ventilate. Cards:Patient is in septic shock complicated by acute on chronic systolic heart failure shock is improving lactic acidosis is improving vasopressor requirement is coming down we will transitioned to levo phed . Atrial fibrillation rate controlled with amiodarone. 10/03 patient still in shock septic shock complicated by acute on chronic sy stolic heart failure. Pulmonary hypertension complicating the issue FEN-GI: To advance diet as tolerated Renal:To continue with renal replacement therapy ID:To continue with broad-spectrum antibiotics. Heme/Onc:Labs reviewed Endo: Glucose Monitored Integ/MSK: Skin Care per routine ICU Nursing Protocol to prevent ulcers. Lines: All lines examined without evidence of infection : Dispo: critically ill updated the family will the prognosis patient multiorgan dysfunction syndrome CODE: Full Code
--- NOTE | 2018-10-03 13:47 | Nephrology Progress Note ---
Date of Encounter: 10/03/18 Time of Encounter: 08:15 - Assessment and Plan (1) EMMA (acute kidney injury) Current Visit: Yes Status: Acute I see reassuring trends in terms of UOP and SCr, and so will tentatively plan to hold CVVHDF today. However, since she remains intubated and still requiring high FiO2, I recommend she remain on CVVHDF with Net+100mL/hr of UF till about 5pm. Tomorrow, will reassess for dialytic needs. Prismasate and Replacement fluid 1500 and 1500 with BFR to increase to 200. She is not a candidate for Citrate with Ca++ gtt d/t her LFTs. Discussed with the ICU team. My colleague Dr. Jackson will be on-service/on-call starting tomorrow. Thank you (2) Oliguria Current Visit: Yes Status: Acute More UOP noted. Will use her UOP for medical decision making. (3) Hyperkalemia Current Visit: Yes Status: Acute (4) Acute exacerbation of CHF (congestive heart failure) Current Visit: Yes Status: Acute Qualifiers: Heart failure type: systolic Qualified Code(s): I50.23 - Acute on chronic systolic (congestive) heart failure (5) Atrial fibrillation with RVR Current Visit: Yes Status: Acute (6) Cirrhosis Current Visit: Yes Status: Acute HRS is a diagnosis of exclusion Qualifiers: Hepatic cirrhosis type: unspecified hepatic cirrhosis Ascites presence: without ascites Qualified Code(s): K74.60 - Unspecified cirrhosis of liver (7) Hypotension Current Visit: Yes Status: Acute Qualifiers: Hypotension type: unspecified hypotension type Qualified Code(s): I95.9 - Hypotension, unspecified (8) Pneumonia Current Visit: Yes Status: Acute Qualifiers: Pneumonia type: due to unspecified organism Laterality: right Lung location: unspecified part of lung Qualified Code(s): J18.9 - Pneumonia, unspecified organism (9) Septic shock Current Visit: Yes Status: Acute As per primary (10) Anemia Current Visit: No Status: Acute Transfusion parameters as per primary Qualifiers: Anemia type: unspecified type Qualified Code(s): D64.9 - Anemia, unspecif ied (11) Hepatitis C Current Visit: No Status: Acute See primary note Qualifiers: Qualified Code(s): B19.20 - Unspecified viral hepatitis C without hepatic coma (12) Thrombocytopenia Current Visit: No Status: Acute Subjective Principal diagnosis: Septic shock secondary to pneumonia complicated by worsening of systolic he Interval history: The patient was seen and examined in the ICU while on [facility] earlier today. She remains intubated so further history was unobtainable, which limited the subjective portion of this note. I discussed her care with the ICU team. Objective - Vital Signs Vital signs: Vital Signs Temp Pulse Resp BP Pulse Ox 10/03/18 13:00 105 22 111/73 89 10/03/18 12:00 96.8 F L 100 26 125/92 89 10/03/18 11:11 88 10/03/18 11:00 126 22 124/94 88 10/03/18 10:00 104 22 108/88 93 10/03/18 09:00 120 22 98/88 10/03/18 08:00 126 22 109/72 90 10/03/18 07:51 22 90 10/03/18 07:00 98.8 F 117 22 100/78 91 10/03/18 06:00 116 22 100/77 91 10/03/18 05:37 22 107/78 91 10/03/18 05:00 105 22 99/85 90 10/03/18 04:00 97.4 F L 128 22 111/92 91 10/03/18 03:43 22 111/92 91 10/03/18 03:42 119 10/03/18 03:00 109 22 112/89 89 10/03/18 02:25 22 127/87 90 10/03/18 02:00 121 22 107/96 91 10/03/18 01:00 135 22 111/84 89 10/03/18 00:02 22 110/79 90 10/03/18 00:00 96.4 F L 115 22 112/95 90 10/02/18 23:00 117 22 110/79 90 10/02/18 22:13 22 108/88 90 10/02/18 22:00 103 22 108/85 89 10/02/18 21:00 109 22 87/75 91 10/02/18 20:12 24 100/80 92 10/02/18 20:00 97.1 F L 111 22 100/80 92 10/02/18 19:43 119 10/02/18 19:00 123 22 105/68 92 10/02/18 18:00 124 22 109/85 90 10/02/18 17:10 22 101/89 90 10/02/18 17:00 127 22 117/94 90 10/02/18 16:00 96.6 F L 121 22 90/78 90 10/02/18 15:45 22 90/78 90 10/02/18 15:00 119 22 93/72 90 10/02/18 14:00 109 22 94/72 89 10/02/18 13:50 22 112/76 89 Intake and Output 10/02/18 10/03/18 10/03/18 23:59 07:59 15:59 Intake Total 603.6 / 3535.6 698.9 / 2048.9 1350 / 2048.9 Output Total 505 / 1185 130 / 170 40 / 170 Balance 98.6 / 2350.6 568.9 / 1878.9 1310 / 1878.9 Intake: IV Fluids 503.6 / 3435.6 698.9 / 2048.9 1350 / 2048.9 PrismaSATE BGK 4/2.5 5,000 ML @ 0 / 0 0 / 0 1500 mls/hr CRRT [facility] Rx#: [id number] Amiodarone Drip Premix 360mg/ 50.9 / 483.5 100 / 300 200 / 300 200mL 360 mg In 200 ml @ 0.5 MG /MIN 16.667 mls/hr IVC [facility] Rx#:[id number] PRECEDEX Premix 400 mcg In 100 200.0 / 597.3 200 / 300 100 / 300 ml @ 0.2 MCG/KG/HR 5.985 mls/hr IVC .[id number] [facility] Rx#: [id number] FentaNYL (PF) 1,000 MCG In 0.9 70.7 / 300.0 100 / 200 100 / 200 % Sodium Chloride 80 ML @ 50 MCG/HR 5 mls/hr IVC [facility] Rx #:[id number] Versed 50 MG In 0.9 % Sodium 30.4 / 220.3 79.7 / 179.7 100 / 179.7 Chloride 90 ML @ 2 MG/HR 4 mls/ hr IVC [facility] Rx#:[id number] Levophed 8 MG In Dextrose 5% 51.6 / 403.2 119.2 / 119.2 250 ML @ 8 MCG/MIN 15.48 mls/hr IVC [facility] Rx#:[id number] Phenylephrine 50 MG In Dextrose 250 / 250 5% 250 ML @ 40 MCG/MIN 12.24 mls/hr IVC [facility] Rx#: [id number] Zosyn 3.375 GM In 0.9 % Sodium 100.0 / 300.0 100 / 200 100 / 200 Chloride (Mini-Bag +) 100 ML @ 25 mls/hr IVPB Q8HR [facility] Rx#: [id number] Vancocin 2,000 MG In 0.9 % 500 / 500 Sodium Chloride 500 ML @ 250 mls/hr IVPB ONCE ONE Rx#: [id number] Oral 0 / 0 Other 100 / 100 Output: Catheter 130 / 735 130 / 170 40 / 170 Gastric Drainage 375 / 450 Other: Blood Glucose* 140 139 144 Fluid Removed by Prismaflex 93 90 390 - General Appearance Exam: General appearance: Present: well-developed, well-nourished, appears started age, obese, sedated on ventilator, intubated EENT: Present: ATNC, PERRL, mucous membranes moist Neck: Present: no JVD, supple Respiratory: Present: clear Cardiology: Present: edema (trace hand and pedal edema nonpitting bilaterally), rapid rhythm, irregular rhythm, normal S1, normal S2 Dialysis Vascular Access: Venous Catheter (RIJ temporary HD catheter noted) Gastrointestinal: Present: normoactive bowel sounds, no tenderness, no guarding, obese Integumentary: Present: warm and dry, ecchymotic Additional Comments: Neuro: because she is intubated and laying in the ICU bed, this limits the neuro exam Musculoskeletal: Present: no clubbing - Lab 10/06/18 03:35 10/06/18 03:35 Most recent lab results 10/03/18 10/03/18 03:25 04:21 ABG pH 7.47 H ABG pCO2 32 L ABG pO2 55 L ABG HCO3 24 ABG O2 Saturation 91 L Calcium 7.0 L Consult Discharge Plan - Plan Referrals: NONE,PCP [Primary Care Provider] -
[2018-10-03] MEDS ORDERED: *HR* Heparin 5,000 UNIT/ML VIAL ONE (18:10)
[2018-10-04] MEDS: Dexmedetomidine HCl 400 MCG/100 ML MLS IVC SCH ×5 (03:15→21:35)
[2018-10-04] MEDS: Artificial Tears SOLN 15 ML BOTTLE BOTH EYES SCH ×6 (03:42→23:41)
[2018-10-04] MEDS: Insulin LISPRO 300 UNITS/3 ML VIAL SQ SCH ×6 (03:51→23:58)
[2018-10-04 04:06] LABS: Basophils % 0.6 %; Nucleated Red Blood Cells 1.7 /100 WBC (0); Red Cell Distribution Width 20.4 % (11.5-14.5)
[2018-10-04 04:08] LABS: Basophils # 0.1 K/mcL (0.0-0.2); Hematocrit 38.2 % (35.3-44.9); Hemoglobin 12.7 g/dL (11.5-15.4); Immature Granulocytes % 3.2 % (0-4); Lymphocytes # 1.1 K/mcL (0.6-4.6); Lymphocytes % 4.7 %; Mean Corpuscular HGB Conc 33.2 g/dL (31.6-35.5); Mean Corpuscular Hemoglobin 30.3 pg (28.0-33.3); Mean Corpuscular Volume 91.2 fL (83.0-100.0); Mean Platelet Volume 10.3 fL (9.4-12.4); Monocytes # 1.4 K/mcL (0.0-1.3); Neutrophils # 19.8 K/mcL (1.6-8.9); Red Blood Count 4.19 M/mcL (3.82-4.97); Segmented Neutrophils % 85.5 %
[2018-10-04] MEDS: Levalbuterol Neb 1.25 MG/3 ML IH SCH ×4 (04:14→21:21)
[2018-10-04 04:22] LABS: BUN/Creatinine Ratio 43 (6-26); Blood Urea Nitrogen 42 mg/dL (6-20); Calcium 7.3 mg/dL (8.6-10.3); Carbon Dioxide 26 mEq/L (23-29); Chloride 104 mEq/L (98-107); Glucose 219 mg/dL (70-105); Osmolality,Calculated 299 (280-300); Potassium 4.7 mEq/L (3.5-5.1); Sodium 136 mEq/L (136-145); eGFR For Non-African Americans 59 (> 60)
[2018-10-04 04:38] LABS: Platelet Count 44 K/mcL (140-400)
[2018-10-04 04:56] LABS: ABG Base Excess 1 mEq/L (-2 to 3); ABG HCO3 23 mEq/L (21-27); ABG Oxygen Saturation 92 % (95-98); ABG PCO2 31 mmHg (35-45); ABG PH 7.48 pH Units (7.32-7.45); ABG PO2 58 mmHg (85-104); ABG TCO2 24 mEq/L (20-26); Blood Gas PEEP 8 cm H2O; Blood Gas Respiration Rate 22; Blood Gas VT 400 cc
[2018-10-04] MEDS: Pantoprazole 40 MG VIAL IVP SCH ×2 (05:00→17:16)
[2018-10-04] MEDS: Amiodarone Premix 360 MG/200 ML BAG IVC SCH ×2 (06:09→20:31)
[2018-10-04] MEDS: FentaNYL (PF) 1,000 MCG in 0.9 % Sodium Chloride 80 ML IVC SCH ×3 (06:11→21:37)
[2018-10-04] MEDS: MethylPREDNISolone 40 MG/ML VIAL IVP SCH ×3 (07:43→23:40)
[2018-10-04] MEDS: Piperacillin/Tazobactam 3.375 GM in 0.9 % Sodium Chloride Mini Bag 100 ML IVPB SCH ×3 (07:43→23:40)
[2018-10-04] MEDS: Lactulose Oral Soln 20 GM/30 ML UDC PO SCH ×3 (07:44→21:35)
[2018-10-04] MEDS: Chlorhexidine Rinse 15 ML MOUTHWASH MM SCH ×2 (07:44→21:35)
[2018-10-04] MEDS: Doxycycline 100 MG CAPSULE PO SCH (07:44)
--- NOTE | 2018-10-04 08:29 | Pulmonology Progress Note ---
<AkilaHang sanches W - Last Filed: 10/04/18 11:28> Date of Encounter: 10/04/18 Objective PUL Vital signs: Last Vital Signs Temp 101.9 F H 10/04/18 10:43 Pulse 121 10/04/18 11:00 Resp 25 10/04/18 11:10 BP 120/80 10/04/18 11:10 Pulse Ox 91 10/04/18 11:10 Ventilator Settings Ventilator Settings: Ventilator Settings, Last 8 Hours Ventilator Tidal Volume 400 Setting Ventilator Tidal Volume 400 Setting Ventilator Tidal Volume 400 Setting Ventilator Tidal Volume 400 Setting Ventilator Tidal Volume 400 Setting Ventilator Tidal Volume 400 Setting Ventilator Tidal Volume 400 Setting Ventilator Tidal Volume 400 Setting Ventilator Tidal Volume 400 Setting Ventilator Tidal Volume 400 Setting Ventilator Tidal Volume 400 Setting Ventilator Tidal Volume 400 Setting Ventilator Tidal Volume 400 Setting Ventilator Tidal Volume 400 Setting Ventilator Respiratory Rate 22 Setting Ventilator Respiratory Rate 22 Setting Ventilator Respiratory Rate 22 Setting Ventilator Respiratory Rate 22 Setting Ventilator Respiratory Rate 22 Setting Ventilator Respiratory Rate 22 Setting Ventilator Respiratory Rate 22 Setting Ventilator Respiratory Rate 22 Setting Ventilator Respiratory Rate 22 Setting Ventilator Respiratory Rate 22 Setting Ventilator Respiratory Rate 22 Setting Ventilator Respiratory Rate 22 Setting Ventilator Respiratory Rate 22 Setting Ventilator Respiratory Rate 22 Setting Actual Respiratory Rate 26 Actual Respiratory Rate 26 Actual Respiratory Rate 26 Actual Respiratory Rate 26 Actual Respiratory Rate 26 Actual Respiratory Rate 23 Actual Respiratory Rate 22 Actual Respiratory Rate 23 Actual Respiratory Rate 27 Actual Respiratory Rate 26 Actual Respiratory Rate 23 Actual Respiratory Rate 25 Actual Respiratory Rate 28 Positive End Expiratory 8 Pressure Positive End Expiratory 8 Pressure Positive End Expiratory 8 Pressure Positive End Expiratory 8 Pressure Positive End Expiratory 8 Pressure Positive End Expiratory 8 Pressure Positive End Expiratory 8 Pressure Positive End Expiratory 8 Pressure Positive End Expiratory 8 Pressure Positive End Expiratory 8 Pressure Positive End Expiratory 8 Pressure Positive End Expiratory 8 Pressure Positive End Expiratory 8 Pressure Positive End Expiratory 8 Pressure Peak Inspiratory Airway 29 Pressure Peak Inspiratory Airway 29 Pressure Peak Inspiratory Airway 39 Pressure Peak Inspiratory Airway 34 Pressure Peak Inspiratory Airway 33 Pressure Peak Inspiratory Airway 33 Pressure Peak Inspiratory Airway 34 Pressure Peak Inspiratory Airway 31 Pressure Peak Inspiratory Airway 32 Pressure Peak Inspiratory Airway 31 Pressure Peak Inspiratory Airway 32 Pressure Peak Inspiratory Airway 30 Pressure Peak Inspiratory Airway 27 Pressure Results - Laboratory Findings CBC and BMP: 10/04/18 03:45 10/04/18 03:45 ABG ABG pH 7.48 pH Units (7.32-7.45) H 10/04/18 04:53 ABG pCO2 31 mmHg (35-45) L 10/04/18 04:53 ABG pO2 58 mmHg (85-104) L 10/04/18 04:53 ABG O2 Saturation 92 % (95-98) L 10/04/18 04:53 PT/INR, D-dimer PT 24.2 Seconds (9.4-12.1) H 10/04/18 08:25 Abnormal lab findings: Abnormal lab results WBC 23.2 K/mcL (4.3-11.1) H 10/04/18 03:45 Hct 46.3 % (35.3-44.9) H 10/01/18 04:10 MCHC 31.1 g/dL (31.6-35.5) L 10/01/18 04:10 RDW 20.4 % (11.5-14.5) H 10/04/18 03:45 Plt Count 44 K/mcL (140-400) L 10/04/18 03:45 14.0 % (0-4) H 10/02/18 03:35 2.0 % (0) H 10/01/18 04:10 19.8 K/mcL (1.6-8.9) H 10/04/18 03:45 0.5 K/mcL (0.6-4.6) L 10/02/18 03:35 1.4 K/mcL (0.0-1.3) H 10/04/18 03:45 Nucleated RBCs/100 WBC 1.7 /100 WBC (0) H 10/04/18 03:45 Present (Not Present) A 10/02/18 03:35 Decreased (Normal) L 10/03/18 03:25 Immature Plt Fraction 8.0 % (1.1-6.1) H 10/04/18 03:45 1+ (Not Present) A 10/03/18 03:25 2+ (Not Present) A 10/03/18 03:25 Present (Not Present) A 10/03/18 03:25 Present (Not Present) A 10/03/18 03:25 1+ (Not Present) A 10/02/18 03:35 Acanthocytes (Spur) 2+ (Not Present) A 10/02/18 03:35 PT 24.2 Seconds (9.4-12.1) H 10/04/18 08:25 ABG pH 7.48 pH Units (7.32-7.45) H 10/04/18 04:53 ABG pCO2 31 mmHg (35-45) L 10/04/18 04:53 ABG pO2 58 mmHg (85-104) L 10/04/18 04:53 ABG HCO3 17 mEq/L (21-27) L 10/01/18 16:05 ABG Total CO2 18 mEq/L (20-26) L 10/01/18 16:05 ABG O2 Saturation 92 % (95-98) L 10/04/18 04:53 ABG Base Excess -10 mEq/L (-2 to 3) L 10/01/18 16:05 Sodium 135 mEq/L (136-145) L 10/02/18 03:35 Potassium 3.3 mEq/L (3.5-5.1) L D 10/02/18 03:35 Chloride 109 mEq/L (98-107) H 09/30/18 04:00 Carbon Dioxide 22 mEq/L (23-29) L 10/02/18 03:35 BUN 42 mg/dL (6-20) H 10/04/18 03:45 1.91 mg/dL (0.60-1.20) H 10/01/18 13:55 Est GFR ( Amer) 33 (> 60) L 10/01/18 13:55 Est GFR (Non-Af Amer) 59 (> 60) L 10/04/18 03:45 43 (6-26) H 10/04/18 03:45 Glucose 219 mg/dL (70-105) H 10/04/18 03:45 POC Glucose 183 mg/dL (70-99) H 10/03/18 23:09 Lactic Acid 3.1 mmol/L (0.5-2.2) H 10/02/18 13:00 Calcium 7.3 mg/dL (8.6-10.3) L 10/04/18 03:45 Magnesium 1.4 mg/dL (1.6-2.6) L 09/30/18 04:00 2.1 mg/dL (0.3-1.0) H 10/04/18 08:25 1.1 mg/dL (0.0-0.2) H 10/04/18 08:25 AST 688 Units/L (13-39) H 10/04/18 08:25 ALT 766 Units/L (7-52) H 10/04/18 08:25 142 Units/L (34-104) H 10/04/18 08:25 79 mcmol/L (16-53) H 09/30/18 20:00 0.06 ng/mL (< 0.04) H* 10/01/18 20:10 B-Natriuretic Peptide 856 pg/mL (Less than 100) H 09/30/18 04:00 5.3 g/dL (6.4-8.9) L 10/04/18 08:25 2.3 g/dL (3.5-5.7) L 10/04/18 08:25 3.6 g/dL (2.4-3.5) H 10/01/18 13:55 0.8 (1.1-2.2) L 10/04/18 08:25 7.75 ng/mL (0.00-0.15) H 09/30/18 14:51 [place] (Yellow) A 10/03/18 03:50 Cloudy (Clear) A 10/03/18 03:50 Ur Specific [place] > 1.030 (1.010-1.025) H 10/03/18 03:50 100 mg/dL (Neg-Trace) H 10/03/18 03:50 Trace mg/dL (Negative) H 10/03/18 03:50 Large (Negative) H 10/03/18 03:50 Moderate (Negative) H 10/03/18 03:50 Ur Leukocyte Esterase Small (Negative) H 10/03/18 03:50 TNTC per hpf (0-3) H 10/03/18 03:50 30-50 per hpf (0-3) H 10/03/18 03:50 Ur Squamous Epith Cells Many per lpf (None-Few) H 10/03/18 03:50 Positive (Negative) A 09/30/18 11:20 Vancomycin Trough 24 mcg/mL (5-10) H 10/01/18 13:55 14 IU/mL (Less than 14) H 10/03/18 03:25 - Clinical Findings Intake & Output: Intake & Output 05/23/19 05/24/19 05/24/19 23:59 07:59 15:59 Intake Total 1086 / 3363.9 700 / 1100 400 / 1100 Output Total 75 / 265 750 / 925 175 / 925 Balance 1011 / 3098.9 -50 / 175 225 / 175 Consult Discharge Plan - Plan Referrals: NONE,PCP [Primary Care Provider] - - Attending Attestation I examined this patient and my medical decision-making was reviewed with the Resident Physician. I agree with the documented findings, disposition and treatment plan as described except to the extent set forth below. We abilio robb had [id number] contact with the patient I spent 45min of Critical Care time with this patient. It involved decision making of high complexity to assess, manipulate, and support vital organ system failure and/or to prevent further life threatening deterioration of the patient's condition. The time involved in the performance of separately reportable procedures was not counted toward critical care time. Patient seen and examined at bedside Labs, radiology, chart personally reviewed. Management was reviewed during multidisciplinary critical care rounds. [employer]: Acute encephalopathy secondary to multiorgan system failure as well as shock Pulm: Acute hypoxic hypercapnic respiratory failure secondary to pneumonia acceptable gas exchange today but she is not a candidate for spontaneous breath ing trial because of multiorgan system failure as well as hypoxemia Cards: Distributive shock secondary to sepsis with multiorgan system failure she also has decompensated acute on chronic heart failure (systolic) heart failure is of unclear etiology likely need cardiology evaluation GI: Acute liver failure secondary to suspected shock liver from ischemic hepatitis she does have underlying hepatitis B and C Nutrition: We will keep nothing by mouth for now because of multiorgan system failure and shock Renal: Acute kidney injury requiring Catina appreciate nephrology evaluation UOP Monitored, Cont to Trend sCr and monitor Electrolytes. ID: Septic shock likely secondary to pneumonia she is on broad-spectrum antibiotics we will reculture the patient as she has persistent leukocytosis and low-grade fever Heme/Onc: Anemia and thrombocytopenia without overt evidence of hemorrhage will evaluate for DIC. Mechanical DVT prophylaxis because of thrombocytopenia Endo: Glucose Monitored Integ/MSK: Skin Care per routine ICU Nursing Protocol to prevent ulcers. Lines: All lines examined without evidence of infection : Dispo: Monitor in ICU for critical illness CODE: Full. Plan to discuss with family prognosis is guarded to poor I suspect she will need referral to tertiary center for evaluation of liver failure <Darlene Greer - Last Filed: 10/04/18 17:20> Date of Encounter: 10/04/18 Time of Encounter: 09:15 Assessment and Plan (1) Acute respiratory failure with hypoxia Current Visit: Yes Status: Acute Acute respiratory failure with hypoxia likely secondary to pneumonia and CHF exacerbation MRSA swab is positive Respiratory panel was negative -Continue to treat pneumonia; vancomycin day 5, Zosyn day 5, Doxycycline day 5 -Repeat echo pending -Currently intubated on vent -Sputum cultures -Repeat blood cultures and urine cultures ordered -Maintained low tidal volume to minimize barotrauma (2) Pneumonia Current Visit: Yes Status: Acute Presented to the ED complaining of shortness of breath ongoing for 3 days at admission as well as pain upon inspiration. Was not requiring any oxygen at presentation the with anxiety worsening required BiPAP could not tolerate BiPAP and was subsequently intubated in the ED. CT dissection imaging shows right lower lobe pneumonia versus aspiration. Nasal MRSA swab is positive. -Blood cultures collected on 09/30/18 did not grow anything -Sputum cultures pending -Continue vancomycin, Zosyn and doxycycline, day 5 of antibiotic therapy -Continues to have respiratory alkalosis, continue ventilation setting to decrease barotrauma -Continue 40 mg Solu-Medrol every 8 hours Qualifiers: Pneumonia type: due to unspecified organism Laterality: right Lung location: unspecified part of lung Qualified Code(s): J18.9 - Pneumonia, unspecified organism (3) Acute exacerbation of CHF (congestive heart failure) Current Visit: Yes Status: Acute Likely exacerbation secondary to fluid overload, BNP at admission was 856 Presented to the ED complaining of worsening shortness of breath does have history of CHF with EF of 35% one year ago on echo Is on spironolactone at home but unsure last taken as daughter reports she does not follow with PCP. 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 Yesterday, AST was 1339 and ALT was 923 today AST 688 and ALT is 766 Qualifiers: Hepatic cirrhosis type: unspecified hepatic cirrhosis Ascites presence: without ascites Qualified Code(s): K74.60 - Unspecified cirrhosis of liver (5) Septic shock Current Visit: Yes Status: Acute Presented to the ED complaining of sharp stabbing right mid back pain radiating to the right upper quadrant. Was noted to have a 2 fibrillation with RVR in the ED Septic shock likely secondary to infectious versus cardiogenic -First set of blood cultures on 09/30/18 still pending growth -Continue IV antibiotics, currently MRSA nasal swab -Need to titrate pressors as tolerated, currently only on norepinephrine, demand has decreased since yesterday (6) Atrial fibrillation with RVR Current Visit: Yes Status: Acute History of atrial fibrillation at presentation was noted to have H fibrillation with RVR with heart rate in the 180s Was on warfarin at home but was subtherapeutic with INR 1.4 Currently warfarin has been on hold given her liver function her INR has remained elevated at this time is 2.1 Heart rate has improved since admission Pressor demand has decreased since admission but continues to require leaving fat -Continue titrating amiodarone drip -Continue cardiac monitoring -Holding anticoagulation at this time given thrombocytopenia (7) EMMA (acute kidney injury) Current Visit: Yes Status: Acute Renal function improved after starting CVVHDF Good urine output today Last received CVVHDF yesterday, currently on hold Renal function is improving, creatinine is 0.97 today and GFR has significantly improved Nephrology is following (8) Shock liver Current Visit: Yes Status: Acute Has history of hepatitis B and hepatitis C Renal function had acute injury due to oxidative stress from sepsis Given previous liver injury, including now sepsis has caused shock liver continue N-acetylcysteine to decrease oxidative stress Additionally given elevated INR due to shock liver will give additional vitamin K (9) DVT prophylaxis Current Visit: No Status: Acute Thrombocytopenia Continue SCDs Subjective Principal diagnosis: Septic shock secondary to pneumonia complicated by worsening of systolic he Interval history: Ms. Sales was seen at bedside this morning, she was intubated and sedated. Her vitals were reviewed and she was tachycardic and mechanically ventilated. She was noted to have elevated temperature, Precedex drip was decreased as it can be associated with fever. Additionally cooling blankets were used. Objective PUL Vital signs: Last Vital Signs Temp 100.1 F H 10/04/18 07:28 Pulse 127 10/04/18 07:00 Resp 24 10/04/18 07:36 BP 119/81 10/04/18 07:36 Pulse Ox 90 10/04/18 07:36 General appearance: no acute distress, other (sedated and intubated) ENT: oropharynx moist Neck: supple, no JVD Auscultation: bilateral: rhonchi Cardiovascular: irregular rhythm (and tachycardia) Gastrointestinal: absent bowel sounds, soft, other (appears to be distended) Integumentary: normal Extremities: no cyanosis, no clubbing, pulses normal, edema Musculoskeletal: no deformities unable to assess due to mental status (sedated and intubated ) Ventilator Settings Ventilator Settings: Ventilator Settings, Last 8 Hours Ventilator Tidal Volume 400 Setting Ventilator Tidal Volume 400 Setting Ventilator Tidal Volume 400 Setting Ventilator Tidal Volume 400 Setting Ventilator Tidal Volume 400 Setting Ventilator Tidal Volume 400 Setting Ventilator Tidal Volume 400 Setting Ventilator Tidal Volume 400 Setting Ventilator Tidal Volume 400 Setting Ventilator Tidal Volume 400 Setting Ventilator Tidal Volume 400 Setting Ventilator Tidal Volume 400 Setting Ventilator Respiratory Rate 22 Setting Ventilator Respiratory Rate 22 Setting Ventilator Respiratory Rate 22 Setting Ventilator Respiratory Rate 22 Setting Ventilator Respiratory Rate 22 Setting Ventilator Respiratory Rate 22 Setting Ventilator Respiratory Rate 22 Setting Ventilator Respiratory Rate 22 Setting Ventilator Respiratory Rate 22 Setting Ventilator Respiratory Rate 22 Setting Ventilator Respiratory Rate 22 Setting Ventilator Respiratory Rate 22 Setting Actual Respiratory Rate 22 Actual Respiratory Rate 23 Actual Respiratory Rate 27 Actual Respiratory Rate 26 Actual Respiratory Rate 23 Actual Respiratory Rate 25 Actual Respiratory Rate 28 Actual Respiratory Rate 27 Actual Respiratory Rate 26 Actual Respiratory Rate 28 Actual Respiratory Rate 24 Positive End Expiratory 8 Pressure Positive End Expiratory 8 Pressure Positive End Expiratory 8 Pressure Positive End Expiratory 8 Pressure Positive End Expiratory 8 Pressure Positive End Expiratory 8 Pressure Positive End Expiratory 8 Pressure Positive End Expiratory 8 Pressure Positive End Expiratory 8 Pressure Positive End Expiratory 8 Pressure Positive End Expiratory 8 Pressure Positive End Expiratory 8 Pressure Peak Inspiratory Airway 34 Pressure Peak Inspiratory Airway 31 Pressure Peak Inspiratory Airway 32 Pressure Peak Inspiratory Airway 31 Pressure Peak Inspiratory Airway 32 Pressure Peak Inspiratory Airway 30 Pressure Peak Inspiratory Airway 27 Pressure Peak Inspiratory Airway 27 Pressure Peak Inspiratory Airway 31 Pressure Peak Inspiratory Airway 25 Pressure Peak Inspiratory Airway 16 Pressure Results - Laboratory Findings CBC and BMP: 10/04/18 03:45 10/04/18 03:45 ABG ABG pH 7.48 pH Units (7.32-7.45) H 10/04/18 04:53 ABG pCO2 31 mmHg (35-45) L 10/04/18 04:53 ABG pO2 58 mmHg (85-104) L 10/04/18 04:53 ABG O2 Saturation 92 % (95-98) L 10/04/18 04:53 PT/INR, D-dimer PT 21.6 Seconds (9.4-12.1) H 10/03/18 03:25 Abnormal lab findings: Abnormal lab results WBC 23.2 K/mcL (4.3-11.1) H 10/04/18 03:45 Hct 46.3 % (35.3-44.9) H 10/01/18 04:10 MCHC 31.1 g/dL (31.6-35.5) L 10/01/18 04:10 RDW 20.4 % (11.5-14.5) H 10/04/18 03:45 Plt Count 44 K/mcL (140-400) L 10/04/18 03:45 14.0 % (0-4) H 10/02/18 03:35 2.0 % (0) H 10/01/18 04:10 19.8 K/mcL (1.6-8.9) H 10/04/18 03:45 0.5 K/mcL (0.6-4.6) L 10/02/18 03:35 1.4 K/mcL (0.0-1.3) H 10/04/18 03:45 Nucleated RBCs/100 WBC 1.7 /100 WBC (0) H 10/04/18 03:45 Present (Not Present) A 10/02/18 03:35 Decreased (Normal) L 10/03/18 03:25 Immature Plt Fraction 8.0 % (1.1-6.1) H 10/04/18 03:45 1+ (Not Present) A 10/03/18 03:25 2+ (Not Present) A 10/03/18 03:25 Present (Not Present) A 10/03/18 03:25 Present (Not Present) A 10/03/18 03:25 1+ (Not Present) A 10/02/18 03:35 Acanthocytes (Spur) 2+ (Not Present) A 10/02/18 03:35 PT 21.6 Seconds (9.4-12.1) H 10/03/18 03:25 ABG pH 7.48 pH Units (7.32-7.45) H 10/04/18 04:53 ABG pCO2 31 mmHg (35-45) L 10/04/18 04:53 ABG pO2 58 mmHg (85-104) L 10/04/18 04:53 ABG HCO3 17 mEq/L (21-27) L 10/01/18 16:05 ABG Total CO2 18 mEq/L (20-26) L 10/01/18 16:05 ABG O2 Saturation 92 % (95-98) L 10/04/18 04:53 ABG Base Excess -10 mEq/L (-2 to 3) L 10/01/18 16:05 Sodium 135 mEq/L (136-145) L 10/02/18 03:35 Potassium 3.3 mEq/L (3.5-5.1) L D 10/02/18 03:35 Chloride 109 mEq/L (98-107) H 09/30/18 04:00 Carbon Dioxide 22 mEq/L (23-29) L 10/02/18 03:35 BUN 42 mg/dL (6-20) H 10/04/18 03:45 1.91 mg/dL (0.60-1.20) H 10/01/18 13:55 Est GFR ( Amer) 33 (> 60) L 10/01/18 13:55 Est GFR (Non-Af Amer) 59 (> 60) L 10/04/18 03:45 43 (6-26) H 10/04/18 03:45 Glucose 219 mg/dL (70-105) H 10/04/18 03:45 POC Glucose 183 mg/dL (70-99) H 10/03/18 23:09 Lactic Acid 3.1 mmol/L (0.5-2.2) H 10/02/18 13:00 Calcium 7.3 mg/dL (8.6-10.3) L 10/04/18 03:45 Magnesium 1.4 mg/dL (1.6-2.6) L 09/30/18 04:00 2.0 mg/dL (0.3-1.0) H 10/03/18 03:25 1.0 mg/dL (0.0-0.2) H 10/03/18 03:25 AST 1339 Units/L (13-39) H 10/03/18 03:25 ALT 923 Units/L (7-52) H 10/03/18 03:25 79 mcmol/L (16-53) H 09/30/18 20:00 0.06 ng/mL (< 0.04) H* 10/01/18 20:10 B-Natriuretic Peptide 856 pg/mL (Less than 100) H 09/30/18 04:00 5.3 g/dL (6.4-8.9) L 10/03/18 03:25 2.2 g/dL (3.5-5.7) L 10/03/18 03:25 3.6 g/dL (2.4-3.5) H 10/01/18 13:55 0.7 (1.1-2.2) L 10/03/18 03:25 7.75 ng/mL (0.00-0.15) H 09/30/18 14:51 [place] (Yellow) A 10/03/18 03:50 Cloudy (Clear) A 10/03/18 03:50 Ur Specific [place] > 1.030 (1.010-1.025) H 10/03/18 03:50 100 mg/dL (Neg-Trace) H 10/03/18 03:50 Trace mg/dL (Negative) H 10/03/18 03:50 Large (Negative) H 10/03/18 03:50 Moderate (Negative) H 10/03/18 03:50 Ur Leukocyte Esterase Small (Negative) H 10/03/18 03:50 TNTC per hpf (0-3) H 10/03/18 03:50 30-50 per hpf (0-3) H 10/03/18 03:50 Ur Squamous Epith Cells Many per lpf (None-Few) H 10/03/18 03:50 Positive (Negative) A 09/30/18 11:20 Vancomycin Trough 24 mcg/mL (5-10) H 10/01/18 13:55 14 IU/mL (Less than 14) H 05/23/19 03:25 - Clinical Findings Intake & Output: Intake & Output 10/03/18 10/04/18 10/04/18 23:59 07:59 15:59 Intake Total 1086 / 3363.9 600 / 600 Output Total 75 / 265 750 / 750 Balance 1011 / 3098.9 -150 / -150
[2018-10-04 09:08] LABS: INR 2.1; Prothrombin Time 24.2 Seconds (9.4-12.1)
[2018-10-04] MEDS: Doxycycline 100 MG in 0.9 % Sodium Chloride Mini Bag 100 ML IVPB SCH ×2 (09:18→21:55)
[2018-10-04 10:11] LABS: Albumin 2.3 g/dL (3.5-5.7); Albumin/Globulin Ratio 0.8 (1.1-2.2); Bilirubin,Direct 1.1 mg/dL (0.0-0.2); Bilirubin,Total 2.1 mg/dL (0.3-1.0); Total Protein 5.3 g/dL (6.4-8.9)
[2018-10-04] MEDS: Phenylephrine 50 MG in D5% in Water 250 ML IVC SCH (12:46)
[2018-10-04] MEDS: Norepinephrine 8 MG in D5% in Water 250 ML IVC SCH (21:37)
--- NOTE | 2018-10-04 23:30 | Nephrology Progress Note ---
Date of Encounter: 10/04/18 Time of Encounter: 12:00 - Assessment and Plan (1) EMMA (acute kidney injury) Current Visit: Yes Status: Acute SCr noted at 0.97, GFR 59 off CRRT, still quite good. Will continue off any [employer] today UOP documented at 265cc in the past 24hrs but already surpassed this am already, will monitor Will reassess daily need for [employer] but appears to be in renal recovery Avoid nephrotoxins if possible but can use diuretics intermittently (2) Atrial fibrillation with RVR Current Visit: Yes Status: Acute (3) Anemia Current Visit: No Status: Acute Qualifiers: Anemia type: unspecified type Qualified Code(s): D64.9 - Anemia, unspecified (4) Thrombocytopenia Current Visit: No Status: Acute (5) Hepatitis C Current Visit: No Status: Acute Qualifiers: Qualified Code(s): B19.20 - Unspecified viral hepatitis C without hepatic coma (6) Pneumonia Current Visit: Yes Status: Acute Qualifiers: Pneumonia type: due to unspecified organism Laterality: right Lung location: unspecified part of lung Qualified Code(s): J18.9 - Pneumonia, unspecified organism (7) Hypotension Current Visit: Yes Status: Acute Qualifiers: Hypotension type: unspecified hypotension type Qualified Code(s): I95.9 - Hypotension, unspecified (8) Acute exacerbation of CHF (congestive heart failure) Current Visit: Yes Status: Acute Qualifiers: Heart failure type: systolic Qualified Code(s): I50.23 - Acute on chronic systolic (congestive) heart failure (9) Cirrhosis Current Visit: Yes Status: Acute Qualifiers: Hepatic cirrhosis type: unspecified hepatic cirrhosis Ascites presence: without ascites Qualified Code(s): K74.60 - Unspecified cirrhosis of liver (10) Septic shock Current Visit: Yes Status: Acute (11) Oliguria Current Visit: Yes Status: Acute (12) Hyperkalemia Current Visit: Yes Status: Acute Subjective Principal diagnosis: Septic shock secondary to pneumonia complicated by worsening of systolic he Interval history: Interim noted, seen and examined with daughter at bedside, provided update on status from a renal standpoint. CRRT stopped yesterday Objective - Vital Signs Vital signs: Vital Signs Temp Pulse Resp BP Pulse Ox 10/04/18 23:27 113 10/04/18 23:00 100 22 93/73 87 10/04/18 22:00 108 22 101/70 87 10/04/18 21:21 22 95/73 90 10/04/18 21:00 100 22 95/73 89 10/04/18 20:00 113 22 98/70 89 10/04/18 19:43 22 102/72 89 10/04/18 19:00 97.2 F L 109 22 98/71 10/04/18 18:00 109 89 102/76 10/04/18 17:41 22 107/79 89 10/04/18 17:00 125 23 99/64 88 10/04/18 16:00 98.7 F 124 26 109/71 88 10/04/18 15:26 22 103/75 90 10/04/18 15:00 123 22 103/75 89 10/04/18 14:00 115 24 102/71 90 10/04/18 13:11 22 90 10/04/18 13:00 124 24 111/88 90 10/04/18 12:00 122 25 120/106 90 10/04/18 11:10 25 120/80 91 10/04/18 11:00 121 27 116/89 91 10/04/18 10:43 101.9 F H 10/04/18 10:00 124 25 105/68 90 10/04/18 09:31 23 106/84 89 10/04/18 09:00 130 26 112/83 10/04/18 08:00 129 23 125/86 89 10/04/18 07:36 24 119/81 90 10/04/18 07:28 100.1 F H 10/04/18 07:00 127 23 108/84 91 10/04/18 06:00 125 27 117/85 91 10/04/18 05:46 26 90 10/04/18 05:00 124 23 122/85 91 10/04/18 04:14 25 99/77 91 10/04/18 04:00 99.9 F H 127 28 122/82 91 10/04/18 03:00 130 27 95/78 91 10/04/18 02:16 26 101/86 92 10/04/18 02:00 119 28 101/86 90 10/04/18 01:00 135 24 106/84 90 10/04/18 00:15 29 88 10/04/18 00:00 99.7 F H 134 25 111/72 89 05/23/19 23:34 132 Intake and Output 10/04/18 10/04/18 10/04/18 07:59 15:59 23:59 Intake Total 700 / 2345.0 936.5 / 2345.0 708.5 / 2345.0 Output Total 750 / 1875 575 / 1875 550 / 1875 Balance -50 / 470.0 361.5 / 470.0 158.5 / 470.0 Intake: IV Fluids 700 / 2245.0 886.5 / 2245.0 658.5 / 2245.0 Amiodarone Drip Premix 360mg/ 200 / 400 200 / 400 200mL 360 mg In 200 ml @ 0.5 MG /MIN 16.667 mls/hr IVC CONT [facility] Rx#:[id number] PRECEDEX Premix 400 mcg In 100 200 / 500 200 / 500 100 / 500 ml @ 0.2 MCG/KG/HR 5.985 mls/hr IVC .[id number] [facility] Rx#: [id number] FentaNYL (PF) 1,000 MCG In 0.9 100 / 300 100 / 300 100 / 300 % Sodium Chloride 80 ML @ 50 MCG/HR 5 mls/hr IVC CONT [facility] Rx #:[id number] Versed 50 MG In 0.9 % Sodium 100 / 136 36 / 136 Chloride 90 ML @ 2 MG/HR 4 mls/ hr IVC CONT [facility] Rx#:[id number] Levophed 8 MG In Dextrose 5% 150 / 258 108 / 258 250 ML @ 8 MCG/MIN 15.48 mls/hr IVC CONT [facility] Rx#:[id number] AquaMephyton 5 MG In 0.9 % 50.5 / 101.0 50.5 / 101.0 Sodium Chloride 50 ML @ 100 mls /hr IVPB 1300,1830,2359 [facility] Rx# :[id number] Zosyn 3.375 GM In 0.9 % Sodium 100 / 300 100 / 300 100 / 300 Chloride (Mini-Bag +) 100 ML @ 25 mls/hr IVPB Q8HR [facility] Rx#: [id number] Vancocin 1,500 MG In 0.9 % 250 / 250 Sodium Chloride 250 ML @ 166. 667 mls/hr IVPB ONCE ONE Rx#: [id number] Free Water 50 / 50 Free Water Intake Amount 50 / 50 Output: Catheter 300 / 1025 175 / 1025 550 / 1025 Gastric Drainage 450 / 850 400 / 850 Other: Blood Glucose* 183 243 181 - Lab 10/04/18 03:45 10/04/18 03:45 Consult Discharge Plan - Plan Referrals: NONE,PCP [Primary Care Provider] -
[2018-10-05] MEDS: Levalbuterol Neb 1.25 MG/3 ML IH SCH ×4 (03:32→21:54)
[2018-10-05 04:04] LABS: Mean Corpuscular HGB Conc 32.9 g/dL (31.6-35.5); Mean Corpuscular Hemoglobin 30.4 pg (28.0-33.3); Nucleated Red Blood Cells 0.8 /100 WBC (0)
[2018-10-05 04:06] LABS: Basophils % 0.3 %; Hemoglobin 11.5 g/dL (11.5-15.4); Immature Granulocytes % 3.5 % (0-4); Immature Platelets 7.6 % (1.1-6.1); Lymphocytes # 1.1 K/mcL (0.6-4.6); Lymphocytes % 6.7 %; Mean Corpuscular Volume 92.6 fL (83.0-100.0); Monocytes # 1.5 K/mcL (0.0-1.3); Monocytes % 9.6 %; Red Blood Count 3.78 M/mcL (3.82-4.97); Red Cell Distribution Width 20.9 % (11.5-14.5); Segmented Neutrophils % 79.9 %
[2018-10-05 04:13] LABS: INR 1.9; Prothrombin Time 21.8 Seconds (9.4-12.1)
[2018-10-05 04:14] LABS: Basophils # 0.1 K/mcL (0.0-0.2); Neutrophils # 12.5 K/mcL (1.6-8.9)
[2018-10-05 04:20] LABS: Platelet Count 27 K/mcL (140-400)
[2018-10-05 04:24] LABS: Alanine Aminotransferase 498 Units/L (7-52); Albumin 1.9 g/dL (3.5-5.7); Albumin/Globulin Ratio 0.7 (1.1-2.2); Alkaline Phosphatase 104 Units/L (34-104); Aspartate Amino Transferase 275 Units/L (13-39); BUN/Creatinine Ratio 65 (6-26); Bilirubin,Direct 1.1 mg/dL (0.0-0.2); Bilirubin,Total 2.1 mg/dL (0.3-1.0); Blood Urea Nitrogen 51 mg/dL (6-20); Calcium 7.5 mg/dL (8.6-10.3); Carbon Dioxide 27 mEq/L (23-29); Chloride 111 mEq/L (98-107); Globulin 2.8 g/dL (2.4-3.5); Glucose 200 mg/dL (70-105); Osmolality,Calculated 311 (280-300); Sodium 141 mEq/L (136-145); Total Protein 4.7 g/dL (6.4-8.9); eGFR For Non-African Americans > 60 (> 60)
[2018-10-05] MEDS: Insulin LISPRO 300 UNITS/3 ML VIAL SQ SCH ×5 (05:03→20:52)
[2018-10-05] MEDS: Artificial Tears SOLN 15 ML BOTTLE BOTH EYES SCH ×5 (05:03→20:52)
[2018-10-05] MEDS: Pantoprazole 40 MG VIAL IVP SCH ×2 (05:03→17:15)
[2018-10-05] MEDS: Amiodarone Premix 360 MG/200 ML BAG IVC SCH ×2 (05:17→20:36)
[2018-10-05 06:02] LABS: ABG Base Excess 3 mEq/L (-2 to 3); ABG HCO3 27 mEq/L (21-27); ABG Oxygen Saturation 88 % (95-98); ABG PCO2 38 mmHg (35-45); ABG PH 7.45 pH Units (7.32-7.45); ABG PO2 53 mmHg (85-104); ABG TCO2 28 mEq/L (20-26); Blood Gas Modality AF; Blood Gas PEEP 8 cm H2O; Blood Gas Respiration Rate 22; Blood Gas VT 400 cc
[2018-10-05] MEDS ORDERED: Furosemide 40 MG/4 ML VIAL IVP ONE ×2 (07:23→17:00)
[2018-10-05] MEDS ORDERED: Piperacillin/Tazobactam 3.375 GM VIAL ONE (07:26)
[2018-10-05] MEDS: Piperacillin/Tazobactam 3.375 GM in 0.9 % Sodium Chloride Mini Bag 100 ML IVPB SCH ×2 (07:36→15:06)
[2018-10-05] MEDS: MethylPREDNISolone 40 MG/ML VIAL IVP SCH ×2 (07:37→15:07)
[2018-10-05] MEDS: Chlorhexidine Rinse 15 ML MOUTHWASH MM SCH ×2 (07:57→20:51)
[2018-10-05] MEDS: Doxycycline 100 MG in 0.9 % Sodium Chloride Mini Bag 100 ML IVPB SCH ×2 (07:57→20:52)
[2018-10-05] MEDS: Lactulose Oral Soln 20 GM/30 ML UDC PO SCH ×3 (07:57→20:52)
--- NOTE | 2018-10-05 08:20 | Pulmonology Progress Note ---
<Ana Rosa Van N - Last Filed: 10/05/18 12:30> Date of Encounter: 10/05/18 Time of Encounter: 08:19 Assessment and Plan (1) Acute respiratory failure with hypoxia Current Visit: Yes Status: Acute Acute respiratory failure with hypoxia likely secondary to pneumonia and CHF exacerbation MRSA swab is positive; respiratory panel was negative. - Continue to treat pneumonia with broad-spectrum antimicrobial therapy of vancomycin, zosyn, and doxycycline. - Repeat blood cultures and urine cultures pending. - Maintained low tidal volume to minimize barotrauma. - Continue 40 mg Solu-Medrol every 8 hours. (2) Pneumonia Current Visit: Yes Status: Acute Presented to the ED complaining of shortness of breath ongoing for 3 days at admission as well as pain upon inspiration. Was not requiring any oxygen at presentation; however, patient had worsening anxiety with BiPAP and was subsequently intubated in the ED. CT dissection imaging is significant for right lower lobe pneumonia. Nasal MRSA swab is positive. - Blood cultures collected on 09/30/18 were negative, with repeat blood cultures obtained on 10/04/2018 pending. - Sputum cultures pending. - Continue vancomycin, Zosyn and doxycycline, day 6 of antibiotic therapy. - Continues to have respiratory alkalosis, continue ventilation setting to decrease barotrauma. Qualifiers: Pneumonia type: due to unspecified organism Laterality: right Lung location: unspecified part of lung Qualified Code(s): J18.9 - Pneumonia, unspecified organism (3) Acute exacerbation of CHF (congestive heart failure) Current Visit: Yes Status: Acute Likely exacerbation secondary to fluid overload, BNP at admission was 856 Presented to the ED complaining of worsening shortness of breath does have history of CHF with EF of 35% one year ago on echo. Repeat echocardiogram significant for ejection fraction of 15%. - Continue telemetry. - Continue to monitor intake and output. - Continue rate control with amiodarone. 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 CTA of the chest also shows cirrhosis. Patient reportedly had a small amount of coffee-ground emesis with bright red blood mixture in OG tube 4 days ago. -Continue IV Protonix 40 mg BID. Continue to monitor and trend LFTs. Qualifiers: Hepatic cirrhosis type: unspecified hepatic cirrhosis Ascites presence: without ascites Qualified Code(s): K74.60 - Unspecified cirrhosis of liver (5) Septic shock Current Visit: Yes Status: Acute Septic shock likely secondary to infectious versus cardiogenic. First set of blood cultures on 09/30/18 negative for growth. - Continue IV antibiotics, currently MRSA nasal swab as detailed above. - Continue pressor support with titration as appropriate. (6) Atrial fibrillation with RVR Current Visit: Yes Status: Acute History of atrial fibrillation; at presentation was noted to have atrial fibrillation with RVR with heart rate in the 180s. Patient was previously on warfarin at home, but was noted to have a subtherapeutic INR of 1.4. Due to liver function, warfarin has been held; however, INR has remained elevated, with a value of 1.9 on morning laboratory studies. - Continue titrating amiodarone drip. - Continue cardiac monitoring. - Continue to hold anticoagulation at this time given thrombocytopenia and elevated INR. (7) Shock liver Current Visit: Yes Status: Acute Has history of hepatitis B and hepatitis C. LFTs have been elevated during admission; however, these have been trending down over the last few days. - Continue to monitor and trend LFTs. (8) DVT prophylaxis Current Visit: No Status: Acute - SCDs. Subjective Principal diagnosis: Septic shock secondary to pneumonia complicated by worsening of systolic he Interval history: Ms. Sales was seen and evaluated at the bedside. She does not follow commands this morning. Vital signs and laboratory studies reviewed. Nursing staff reports no significant overnight events. Objective PUL Vital signs: Last Vital Signs Temp 96.3 F L 10/05/18 07:37 Pulse 99 10/05/18 07:00 Resp 22 10/05/18 07:00 BP 87/70 10/05/18 07:00 Pulse Ox 91 10/05/18 07:00 General appearance: no acute distress, other (does not follow commands) Eyes: nonicteric Auscultation: bilateral: diminished breath sounds Cardiovascular: irregular rhythm Gastrointestinal: hypoactive bowel sounds, soft, non-distended Extremities: no cyanosis, no clubbing, edema Musculoskeletal: no deformities, ROM normal unable to assess due to mental status Ventilator Settings Ventilator Settings: Ventilator Settings, Last 8 Hours Ventilator Tidal Volume 400 Setting Ventilator Tidal Volume 400 Setting Ventilator Tidal Volume 400 Setting Ventilator Tidal Volume 400 Setting Ventilator Tidal Volume 400 Setting Ventilator Tidal Volume 400 Setting Ventilator Tidal Volume 400 Setting Ventilator Tidal Volume 400 Setting Ventilator Tidal Volume 400 Setting Ventilator Tidal Volume 400 Setting Ventilator Tidal Volume 400 Setting Ventilator Respiratory Rate 22 Setting Ventilator Respiratory Rate 22 Setting Ventilator Respiratory Rate 22 Setting Ventilator Respiratory Rate 22 Setting Ventilator Respiratory Rate 22 Setting Ventilator Respiratory Rate 22 Setting Ventilator Respiratory Rate 22 Setting Ventilator Respiratory Rate 22 Setting Ventilator Respiratory Rate 22 Setting Ventilator Respiratory Rate 22 Setting Ventilator Respiratory Rate 22 Setting Actual Respiratory Rate 22 Actual Respiratory Rate 22 Actual Respiratory Rate 22 Actual Respiratory Rate 22 Actual Respiratory Rate 22 Actual Respiratory Rate 22 Actual Respiratory Rate 22 Actual Respiratory Rate 22 Actual Respiratory Rate 22 Actual Respiratory Rate 22 Positive End Expiratory 8 Pressure Positive End Expiratory 8 Pressure Positive End Expiratory 8 Pressure Positive End Expiratory 8 Pressure Positive End Expiratory 8 Pressure Positive End Expiratory 8 Pressure Positive End Expiratory 8 Pressure Positive End Expiratory 8 Pressure Positive End Expiratory 8 Pressure Positive End Expiratory 8 Pressure Positive End Expiratory 8 Pressure Peak Inspiratory Airway 33 Pressure Peak Inspiratory Airway 33 Pressure Peak Inspiratory Airway 32 Pressure Peak Inspiratory Airway 32 Pressure Peak Inspiratory Airway 32 Pressure Peak Inspiratory Airway 32 Pressure Peak Inspiratory Airway 33 Pressure Peak Inspiratory Airway 33 Pressure Peak Inspiratory Airway 33 Pressure Peak Inspiratory Airway 36 Pressure Results - Laboratory Findings CBC and BMP: 10/05/18 03:45 10/05/18 03:45 ABG ABG pH 7.45 pH Units (7.32-7.45) 10/05/18 05:58 ABG pCO2 38 mmHg (35-45) 10/05/18 05:58 ABG pO2 53 mmHg (85-104) L 10/05/18 05:58 ABG O2 Saturation 88 % (95-98) L 10/05/18 05:58 PT/INR, D-dimer PT 21.8 Seconds (9.4-12.1) H 10/05/18 03:45 Abnormal lab findings: Abnormal lab results WBC 15.7 K/mcL (4.3-11.1) H 10/05/18 03:45 RBC 3.78 M/mcL (3.82-4.97) L 10/05/18 03:45 Hct 35.0 % (35.3-44.9) L 10/05/18 03:45 MCHC 31.1 g/dL (31.6-35.5) L 10/01/18 04:10 RDW 20.9 % (11.5-14.5) H 10/05/18 03:45 Plt Count 27 K/mcL (140-400) L* 10/05/18 03:45 14.0 % (0-4) H 10/02/18 03:35 2.0 % (0) H 10/01/18 04:10 12.5 K/mcL (1.6-8.9) H 10/05/18 03:45 0.5 K/mcL (0.6-4.6) L 10/02/18 03:35 1.5 K/mcL (0.0-1.3) H 10/05/18 03:45 Nucleated RBCs/100 WBC 0.8 /100 WBC (0) H 10/05/18 03:45 Present (Not Present) A 10/02/18 03:35 Decreased (Normal) L 10/03/18 03:25 Immature Plt Fraction 7.6 % (1.1-6.1) H 10/05/18 03:45 1+ (Not Present) A 10/03/18 03:25 2+ (Not Present) A 10/03/18 03:25 Present (Not Present) A 10/03/18 03:25 Present (Not Present) A 10/03/18 03:25 1+ (Not Present) A 10/02/18 03:35 Acanthocytes (Spur) 2+ (Not Present) A 10/02/18 03:35 PT 21.8 Seconds (9.4-12.1) H 10/05/18 03:45 104 mg/dL (169-393) L 10/04/18 13:40 ABG pH 7.48 pH Units (7.32-7.45) H 10/04/18 04:53 ABG pCO2 31 mmHg (35-45) L 10/04/18 04:53 ABG pO2 53 mmHg (85-104) L 10/05/18 05:58 ABG HCO3 17 mEq/L (21-27) L 10/01/18 16:05 ABG Total CO2 28 mEq/L (20-26) H 10/05/18 05:58 ABG O2 Saturation 88 % (95-98) L 10/05/18 05:58 ABG Base Excess -10 mEq/L (-2 to 3) L 10/01/18 16:05 Sodium 135 mEq/L (136-145) L 10/02/18 03:35 Potassium 3.3 mEq/L (3.5-5.1) L D 10/02/18 03:35 Chloride 111 mEq/L (98-107) H 10/05/18 03:45 Carbon Dioxide 22 mEq/L (23-29) L 10/02/18 03:35 BUN 51 mg/dL (6-20) H 10/05/18 03:45 1.91 mg/dL (0.60-1.20) H 10/01/18 13:55 Est GFR ( Amer) 33 (> 60) L 10/01/18 13:55 Est GFR (Non-Af Amer) 59 (> 60) L 10/04/18 03:45 65 (6-26) H 10/05/18 03:45 Glucose 200 mg/dL (70-105) H 10/05/18 03:45 POC Glucose 206 mg/dL (70-99) H 10/04/18 23:57 311 (280-300) H 10/05/18 03:45 Lactic Acid 3.1 mmol/L (0.5-2.2) H 10/02/18 13:00 Calcium 7.5 mg/dL (8.6-10.3) L 10/05/18 03:45 Magnesium 1.4 mg/dL (1.6-2.6) L 09/30/18 04:00 2.1 mg/dL (0.3-1.0) H 10/05/18 03:45 1.1 mg/dL (0.0-0.2) H 10/05/18 03:45 AST 275 Units/L (13-39) H 10/05/18 03:45 ALT 498 Units/L (7-52) H 10/05/18 03:45 142 Units/L (34-104) H 10/04/18 08:25 79 mcmol/L (16-53) H 09/30/18 20:00 550 Units/L (140-271) H 10/04/18 13:40 0.06 ng/mL (< 0.04) H* 10/01/18 20:10 B-Natriuretic Peptide 856 pg/mL (Less than 100) H 09/30/18 04:00 4.7 g/dL (6.4-8.9) L 10/05/18 03:45 1.9 g/dL (3.5-5.7) L 10/05/18 03:45 3.6 g/dL (2.4-3.5) H 10/01/18 13:55 0.7 (1.1-2.2) L 10/05/18 03:45 7.75 ng/mL (0.00-0.15) H 09/30/18 14:51 [place] (Yellow) A 10/03/18 03:50 Cloudy (Clear) A 10/03/18 03:50 Ur Specific [place] > 1.030 (1.010-1.025) H 10/03/18 03:50 100 mg/dL (Neg-Trace) H 10/03/18 03:50 Trace mg/dL (Negative) H 10/03/18 03:50 Large (Negative) H 10/03/18 03:50 Moderate (Negative) H 10/03/18 03:50 Ur Leukocyte Esterase Small (Negative) H 10/03/18 03:50 TNTC per hpf (0-3) H 10/03/18 03:50 30-50 per hpf (0-3) H 10/03/18 03:50 Ur Squamous Epith Cells Many per lpf (None-Few) H 10/03/18 03:50 Positive (Negative) A 09/30/18 11:20 Vancomycin Trough 24 mcg/mL (5-10) H 10/01/18 13:55 14 IU/mL (Less than 14) H 10/03/18 03:25 - Microbiology Findings Microbiology Findings: Microbiology, Last 48 Hours 10/04/18 16:00 Urine Culture - Preliminary Urine,Clean Catch Culture is incubating. 10/04/18 16:48 Blood Culture - Preliminary Peripheral Venipuncture Culture is incubating and being continuously mo nitored for growth. Final report to follow. 10/04/18 16:48 Blood Culture - Preliminary Peripheral Venipuncture Culture is incubating and being continuously monitored for growth. Final report to follow. - Clinical Findings Intake & Output: Intake & Output 10/04/18 10/05/18 10/05/18 23:59 07:59 15:59 Intake Total 708.5 / 2345.0 570.5 / 570.5 Output Total 700 / 5 450 / 450 Balance 8.5 / 320.0 120.5 / 120.5 Consult Discharge Plan - Plan Referrals: NONE,PCP [Primary Care Provider] - <Hang Araujo W - Last Filed: 10/05/18 13:20> Date of Encounter: 10/05/18 Objective PUL Vital signs: Last Vital Signs Temp 96.7 F L 10/05/18 11:38 Pulse 113 10/05/18 12:00 Resp 22 10/05/18 12:00 BP 99/62 10/05/18 12:00 Pulse Ox 92 10/05/18 12:00 Ventilator Settings Ventilator Settings: Ventilator Settings, Last 8 Hours Ventilator Tidal Volume 400 Setting Ventilator Tidal Volume 400 Setting Ventilator Tidal Volume 400 Setting Ventilator Tidal Volume 400 Setting Ventilator Tidal Volume 400 Setting Ventilator Tidal Volume 400 Setting Ventilator Tidal Volume 400 Setting Ventilator Tidal Volume 400 Setting Ventilator Tidal Volume 400 Setting Ventilator Tidal Volume 400 Setting Ventilator Tidal Volume 400 Setting Ventilator Tidal Volume 400 Setting Ventilator Respiratory Rate 22 Setting Ventilator Respiratory Rate 22 Setting Ventilator Respiratory Rate 22 Setting Ventilator Respiratory Rate 22 Setting Ventilator Respiratory Rate 22 Setting Ventilator Respiratory Rate 22 Setting Ventilator Respiratory Rate 22 Setting Ventilator Respiratory Rate 22 Setting Ventilator Respiratory Rate 22 Setting Ventilator Respiratory Rate 22 Setting Ventilator Respiratory Rate 22 Setting Ventilator Respiratory Rate 22 Setting Actual Respiratory Rate 22 Actual Respiratory Rate 24 Actual Respiratory Rate 22 Actual Respiratory Rate 22 Actual Respiratory Rate 22 Actual Respiratory Rate 22 Actual Respiratory Rate 22 Actual Respiratory Rate 22 Actual Respiratory Rate 22 Actual Respiratory Rate 22 Actual Respiratory Rate 22 Positive End Expiratory 8 Pressure Positive End Expiratory 8 Pressure Positive End Expiratory 8 Pressure Positive End Expiratory 8 Pressure Positive End Expiratory 8 Pressure Positive End Expiratory 8 Pressure Positive End Expiratory 8 Pressure Positive End Expiratory 8 Pressure Positive End Expiratory 8 Pressure Positive End Expiratory 8 Pressure Positive End Expiratory 8 Pressure Positive End Expiratory 8 Pressure Peak Inspiratory Airway 28 Pressure Peak Inspiratory Airway 31 Pressure Peak Inspiratory Airway 31 Pressure Peak Inspiratory Airway 31 Pressure Peak Inspiratory Airway 28 Pressure Peak Inspiratory Airway 28 Pressure Peak Inspiratory Airway 33 Pressure Peak Inspiratory Airway 35 Pressure Peak Inspiratory Airway 33 Pressure Peak Inspiratory Airway 33 Pressure Peak Inspiratory Airway 32 Pressure Results - Laboratory Findings CBC and BMP: 10/05/18 03:45 10/05/18 03:45 ABG ABG pH 7.45 pH Units (7.32-7.45) 10/05/18 05:58 ABG pCO2 38 mmHg (35-45) 10/05/18 05:58 ABG pO2 53 mmHg (85-104) L 10/05/18 05:58 ABG O2 Saturation 88 % (95-98) L 10/05/18 05:58 PT/INR, D-dimer PT 21.8 Seconds (9.4-12.1) H 10/05/18 03:45 Abnormal lab findings: Abnormal lab results WBC 15.7 K/mcL (4.3-11.1) H 10/05/18 03:45 RBC 3.78 M/mcL (3.82-4.97) L 10/05/18 03:45 Hct 35.0 % (35.3-44.9) L 10/05/18 03:45 MCHC 31.1 g/dL (31.6-35.5) L 10/01/18 04:10 RDW 20.9 % (11.5-14.5) H 10/05/18 03:45 Plt Count 27 K/mcL (140-400) L* 10/05/18 03:45 14.0 % (0-4) H 10/02/18 03:35 2.0 % (0) H 10/01/18 04:10 12.5 K/mcL (1.6-8.9) H 10/05/18 03:45 0.5 K/mcL (0.6-4.6) L 10/02/18 03:35 1.5 K/mcL (0.0-1.3) H 10/05/18 03:45 Nucleated RBCs/100 WBC 0.8 /100 WBC (0) H 10/05/18 03:45 Present (Not Present) A 10/02/18 03:35 Decreased (Normal) L 10/03/18 03:25 Immature Plt Fraction 7.6 % (1.1-6.1) H 10/05/18 03:45 1+ (Not Present) A 10/03/18 03:25 2+ (Not Present) A 10/03/18 03:25 Present (Not Present) A 10/03/18 03:25 Present (Not Present) A 10/03/18 03:25 1+ (Not Present) A 10/02/18 03:35 Acanthocytes (Spur) 2+ (Not Present) A 10/02/18 03:35 PT 21.8 Seconds (9.4-12.1) H 10/05/18 03:45 104 mg/dL (169-393) L 10/04/18 13:40 ABG pH 7.48 pH Units (7.32-7.45) H 10/04/18 04:53 ABG pCO2 31 mmHg (35-45) L 10/04/18 04:53 ABG pO2 53 mmHg (85-104) L 10/05/18 05:58 ABG HCO3 17 mEq/L (21-27) L 10/01/18 16:05 ABG Total CO2 28 mEq/L (20-26) H 10/05/18 05:58 ABG O2 Saturation 88 % (95-98) L 10/05/18 05:58 ABG Base Excess -10 mEq/L (-2 to 3) L 10/01/18 16:05 Sodium 135 mEq/L (136-145) L 10/02/18 03:35 Potassium 3.3 mEq/L (3.5-5.1) L D 10/02/18 03:35 Chloride 111 mEq/L (98-107) H 10/05/18 03:45 Carbon Dioxide 22 mEq/L (23-29) L 10/02/18 03:35 BUN 51 mg/dL (6-20) H 10/05/18 03:45 1.91 mg/dL (0.60-1.20) H 10/01/18 13:55 Est GFR ( Amer) 33 (> 60) L 10/01/18 13:55 Est GFR (Non-Af Amer) 59 (> 60) L 10/04/18 03:45 65 (6-26) H 10/05/18 03:45 Glucose 200 mg/dL (70-105) H 10/05/18 03:45 POC Glucose 206 mg/dL (70-99) H 10/04/18 23:57 311 (280-300) H 10/05/18 03:45 Lactic Acid 3.1 mmol/L (0.5-2.2) H 10/02/18 13:00 Calcium 7.5 mg/dL (8.6-10.3) L 10/05/18 03:45 Magnesium 1.4 mg/dL (1.6-2.6) L 09/30/18 04:00 2.1 mg/dL (0.3-1.0) H 10/05/18 03:45 1.1 mg/dL (0.0-0.2) H 10/05/18 03:45 AST 275 Units/L (13-39) H 10/05/18 03:45 ALT 498 Units/L (7-52) H 10/05/18 03:45 142 Units/L (34-104) H 10/04/18 08:25 79 mcmol/L (16-53) H 09/30/18 20:00 550 Units/L (140-271) H 10/04/18 13:40 0.06 ng/mL (< 0.04) H* 10/01/18 20:10 B-Natriuretic Peptide 856 pg/mL (Less than 100) H 09/30/18 04:00 4.7 g/dL (6.4-8.9) L 10/05/18 03:45 1.9 g/dL (3.5-5.7) L 10/05/18 03:45 3.6 g/dL (2.4-3.5) H 10/01/18 13:55 0.7 (1.1-2.2) L 10/05/18 03:45 7.75 ng/mL (0.00-0.15) H 09/30/18 14:51 [place] (Yellow) A 10/03/18 03:50 Cloudy (Clear) A 10/03/18 03:50 Ur Specific [place] > 1.030 (1.010-1.025) H 10/03/18 03:50 100 mg/dL (Neg-Trace) H 10/03/18 03:50 Trace mg/dL (Negative) H 10/03/18 03:50 Large (Negative) H 10/03/18 03:50 Moderate (Negative) H 10/03/18 03:50 Ur Leukocyte Esterase Small (Negative) H 10/03/18 03:50 TNTC per hpf (0-3) H 10/03/18 03:50 30-50 per hpf (0-3) H 10/03/18 03:50 Ur Squamous Epith Cells Many per lpf (None-Few) H 10/03/18 03:50 Positive (Negative) A 09/30/18 11:20 Vancomycin Trough 24 mcg/mL (5-10) H 10/01/18 13:55 14 IU/mL (Less than 14) H 10/03/18 03:25 - Microbiology Findings Microbiology Findings: Microbiology, Last 48 Hours 10/04/18 16:00 Urine Culture - Final Urine,Clean Catch No growth. 09/30/18 05:59 Blood Culture - Final Peripheral Venipuncture No growth. Final report. 09/30/18 05:48 Blood Culture - Final Peripheral Venipuncture No growth. Final report. 10/04/18 16:48 Blood Culture - Preliminary Peripheral Venipuncture Culture is incubating and being continuously monitored for growth. Final report to follow. 10/04/18 16:48 Blood Culture - Preliminary Peripheral Venipuncture Culture is incubating and being continuously monitored for growth. Final report to follow. - Clinical Findings Intake & Output: Intake & Output 10/04/18 10/05/18 10/05/18 23:59 07:59 15:59 Intake Total 708.5 / 2345.0 570.5 / 940.5 370 / 940.5 Output Total 700 / 2025 450 / 1500 1050 / 1500 Balance 8.5 / 320.0 120.5 / -559.5 -680 / -559.5 - Attending Attestation I examined this patient and my medical decision-making was reviewed with the Resident Physician. I agree with the documented findings, disposition and treatment plan as described except to the extent set forth below. We independently had [id number] contact with the patient I spent 33min of Critical Care time with this patient. It involved decision making of high complexity to assess, manipulate, and support vital organ system failure and/or to prevent further life threatening deterioration of the patient's condition. The time involved in the performance of separately re portable procedures was not counted toward critical care time. Patient seen and examined at bedside Labs, radiology, chart personally reviewed. Management was reviewed during multidisciplinary critical care rounds. TIMBER HAND: Toxic metabolic encephalopathy secondary to sepsis and the sedative all sedation is on hold at present Pulm: Hypoxic hypercapnic respiratory failure secondary to pneumonia and hydrostatic pulmonary edema vent shows persistent hypoxemia which is likely reflection of his severity of underlying pneumonia and pulmonary edema dissipated with continued supportive care that should to improve including starting diuretic today. Continue bronchodilators and systemic glucocorticoids Cards: Multifactorial shock secondary to sepsis (distributive) complicated by decompensated heart failure. Vasopressors are being weaned off she has persistent atrial fibrillation and is on amiodarone she has periods of A. fib with RVR but generally rate has been well controlled GI: Acute liver failure secondary to ischemic hepatitis liver enzymes are trending down synthetic function appears to be reasonably well intact Nutrition: Start trophic nutrition per dietary recommendations Renal: Acute kidney injury requiring renal placement therapy urine output has increased markedly and she is no longer requiring dialysis will start loop diuretic and closely monitor her urine output Trend sCr and monitor Electrolytes. I appreciate nephrology recommendations ID: Septic shock secondary to pneumonia Heme/Onc: Cultures as far remain negative she is on broad-spectrum antimicrobials white count trending down. She has thrombocytopenia which is multifactorial including underlying liver disease toxic effect of the sepsis likely medication effect including Zosyn as well as mild DIC no overt evidence of hemorrhage to transfuse her platelets greater than 15k if any active bleeding would want platelets greater than 50 we will repeat this afternoon Endo: Glucose Monitored Integ/MSK: Skin Care per routine ICU Nursing Protocol to prevent ulcers. Lines: All lines examined without evidence of infection : Dispo: Monitor in ICU for critical illness CODE: Full
[2018-10-05] MEDS: Phenylephrine 50 MG in D5% in Water 250 ML IVC SCH (11:50)
[2018-10-05 15:51] LABS: Basophils # 0.1 K/mcL (0.0-0.2); Basophils % 0.3 %; Hematocrit 35.9 % (35.3-44.9); Hemoglobin 11.7 g/dL (11.5-15.4); Immature Granulocytes % 1.7 % (0-4); Lymphocytes % 5.1 %; Mean Corpuscular HGB Conc 32.6 g/dL (31.6-35.5); Mean Corpuscular Hemoglobin 30.3 pg (28.0-33.3); Monocytes # 1.6 K/mcL (0.0-1.3); Monocytes % 8.5 %; Neutrophils # 15.9 K/mcL (1.6-8.9); Nucleated Red Blood Cells 0.4 /100 WBC (0); Red Blood Count 3.86 M/mcL (3.82-4.97); Red Cell Distribution Width 21.2 % (11.5-14.5); Segmented Neutrophils % 84.4 %
[2018-10-05 15:52] LABS: Platelet Count 31 K/mcL (140-400)
[2018-10-05 16:20] LABS: Platelet Estimate Decreased (Normal)
[2018-10-06] MEDS: Insulin LISPRO 300 UNITS/3 ML VIAL SQ SCH ×6 (00:48→19:46)
[2018-10-06] MEDS: Artificial Tears SOLN 15 ML BOTTLE BOTH EYES SCH ×6 (00:48→19:46)
[2018-10-06] MEDS: Piperacillin/Tazobactam 3.375 GM in 0.9 % Sodium Chloride Mini Bag 100 ML IVPB SCH ×3 (00:48→16:56)
[2018-10-06] MEDS: MethylPREDNISolone 40 MG/ML VIAL IVP SCH ×2 (00:48→09:09)
[2018-10-06] MEDS: Levalbuterol Neb 1.25 MG/3 ML IH SCH ×4 (03:30→21:18)
[2018-10-06 04:04] LABS: Basophils % 0.3 %; Hemoglobin 12.3 g/dL (11.5-15.4); Nucleated Red Blood Cells 0.5 /100 WBC (0)
[2018-10-06 04:06] LABS: Basophils # 0.1 K/mcL (0.0-0.2); Hematocrit 37.7 % (35.3-44.9); Immature Platelets 10.6 % (1.1-6.1); Lymphocytes # 1.3 K/mcL (0.6-4.6); Lymphocytes % 4.9 %; Mean Corpuscular HGB Conc 32.6 g/dL (31.6-35.5); Mean Corpuscular Hemoglobin 30.4 pg (28.0-33.3); Mean Corpuscular Volume 93.1 fL (83.0-100.0); Monocytes # 2.5 K/mcL (0.0-1.3); Monocytes % 9.4 %; Neutrophils # 21.4 K/mcL (1.6-8.9); Red Blood Count 4.05 M/mcL (3.82-4.97); Red Cell Distribution Width 21.3 % (11.5-14.5); Segmented Neutrophils % 81.4 %
[2018-10-06 04:07] LABS: Platelet Count 39 K/mcL (140-400)
[2018-10-06 04:15] LABS: VBG Ionized Calcium 1.26 mmol/L (1.15-1.35)
[2018-10-06 04:27] LABS: Alanine Aminotransferase 412 Units/L (7-52); Albumin 2.2 g/dL (3.5-5.7); Albumin/Globulin Ratio 0.8 (1.1-2.2); Alkaline Phosphatase 133 Units/L (34-104); Aspartate Amino Transferase 160 Units/L (13-39); BUN/Creatinine Ratio 63 (6-26); Bilirubin,Total 2.4 mg/dL (0.3-1.0); Blood Urea Nitrogen 57 mg/dL (6-20); Calcium 8.6 mg/dL (8.6-10.3); Carbon Dioxide 28 mEq/L (23-29); Chloride 108 mEq/L (98-107); Globulin 2.9 g/dL (2.4-3.5); Glucose 160 mg/dL (70-105); Magnesium 2.2 mg/dL (1.6-2.6); Osmolality,Calculated 309 (280-300); Phosphorous 3.4 mg/dL (2.7-4.5); Sodium 140 mEq/L (136-145); Total Protein 5.1 g/dL (6.4-8.9); eGFR For Non-African Americans > 60 (> 60)
[2018-10-06 04:34] LABS: Platelet Estimate Marked Decrease (Normal)
[2018-10-06 04:49] LABS: ABG Base Excess 3 mEq/L (-2 to 3); ABG HCO3 27 mEq/L (21-27); ABG Oxygen Saturation 92 % (95-98); ABG PCO2 41 mmHg (35-45); ABG PH 7.43 pH Units (7.32-7.45); ABG PO2 62 mmHg (85-104); ABG TCO2 28 mEq/L (20-26); Blood Gas Modality AF; Blood Gas PEEP 8 cm H2O; Blood Gas Respiration Rate 22; Blood Gas VT 400 cc
[2018-10-06] MEDS: Pantoprazole 40 MG VIAL IVP SCH ×2 (05:40→16:56)
[2018-10-06] MEDS: Amiodarone Premix 360 MG/200 ML BAG IVC SCH ×3 (05:40→19:46)
[2018-10-06] MEDS ORDERED: Furosemide 40 MG/4 ML VIAL IVP ONE (08:41)
--- NOTE | 2018-10-06 09:01 | Pulmonology Progress Note ---
<JosefamaoHang sanches W - Last Filed: 10/06/18 15:01> Date of Encounter: 10/06/18 Objective PUL Vital signs: Last Vital Signs Temp 96.7 F L 10/06/18 11:00 Pulse 109 10/06/18 14:00 Resp 22 10/06/18 14:00 BP 114/81 10/06/18 14:00 Pulse Ox 87 10/06/18 14:00 Ventilator Settings Ventilator Settings: Ventilator Settings, Last 8 Hours Ventilator Tidal Volume 400 Setting Ventilator Tidal Volume 400 Setting Ventilator Tidal Volume 400 Setting Ventilator Tidal Volume 400 Setting Ventilator Tidal Volume 400 Setting Ventilator Tidal Volume 400 Setting Ventilator Tidal Volume 400 Setting Ventilator Tidal Volume 400 Setting Ventilator Tidal Volume 400 Setting Ventilator Tidal Volume 400 Setting Ventilator Tidal Volume 400 Setting Ventilator Respiratory Rate 22 Setting Ventilator Respiratory Rate 22 Setting Ventilator Respiratory Rate 22 Setting Ventilator Respiratory Rate 22 Setting Ventilator Respiratory Rate 22 Setting Ventilator Respiratory Rate 22 Setting Ventilator Respiratory Rate 22 Setting Ventilator Respiratory Rate 22 Setting Ventilator Respiratory Rate 22 Setting Ventilator Respiratory Rate 22 Setting Ventilator Respiratory Rate 22 Setting Actual Respiratory Rate 22 Actual Respiratory Rate 22 Actual Respiratory Rate 22 Actual Respiratory Rate 22 Actual Respiratory Rate 22 Actual Respiratory Rate 22 Actual Respiratory Rate 22 Actual Respiratory Rate 22 Actual Respiratory Rate 22 Actual Respiratory Rate 22 Actual Respiratory Rate 23 Positive End Expiratory 8 Pressure Positive End Expiratory 8 Pressure Positive End Expiratory 8 Pressure Positive End Expiratory 8 Pressure Positive End Expiratory 8 Pressure Positive End Expiratory 8 Pressure Positive End Expiratory 8 Pressure Positive End Expiratory 8 Pressure Positive End Expiratory 8 Pressure Positive End Expiratory 8 Pressure Positive End Expiratory 8 Pressure Peak Inspiratory Airway 25 Pressure Peak Inspiratory Airway 25 Pressure Peak Inspiratory Airway 26 Pressure Peak Inspiratory Airway 26 Pressure Peak Inspiratory Airway 24 Pressure Peak Inspiratory Airway 27 Pressure Peak Inspiratory Airway 27 Pressure Peak Inspiratory Airway 27 Pressure Peak Inspiratory Airway 25 Pressure Peak Inspiratory Airway 28 Pressure Peak Inspiratory Airway 26 Pressure Results - Laboratory Findings CBC and BMP: 10/06/18 03:35 10/06/18 03:35 ABG ABG pH 7.43 pH Units (7.32-7.45) 10/06/18 04:46 ABG pCO2 41 mmHg (35-45) 10/06/18 04:46 ABG pO2 62 mmHg (85-104) L 10/06/18 04:46 ABG O2 Saturation 92 % (95-98) L 10/06/18 04:46 PT/INR, D-dimer PT 21.8 Seconds (9.4-12.1) H 10/05/18 03:45 Abnormal lab findings: Abnormal lab results WBC 26.3 K/mcL (4.3-11.1) H 10/06/18 03:35 RBC 3.78 M/mcL (3.82-4.97) L 10/05/18 03:45 Hct 35.0 % (35.3-44.9) L 10/05/18 03:45 MCHC 31.1 g/dL (31.6-35.5) L 10/01/18 04:10 RDW 21.3 % (11.5-14.5) H 10/06/18 03:35 Plt Count 39 K/mcL (140-400) L 10/06/18 03:35 14.0 % (0-4) H 10/02/18 03:35 2.0 % (0) H 10/01/18 04:10 21.4 K/mcL (1.6-8.9) H 10/06/18 03:35 0.5 K/mcL (0.6-4.6) L 10/02/18 03:35 2.5 K/mcL (0.0-1.3) H 10/06/18 03:35 Nucleated RBCs/100 WBC 0.5 /100 WBC (0) H 10/06/18 03:35 Present (Not Present) A 10/02/18 03:35 Marked Decrease (Normal) L 10/06/18 03:35 Immature Plt Fraction 10.6 % (1.1-6.1) H 10/06/18 03:35 1+ (Not Present) A 10/03/18 03:25 2+ (Not Present) A 10/03/18 03:25 Present (Not Present) A 10/03/18 03:25 Present (Not Present) A 10/03/18 03:25 1+ (Not Present) A 10/02/18 03:35 Acanthocytes (Spur) 2+ (Not Present) A 10/02/18 03:35 PT 21.8 Seconds (9.4-12.1) H 10/05/18 03:45 104 mg/dL (169-393) L 10/04/18 13:40 ABG pH 7.48 pH Units (7.32-7.45) H 10/04/18 04:53 ABG pCO2 31 mmHg (35-45) L 10/04/18 04:53 ABG pO2 62 mmHg (85-104) L 10/06/18 04:46 ABG HCO3 17 mEq/L (21-27) L 10/01/18 16:05 ABG Total CO2 28 mEq/L (20-26) H 10/06/18 04:46 ABG O2 Saturation 92 % (95-98) L 10/06/18 04:46 ABG Base Excess -10 mEq/L (-2 to 3) L 10/01/18 16:05 Sodium 135 mEq/L (136-145) L 10/02/18 03:35 Potassium 3.3 mEq/L (3.5-5.1) L D 10/02/18 03:35 Chloride 108 mEq/L (98-107) H 10/06/18 03:35 Carbon Dioxide 22 mEq/L (23-29) L 10/02/18 03:35 BUN 57 mg/dL (6-20) H 10/06/18 03:35 1.91 mg/dL (0.60-1.20) H 10/01/18 13:55 Est GFR ( Amer) 33 (> 60) L 10/01/18 13:55 Est GFR (Non-Af Amer) 59 (> 60) L 10/04/18 03:45 63 (6-26) H 10/06/18 03:35 Glucose 160 mg/dL (70-105) H 10/06/18 03:35 POC Glucose 206 mg/dL (70-99) H 10/06/18 00:35 309 (280-300) H 10/06/18 03:35 Lactic Acid 3.1 mmol/L (0.5-2.2) H 10/02/18 13:00 Calcium 7.5 mg/dL (8.6-10.3) L 10/05/18 03:45 Magnesium 1.4 mg/dL (1.6-2.6) L 09/30/18 04:00 2.4 mg/dL (0.3-1.0) H 10/06/18 03:35 1.1 mg/dL (0.0-0.2) H 10/05/18 03:45 AST 160 Units/L (13-39) H 10/06/18 03:35 ALT 412 Units/L (7-52) H 10/06/18 03:35 133 Units/L (34-104) H 10/06/18 03:35 79 mcmol/L (16-53) H 09/30/18 20:00 550 Units/L (140-271) H 10/04/18 13:40 0.06 ng/mL (< 0.04) H* 10/01/18 20:10 B-Natriuretic Peptide 856 pg/mL (Less than 100) H 09/30/18 04:00 5.1 g/dL (6.4-8.9) L 10/06/18 03:35 2.2 g/dL (3.5-5.7) L 10/06/18 03:35 3.6 g/dL (2.4-3.5) H 10/01/18 13:55 0.8 (1.1-2.2) L 10/06/18 03:35 7.75 ng/mL (0.00-0.15) H 09/30/18 14:51 [place] (Yellow) A 10/03/18 03:50 Cloudy (Clear) A 10/03/18 03:50 Ur Specific [place] > 1.030 (1.010-1.025) H 10/03/18 03:50 100 mg/dL (Neg-Trace) H 10/03/18 03:50 Trace mg/dL (Negative) H 10/03/18 03:50 Large (Negative) H 10/03/18 03:50 Moderate (Negative) H 10/03/18 03:50 Ur Leukocyte Esterase Small (Negative) H 10/03/18 03:50 TNTC per hpf (0-3) H 10/03/18 03:50 30-50 per hpf (0-3) H 10/03/18 03:50 Ur Squamous Epith Cells Many per lpf (None-Few) H 10/03/18 03:50 Positive (Negative) A 09/30/18 11:20 Vancomycin Trough 13 mcg/mL (5-10) H 10/06/18 03:35 14 IU/mL (Less than 14) H 10/03/18 03:25 - Microbiology Findings Microbiology Findings: Microbiology, Last 48 Hours 10/04/18 08:25 Sputum Culture - Preliminary Aspirate 10/04/18 16:00 Urine Culture - Final Urine,Clean Catch No growth. 09/30/18 05:59 Blood Culture - Final Peripheral Venipuncture No growth. Final report. 09/30/18 05:48 Blood Culture - Final Peripheral Venipuncture No growth. Final report. 10/04/18 16:48 Blood Culture - Preliminary Peripheral Venipuncture Culture is incubating and being continuously monitored for growth. Final report to follow. 10/04/18 16:48 Blood Culture - Preliminary Peripheral Venipuncture Culture is incubating and being continuously monitored for growth. Final report to follow. - Clinical Findings Intake & Output: Intake & Output 10/05/18 10/06/18 10/06/18 23:59 07:59 15:59 Intake Total 676 / 1716.5 500 / 500 Output Total 1250 / 2750 850 / 1650 800 / 1650 Balance -574 / -1033.5 -350 / -1150 -800 / -1150 Weight 78.8 kg Consult Discharge Plan - Plan Referrals: NONE,PCP [Primary Care Provider] - - Attending Attestation I examined this patient and my medical decision-making was reviewed with the Resident Physician. I agree with the documented findings, disposition and treatment plan as described except to the extent set forth below. We independently had [id number] contact with the patient I spent 31 of Critical Care time with this patient. It involved decision making of high complexity to assess, manipulate, and support vital organ system failure and/or to prevent further life threatening deterioration of the patient's condition. The time involved in the performance of separately reportable procedures was not counted toward critical care time. Patient seen and examined at bedside Labs, radiology, chart personally reviewed. Management was reviewed during multidisciplinary critical care rounds. GERONTOLOGICAL NURSE PRACTITIONER: Acute GERONTOLOGICAL NURSE PRACTITIONER failure secondary to toxic and metabolic encephalopathy from sepsis and multiorgan system failure patient able to respond to voice today but still not following commands will titrate lactulose to 2-3 bowel movements daily decrease sedation in fact she is essentially off sedation at this point Pulm: Hypoxic hypercapnic respiratory failure remains intubated on the vent acceptable gas exchange today with decrease minute ventilation as her respiratory demands are decreasing and I suspect that over the next 24 hours that she will have continued improvement in gas exchange and visit risk for developing alkalosis otherwise no significant ventilator dyssynchrony still significantly encephalopathic and given the amount of fat requirement today would not not be a candidate for liberation but we will assess daily Cards: Distributive shock is improving she is off vasopressor at this time she has acute on chronic heart failure and is benefiting from diuresis she has A. fib with RVR Stevens transition from amiodarone to low-dose of beta sania today holding LOBITO inhibitor because of the kidney injury GI: Acute liver failure secondary to ischemic hepatitis this is improving synthetic liver function is grossly intact right now continue lactulose Nutrition: Enteral nutrition per dietary recommendations Renal: U kidney failure is resolving she has acceptable urine output and is benefiting from loop diuretic UOP Monitored, Cont to Trend sCr and monitor Electrolytes. ID: She is on broad-spectrum antibiotics for presumed pneumonia with septic shock clinically improving although white count is spiked up today she remains afebrile plan to reculture patient and monitor this very closely I am hesitant to broaden out antibiotics as no clear source of no infection and clinically she has made remarkable improvement in the last 48 hours but will monitor very cautiously. Cultures thus far remain negative Heme/Onc: Hemoglobin stable thrombocytopenia is improving as patient is clinically improving Endo: Glucose Monitored continue bolus dosing insulin Integ/MSK: Skin Care per routine ICU Nursing Protocol to prevent ulcers. Lines: All lines examined without evidence of infection : Dispo: Monitor in ICU for critical illness CODE: Full <Magen Garcia Bree - Last Filed: 10/06/18 18:05> Date of Encounter: 10/06/18 Time of Encounter: 17:55 Assessment and Plan (1) Atrial fibrillation with RVR Current Visit: Yes Status: Acute History of atrial fibrillation; at presentation was noted to have atrial fibrillation with RVR with heart rate in the 180s. Patient was previously on warfarin at home, but was noted to have a subtherapeutic INR of 1.4. Due to liver function, warfarin has been held; however, INR has remained elevated, with a value of 1.9 on morning laboratory studies. - Transition from amiodarone to BB - Continue cardiac monitoring. - Continue to hold anticoagulation at this time given thrombocytopenia and elevated INR. (2) Pneumonia Current Visit: Yes Status: Acute Presented to the ED complaining of shortness of breath ongoing for 3 days at admission as well as pain upon inspiration. Was not requiring any oxygen at presentation; however, patient had worsening anxiety with BiPAP and was subsequently intubated in the ED. CT dissection imaging is significant for right lower lobe pneumonia. Nasal MRSA swab is positive. - Blood cultures collected on 09/30/18 were negative, with repeat blood cultures obtained on 10/04/2018 pending. - Sputum cultures pending. - Continue vancomycin, Zosyn and doxycycline, day 7 of antibiotic therapy. - Continues to have respiratory alkalosis, continue ventilation setting to decrease barotrauma. Qualifiers: Pneumonia type: due to unspecified organism Laterality: right Lung location: unspecified part of lung Qualified Code(s): J18.9 - Pneumonia, unspecified organism (3) Acute exacerbation of CHF (congestive heart failure) Current Visit: Yes Status: Acute Likely exacerbation secondary to fluid overload, BNP at admission was 856 Presented to the ED complaining of worsening shortness of breath does have history of CHF with EF of 35% one year ago on echo. Repeat echocardiogram significant for ejection fraction of 15%. - Continue telemetry. - Continue to monitor intake and output. - Continue rate control with BB Qualifiers: Heart failure type: systolic Qualified Code(s): I50.23 - Acute on chronic systolic (congestive) heart failure (4) Acute respiratory failure with hypoxia Current Visit: Yes Status: Acute Acute respiratory failure with hypoxia likely secondary to pneumonia and CHF exacerbation MRSA swab is positive; respiratory panel was negative. - Continue to treat pneumonia with broad-spectrum antimicrobial therapy of vancomycin, zosyn, and doxycycline. - Repeat blood cultures and urine cultures pending. - Maintained low tidal volume to minimize barotrauma. - Continue 40 mg Solu-Medrol every 8 hours. (5) Septic shock Current Visit: Yes Status: Acute Septic shock likely secondary to infectious versus cardiogenic. First set of blood cultures on 09/30/18 negative for growth. - Continue IV antibiotics, currently MRSA nasal swab as detailed above. - Continue pressor support with titration as appropriate - will stop steriod today as WBC elevated again. 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 CTA of the chest also shows cirrhosis. Patient reportedly had a small amount of coffee-ground emesis with bright red blood mixture in OG tube 4 days ago. Has history of hepatitis B and hepatitis C. LFTs have been elevated during admission; however, these have been trending down over the last few days. -Continue IV Protonix 40 mg BID. Continue to monitor and trend LFTs. - will increase lactulose as patient remains encephalopathic despite stopping sedation (7) DVT prophylaxis Current Visit: No Status: Acute - SCDs. Subjective Principal diagnosis: Septic shock secondary to pneumonia complicated by worsening of systolic he Interval history: Patient is currently intubated, on ventilation. Patient will respond to voice, however does not follow commands at this point in time. Patient is currently off all sedation. Objective PUL Vital signs: Last Vital Signs Temp 96.3 F L 10/06/18 07:27 Pulse 115 10/06/18 06:00 Resp 23 10/06/18 07:34 BP 113/89 10/06/18 07:34 Pulse Ox 94 10/06/18 07:34 General appearance: no acute distress ENT: oropharynx dry Neck: supple Auscultation: bilateral: diminished breath sounds Cardiovascular: regular rate and rhythm Gastrointestinal: normoactive bowel sounds, non-tender Extremities: edema unable to assess due to mental status Ventilator Settings Ventilator Settings: Ventilator Settings, Last 8 Hours Ventilator Tidal Volume 400 Setting Ventilator Tidal Volume 400 Setting Ventilator Tidal Volume 400 Setting Ventilator Tidal Volume 400 Setting Ventilator Tidal Volume 400 Setting Ventilator Tidal Volume 400 Setting Ventilator Tidal Volume 400 Setting Ventilator Tidal Volume 400 Setting Ventilator Tidal Volume 400 Setting Ventilator Tidal Volume 400 Setting Ventilator Respiratory Rate 22 Setting Ventilator Respiratory Rate 22 Setting Ventilator Respiratory Rate 22 Setting Ventilator Respiratory Rate 22 Setting Ventilator Respiratory Rate 22 Setting Ventilator Respiratory Rate 22 Setting Ventilator Respiratory Rate 22 Setting Ventilator Respiratory Rate 22 Setting Ventilator Respiratory Rate 22 Setting Ventilator Respiratory Rate 22 Setting Actual Respiratory Rate 23 Actual Respiratory Rate 24 Actual Respiratory Rate 24 Actual Respiratory Rate 23 Actual Respiratory Rate 27 Actual Respiratory Rate 23 Actual Respiratory Rate 23 Actual Respiratory Rate 23 Positive End Expiratory 8 Pressure Positive End Expiratory 8 Pressure Positive End Expiratory 8 Pressure Positive End Expiratory 8 Pressure Positive End Expiratory 8 Pressure Positive End Expiratory 8 Pressure Positive End Expiratory 8 Pressure Positive End Expiratory 8 Pressure Positive End Expiratory 8 Pressure Positive End Expiratory 8 Pressure Peak Inspiratory Airway 26 Pressure Peak Inspiratory Airway 29 Pressure Peak Inspiratory Airway 29 Pressure Peak Inspiratory Airway 24 Pressure Peak Inspiratory Airway 26 Pressure Peak Inspiratory Airway 24 Pressure Peak Inspiratory Airway 24 Pressure Peak Inspiratory Airway 24 Pressure Results - Laboratory Findings CBC and BMP: 10/06/18 03:35 10/06/18 03:35 ABG ABG pH 7.43 pH Units (7.32-7.45) 10/06/18 04:46 ABG pCO2 41 mmHg (35-45) 10/06/18 04:46 ABG pO2 62 mmHg (85-104) L 10/06/18 04:46 ABG O2 Saturation 92 % (95-98) L 10/06/18 04:46 PT/INR, D-dimer PT 21.8 Seconds (9.4-12.1) H 10/05/18 03:45 Abnormal lab findings: Abnormal lab results WBC 26.3 K/mcL (4.3-11.1) H 10/06/18 03:35 RBC 3.78 M/mcL (3.82-4.97) L 10/05/18 03:45 Hct 35.0 % (35.3-44.9) L 10/05/18 03:45 MCHC 31.1 g/dL (31.6-35.5) L 10/01/18 04:10 RDW 21.3 % (11.5-14.5) H 10/06/18 03:35 Plt Count 39 K/mcL (140-400) L 10/06/18 03:35 14.0 % (0-4) H 10/02/18 03:35 2.0 % (0) H 10/01/18 04:10 21.4 K/mcL (1.6-8.9) H 10/06/18 03:35 0.5 K/mcL (0.6-4.6) L 10/02/18 03:35 2.5 K/mcL (0.0-1.3) H 10/06/18 03:35 Nucleated RBCs/100 WBC 0.5 /100 WBC (0) H 10/06/18 03:35 Present (Not Present) A 10/02/18 03:35 Marked Decrease (Normal) L 10/06/18 03:35 Immature Plt Fraction 10.6 % (1.1-6.1) H 10/06/18 03:35 1+ (Not Present) A 10/03/18 03:25 2+ (Not Present) A 10/03/18 03:25 Present (Not Present) A 10/03/18 03:25 Present (Not Present) A 10/03/18 03:25 1+ (Not Present) A 10/02/18 03:35 Acanthocytes (Spur) 2+ (Not Present) A 10/02/18 03:35 PT 21.8 Seconds (9.4-12.1) H 10/05/18 03:45 104 mg/dL (169-393) L 10/04/18 13:40 ABG pH 7.48 pH Units (7.32-7.45) H 10/04/18 04:53 ABG pCO2 31 mmHg (35-45) L 10/04/18 04:53 ABG pO2 62 mmHg (85-104) L 10/06/18 04:46 ABG HCO3 17 mEq/L (21-27) L 10/01/18 16:05 ABG Total CO2 28 mEq/L (20-26) H 10/06/18 04:46 ABG O2 Saturation 92 % (95-98) L 10/06/18 04:46 ABG Base Excess -10 mEq/L (-2 to 3) L 10/01/18 16:05 Sodium 135 mEq/L (136-145) L 10/02/18 03:35 Potassium 3.3 mEq/L (3.5-5.1) L D 10/02/18 03:35 Chloride 108 mEq/L (98-107) H 10/06/18 03:35 Carbon Dioxide 22 mEq/L (23-29) L 10/02/18 03:35 BUN 57 mg/dL (6-20) H 10/06/18 03:35 1.91 mg/dL (0.60-1.20) H 10/01/18 13:55 Est GFR ( Amer) 33 (> 60) L 10/01/18 13:55 Est GFR (Non-Af Amer) 59 (> 60) L 10/04/18 03:45 63 (6-26) H 10/06/18 03:35 Glucose 160 mg/dL (70-105) H 10/06/18 03:35 POC Glucose 206 mg/dL (70-99) H 10/06/18 00:35 309 (280-300) H 10/06/18 03:35 Lactic Acid 3.1 mmol/L (0.5-2.2) H 10/02/18 13:00 Calcium 7.5 mg/dL (8.6-10.3) L 10/05/18 03:45 Magnesium 1.4 mg/dL (1.6-2.6) L 09/30/18 04:00 2.4 mg/dL (0.3-1.0) H 10/06/18 03:35 1.1 mg/dL (0.0-0.2) H 10/05/18 03:45 AST 160 Units/L (13-39) H 10/06/18 03:35 ALT 412 Units/L (7-52) H 10/06/18 03:35 133 Units/L (34-104) H 10/06/18 03:35 79 mcmol/L (16-53) H 09/30/18 20:00 550 Units/L (140-271) H 10/04/18 13:40 0.06 ng/mL (< 0.04) H* 10/01/18 20:10 B-Natriuretic Peptide 856 pg/mL (Less than 100) H 09/30/18 04:00 5.1 g/dL (6.4-8.9) L 10/06/18 03:35 2.2 g/dL (3.5-5.7) L 10/06/18 03:35 3.6 g/dL (2.4-3.5) H 10/01/18 13:55 0.8 (1.1-2.2) L 10/06/18 03:35 7.75 ng/mL (0.00-0.15) H 09/30/18 14:51 [place] (Yellow) A 10/03/18 03:50 Cloudy (Clear) A 10/03/18 03:50 Ur Specific [place] > 1.030 (1.010-1.025) H 10/03/18 03:50 100 mg/dL (Neg-Trace) H 10/03/18 03:50 Trace mg/dL (Negative) H 10/03/18 03:50 Large (Negative) H 10/03/18 03:50 Moderate (Negative) H 10/03/18 03:50 Ur Leukocyte Esterase Small (Negative) H 10/03/18 03:50 TNTC per hpf (0-3) H 10/03/18 03:50 30-50 per hpf (0-3) H 10/03/18 03:50 Ur Squamous Epith Cells Many per lpf (None-Few) H 10/03/18 03:50 Positive (Negative) A 09/30/18 11:20 Vancomycin Trough 13 mcg/mL (5-10) H 10/06/18 03:35 14 IU/mL (Less than 14) H 10/03/18 03:25 - Microbiology Findings Microbiology Findings: Microbiology, Last 48 Hours 10/04/18 08:25 Sputum Culture - Preliminary Aspirate 10/04/18 16:00 Urine Culture - Final Urine,Clean Catch No growth. 09/30/18 05:59 Blood Culture - Final Peripheral Venipuncture No growth. Final report. 09/30/18 05:48 Blood Culture - Final Peripheral Venipuncture No growth. Final report. 10/04/18 16:48 Blood Culture - Preliminary Peripheral Venipuncture Culture is incubating and being continuously monitored for growth. Final report to follow. 10/04/18 16:48 Blood Culture - Preliminary Peripheral Venipuncture Culture is incubating and being continuously monitored for growth. Final report to follow. - Clinical Findings Intake & Output: Intake & Output 10/05/18 10/06/18 10/06/18 23:59 07:59 15:59 Intake Total 676 / 1716.5 300 / 300 Output Total 1250 / 2750 850 / 850 Balance -574 / -1033.5 -550 / -550 Weight 78.8 kg
[2018-10-06] MEDS: Chlorhexidine Rinse 15 ML MOUTHWASH MM SCH ×2 (09:11→21:05)
[2018-10-06] MEDS: Doxycycline 100 MG in 0.9 % Sodium Chloride Mini Bag 100 ML IVPB SCH ×2 (09:11→21:05)
[2018-10-06] MEDS: Lactulose Oral Soln 20 GM/30 ML UDC PO SCH ×3 (09:12→21:05)
--- NOTE | 2018-10-06 12:42 | Nephrology Progress Note ---
Date of Encounter: 10/06/18 Time of Encounter: 12:00 - Assessment and Plan (1) EMMA (acute kidney injury) Current Visit: Yes Status: Acute SCr noted at 0.91, GFR >60 off CRRT since UOP documented at 2700cc in the past 24hrs which is great Pt is in renal recovery with no further ANTHROPOLOGY DEPARTMENT CHAIR indicated at this time Continue to avoid nephrotoxins if possible but can use diuretics intermittently Will sign off, please reconsult prn (2) Atrial fibrillation with RVR Current Visit: Yes Status: Acute (3) Anemia Current Visit: No Status: Acute Qualifiers: Anemia type: unspecified type Qualified Code(s): D64.9 - Anemia, unspecified (4) Thrombocytopenia Current Visit: No Status: Acute (5) Hepatitis C Current Visit: No Status: Acute Qualifiers: Qualified Code(s): B19.20 - Unspecified viral hepatitis C without hepatic coma (6) Pneumonia Current Visit: Yes Status: Acute Qualifiers: Pneumonia type: due to unspecified organism Laterality: right Lung l ocation: unspecified part of lung Qualified Code(s): J18.9 - Pneumonia, unspecified organism (7) Hypotension Current Visit: Yes Status: Acute Qualifiers: Hypotension type: unspecified hypotension type Qualified Code(s): I95.9 - Hypotension, unspecified (8) Acute exacerbation of CHF (congestive heart failure) Current Visit: Yes Status: Acute Qualifiers: Heart failure type: systolic Qualified Code(s): I50.23 - Acute on chronic systolic (congestive) heart failure (9) Cirrhosis Current Visit: Yes Status: Acute Qualifiers: Hepatic cirrhosis type: unspecified hepatic cirrhosis Ascites presence: without ascites Qualified Code(s): K74.60 - Unspecified cirrhosis of liver (10) Septic shock Current Visit: Yes Status: Acute (11) Oliguria Current Visit: Yes Status: Acute (12) Hyperkalemia Current Visit: Yes Status: Acute Subjective Principal diagnosis: Septic shock secondary to pneumonia complicated by worsening of systolic he Interval history: Pt seen and examined still intubated and sedated Objective - Vital Signs Vital signs: Vital Signs Temp Pulse Resp BP Pulse Ox 10/06/18 12:00 112 22 105/71 92 10/06/18 11:22 22 120/77 92 10/06/18 11:00 96.7 F L 92 22 120/77 92 10/06/18 10:00 98 22 105/81 92 10/06/18 09:13 22 115/90 92 10/06/18 09:00 116 22 115/90 92 10/06/18 08:00 115 22 115/75 92 10/06/18 07:34 23 113/89 94 10/06/18 07:27 96.3 F L 10/06/18 06:00 115 22 115/88 89 10/06/18 05:40 24 113/88 89 10/06/18 05:00 91 22 113/88 91 10/06/18 04:00 97.4 F L 134 24 100/74 90 10/06/18 03:30 27 116/75 91 10/06/18 03:00 114 26 116/75 92 10/06/18 02:00 98 23 99/70 90 10/06/18 01:21 23 110/91 90 10/06/18 01:00 114 22 110/91 91 10/06/18 00:00 118 22 99/77 91 10/05/18 23:41 134 10/05/18 23:32 26 113/71 92 10/05/18 23:00 97 F L 112 26 113/71 92 10/05/18 22:00 110 22 130/119 94 10/05/18 21:54 26 121/86 94 10/05/18 21:00 137 22 120/82 91 10/05/18 20:00 121 22 96/67 89 10/05/18 19:53 23 89/44 89 10/05/18 19:00 98 F 129 21 89/74 88 10/05/18 18:00 122 23 112/80 89 10/05/18 17:31 24 116/91 90 10/05/18 17:00 122 22 109/76 89 10/05/18 16:00 98.7 F 122 22 101/82 90 10/05/18 15:34 22 90/69 90 10/05/18 15:00 108 22 108/63 91 10/05/18 14:00 114 24 97/66 92 10/05/18 13:00 118 22 112/94 92 Intake and Output 10/05/18 10/06/18 10/06/18 23:59 07:59 15:59 Intake Total 676 / 1716.5 500 / 500 Output Total 1250 / 2750 850 / 1650 800 / 1650 Balance -574 / -1033.5 -350 / -1150 -800 / -1150 Intake: IV Fluids 430 / 1470.5 500 / 500 Amiodarone Drip Premix 360mg/ 200 / 400 400 / 400 200mL 360 mg In 200 ml @ 0.5 MG /MIN 16.667 mls/hr IVC CONT [facility] Rx#:[id number] PRECEDEX Premix 400 mcg In 100 0 / 0 ml @ 0.2 MCG/KG/HR 5.985 mls/hr IVC .[id number] [facility] Rx#: [id number] FentaNYL (PF) 1,000 MCG In 0.9 30 / 100 % Sodium Chloride 80 ML @ 50 MCG/HR 5 mls/hr IVC [facility] Rx #:[id number] Versed 50 MG In 0.9 % Sodium 0 / 0 Chloride 90 ML @ 2 MG/HR 4 mls/ hr IVC [facility] Rx#:[id number] Doxycycline 100 MG In 0.9 % 100 / 300 Sodium Chloride (Mini-Bag +) 100 ML @ 100 mls/hr IVPB Q12H [facility] Rx#:[id number] Zosyn 3.375 GM In 0.9 % Sodium 100 / 300 100 / 100 Chloride (Mini-Bag +) 100 ML @ 25 mls/hr IVPB Q8HR [facility] Rx#: [id number] Tube Feeding 146 / 146 Free Water Intake Amount 100 / 100 Output: Catheter 1250 / 2700 500 / 1300 800 / 1300 Gastric Drainage 350 / 350 0 / 350 Other: Weight 78.8 kg Blood Glucose* 197 123 160 - Lab 10/06/18 03:35 10/06/18 03:35 Most recent lab results 10/06/18 10/06/18 03:35 04:46 ABG pH 7.43 ABG pCO2 41 ABG pO2 62 L ABG HCO3 27 ABG O2 Saturation 92 L Calcium 8.6 Phosphorus 3.4 Magnesium 2.2 Consult Discharge Plan - Plan Referrals: NONE,PCP [Primary Care Provider] -
[2018-10-06] MEDS: Phenylephrine 50 MG in D5% in Water 250 ML IVC SCH (19:45)
[2018-10-07] MEDS: Insulin LISPRO 300 UNITS/3 ML VIAL SQ SCH ×6 (00:17→20:10)
[2018-10-07] MEDS: Artificial Tears SOLN 15 ML BOTTLE BOTH EYES SCH ×6 (00:20→20:10)
[2018-10-07] MEDS: Piperacillin/Tazobactam 3.375 GM in 0.9 % Sodium Chloride Mini Bag 100 ML IVPB SCH ×4 (00:21→23:55)
[2018-10-07] MEDS: Levalbuterol Neb 1.25 MG/3 ML IH SCH ×4 (04:02→21:58)
[2018-10-07 04:44] LABS: Basophils % 0.4 %; Hemoglobin 12.7 g/dL (11.5-15.4)
[2018-10-07 04:45] LABS: Basophils # 0.1 K/mcL (0.0-0.2); Immature Granulocytes % 3.8 % (0-4); Lymphocytes % 3.3 %; Mean Corpuscular HGB Conc 32.6 g/dL (31.6-35.5); Mean Corpuscular Hemoglobin 30.5 pg (28.0-33.3); Mean Corpuscular Volume 93.5 fL (83.0-100.0); Mean Platelet Volume 12.6 fL (9.4-12.4); Monocytes # 2.9 K/mcL (0.0-1.3); Monocytes % 9.8 %; Neutrophils # 24.2 K/mcL (1.6-8.9); Nucleated Red Blood Cells 0.5 /100 WBC (0); Red Blood Count 4.17 M/mcL (3.82-4.97); Segmented Neutrophils % 82.7 %
[2018-10-07 04:49] LABS: INR 2.3; Prothrombin Time 25.8 Seconds (9.4-12.1)
[2018-10-07 04:52] LABS: Activated Partial Thrombo Time 33.2 Seconds (26.0-36.0)
[2018-10-07 04:53] LABS: Platelet Count 61 K/mcL (140-400)
[2018-10-07 04:56] LABS: Alanine Aminotransferase 322 Units/L (7-52); Albumin 2.2 g/dL (3.5-5.7); Albumin/Globulin Ratio 0.7 (1.1-2.2); Alkaline Phosphatase 164 Units/L (34-104); Aspartate Amino Transferase 105 Units/L (13-39); BUN/Creatinine Ratio 64 (6-26); Bilirubin,Direct 1.4 mg/dL (0.0-0.2); Bilirubin,Indirect 1.4 mg/dL (0.0-1.2); Bilirubin,Total 2.8 mg/dL (0.3-1.0); Blood Urea Nitrogen 61 mg/dL (6-20); Calcium 9.2 mg/dL (8.6-10.3); Carbon Dioxide 29 mEq/L (23-29); Chloride 107 mEq/L (98-107); Glucose 217 mg/dL (70-105); Osmolality,Calculated 322 (280-300); Potassium 4.4 mEq/L (3.5-5.1); Sodium 144 mEq/L (136-145); Total Protein 5.2 g/dL (6.4-8.9); eGFR For Non-African Americans > 60 (> 60)
[2018-10-07] MEDS: Pantoprazole 40 MG VIAL IVP SCH ×2 (05:10→17:45)
[2018-10-07] MEDS: Amiodarone Premix 360 MG/200 ML BAG IVC SCH ×2 (06:13→17:59)
[2018-10-07 06:23] LABS: Platelet Estimate Decreased (Normal)
[2018-10-07] MEDS: Lactulose Oral Soln 20 GM/30 ML UDC PO SCH ×4 (08:12→20:57)
[2018-10-07] MEDS: Doxycycline 100 MG in 0.9 % Sodium Chloride Mini Bag 100 ML IVPB SCH ×2 (08:12→20:57)
[2018-10-07] MEDS: Chlorhexidine Rinse 15 ML MOUTHWASH MM SCH ×2 (08:12→20:56)
[2018-10-07 08:34] LABS: ABG Base Excess 4 mEq/L (-2 to 3); ABG HCO3 29 mEq/L (21-27); ABG Oxygen Saturation 89 % (95-98); ABG PCO2 43 mmHg (35-45); ABG PH 7.43 pH Units (7.32-7.45); ABG PO2 56 mmHg (85-104); ABG TCO2 30 mEq/L (20-26); Blood Gas Modality ASSIST CONTROL; Blood Gas PEEP 8 cm H2O; Blood Gas Respiration Rate 18; Blood Gas VT 400 cc
--- NOTE | 2018-10-07 09:43 | Pulmonology Progress Note ---
<MontanaOscarisabel M - Last Filed: 10/07/18 13:53> Date of Encounter: 10/07/18 Objective PUL Vital signs: Last Vital Signs Temp 97.5 F L 10/07/18 11:47 Pulse 100 10/07/18 13:00 Resp 18 10/07/18 13:00 BP 130/95 10/07/18 13:00 Pulse Ox 92 10/07/18 12:00 Ventilator Settings Ventilator Settings: Ventilator Settings, Last 8 Hours Ventilator Tidal Volume 400 Setting Ventilator Tidal Volume 400 Setting Ventilator Tidal Volume 400 Setting Ventilator Tidal Volume 400 Setting Ventilator Respiratory Rate 18 Setting Ventilator Respiratory Rate 18 Setting Ventilator Respiratory Rate 18 Setting Ventilator Respiratory Rate 18 Setting Actual Respiratory Rate 16 Actual Respiratory Rate 11 Actual Respiratory Rate 10 Actual Respiratory Rate 12 Actual Respiratory Rate 15 Actual Respiratory Rate 15 Actual Respiratory Rate 11 Actual Respiratory Rate 14 Actual Respiratory Rate 20 Actual Respiratory Rate 19 Actual Respiratory Rate 19 Actual Respiratory Rate 20 Positive End Expiratory 8 Pressure Positive End Expiratory 8 Pressure Positive End Expiratory 8 Pressure Positive End Expiratory 8 Pressure Positive End Expiratory 8 Pressure Positive End Expiratory 8 Pressure Positive End Expiratory 8 Pressure Positive End Expiratory 8 Pressure Positive End Expiratory 8 Pressure Positive End Expiratory 8 Pressure Positive End Expiratory 8 Pressure Positive End Expiratory 8 Pressure Peak Inspiratory Airway 19 Pressure Peak Inspiratory Airway 19 Pressure Peak Inspiratory Airway 19 Pressure Peak Inspiratory Airway 19 Pressure Peak Inspiratory Airway 19 Pressure Peak Inspiratory Airway 19 Pressure Peak Inspiratory Airway 18 Pressure Peak Inspiratory Airway 18 Pressure Peak Inspiratory Airway 22 Pressure Peak Inspiratory Airway 33 Pressure Peak Inspiratory Airway 23 Pressure Peak Inspiratory Airway 19 Pressure Results - Laboratory Findings CBC and BMP: 10/07/18 04:15 10/07/18 04:15 ABG ABG pH 7.43 pH Units (7.32-7.45) 10/07/18 04:58 ABG pCO2 43 mmHg (35-45) 10/07/18 04:58 ABG pO2 56 mmHg (85-104) L 10/07/18 04:58 ABG O2 Saturation 89 % (95-98) L 10/07/18 04:58 PT/INR, D-dimer PT 25.8 Seconds (9.4-12.1) H 10/07/18 04:15 Abnormal lab findings: Abnormal lab results WBC 29.3 K/mcL (4.3-11.1) H 10/07/18 04:15 RBC 3.78 M/mcL (3.82-4.97) L 10/05/18 03:45 Hct 35.0 % (35.3-44.9) L 10/05/18 03:45 MCHC 31.1 g/dL (31.6-35.5) L 10/01/18 04:10 RDW 22.0 % (11.5-14.5) H 10/07/18 04:15 Plt Count 61 K/mcL (140-400) L D 10/07/18 04:15 MPV 12.6 fL (9.4-12.4) H 10/07/18 04:15 14.0 % (0-4) H 10/02/18 03:35 2.0 % (0) H 10/01/18 04:10 24.2 K/mcL (1.6-8.9) H 10/07/18 04:15 0.5 K/mcL (0.6-4.6) L 10/02/18 03:35 2.9 K/mcL (0.0-1.3) H 10/07/18 04:15 Nucleated RBCs/100 WBC 0.5 /100 WBC (0) H 10/07/18 04:15 Present (Not Present) A 10/02/18 03:35 Decreased (Normal) L 10/07/18 04:15 Immature Plt Fraction 10.6 % (1.1-6.1) H 10/06/18 03:35 1+ (Not Present) A 10/03/18 03:25 2+ (Not Present) A 10/03/18 03:25 Present (Not Present) A 10/03/18 03:25 Present (Not Present) A 10/03/18 03:25 1+ (Not Present) A 10/02/18 03:35 Acanthocytes (Spur) 2+ (Not Present) A 10/02/18 03:35 PT 25.8 Seconds (9.4-12.1) H 10/07/18 04:15 104 mg/dL (169-393) L 10/04/18 13:40 ABG pH 7.48 pH Units (7.32-7.45) H 10/04/18 04:53 ABG pCO2 31 mmHg (35-45) L 10/04/18 04:53 ABG pO2 56 mmHg (85-104) L 10/07/18 04:58 ABG HCO3 29 mEq/L (21-27) H 10/07/18 04:58 ABG Total CO2 30 mEq/L (20-26) H 10/07/18 04:58 ABG O2 Saturation 89 % (95-98) L 10/07/18 04:58 ABG Base Excess 4 mEq/L (-2 to 3) H 10/07/18 04:58 Sodium 135 mEq/L (136-145) L 10/02/18 03:35 Potassium 3.3 mEq/L (3.5-5.1) L D 10/02/18 03:35 Chloride 108 mEq/L (98-107) H 10/06/18 03:35 Carbon Dioxide 22 mEq/L (23-29) L 10/02/18 03:35 BUN 61 mg/dL (6-20) H 10/07/18 04:15 1.91 mg/dL (0.60-1.20) H 10/01/18 13:55 Est GFR ( Amer) 33 (> 60) L 10/01/18 13:55 Est GFR (Non-Af Amer) 59 (> 60) L 10/04/18 03:45 64 (6-26) H 10/07/18 04:15 Glucose 217 mg/dL (70-105) H 10/07/18 04:15 POC Glucose 173 mg/dL (70-99) H 10/07/18 00:06 322 (280-300) H 10/07/18 04:15 Lactic Acid 3.1 mmol/L (0.5-2.2) H 10/02/18 13:00 Calcium 7.5 mg/dL (8.6-10.3) L 10/05/18 03:45 Magnesium 1.4 mg/dL (1.6-2.6) L 09/30/18 04:00 2.8 mg/dL (0.3-1.0) H 10/07/18 04:15 1.4 mg/dL (0.0-0.2) H 10/07/18 04:15 1.4 mg/dL (0.0-1.2) H 10/07/18 04:15 AST 105 Units/L (13-39) H 10/07/18 04:15 ALT 322 Units/L (7-52) H 10/07/18 04:15 164 Units/L (34-104) H 10/07/18 04:15 94 mcmol/L (16-53) H 10/06/18 18:25 550 Units/L (140-271) H 10/04/18 13:40 0.06 ng/mL (< 0.04) H* 10/01/18 20:10 B-Natriuretic Peptide 856 pg/mL (Less than 100) H 09/30/18 04:00 5.2 g/dL (6.4-8.9) L 10/07/18 04:15 2.2 g/dL (3.5-5.7) L 10/07/18 04:15 3.6 g/dL (2.4-3.5) H 10/01/18 13:55 0.7 (1.1-2.2) L 10/07/18 04:15 7.75 ng/mL (0.00-0.15) H 09/30/18 14:51 [place] (Yellow) A 10/03/18 03:50 Cloudy (Clear) A 10/03/18 03:50 Ur Specific [place] > 1.030 (1.010-1.025) H 10/03/18 03:50 100 mg/dL (Neg-Trace) H 10/03/18 03:50 Trace mg/dL (Negative) H 10/03/18 03:50 Large (Negative) H 10/03/18 03:50 Moderate (Negative) H 10/03/18 03:50 Ur Leukocyte Esterase Small (Negative) H 10/03/18 03:50 TNTC per hpf (0-3) H 10/03/18 03:50 30-50 per hpf (0-3) H 10/03/18 03:50 Ur Squamous Epith Cells Many per lpf (None-Few) H 10/03/18 03:50 Positive (Negative) A 09/30/18 11:20 Vancomycin Trough 13 mcg/mL (5-10) H 10/07/18 04:15 14 IU/mL (Less than 14) H 10/03/18 03:25 - Microbiology Findings Microbiology Findings: Microbiology, Last 48 Hours 10/04/18 08:25 Sputum Culture - Preliminary Aspirate Yeast Species 10/04/18 16:00 Urine Culture - Final Urine,Clean Catch No growth. 09/30/18 05:59 Blood Culture - Final Peripheral Venipuncture No growth. Final report. 09/30/18 05:48 Blood Culture - Final Peripheral Venipuncture No growth. Final report. - Clinical Findings Intake & Output: Intake & Output 10/06/18 10/07/18 10/07/18 23:59 07:59 15:59 Intake Total 530 / 1480 352 / 452 100 / 452 Output Total 475 / 2125 250 / 675 425 / 675 Balance 55 / -645 102 / -223 -325 / -223 Weight 120.5 kg Consult Discharge Plan - Plan Referrals: NONE,PCP [Primary Care Provider] - - Attending Attestation I examined this patient and my medical decision-making was reviewed with the Resident Physician. I agree with the documented findings, disposition and treatment plan as described except to the extent set forth below. Patient seen and examined. Labs, radiology, chart personally reviewed. 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 Consider imaging of the head including CT/MRI and even neurology consultation. Pulmonary: Acceptable oxygenation and ventilation. Patient mental status abnormality it sleep problem for spontaneous breathing trial, however we will attempt spontaneous breathing trial and as long as patient has strong cough or gag reflex, based on the outcome of the spontaneous breathing trial decide whether she needs to remain intubated or attempt extubation. Cardiovascular: stable GI: Nutrition per dietary and GI prophylaxis per routine Heme: DVT prophylaxis per routine. Patient thrombocytopenia and coagulopathy stable. ID: Continue antibiotics and plan to de-escalation Renal; urine out put and renal function reviewed Endorcine: blood glucose is monitored Lines: all lines checked and no evidence of infections Skin: skin care to prevent pressure ulcers per nursing routine care I spent 33 min of Critical Care time with this patient. It involved decision making of high complexity to assess, manipulate, and support vital organ system failure and/or to prevent further life threatening deterioration of the patient's condition. The time involved in the performance of separately reportable procedures was not counted toward critical care time. <Magen Garcia - Last Filed: 10/07/18 16:18> Date of Encounter: 05/27/19 Time of Encounter: 14:23 Assessment and Plan (1) Atrial fibrillation with RVR Current Visit: Yes Status: Acute History of atrial fibrillation; at presentation was noted to have atrial fibrillation with RVR with heart rate in the 180s. Patient was previously on warfarin at home, but was noted to have a subtherapeutic INR of 1.4. Due to liver function, warfarin has been held; however, INR has remained elevated, with a value of 1.9 on morning laboratory studies. - Transition from amiodarone to BB - Continue cardiac monitoring. - Continue to hold anticoagulation at this time given thrombocytopenia (2) Pneumonia Current Visit: Yes Status: Acute Presented to the ED complaining of shortness of breath ongoing for 3 days at admission as well as pain upon inspiration. Was not requiring any oxygen at presentation; however, patient had worsening anxiety with BiPAP and was subsequently intubated in the ED. CT dissection imaging is significant for right lower lobe pneumonia. Nasal MRSA swab is positive. - Blood cultures collected on 09/30/18 were negative, with repeat blood cultures obtained on 10/04/2018 pending. - Sputum cultures pending, shows yeast - Continue vancomycin, Zosyn and doxycycline, day 8 of antibiotic therapy. - Continues to have respiratory alkalosis, continue ventilation setting to decrease barotrauma. Qualifiers: Pneumonia type: due to unspecified organism Laterality: right Lung location: unspecified part of lung Qualified Code(s): J18.9 - Pneumonia, unspecified organism (3) Acute exacerbation of CHF (congestive heart failure) Current Visit: Yes Status: Acute Likely exacerbation secondary to fluid overload, BNP at admission was 856 Presented to the ED complaining of worsening shortness of breath does have history of CHF with EF of 35% one year ago on echo. Repeat echocardiogram significant for ejection fraction of 15%. - Continue telemetry. - Continue to monitor intake and output. - Continue rate control with BB Qualifiers: Heart failure type: systolic Qualified Code(s): I50.23 - Acute on chronic systolic (congestive) heart failure (4) Acute respiratory failure with hypoxia Current Visit: Yes Status: Acute Acute respiratory failure with hypoxia likely secondary to pneumonia and CHF exacerbation MRSA swab is positive; respiratory panel was negative. - Continue to treat pneumonia with broad-spectrum antimicrobial therapy of vancomycin, zosyn, and doxycycline. - Repeat blood cultures and urine cultures pending. - Maintained low tidal volume to minimize barotrauma. (5) Septic shock Current Visit: Yes Status: Acute Septic shock likely secondary to infectious versus cardiogenic. First set of blood cultures on 09/30/18 negative for growth. - Continue IV antibiotics, currently MRSA nasal swab as detailed above. - Continue pressor support with titration as appropriate - stopped steroids yesterday, no singificant change in WBC - due to continued encephalopathy, consider CT tomorrow. 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 CTA of the chest also shows cirrhosis. Patient reportedly had a small amount of coffee-ground emesis with bright red blood mixture in OG tube 4 days ago. Has history of hepatitis B and hepatitis C. LFTs have been elevated during admission; however, these have been trending down over the last few days. -Continue IV Protonix 40 mg BID. Continue to monitor and trend LFTs. - will increase lactulose as patient remains encephalopathic despite stopping sedation - No bowel movements will continue to increase lactulose (7) DVT prophylaxis Current Visit: No Status: Acute - SCDs. Subjective Principal diagnosis: Septic shock secondary to pneumonia complicated by worsening of systolic he Interval history: Patient is currently intubated, on ventilation. Patient will respond to voice, however does not follow commands at this point in time. Patient is currently off all sedation. Objective PUL Vital signs: Last Vital Signs Temp 97.5 F L 10/07/18 08:05 Pulse 101 10/07/18 09:00 Resp 11 10/07/18 09:00 BP 127/99 10/07/18 09:00 Pulse Ox 92 10/07/18 09:00 General appearance: no acute distress Eyes: nonicteric ENT: oropharynx dry Effort: normal Cardiovascular: regular rate and rhythm Gastrointestinal: normoactive bowel sounds, non-tender Extremities: pink and warm, pulses normal unable to assess due to mental status, other (Patient currently unresponsive to all commands, no active movement) Ventilator Settings Ventilator Settings: Ventilator Settings, Last 8 Hours Ventilator Tidal Volume 400 Setting Ventilator Tidal Volume 400 Setting Ventilator Tidal Volume 400 Setting Ventilator Tidal Volume 400 Setting Ventilator Tidal Volume 400 Setting Ventilator Tidal Volume 400 Setting Ventilator Tidal Volume 400 Setting Ventilator Tidal Volume 400 Setting Ventilator Tidal Volume 400 Setting Ventilator Tidal Volume 400 Setting Ventilator Tidal Volume 400 Setting Ventilator Respiratory Rate 18 Setting Ventilator Respiratory Rate 18 Setting Ventilator Respiratory Rate 18 Setting Ventilator Respiratory Rate 18 Setting Ventilator Respiratory Rate 18 Setting Ventilator Respiratory Rate 18 Setting Ventilator Respiratory Rate 18 Setting Ventilator Respiratory Rate 18 Setting Ventilator Respiratory Rate 18 Setting Ventilator Respiratory Rate 18 Setting Ventilator Respiratory Rate 18 Setting Actual Respiratory Rate 11 Actual Respiratory Rate 14 Actual Respiratory Rate 20 Actual Respiratory Rate 19 Actual Respiratory Rate 19 Actual Respiratory Rate 20 Actual Respiratory Rate 19 Actual Respiratory Rate 21 Actual Respiratory Rate 19 Actual Respiratory Rate 21 Actual Respiratory Rate 22 Actual Respiratory Rate 25 Positive End Expiratory 8 Pressure Positive End Expiratory 8 Pressure Positive End Expiratory 8 Pressure Positive End Expiratory 8 Pressure Positive End Expiratory 8 Pressure Positive End Expiratory 8 Pressure Positive End Expiratory 8 Pressure Positive End Expiratory 8 Pressure Positive End Expiratory 8 Pressure Positive End Expiratory 8 Pressure Positive End Expiratory 8 Pressure Positive End Expiratory 8 Pressure Positive End Expiratory 8 Pressure Peak Inspiratory Airway 18 Pressure Peak Inspiratory Airway 18 Pressure Peak Inspiratory Airway 22 Pressure Peak Inspiratory Airway 33 Pressure Peak Inspiratory Airway 23 Pressure Peak Inspiratory Airway 19 Pressure Peak Inspiratory Airway 28 Pressure Peak Inspiratory Airway 31 Pressure Peak Inspiratory Airway 29 Pressure Peak Inspiratory Airway 13 Pressure Peak Inspiratory Airway 13 Pressure Peak Inspiratory Airway 12 Pressure Results - Laboratory Findings CBC and BMP: 10/07/18 04:15 10/07/18 04:15 ABG ABG pH 7.43 pH Units (7.32-7.45) 10/07/18 04:58 ABG pCO2 43 mmHg (35-45) 10/07/18 04:58 ABG pO2 56 mmHg (85-104) L 10/07/18 04:58 ABG O2 Saturation 89 % (95-98) L 10/07/18 04:58 PT/INR, D-dimer PT 25.8 Seconds (9.4-12.1) H 10/07/18 04:15 Abnormal lab findings: Abnormal lab results WBC 29.3 K/mcL (4.3-11.1) H 10/07/18 04:15 RBC 3.78 M/mcL (3.82-4.97) L 10/05/18 03:45 Hct 35.0 % (35.3-44.9) L 10/05/18 03:45 MCHC 31.1 g/dL (31.6-35.5) L 10/01/18 04:10 RDW 22.0 % (11.5-14.5) H 10/07/18 04:15 Plt Count 61 K/mcL (140-400) L D 10/07/18 04:15 MPV 12.6 fL (9.4-12.4) H 10/07/18 04:15 14.0 % (0-4) H 10/02/18 03:35 2.0 % (0) H 10/01/18 04:10 24.2 K/mcL (1.6-8.9) H 10/07/18 04:15 0.5 K/mcL (0.6-4.6) L 10/02/18 03:35 2.9 K/mcL (0.0-1.3) H 10/07/18 04:15 Nucleated RBCs/100 WBC 0.5 /100 WBC (0) H 10/07/18 04:15 Present (Not Present) A 10/02/18 03:35 Decreased (Normal) L 10/07/18 04:15 Immature Plt Fraction 10.6 % (1.1-6.1) H 10/06/18 03:35 1+ (Not Present) A 10/03/18 03:25 2+ (Not Present) A 10/03/18 03:25 Present (Not Present) A 10/03/18 03:25 Present (Not Present) A 10/03/18 03:25 1+ (Not Present) A 10/02/18 03:35 Acanthocytes (Spur) 2+ (Not Present) A 10/02/18 03:35 PT 25.8 Seconds (9.4-12.1) H 10/07/18 04:15 104 mg/dL (169-393) L 10/04/18 13:40 ABG pH 7.48 pH Units (7.32-7.45) H 10/04/18 04:53 ABG pCO2 31 mmHg (35-45) L 10/04/18 04:53 ABG pO2 56 mmHg (85-104) L 10/07/18 04:58 ABG HCO3 29 mEq/L (21-27) H 10/07/18 04:58 ABG Total CO2 30 mEq/L (20-26) H 10/07/18 04:58 ABG O2 Saturation 89 % (95-98) L 10/07/18 04:58 ABG Base Excess 4 mEq/L (-2 to 3) H 10/07/18 04:58 Sodium 135 mEq/L (136-145) L 10/02/18 03:35 Potassium 3.3 mEq/L (3.5-5.1) L D 10/02/18 03:35 Chloride 108 mEq/L (98-107) H 10/06/18 03:35 Carbon Dioxide 22 mEq/L (23-29) L 10/02/18 03:35 BUN 61 mg/dL (6-20) H 10/07/18 04:15 1.91 mg/dL (0.60-1.20) H 10/01/18 13:55 Est GFR ( Amer) 33 (> 60) L 10/01/18 13:55 Est GFR (Non-Af Amer) 59 (> 60) L 10/04/18 03:45 64 (6-26) H 10/07/18 04:15 Glucose 217 mg/dL (70-105) H 10/07/18 04:15 POC Glucose 173 mg/dL (70-99) H 10/07/18 00:06 322 (280-300) H 10/07/18 04:15 Lactic Acid 3.1 mmol/L (0.5-2.2) H 10/02/18 13:00 Calcium 7.5 mg/dL (8.6-10.3) L 10/05/18 03:45 Magnesium 1.4 mg/dL (1.6-2.6) L 09/30/18 04:00 2.8 mg/dL (0.3-1.0) H 10/07/18 04:15 1.4 mg/dL (0.0-0.2) H 10/07/18 04:15 1.4 mg/dL (0.0-1.2) H 10/07/18 04:15 AST 105 Units/L (13-39) H 10/07/18 04:15 ALT 322 Units/L (7-52) H 10/07/18 04:15 164 Units/L (34-104) H 10/07/18 04:15 94 mcmol/L (16-53) H 10/06/18 18:25 550 Units/L (140-271) H 10/04/18 13:40 0.06 ng/mL (< 0.04) H* 10/01/18 20:10 B-Natriuretic Peptide 856 pg/mL (Less than 100) H 09/30/18 04:00 5.2 g/dL (6.4-8.9) L 10/07/18 04:15 2.2 g/dL (3.5-5.7) L 10/07/18 04:15 3.6 g/dL (2.4-3.5) H 10/01/18 13:55 0.7 (1.1-2.2) L 10/07/18 04:15 7.75 ng/mL (0.00-0.15) H 09/30/18 14:51 [place] (Yellow) A 10/03/18 03:50 Cloudy (Clear) A 10/03/18 03:50 Ur Specific [place] > 1.030 (1.010-1.025) H 10/03/18 03:50 100 mg/dL (Neg-Trace) H 10/03/18 03:50 Trace mg/dL (Negative) H 10/03/18 03:50 Large (Negative) H 10/03/18 03:50 Moderate (Negative) H 10/03/18 03:50 Ur Leukocyte Esterase Small (Negative) H 10/03/18 03:50 TNTC per hpf (0-3) H 10/03/18 03:50 30-50 per hpf (0-3) H 10/03/18 03:50 Ur Squamous Epith Cells Many per lpf (None-Few) H 10/03/18 03:50 Positive (Negative) A 09/30/18 11:20 Vancomycin Trough 13 mcg/mL (5-10) H 10/07/18 04:15 14 IU/mL (Less than 14) H 10/03/18 03:25 - Microbiology Findings Microbiology Findings: Microbiology, Last 48 Hours 10/04/18 08:25 Sputum Culture - Preliminary Aspirate 10/04/18 16:00 Urine Culture - Final Urine,Clean Catch No growth. 09/30/18 05:59 Blood Culture - Final Peripheral Venipuncture No growth. Final report. 09/30/18 05:48 Blood Culture - Final Peripheral Venipuncture No growth. Final report. - Clinical Findings Intake & Output: Intake & Output 10/06/18 10/07/18 10/07/18 23:59 07:59 15:59 Intake Total 530 / 1480 352 / 452 100 / 452 Output Total 475 / 2125 250 / 425 175 / 425 Balance 55 / -645 102 / 27 -75 / 27 Weight 120.5 kg
[2018-10-07] MEDS: Dexmedetomidine HCl 400 MCG/100 ML MLS IVC SCH (12:02)
[2018-10-07] MEDS: FentaNYL (PF) 1,000 MCG in 0.9 % Sodium Chloride 80 ML IVC SCH (12:02)
[2018-10-07] MEDS: Norepinephrine 8 MG in D5% in Water 250 ML IVC SCH (12:02)
[2018-10-07] MEDS: Phenylephrine 50 MG in D5% in Water 250 ML IVC SCH (12:03)
[2018-10-08] MEDS: Artificial Tears SOLN 15 ML BOTTLE BOTH EYES SCH ×3 (00:05→07:47)
[2018-10-08] MEDS: Insulin LISPRO 300 UNITS/3 ML VIAL SQ SCH ×7 (03:16→23:26)
[2018-10-08] MEDS: Levalbuterol Neb 1.25 MG/3 ML IH SCH ×4 (04:04→22:02)
[2018-10-08 04:30] LABS: Eosinophils % 0.1 %; Lymphocytes % 4.6 %; Mean Corpuscular Hemoglobin 30.5 pg (28.0-33.3); Monocytes % 9.4 %
[2018-10-08 04:32] LABS: Basophils # 0.1 K/mcL (0.0-0.2); Basophils % 0.3 %; Hematocrit 37.3 % (35.3-44.9); Immature Granulocytes % 2.1 % (0-4); Immature Platelets 8.3 % (1.1-6.1); Lymphocytes # 1.1 K/mcL (0.6-4.6); Mean Corpuscular HGB Conc 32.2 g/dL (31.6-35.5); Mean Corpuscular Volume 94.7 fL (83.0-100.0); Mean Platelet Volume 11.1 fL (9.4-12.4); Monocytes # 2.2 K/mcL (0.0-1.3); Neutrophils # 19.9 K/mcL (1.6-8.9); Nucleated Red Blood Cells 0.3 /100 WBC (0); Red Blood Count 3.94 M/mcL (3.82-4.97); Segmented Neutrophils % 83.5 %
[2018-10-08 04:42] LABS: Platelet Count 38 K/mcL (140-400)
[2018-10-08 04:48] LABS: Alanine Aminotransferase 252 Units/L (7-52); Albumin/Globulin Ratio 0.7 (1.1-2.2); Alkaline Phosphatase 151 Units/L (34-104); Aspartate Amino Transferase 127 Units/L (13-39); BUN/Creatinine Ratio 61 (6-26); Bilirubin,Direct 1.7 mg/dL (0.0-0.2); Bilirubin,Indirect 1.8 mg/dL (0.0-1.2); Bilirubin,Total 3.5 mg/dL (0.3-1.0); Blood Urea Nitrogen 42 mg/dL (6-20); Calcium 9.2 mg/dL (8.6-10.3); Carbon Dioxide 29 mEq/L (23-29); Chloride 112 mEq/L (98-107); Globulin 2.7 g/dL (2.4-3.5); Glucose 187 mg/dL (70-105); Osmolality,Calculated 317 (280-300); Potassium 3.9 mEq/L (3.5-5.1); Sodium 146 mEq/L (136-145); Total Protein 4.7 g/dL (6.4-8.9); Vancomycin,Random 10 mcg/mL; eGFR For Non-African Americans > 60 (> 60)
[2018-10-08 05:30] LABS: Platelet Estimate Decreased (Normal)
[2018-10-08 05:31] LABS: Anisocytosis 1+ (Not Present); Polychromasia 1+ (Not Present)
[2018-10-08 05:37] LABS: ABG Base Excess 5 mEq/L (-2 to 3); ABG HCO3 31 mEq/L (21-27); ABG Oxygen Saturation 94 % (95-98); ABG PCO2 47 mmHg (35-45); ABG PH 7.42 pH Units (7.32-7.45); ABG PO2 68 mmHg (85-104); ABG TCO2 32 mEq/L (20-26); Blood Gas Modality ASSIST CONTROL; Blood Gas PEEP 8 cm H2O; Blood Gas Respiration Rate 18; Blood Gas VT 400 cc
[2018-10-08] MEDS: Amiodarone Premix 360 MG/200 ML BAG IVC SCH (06:21)
[2018-10-08] MEDS: Pantoprazole 40 MG VIAL IVP SCH ×2 (06:36→17:59)
[2018-10-08] MEDS ORDERED: Aminoglycoside Consult 1 EACH MC ONE (07:14)
[2018-10-08] MEDS: Piperacillin/Tazobactam 3.375 GM in 0.9 % Sodium Chloride Mini Bag 100 ML IVPB SCH ×3 (07:47→23:27)
[2018-10-08] MEDS: Dexmedetomidine HCl 400 MCG/100 ML MLS IVC SCH (07:48)
--- NOTE | 2018-10-08 08:18 | Pulmonology Progress Note ---
<Magen Garcia - Last Filed: 10/08/18 16:57> Date of Encounter: 10/08/18 Time of Encounter: 16:57 Assessment and Plan (1) Atrial fibrillation with RVR Current Visit: Yes Status: Acute History of atrial fibrillation; at presentation was noted to have atrial fibrillation with RVR with heart rate in the 180s. Patient was previously on warfarin at home, but was noted to have a subtherapeutic INR of 1.4. Due to liver function, warfarin has been held; however, INR has remained elevated, with a value of 1.9 on morning laboratory studies. - Continue amio and BB - Continue cardiac monitoring. - Continue to hold anticoagulation at this time given thrombocytopenia (2) Pneumonia Current Visit: Yes Status: Acute Presented to the ED complaining of shortness of breath ongoing for 3 days at admission as well as pain upon inspiration. Was not requiring any oxygen at presentation; however, patient had worsening anxiety with BiPAP and was subsequently intubated in the ED. CT dissection imaging is significant for right lower lobe pneumonia. Nasal MRSA swab is positive, blood cx negative x 5 days - Blood cultures collected on 09/30/18 were negative, with repeat blood cultures obtained on 10/04/2018 NGTD - Sputum cultures pending, shows yeast - Continue Zosyn and doxycycline, day 9 of antibiotic therapy. Stop Vanco - Patient is extubated at this point in time. Respiratory status is stable Qualifiers: Pneumonia type: due to unspecified organism Laterality: right Lung location: unspecified part of lung Qualified Code(s): J18.9 - Pneumonia, unspecified organism (3) Acute exacerbation of CHF (congestive heart failure) Current Visit: Yes Status: Acute Likely exacerbation secondary to fluid overload, BNP at admission was 856 Presented to the ED complaining of worsening shortness of breath does have history of CHF with EF of 35% one year ago on echo. Repeat echocardiogram significant for ejection fraction of 15%. - Continue telemetry. - Continue to monitor intake and output. - Continue rate control with amio/BB Qualifiers: Heart failure type: systolic Qualified Code(s): I50.23 - Acute on chronic systolic (congestive) heart failure (4) Acute respiratory failure with hypoxia Current Visit: Yes Status: Acute Acute respiratory failure with hypoxia likely secondary to pneumonia and CHF exacerbation MRSA swab is positive; respiratory panel was negative. - Continue to treat pneumonia with broad-spectrum antimicrobial therapy of zosyn, and doxycycline. - Repeat blood cultures and urine cultures pending. - Patient currently extubated, as patient is currently stable she will remove to telemetry bed (5) Septic shock Current Visit: Yes Status: Acute Septic shock likely secondary to infectious versus cardiogenic. First set of blood cultures on 09/30/18 negative for growth. - Continue IV antibiotics, currently MRSA nasal swab as detailed above. - Continue pressor support with titration as appropriate - stopped steroids yesterday, no singificant change in WBC - due to continued encephalopathy, we will hold off on CT at this point in time, as patient has had significant decrease in ammonia with some improvement until status. 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 CTA of the chest also shows cirrhosis. Patient reportedly had a small amount of coffee-ground emesis with bright red blood mixture in OG tube 4 days ago. Has history of hepatitis B and hepatitis C. LFTs have been elevated during admission; however, these have been trending down over the last few days. -Continue IV Protonix 40 mg BID. Continue to monitor and trend LFTs. - will increase lactulose as patient remains encephalopathic despite stopping sedation - Patient has had multiple bowel movements at this point, she has not had a decreased in her ammonia, with increased mental status activity (7) DVT prophylaxis Current Visit: No Status: Acute - SCDs. Subjective Principal diagnosis: Septic shock secondary to pneumonia complicated by worsening of systolic he Interval history: Patient was extubated, she will open her eyes to verbal and painful stimuli. She does not provide further information, however she will say hello when she does know her name. Seems to be more alert today. Patient is currently off all sedation. Objective PUL Vital signs: Last Vital Signs Temp 98.5 F 10/08/18 07:26 Pulse 102 10/08/18 07:00 Resp 18 10/08/18 07:23 BP 111/76 10/08/18 07:00 Pulse Ox 96 10/08/18 07:23 General appearance: no acute distress Eyes: nonicteric ENT: oropharynx dry Neck: supple Auscultation: bilateral: rhonchi Cardiovascular: regular rate and rhythm Gastrointestinal: normoactive bowel sounds, soft, non-tender, non-distended Integumentary: normal Extremities: pink and warm, pulses normal, no ischemia or petechiae, edema unable to assess due to mental status Ventilator Settings Ventilator Settings: Ventilator Settings, Last 8 Hours Ventilator Tidal Volume 400 Setting Ventilator Tidal Volume 400 Setting Ventilator Tidal Volume 400 Setting Ventilator Tidal Volume 400 Setting Ventilator Tidal Volume 400 Setting Ventilator Tidal Volume 400 Setting Ventilator Tidal Volume 400 Setting Ventilator Tidal Volume 400 Setting Ventilator Tidal Volume 400 Setting Ventilator Tidal Volume 400 Setting Ventilator Tidal Volume 400 Setting Ventilator Respiratory Rate 18 Setting Ventilator Respiratory Rate 18 Setting Ventilator Respiratory Rate 18 Setting Ventilator Respiratory Rate 18 Setting Ventilator Respiratory Rate 18 Setting Ventilator Respiratory Rate 18 Setting Ventilator Respiratory Rate 18 Setting Ventilator Respiratory Rate 18 Setting Ventilator Respiratory Rate 18 Setting Ventilator Respiratory Rate 18 Setting Ventilator Respiratory Rate 18 Setting Actual Respiratory Rate 15 Actual Respiratory Rate 20 Actual Respiratory Rate 20 Actual Respiratory Rate 21 Actual Respiratory Rate 20 Actual Respiratory Rate 19 Actual Respiratory Rate 20 Actual Respiratory Rate 21 Actual Respiratory Rate 23 Actual Respiratory Rate 24 Actual Respiratory Rate 23 Positive End Expiratory 5 Pressure Positive End Expiratory 8 Pressure Positive End Expiratory 8 Pressure Positive End Expiratory 8 Pressure Positive End Expiratory 8 Pressure Positive End Expiratory 8 Pressure Positive End Expiratory 8 Pressure Positive End Expiratory 8 Pressure Positive End Expiratory 8 Pressure Positive End Expiratory 8 Pressure Positive End Expiratory 8 Pressure Positive End Expiratory 8 Pressure Peak Inspiratory Airway 15 Pressure Peak Inspiratory Airway 24 Pressure Peak Inspiratory Airway 22 Pressure Peak Inspiratory Airway 24 Pressure Peak Inspiratory Airway 20 Pressure Peak Inspiratory Airway 17 Pressure Peak Inspiratory Airway 24 Pressure Peak Inspiratory Airway 18 Pressure Peak Inspiratory Airway 16 Pressure Peak Inspiratory Airway 24 Pressure Peak Inspiratory Airway 20 Pressure Results - Laboratory Findings CBC and BMP: 10/08/18 04:05 10/08/18 04:05 ABG ABG pH 7.42 pH Units (7.32-7.45) 10/08/18 05:34 ABG pCO2 47 mmHg (35-45) H 10/08/18 05:34 ABG pO2 68 mmHg (85-104) L 10/08/18 05:34 ABG O2 Saturation 94 % (95-98) L 10/08/18 05:34 PT/INR, D-dimer PT 25.8 Seconds (9.4-12.1) H 10/07/18 04:15 Abnormal lab findings: Abnormal lab results WBC 23.8 K/mcL (4.3-11.1) H 10/08/18 04:05 RBC 3.78 M/mcL (3.82-4.97) L 10/05/18 03:45 Hct 35.0 % (35.3-44.9) L 10/05/18 03:45 MCHC 31.1 g/dL (31.6-35.5) L 10/01/18 04:10 RDW 22.0 % (11.5-14.5) H 10/08/18 04:05 Plt Count 38 K/mcL (140-400) L 10/08/18 04:05 MPV 12.6 fL (9.4-12.4) H 10/07/18 04:15 14.0 % (0-4) H 10/02/18 03:35 2.0 % (0) H 10/01/18 04:10 19.9 K/mcL (1.6-8.9) H 10/08/18 04:05 0.5 K/mcL (0.6-4.6) L 10/02/18 03:35 2.2 K/mcL (0.0-1.3) H 10/08/18 04:05 Nucleated RBCs/100 WBC 0.3 /100 WBC (0) H 10/08/18 04:05 Present (Not Present) A 10/02/18 03:35 Decreased (Normal) L 10/08/18 04:05 Immature Plt Fraction 8.3 % (1.1-6.1) H 10/08/18 04:05 1+ (Not Present) A 10/08/18 04:05 1+ (Not Present) A 10/08/18 04:05 Present (Not Present) A 10/03/18 03:25 Present (Not Present) A 10/03/18 03:25 1+ (Not Present) A 10/02/18 03:35 Acanthocytes (Spur) 2+ (Not Present) A 10/02/18 03:35 PT 25.8 Seconds (9.4-12.1) H 10/07/18 04:15 104 mg/dL (169-393) L 10/04/18 13:40 ABG pH 7.48 pH Units (7.32-7.45) H 10/04/18 04:53 ABG pCO2 47 mmHg (35-45) H 10/08/18 05:34 ABG pO2 68 mmHg (85-104) L 10/08/18 05:34 ABG HCO3 31 mEq/L (21-27) H 10/08/18 05:34 ABG Total CO2 32 mEq/L (20-26) H 10/08/18 05:34 ABG O2 Saturation 94 % (95-98) L 10/08/18 05:34 ABG Base Excess 5 mEq/L (-2 to 3) H 10/08/18 05:34 Sodium 146 mEq/L (136-145) H 10/08/18 04:05 Potassium 3.3 mEq/L (3.5-5.1) L D 10/02/18 03:35 Chloride 112 mEq/L (98-107) H 10/08/18 04:05 Carbon Dioxide 22 mEq/L (23-29) L 10/02/18 03:35 BUN 42 mg/dL (6-20) H 10/08/18 04:05 1.91 mg/dL (0.60-1.20) H 10/01/18 13:55 Est GFR ( Amer) 33 (> 60) L 10/01/18 13:55 Est GFR (Non-Af Amer) 59 (> 60) L 10/04/18 03:45 61 (6-26) H 10/08/18 04:05 Glucose 187 mg/dL (70-105) H 10/08/18 04:05 POC Glucose 169 mg/dL (70-99) H 10/08/18 00:25 317 (280-300) H 10/08/18 04:05 Lactic Acid 3.1 mmol/L (0.5-2.2) H 10/02/18 13:00 Calcium 7.5 mg/dL (8.6-10.3) L 10/05/18 03:45 Magnesium 1.4 mg/dL (1.6-2.6) L 09/30/18 04:00 3.5 mg/dL (0.3-1.0) H 10/08/18 04:05 1.7 mg/dL (0.0-0.2) H 10/08/18 04:05 1.8 mg/dL (0.0-1.2) H 10/08/18 04:05 AST 127 Units/L (13-39) H 10/08/18 04:05 ALT 252 Units/L (7-52) H 10/08/18 04:05 151 Units/L (34-104) H 10/08/18 04:05 68 mcmol/L (16-53) H 10/07/18 17:50 550 Units/L (140-271) H 10/04/18 13:40 0.06 ng/mL (< 0.04) H* 10/01/18 20:10 B-Natriuretic Peptide 856 pg/mL (Less than 100) H 09/30/18 04:00 4.7 g/dL (6.4-8.9) L 10/08/18 04:05 2.0 g/dL (3.5-5.7) L 10/08/18 04:05 3.6 g/dL (2.4-3.5) H 10/01/18 13:55 0.7 (1.1-2.2) L 10/08/18 04:05 7.75 ng/mL (0.00-0.15) H 09/30/18 14:51 Henniker (Yellow) A 10/03/18 03:50 Cloudy (Clear) A 10/03/18 03:50 Ur Specific Reading > 1.030 (1.010-1.025) H 10/03/18 03:50 100 mg/dL (Neg-Trace) H 10/03/18 03:50 Trace mg/dL (Negative) H 10/03/18 03:50 Large (Negative) H 10/03/18 03:50 Moderate (Negative) H 10/03/18 03:50 Ur Leukocyte Esterase Small (Negative) H 10/03/18 03:50 TNTC per hpf (0-3) H 10/03/18 03:50 30-50 per hpf (0-3) H 10/03/18 03:50 Ur Squamous Epith Cells Many per lpf (None-Few) H 10/03/18 03:50 Positive (Negative) A 09/30/18 11:20 Vancomycin Trough 13 mcg/mL (5-10) H 10/07/18 04:15 14 IU/mL (Less than 14) H 10/03/18 03:25 - Microbiology Findings Microbiology Findings: Microbiology, Last 48 Hours 10/04/18 08:25 Sputum Culture - Preliminary Aspirate Yeast Species - Clinical Findings Intake & Output: Intake & Output 10/07/18 10/08/18 10/08/18 23:59 07:59 15:59 Intake Total 480 / 1359 366 / 366 Output Total 550 / 1225 1350 / 1350 Balance -70 / 134 -984 / -984 Weight 122.1 kg Consult Discharge Plan - Plan Referrals: NONE,PCP [Primary Care Provider] - <Jo Ann Boyle - Last Filed: 10/08/18 17:43> Date of Encounter: 10/08/18 Objective PUL Vital signs: Last Vital Signs Temp 97.6 F 10/08/18 16:02 Pulse 111 10/08/18 13:00 Resp 26 10/08/18 13:00 BP 118/75 10/08/18 13:00 Pulse Ox 91 10/08/18 13:00 Ventilator Settings Ventilator Settings: Ventilator Settings, Last 8 Hours Actual Respiratory Rate 18 Positive End Expiratory 5 Pressure Peak Inspiratory Airway 15 Pressure Results - Laboratory Findings CBC and BMP: 10/08/18 04:05 10/08/18 04:05 ABG ABG pH 7.42 pH Units (7.32-7.45) 10/08/18 05:34 ABG pH 7.42 pH Units (7.32-7.45) 10/08/18 05:34 ABG pH 7.42 pH Units (7.32-7.45) 10/08/18 05:34 ABG pCO2 47 mmHg (35-45) H 10/08/18 05:34 ABG pCO2 47 mmHg (35-45) H 10/08/18 05:34 ABG pCO2 47 mmHg (35-45) H 10/08/18 05:34 ABG pO2 68 mmHg (85-104) L 10/08/18 05:34 ABG pO2 68 mmHg (85-104) L 10/08/18 05:34 ABG pO2 68 mmHg (85-104) L 10/08/18 05:34 ABG O2 Saturation 94 % (95-98) L 10/08/18 05:34 ABG O2 Saturation 94 % (95-98) L 10/08/18 05:34 ABG O2 Saturation 94 % (95-98) L 10/08/18 05:34 PT/INR, D-dimer PT 25.8 Seconds (9.4-12.1) H 10/07/18 04:15 Abnormal lab findings: Abnormal lab results WBC 23.8 K/mcL (4.3-11.1) H 10/08/18 04:05 RBC 3.78 M/mcL (3.82-4.97) L 10/05/18 03:45 Hct 35.0 % (35.3-44.9) L 10/05/18 03:45 MCHC 31.1 g/dL (31.6-35.5) L 10/01/18 04:10 RDW 22.0 % (11.5-14.5) H 10/08/18 04:05 Plt Count 38 K/mcL (140-400) L 10/08/18 04:05 MPV 12.6 fL (9.4-12.4) H 10/07/18 04:15 14.0 % (0-4) H 10/02/18 03:35 2.0 % (0) H 10/01/18 04:10 19.9 K/mcL (1.6-8.9) H 10/08/18 04:05 0.5 K/mcL (0.6-4.6) L 10/02/18 03:35 2.2 K/mcL (0.0-1.3) H 10/08/18 04:05 Nucleated RBCs/100 WBC 0.3 /100 WBC (0) H 10/08/18 04:05 Present (Not Present) A 10/02/18 03:35 Decreased (Normal) L 10/08/18 04:05 Immature Plt Fraction 8.3 % (1.1-6.1) H 10/08/18 04:05 1+ (Not Present) A 10/08/18 04:05 1+ (Not Present) A 10/08/18 04:05 Present (Not Present) A 10/03/18 03:25 Present (Not Present) A 10/03/18 03:25 1+ (Not Present) A 10/02/18 03:35 Acanthocytes (Spur) 2+ (Not Present) A 10/02/18 03:35 PT 25.8 Seconds (9.4-12.1) H 10/07/18 04:15 104 mg/dL (169-393) L 10/04/18 13:40 ABG pH 7.48 pH Units (7.32-7.45) H 10/04/18 04:53 ABG pCO2 47 mmHg (35-45) H 10/08/18 05:34 ABG pCO2 47 mmHg (35-45) H 10/08/18 05:34 ABG pCO2 47 mmHg (35-45) H 10/08/18 05:34 ABG pO2 68 mmHg (85-104) L 10/08/18 05:34 ABG pO2 68 mmHg (85-104) L 10/08/18 05:34 ABG pO2 68 mmHg (85-104) L 10/08/18 05:34 ABG HCO3 31 mEq/L (21-27) H 10/08/18 05:34 ABG HCO3 31 mEq/L (21-27) H 10/08/18 05:34 ABG HCO3 31 mEq/L (21-27) H 10/08/18 05:34 ABG Total CO2 32 mEq/L (20-26) H 10/08/18 05:34 ABG Total CO2 32 mEq/L (20-26) H 10/08/18 05:34 ABG Total CO2 32 mEq/L (20-26) H 10/08/18 05:34 ABG O2 Saturation 94 % (95-98) L 10/08/18 05:34 ABG O2 Saturation 94 % (95-98) L 10/08/18 05:34 ABG O2 Saturation 94 % (95-98) L 10/08/18 05:34 ABG Base Excess 5 mEq/L (-2 to 3) H 10/08/18 05:34 ABG Base Excess 5 mEq/L (-2 to 3) H 10/08/18 05:34 ABG Base Excess 5 mEq/L (-2 to 3) H 10/08/18 05:34 Sodium 146 mEq/L (136-145) H 10/08/18 04:05 Potassium 3.3 mEq/L (3.5-5.1) L D 10/02/18 03:35 Chloride 112 mEq/L (98-107) H 10/08/18 04:05 Carbon Dioxide 22 mEq/L (23-29) L 10/02/18 03:35 BUN 42 mg/dL (6-20) H 10/08/18 04:05 1.91 mg/dL (0.60-1.20) H 10/01/18 13:55 Est GFR ( Amer) 33 (> 60) L 10/01/18 13:55 Est GFR (Non-Af Amer) 59 (> 60) L 10/04/18 03:45 61 (6-26) H 10/08/18 04:05 Glucose 187 mg/dL (70-105) H 10/08/18 04:05 POC Glucose 169 mg/dL (70-99) H 10/08/18 00:25 317 (280-300) H 10/08/18 04:05 Lactic Acid 3.1 mmol/L (0.5-2.2) H 10/02/18 13:00 Calcium 7.5 mg/dL (8.6-10.3) L 10/05/18 03:45 Magnesium 1.4 mg/dL (1.6-2.6) L 09/30/18 04:00 3.5 mg/dL (0.3-1.0) H 10/08/18 04:05 1.7 mg/dL (0.0-0.2) H 10/08/18 04:05 1.8 mg/dL (0.0-1.2) H 10/08/18 04:05 AST 127 Units/L (13-39) H 10/08/18 04:05 ALT 252 Units/L (7-52) H 10/08/18 04:05 151 Units/L (34-104) H 10/08/18 04:05 68 mcmol/L (16-53) H 10/07/18 17:50 550 Units/L (140-271) H 10/04/18 13:40 0.06 ng/mL (< 0.04) H* 10/01/18 20:10 B-Natriuretic Peptide 856 pg/mL (Less than 100) H 09/30/18 04:00 4.7 g/dL (6.4-8.9) L 10/08/18 04:05 2.0 g/dL (3.5-5.7) L 10/08/18 04:05 3.6 g/dL (2.4-3.5) H 10/01/18 13:55 0.7 (1.1-2.2) L 10/08/18 04:05 7.75 ng/mL (0.00-0.15) H 09/30/18 14:51 Henniker (Yellow) A 10/03/18 03:50 Cloudy (Clear) A 10/03/18 03:50 Ur Specific Reading > 1.030 (1.010-1.025) H 10/03/18 03:50 100 mg/dL (Neg-Trace) H 10/03/18 03:50 Trace mg/dL (Negative) H 10/03/18 03:50 Large (Negative) H 10/03/18 03:50 Moderate (Negative) H 10/03/18 03:50 Ur Leukocyte Esterase Small (Negative) H 10/03/18 03:50 TNTC per hpf (0-3) H 10/03/18 03:50 30-50 per hpf (0-3) H 10/03/18 03:50 Ur Squamous Epith Cells Many per lpf (None-Few) H 10/03/18 03:50 Positive (Negative) A 09/30/18 11:20 Vancomycin Trough 13 mcg/mL (5-10) H 10/07/18 04:15 14 IU/mL (Less than 14) H 10/03/18 03:25 - Microbiology Findings Microbiology Findings: Microbiology, Last 48 Hours 10/04/18 08:25 Sputum Culture - Preliminary Aspirate Yeast Species - Clinical Findings Intake & Output: Intake & Output 10/08/18 10/08/18 10/08/18 07:59 15:59 23:59 Intake Total 366 / 566 200 / 566 Output Total 1350 / 1900 250 / 1900 300 / 1900 Balance -984 / -1334 -50 / -1334 -300 / -1334 Weight 122.1 kg - Attending Attestation I examined this patient and my medical decision-making was reviewed with the Resident Physician. I agree with the documented findings, disposition and treatment plan as described except to the extent set forth below. Patient seen and examined. Labs, radiology, chart personally reviewed. 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 Pulmonary: Acceptable oxygenation and ventilation and after she had successful spontaneous breathing trial she was successfully extubated. Cardiovascular: stable GI: Nutrition per dietary and GI prophylaxis per routine and continue monitoring Liver function test. Heme: DVT prophylaxis per routine ID: Continue antibiotics and plan to de-escalation Renal; urine out put and renal function reviewed Endorcine: blood glucose is monitored Lines: all lines checked and no evidence of infections Skin: skin care to prevent pressure ulcers per nursing routine care Patient will need physical therapy and if remains stable she will be transferred to the floor.
[2018-10-08] MEDS: Doxycycline 100 MG in 0.9 % Sodium Chloride Mini Bag 100 ML IVPB SCH ×2 (08:32→21:15)
[2018-10-08] MEDS: Chlorhexidine Rinse 15 ML MOUTHWASH MM SCH (08:32)
[2018-10-08] MEDS: Lactulose Oral Soln 20 GM/30 ML UDC PO SCH ×3 (08:33→21:16)
[2018-10-08 10:02] LABS: ABG Base Excess 5 mEq/L (-2 to 3); ABG HCO3 31 mEq/L (21-27); ABG Oxygen Saturation 94 % (95-98); ABG PCO2 47 mmHg (35-45); ABG PH 7.42 pH Units (7.32-7.45); ABG PO2 68 mmHg (85-104); ABG TCO2 32 mEq/L (20-26); Blood Gas Modality ASSIST CONTROL; Blood Gas PEEP 8 cm H2O; Blood Gas Respiration Rate 18; Blood Gas VT 400 cc
[2018-10-08 10:05] LABS: ABG Base Excess 5 mEq/L (-2 to 3); ABG HCO3 31 mEq/L (21-27); ABG Oxygen Saturation 94 % (95-98); ABG PCO2 47 mmHg (35-45); ABG PH 7.42 pH Units (7.32-7.45); ABG PO2 68 mmHg (85-104); ABG TCO2 32 mEq/L (20-26); Blood Gas Modality ASSIST CONTROL; Blood Gas PEEP 8 cm H2O; Blood Gas Respiration Rate 18; Blood Gas VT 400 cc
[2018-10-08] MEDS: FentaNYL (PF) 1,000 MCG in 0.9 % Sodium Chloride 80 ML IVC SCH (11:21)
[2018-10-08] MEDS: Norepinephrine 8 MG in D5% in Water 250 ML IVC SCH (12:06)
[2018-10-08] MEDS: Phenylephrine 50 MG in D5% in Water 250 ML IVC SCH (12:07)
[2018-10-08] MEDS ORDERED: Permethrin Cream Rinse 60 ML LIQUID TP ONE (13:17)
[2018-10-08] MEDS ORDERED: D5% in Water 1,000 ML IVC PRN (19:56)
[2018-10-08] MEDS ORDERED: Amiodarone Premix 360 MG/200 ML BAG IVC SCH (19:56)
[2018-10-08] MEDS ORDERED: *HR* Dextrose 50 % in Water (Syg) 50 ML SYRINGE IVP PRN (19:56)
[2018-10-08] MEDS ORDERED: Ipratropium/Albuterol Neb 3 ML IH PRN (19:56)
[2018-10-08] MEDS ORDERED: Dextrose Gel 15 GM/37.5 ML TUBE PO PRN ×2 (19:56)
[2018-10-08] MEDS ORDERED: Nystatin POWDER 30 GM BOTTLE TP PRN (19:56)
[2018-10-09] MEDS: Insulin LISPRO 300 UNITS/3 ML VIAL SQ SCH ×5 (03:38→20:48)
[2018-10-09] MEDS: Levalbuterol Neb 1.25 MG/3 ML IH SCH ×4 (04:12→22:52)
[2018-10-09] MEDS: Pantoprazole 40 MG VIAL IVP SCH ×2 (05:53→17:47)
--- NOTE | 2018-10-09 08:13 | Internal Med Progress Note ---
Hospitalist Progress Note - Encounter Date of Encounter: 10/09/18 Time of Encounter: 07:42 - Subjective Interval History: Patient seen and examined this morning at bedside. No acute overnight events. Patient now extubated and out of sedation. Alert and oriented 3. Denies any shortness of breath chest pain abdominal pain. Wants to eat. - Exam Vitals: Temp Pulse Resp BP Pulse Ox 98.1 F 97 14 106/73 94 10/09/18 03:52 10/09/18 06:00 10/09/18 06:00 10/09/18 06:00 10/09/18 06:00 Exam: Exam General: In no acute distress. Respiratory exam: coarse breath sounds. no accessory muscle use, rales, rhonchi, wheezes Cardiovascular exam: tachycardia, +S1, +S2. no murmur, gallop, rubs. Has dialysis and Lt IJ TLC GI/Abdominal exam: Non-tender, Non-distended, soft, no peritoneal signs. Cabrera in place Extremities exam: 2+ pedal edema and on b/l UE as well, no calf tenderness. has epcd Neurological exam: CN II-XII intact, AO X3, no focal deficits. Skin exam: No skin rash - Summary of Assessment and Plan Summary of Assessment and Plan: Assessment Acute Afib with RVR Pneumonia Septic shock-resolved Acute on chronic systolic CHF Acute hypoxic respiratory failure Shock liver EMMA-resolved Chronic h/o nonalcoholic cirrhosis Hepatitis B and C Anemia thrombocytopenia Plan - Blood cx NGTD from 09/30/18 and 10/04/18. Urine cx NGTD. sputum aspirate with yeast. c/w empiric zosyn and doxycycline. MRSA positive. Vancomycin stopped after 9 days. Urine antigen negative. Leukocytosis improved - extuabted. saturating well on nasal canula - EMMA resolved. Nephrology signed off. Will remove dialysis catheter. Has good urine output. Will use diuretic intermittently if renal function and BP remain stable. - Coagulopathy likely from liver shock. appears stable. No signs of bleeding. Hold any anticoagulation for now. - On amiodarone which is to be titrated of and start home toprol. Prn metoprolol iv - c/w lactulose for cirrhosis - SCD for dvt prophylaxis. - Time Spent with Patient Total time spent is greater than 50% in coordination of care (as documented) at patient's floor/unit and/or counseling patient: Internal Medicine: Result - Labs CBC & Chem 7: 10/08/18 04:05 10/08/18 04:05 - ABG Interpretation ABG results: ABG ABG pH 7.42 pH Units (7.32-7.45) 10/08/18 05:34 ABG pH 7.42 pH Units (7.32-7.45) 10/08/18 05:34 ABG pH 7.42 pH Units (7.32-7.45) 10/08/18 05:34 ABG pCO2 47 mmHg (35-45) H 10/08/18 05:34 ABG pCO2 47 mmHg (35-45) H 10/08/18 05:34 ABG pCO2 47 mmHg (35-45) H 10/08/18 05:34 ABG pO2 68 mmHg (85-104) L 10/08/18 05:34 ABG pO2 68 mmHg (85-104) L 10/08/18 05:34 ABG pO2 68 mmHg (85-104) L 10/08/18 05:34 ABG O2 Saturation 94 % (95-98) L 10/08/18 05:34 ABG O2 Saturation 94 % (95-98) L 10/08/18 05:34 ABG O2 Saturation 94 % (95-98) L 10/08/18 05:34 PT/INR, D-dimer PT 25.8 Seconds (9.4-12.1) H 10/07/18 04:15 - Impressions Impressions Chest X-Ray 10/09/18 02:23 IMPRESSION: Right basilar pleuroparenchymal disease has improved as compared to prior. Left basilar pleuroparenchymal disease is not significantly changed. Background pulmonary vascular congestion. D/ / Ramu Levy MD / Ramu Levy MD Interpreting Provider: Ramu Levy MD Consult Discharge Plan - Plan Referrals: NONE,PCP [Primary Care Provider] -
[2018-10-09] MEDS: Piperacillin/Tazobactam 3.375 GM in 0.9 % Sodium Chloride Mini Bag 100 ML IVPB SCH ×2 (08:39→16:31)
[2018-10-09] MEDS: Lactulose Oral Soln 20 GM/30 ML UDC PO SCH ×4 (08:39→21:14)
[2018-10-09] MEDS: Doxycycline 100 MG in 0.9 % Sodium Chloride Mini Bag 100 ML IVPB SCH ×2 (08:39→20:47)
[2018-10-09] MEDS: Metoprolol XL (24 HR) Succ 25 MG TAB.ER.24H PO SCH ×2 (08:44→20:47)
[2018-10-09] MEDS ORDERED: Ibuprofen 400 MG TABLET PO ONE (14:02)
[2018-10-09] MEDS ORDERED: *HR* Metoprolol 5 MG/5 ML VIAL IVP PRN (17:15)
--- NOTE | 2018-10-09 17:53 | Pulmonology Progress Note ---
Date of Encounter: 10/09/18 Time of Encounter: 07:25 Assessment and Plan (1) Acute exacerbation of chronic obstructive pulmonary disease (COPD) Current Visit: No Status: Suspected Continue current bronchodilators. Complete course of the antibiotics. Stop amiodarone and transition to home medication beta blockers. Discussed with primary team. Encourage incentive spirometry and patient is waiting for bed to go to the floor since she is getting better and physical therapy and mobilization is important. Patient can follow up as outpatient if needed for COPD management. Please call for any questions. Subjective Principal diagnosis: Septic shock secondary to pneumonia complicated by worsening of systolic he Interval history: Patient is overall making some improvement and denies any complains this morning. Objective PUL Vital signs: Last Vital Signs Temp 98.4 F 10/09/18 17:05 Pulse 104 10/09/18 17:05 Resp 16 10/09/18 17:05 BP 112/76 10/09/18 17:05 Pulse Ox 93 10/09/18 17:05 General appearance: no acute distress Eyes: nonicteric ENT: oropharynx dry Neck: supple Effort: normal Auscultation: bilateral: rhonchi Gastrointestinal: non-distended Extremities: no cyanosis, edema non-focal exam mood appropriate Results - Laboratory Findings CBC and BMP: 10/12/18 01:40 10/12/18 01:40 ABG ABG pH 7.42 pH Units (7.32-7.45) 10/08/18 05:34 ABG pH 7.42 pH Units (7.32-7.45) 10/08/18 05:34 ABG pH 7.42 pH Units (7.32-7.45) 10/08/18 05:34 ABG pCO2 47 mmHg (35-45) H 10/08/18 05:34 ABG pCO2 47 mmHg (35-45) H 10/08/18 05:34 ABG pCO2 47 mmHg (35-45) H 10/08/18 05:34 ABG pO2 68 mmHg (85-104) L 10/08/18 05:34 ABG pO2 68 mmHg (85-104) L 10/08/18 05:34 ABG pO2 68 mmHg (85-104) L 10/08/18 05:34 ABG O2 Saturation 94 % (95-98) L 10/08/18 05:34 ABG O2 Saturation 94 % (95-98) L 10/08/18 05:34 ABG O2 Saturation 94 % (95-98) L 10/08/18 05:34 PT/INR, D-dimer PT 25.8 Seconds (9.4-12.1) H 10/07/18 04:15 Abnormal lab findings: Abnormal lab results WBC 23.8 K/mcL (4.3-11.1) H 10/08/18 04:05 RBC 3.78 M/mcL (3.82-4.97) L 10/05/18 03:45 Hct 35.0 % (35.3-44.9) L 10/05/18 03:45 MCHC 31.1 g/dL (31.6-35.5) L 10/01/18 04:10 RDW 22.0 % (11.5-14.5) H 10/08/18 04:05 Plt Count 38 K/mcL (140-400) L 10/08/18 04:05 MPV 12.6 fL (9.4-12.4) H 10/07/18 04:15 14.0 % (0-4) H 10/02/18 03:35 2.0 % (0) H 10/01/18 04:10 19.9 K/mcL (1.6-8.9) H 10/08/18 04:05 0.5 K/mcL (0.6-4.6) L 10/02/18 03:35 2.2 K/mcL (0.0-1.3) H 10/08/18 04:05 Nucleated RBCs/100 WBC 0.3 /100 WBC (0) H 10/08/18 04:05 Present (Not Present) A 10/02/18 03:35 Decreased (Normal) L 10/08/18 04:05 Immature Plt Fraction 8.3 % (1.1-6.1) H 10/08/18 04:05 1+ (Not Present) A 10/08/18 04:05 1+ (Not Present) A 10/08/18 04:05 Present (Not Present) A 10/03/18 03:25 Present (Not Present) A 10/03/18 03:25 1+ (Not Present) A 10/02/18 03:35 Acanthocytes (Spur) 2+ (Not Present) A 10/02/18 03:35 PT 25.8 Seconds (9.4-12.1) H 10/07/18 04:15 104 mg/dL (169-393) L 10/04/18 13:40 ABG pH 7.48 pH Units (7.32-7.45) H 10/04/18 04:53 ABG pCO2 47 mmHg (35-45) H 10/08/18 05:34 ABG pCO2 47 mmHg (35-45) H 10/08/18 05:34 ABG pCO2 47 mmHg (35-45) H 10/08/18 05:34 ABG pO2 68 mmHg (85-104) L 10/08/18 05:34 ABG pO2 68 mmHg (85-104) L 10/08/18 05:34 ABG pO2 68 mmHg (85-104) L 10/08/18 05:34 ABG HCO3 31 mEq/L (21-27) H 10/08/18 05:34 ABG HCO3 31 mEq/L (21-27) H 10/08/18 05:34 ABG HCO3 31 mEq/L (21-27) H 10/08/18 05:34 ABG Total CO2 32 mEq/L (20-26) H 10/08/18 05:34 ABG Total CO2 32 mEq/L (20-26) H 10/08/18 05:34 ABG Total CO2 32 mEq/L (20-26) H 10/08/18 05:34 ABG O2 Saturation 94 % (95-98) L 10/08/18 05:34 ABG O2 Saturation 94 % (95-98) L 10/08/18 05:34 ABG O2 Saturation 94 % (95-98) L 10/08/18 05:34 ABG Base Excess 5 mEq/L (-2 to 3) H 10/08/18 05:34 ABG Base Excess 5 mEq/L (-2 to 3) H 10/08/18 05:34 ABG Base Excess 5 mEq/L (-2 to 3) H 10/08/18 05:34 Sodium 146 mEq/L (136-145) H 10/08/18 04:05 Potassium 3.3 mEq/L (3.5-5.1) L D 10/02/18 03:35 Chloride 112 mEq/L (98-107) H 10/08/18 04:05 Carbon Dioxide 22 mEq/L (23-29) L 10/02/18 03:35 BUN 42 mg/dL (6-20) H 10/08/18 04:05 1.91 mg/dL (0.60-1.20) H 10/01/18 13:55 Est GFR ( Amer) 33 (> 60) L 10/01/18 13:55 Est GFR (Non-Af Amer) 59 (> 60) L 10/04/18 03:45 61 (6-26) H 10/08/18 04:05 Glucose 187 mg/dL (70-105) H 10/08/18 04:05 POC Glucose 120 mg/dL (70-99) H 10/08/18 23:26 317 (280-300) H 10/08/18 04:05 Lactic Acid 3.1 mmol/L (0.5-2.2) H 10/02/18 13:00 Calcium 7.5 mg/dL (8.6-10.3) L 10/05/18 03:45 Magnesium 1.4 mg/dL (1.6-2.6) L 09/30/18 04:00 3.5 mg/dL (0.3-1.0) H 10/08/18 04:05 1.7 mg/dL (0.0-0.2) H 10/08/18 04:05 1.8 mg/dL (0.0-1.2) H 10/08/18 04:05 AST 127 Units/L (13-39) H 10/08/18 04:05 ALT 252 Units/L (7-52) H 10/08/18 04:05 151 Units/L (34-104) H 10/08/18 04:05 68 mcmol/L (16-53) H 10/07/18 17:50 550 Units/L (140-271) H 10/04/18 13:40 0.06 ng/mL (< 0.04) H* 10/01/18 20:10 B-Natriuretic Peptide 856 pg/mL (Less than 100) H 09/30/18 04:00 4.7 g/dL (6.4-8.9) L 10/08/18 04:05 2.0 g/dL (3.5-5.7) L 10/08/18 04:05 3.6 g/dL (2.4-3.5) H 10/01/18 13:55 0.7 (1.1-2.2) L 10/08/18 04:05 7.75 ng/mL (0.00-0.15) H 09/30/18 14:51 Turner (Yellow) A 10/03/18 03:50 Cloudy (Clear) A 10/03/18 03:50 Ur Specific [place] > 1.030 (1.010-1.025) H 10/03/18 03:50 100 mg/dL (Neg-Trace) H 10/03/18 03:50 Trace mg/dL (Negative) H 10/03/18 03:50 Large (Negative) H 10/03/18 03:50 Moderate (Negative) H 10/03/18 03:50 Ur Leukocyte Esterase Small (Negative) H 10/03/18 03:50 TNTC per hpf (0-3) H 10/03/18 03:50 30-50 per hpf (0-3) H 10/03/18 03:50 Ur Squamous Epith Cells Many per lpf (None-Few) H 10/03/18 03:50 Positive (Negative) A 09/30/18 11:20 Vancomycin Trough 13 mcg/mL (5-10) H 10/07/18 04:15 14 IU/mL (Less than 14) H 10/03/18 03:25 - Microbiology Findings Microbiology Findings: Microbiology, Last 48 Hours 10/04/18 16:48 Blood Culture - Final Peripheral Venipuncture No growth. Final report. 10/04/18 16:48 Blood Culture - Final Peripheral Venipuncture No growth. Final report. 10/04/18 08:25 Sputum Culture - Final Aspirate Zaida tropicalis - Clinical Findings Intake & Output: Intake & Output 10/09/18 10/09/18 10/09/18 07:59 15:59 23:59 Intake Total 100 / 580 480 / 580 0 / 580 Output Total 700 / 850 150 / 850 0 / 850 Balance -600 / -270 330 / -270 0 / -270 Weight 126.6 kg 123.6 kg Consult Discharge Plan - Plan Referrals: NONE,PCP [Primary Care Provider] -
[2018-10-10] MEDS: Levalbuterol Neb 1.25 MG/3 ML IH SCH ×4 (03:54→22:22)
[2018-10-10] MEDS: Insulin LISPRO 300 UNITS/3 ML VIAL SQ SCH ×6 (04:28→20:43)
[2018-10-10] MEDS: Piperacillin/Tazobactam 3.375 GM in 0.9 % Sodium Chloride Mini Bag 100 ML IVPB SCH ×3 (04:33→18:16)
[2018-10-10] MEDS: Pantoprazole 40 MG VIAL IVP SCH ×2 (04:34→18:16)
[2018-10-10 07:45] LABS: BUN/Creatinine Ratio 49 (6-26); Blood Urea Nitrogen 26 mg/dL (6-20); Calcium 9.3 mg/dL (8.6-10.3); Carbon Dioxide 34 mEq/L (23-29); Chloride 106 mEq/L (98-107); Glucose 112 mg/dL (70-105); Osmolality,Calculated 296 (280-300); Sodium 140 mEq/L (136-145); eGFR For Non-African Americans > 60 (> 60)
[2018-10-10 07:48] LABS: Basophils % 0.2 %; Eosinophils % 0.8 %; Mean Corpuscular Hemoglobin 30.7 pg (28.0-33.3); Nucleated Red Blood Cells 0.1 /100 WBC (0); Red Cell Distribution Width 21.6 % (11.5-14.5)
[2018-10-10 07:49] LABS: Eosinophils # 0.2 K/mcL (0.0-0.6); Hematocrit 38.5 % (35.3-44.9); Hemoglobin 12.3 g/dL (11.5-15.4); Immature Granulocytes % 1.3 % (0-4); Immature Platelets 10.2 % (1.1-6.1); Lymphocytes # 1.8 K/mcL (0.6-4.6); Lymphocytes % 8.2 %; Mean Corpuscular HGB Conc 31.9 g/dL (31.6-35.5); Mean Platelet Volume 11.2 fL (9.4-12.4); Monocytes # 2.3 K/mcL (0.0-1.3); Monocytes % 10.1 %; Neutrophils # 17.8 K/mcL (1.6-8.9); Red Blood Count 4.01 M/mcL (3.82-4.97); Segmented Neutrophils % 79.4 %
[2018-10-10 08:07] LABS: Platelet Count 52 K/mcL (140-400)
[2018-10-10 08:14] LABS: INR 1.8; Prothrombin Time 20.6 Seconds (9.4-12.1)
[2018-10-10] MEDS: Metoprolol XL (24 HR) Succ 25 MG TAB.ER.24H PO SCH ×2 (09:24→20:51)
[2018-10-10] MEDS: Doxycycline 100 MG in 0.9 % Sodium Chloride Mini Bag 100 ML IVPB SCH ×2 (09:25→20:49)
[2018-10-10] MEDS: Lactulose Oral Soln 20 GM/30 ML UDC PO SCH ×3 (09:28→20:51)
[2018-10-10] MEDS ORDERED: Furosemide 20 MG/2 ML VIAL IVP ONE (09:56)
[2018-10-10 11:04] LABS: Alanine Aminotransferase 138 Units/L (7-52); Albumin 1.9 g/dL (3.5-5.7); Albumin/Globulin Ratio 0.7 (1.1-2.2); Alkaline Phosphatase 163 Units/L (34-104); Aspartate Amino Transferase 61 Units/L (13-39); Bilirubin,Total 3.5 mg/dL (0.3-1.0); Globulin 2.7 g/dL (2.4-3.5); Total Protein 4.6 g/dL (6.4-8.9)
--- NOTE | 2018-10-10 13:54 | Internal Med Progress Note ---
Hospitalist Progress Note - Encounter Date of Encounter: 10/10/18 Time of Encounter: 11:52 - Subjective Interval History: Patient seen and examined this morning in the center. No acute overnight events. Patient denies any chest pain, difficulty breathing, abdominal pain nausea vomiting or diarrhea. Complains of arm and leg swelling. - Exam Vitals: Temp Pulse Resp BP Pulse Ox 99.8 F H 82 18 94/70 94 10/10/18 08:46 10/10/18 08:46 10/10/18 10:51 10/10/18 08:46 10/10/18 10:51 Exam: Exam General: In no acute distress. Respiratory exam: coarse breath sounds. Cardiovascular exam: RRR +S1, +S2. no murmur, gallop, rubs. GI/Abdominal exam: Non-tender, Non-distended, soft, no peritoneal signs. Cabrera in place Extremities exam: 2+ pedal edema and on b/l UE and LE as well, no calf tenderness. has epcd Neurological exam: CN II-XII intact, AO X3, no focal deficits. Skin exam: No skin rash - Summary of Assessment and Plan Summary of Assessment and Plan: Assessment Acute Afib with RVR Pneumonia Septic shock-resolved Acute on chronic systolic CHF Acute hypoxic respiratory failure Shock liver EMMA-resolved toxic metabolic encephelopathy-resolved. Cardiomyopathy Chronic h/o nonalcoholic cirrhosis Hepatitis B and C Anemia thrombocytopenia Plan - Blood cx NGTD from 09/30/18 and 10/04/18. Urine cx NGTD. sputum aspirate with yeast, likely contaminant. c/w empiric zosyn and doxycycline. MRSA positive. Vancomycin stopped after 9 days. Urine antigen negative. Leukocytosis improving however still significant. Will consult ID for length of antibiotic therapy. - EMMA resolved. Nephrology signed off. removed dialysis catheter. Has good urine output. Will use diuretic intermittently if renal function and BP remain stable. 20 lasix given today. - Coagulopathy likely from liver shock. Liver function gradually improving. No signs of bleeding. Hold any anticoagulation for now. - On amiodarone which is to be titrated of and start home toprol for afib. Prn metoprolol iv. EF of 15-20% with intermediate diastolic function, mod pulm htn. Will consult to cardio for aicd evaluation. Holding acei/arb because of low BP for now. - c/w lactulose for cirrhosis - SCD for dvt prophylaxis. - Time Spent with Patient Total time spent is greater than 50% in coordination of care (as documented) at patient's floor/unit and/or counseling patient: Internal Medicine: Result - Labs CBC & Chem 7: 10/10/18 07:01 10/10/18 07:01 Labs: Short CBC 10/10/18 Range/Units 07:01 WBC 22.4 H (4.3-11.1) K/mcL Hgb 12.3 (11.5-15.4) g/dL Hct 38.5 (35.3-44.9) % Plt Count 52 L (140-400) K/mcL Neutrophils # 17.8 H (1.6-8.9) K/mcL BMP 10/10/18 07:01 Sodium 140 Potassium 4.0 Chloride 106 Carbon Dioxide 34 H BUN 26 H Creatinine 0.53 L Glucose 112 H Calcium 9.3 Liver Function 10/10/18 Range/Units 07:01 Total Bilirubin 3.5 H (0.3-1.0) mg/dL AST 61 H (13-39) Units/L ALT 138 H (7-52) Units/L Alkaline Phosphatase 163 H (34-104) Units/L Albumin 1.9 L (3.5-5.7) g/dL - ABG Interpretation ABG results: ABG ABG pH 7.42 pH Units (7.32-7.45) 10/08/18 05:34 ABG pH 7.42 pH Units (7.32-7.45) 10/08/18 05:34 ABG pH 7.42 pH Units (7.32-7.45) 10/08/18 05:34 ABG pCO2 47 mmHg (35-45) H 10/08/18 05:34 ABG pCO2 47 mmHg (35-45) H 10/08/18 05:34 ABG pCO2 47 mmHg (35-45) H 10/08/18 05:34 ABG pO2 68 mmHg (85-104) L 10/08/18 05:34 ABG pO2 68 mmHg (85-104) L 10/08/18 05:34 ABG pO2 68 mmHg (85-104) L 10/08/18 05:34 ABG O2 Saturation 94 % (95-98) L 10/08/18 05:34 ABG O2 Saturation 94 % (95-98) L 10/08/18 05:34 ABG O2 Saturation 94 % (95-98) L 10/08/18 05:34 PT/INR, D-dimer PT 20.6 Seconds (9.4-12.1) H 10/10/18 07:01 Consult Discharge Plan - Plan Referrals: NONE,PCP [Primary Care Provider] -
[2018-10-10] MEDS: Acetaminophen 325 MG TABLET PO PRN (14:00)
--- NOTE | 2018-10-10 15:03 | Cardiology Consult Note ---
Date of Encounter: 10/10/18 Time of Encounter: 15:01 Assessment and Plan (1) Cardiomyopathy Current Visit: Yes Status: Chronic TTE 08/2017 EF 35%. TTE this admission EF 15-20%, further reduced. Hospitalized at [facility] 08/2017--Nuclear stress test at that time was negative for ischemia or infarct. Suspect NICMP. Reviewed telemetry. No ventricular arrhythmias noted. Prognosis is guarded. Would recommend considering palliative consult. Continue BB. Unable to add ACEi/ARB d/t hypotension. Repeat TTE in 3 months as outpt to see if EF remains <35%. Not a candidate for ICD implantation during inpt stay. Discussed with Dr. Stone. Lifevest not warranted at this time. Qualifiers: Cardiomyopathy type: unspecified Qualified Code(s): I42.9 - Cardiomyopathy, unspecified (2) A-fib Current Visit: Yes Status: Acute Known A-Fib diagnosed 08/2017. Home meds included Toprol XL 25mg BID. RVR on admission, was on amiodarone gtt since stopped and back on Toprol XL. HR controlled, 12 hr tele AVG HR 88. [id number] (Age, Female). Was on Coumadin prior to admission. However, PLT count as low as 27 this admission. High bleeding risk. Would recommend 81mg ASA only. Qualifiers: Atrial fibrillation type: unspecified Qualified Code(s): I48.91 - Unspecified atrial fibrillation (3) Acute exacerbation of CHF (congestive heart failure) Current Visit: Yes Status: Acute TTE 08/2017 EF 35%. TTE this admission EF 15-20%, further reduced. BNP 856 on admission. CXR this AM Right basilar pleuroparenchymal disease has improved as compared to prior. Left basilar pleuroparenchymal disease is not significantly changed. Background pulmonary vascular congestion. Pt had EMMA with [employer]--off since . Received one time dose IV Lasix this AM. Will add back PO Aldactone. Recommend strict I/Os, Na and fluid restriction, daily weights. Qualifiers: Heart failure type: systolic Qualified Code(s): I50.23 - Acute on chronic systolic (congestive) heart failure Discussion w patient/family: The assessment and plan as outlined above was discussed with the patient and/or family members who expressed understanding and agreement. All questions were answered. Thank you for involving us in the care of your patient. Please call with any questions. I will discuss all the above with Dr. Stone and make changes as necessary. History of Present Illness Consult date: 10/10/18 Consult reason: CHF Chief complaint: dyspnea History of present illness: Ms. Sales is a 58 year old female with PMH of cirrhosis, CHF, atrial fibr illation who presented on 09/30 and intubated for acute respiratory failure/PNA/CHF. EKG showed A. fib with RVR, heart rate in the 180s and she was started on amio gtt--since turned off and back on BB. Found to have EMMA warranted CRRT--has been off since . TTE completed--LVEF 15-20%. Moderately dilated LV. Indeterminate diastolic function. Mildly dilated RV. Moderate RV hypokinesis. Moderate to severe biatrial enlargement. Mild MR. Mild- moderate TR. Moderate phtn. TTE 08/2017 EF was 35%. Stress test at [facility] 08/2017 negative for ischemia or infarct. Cardiology consulted for AICD evaluation. Past Med Surg Social Fam HX - Past Medical History Medical history: atrial fibrillation, cardiomyopathy, cirrhosis, COPD, hepatitis Additional medical history: 4 herniated disks to lower back Psychiatric history: anxiety - Past Surgical History Additional surgical history: tubal ligation. cataracts - Social History Smoking Status: Current every day smoker Smokeless Tobacco Status: No Alcohol use: none Drug use: none - Family History Mother Adopted: No Hx Family Cardiac Disorders: Yes ([place]) Hx Family Respiratory Disorders: Yes (mother, brother, father COPD) Hx Family Cancer: Yes (breast, stomach) Hx Family GI Disorders: No Hx Family Endocrine Disorder: Yes (mother dm) Hx Family Neuromuscular Disorders: No Hx Family Neurologic Disorders: No Hx Family HEENT Disorders: No Hx Family Autoimmune Disorders: No Medications and Allergies Warfarin [Coumadin] 1.25 mg PO SUMOWETHFR 01/10/18 [History] Warfarin [Coumadin] 2.5 mg PO MOWEFR 01/10/18 [History] Metoprolol XL (24 HR) Succ [Toprol Xl] 25 mg PO BID 30 Days #60 tab.er.24h 01/11/18 [Rx] Spironolactone [Aldactone] 50 mg PO DAILY 30 Days #30 tablet 01/11/18 [Rx] Tenofovir Alafenamide Fumarate [Vemlidy] 25 mg PO DAILY 09/30/18 [History] Allergy/AdvReac Type Severity Reaction Status Date / Time No Known Allergies Allergy Verified 12/19/17 21:16 All Systems Review: The remainder of the systems were reviewed and are negative - Cardiovascular Cardiovascular: as per HPI, dyspnea at rest, dyspnea on exertion - Respiratory Respiratory: dyspnea Physical Examination Vital Signs Temp Pulse Resp BP Pulse Ox 10/10/18 10:51 18 94 10/10/18 08:46 99.8 F H 82 20 94/70 94 10/10/18 03:54 18 93 10/10/18 03:42 97.8 F 87 15 113/73 91 10/09/18 23:10 98.7 F 95 18 113/73 95 10/09/18 22:52 18 95 10/09/18 19:41 97.7 F 89 12 110/72 95 10/09/18 17:05 98.4 F 104 16 112/76 93 10/09/18 16:00 97 20 99/70 92 10/09/18 15:22 18 98 Intake and Output 10/09/18 10/10/18 10/10/18 23:59 07:59 15:59 Intake Total 925 / 1505 100 / 700 600 / 700 Output Total 325 / 1175 200 / 200 Balance 600 / 330 -100 / 500 600 / 500 Intake: IV Fluids 200 / 700 100 / 100 Doxycycline 100 MG In 0.9 % 100 / 200 Sodium Chloride (Mini-Bag +) 100 ML @ 100 mls/hr IVPB Q12H [facility] Rx#:[id number] Zosyn 3.375 GM In 0.9 % Sodium 100 / 300 100 / 100 Chloride (Mini-Bag +) 100 ML @ 25 mls/hr IVPB Q8HR [facility] Rx#: [id number] Oral 725 / 805 600 / 600 Output: Urine 325 / 325 Catheter 200 / 200 Other: Meal Lunch Percent of Meal Consumed 25% 25% Stool Size Smear Stool Consistency loose Stool Characteristics Normal for Patient Stool Color Yellow Green # Voids 1 # Bowel Movements 1 1 Weight 123.6 kg 132.1 kg Blood Glucose* 110 89 116 Patient Weight 10/10/18 23:59 Weight 132.1 kg General: Conversant, No Apparent Distress HEENT: Atraumatic, Normocephaly, Mucus Membranes Moist Neck: Normal carotid pulses Cardiac: Other (irregularly irregular) Lungs: Other (diminished, coarse) Neuro: Alert and responsive, No focal deficits noted Abdomen: Soft, Non-Tender Skin: No rashes noted on visualized skin Musculoskeletal: No Chest Wall Tenderness Extremities: Other (2+ BLE edema) Results 10/10/18 07:01 10/10/18 07:01 Lab Results 10/10/18 10/10/18 10/10/18 07:01 07:01 07:01 WBC 22.4 H Hgb 12.3 Hct 38.5 Plt Count 52 L INR 1.8 Sodium 140 Potassium 4.0 Chloride 106 Carbon Dioxide 34 H BUN 26 H Creatinine 0.53 L Glucose 112 H Calcium 9.3 Total Bilirubin 3.5 H AST 61 H ALT 138 H Alkaline Phosphatase 163 H Short CBC 10/10/18 Range/Units 07:01 WBC 22.4 H (4.3-11.1) K/mcL Hgb 12.3 (11.5-15.4) g/dL Hct 38.5 (35.3-44.9) % Plt Count 52 L (140-400) K/mcL Neutrophils # 17.8 H (1.6-8.9) K/mcL BMP 10/10/18 Range/Units 07:01 Sodium 140 (136-145) mEq/L Potassium 4.0 (3.5-5.1) mEq/L Chloride 106 (98-107) mEq/L Carbon Dioxide 34 H (23-29) mEq/L BUN 26 H (6-20) mg/dL Creatinine 0.53 L (0.60-1.20) mg/dL Glucose 112 H (70-105) mg/dL Calcium 9.3 (8.6-10.3) mg/dL Liver Function 10/10/18 Range/Units 07:01 Total Bilirubin 3.5 H (0.3-1.0) mg/dL AST 61 H (13-39) Units/L ALT 138 H (7-52) Units/L Alkaline Phosphatase 163 H (34-104) Units/L Albumin 1.9 L (3.5-5.7) g/dL Active Medications Acetaminophen (Tylenol) 325 mg PO Q6HR PRN PRN Reason: Pain Stop: 04/10/19 22:29 Last Admin: 10/10/18 14:00 Dose: 325 mg Documented by: Albuterol/Ipratropium (Duoneb) 3 ml IH [id number] PRN PRN Reason: Shortness Of Breath/Wheezing Stop: 04/09/19 19:57 Dextrose/Water (Dextrose 50% (Syg)) 25 ml IVP AD PRN PRN Reason: Hypoglycemia Stop: 04/02/19 15:05 Glucagon (Glucagen) 1 mg IM ONCE PRN PRN Reason: Hypoglycemia Stop: 04/02/19 15:05 Glucose (Gluctose) 15 gm PO ONCE PRN PRN Reason: Hypoglycemia Stop: 04/02/19 15:05 Glucose (Gluctose) 30 gm PO ONCE PRN PRN Reason: Hypoglycemia Stop: 04/02/19 15:05 Dextrose (Dextrose 5%) 1,000 mls @ 100 mls/hr IVC .Q10H PRN PRN Reason: HYPOGLYCEMIA Stop: 04/02/19 15:05 Doxycycline Hyclate 100 mg/ (Sodium Chloride) 100 mls @ 100 mls/hr IVPB Q12H [facility] Stop: 04/05/19 09:01 Last Admin: 10/10/18 09:25 Dose: 100 mls/hr Documented by: Piperacillin Sod/Tazobactam (Sod 3.375 gm/ Sodium Chloride) 100 mls @ 25 mls/hr IVPB Q8HR [facility] Stop: 04/01/19 14:27 Last Admin: 10/10/18 11:03 Dose: 100 mls/hr Documented by: Insulin Human Lispro (Humalog) 0 units SQ Q4HR [facility]; Protocol Stop: 04/03/19 12:01 Last Admin: 10/10/18 13:57 Dose: Not Given Documented by: Lactulose (Lactulose) 30 gm PO TID [facility] Stop: 04/08/19 16:31 Last Admin: 10/10/18 09:28 Dose: Not Given Documented by: Levalbuterol HCl (Xopenex) 1.25 mg IH [id number] [facility] Stop: 04/01/19 08:01 Last Admin: 10/10/18 10:51 Dose: 1.25 mg Documented by: Metoprolol Succinate (Toprol Xl) 25 mg PO BID [facility] Stop: 04/10/19 09:01 Last Admin: 10/10/18 09:24 Dose: 25 mg Documented by: Metoprolol Tartrate (Lopressor) 5 mg IVP Q6HR PRN PRN Reason: Heart Rate- High Stop: 04/10/19 17:16 Nystatin (Nystop) 1 appl TP TID PRN PRN Reason: Skin Irritation Stop: 04/02/19 04:46 Pantoprazole Sodium (Protonix) 40 mg IVP Q12HR [facility] Stop: 04/02/19 06:01 Last Admin: 10/10/18 04:34 Dose: 40 mg Documented by: - Imaging and Cardiology Echo: report reviewed - EKG Interpretation EKG results cardiology: other (12 hr tele AVG HR 88, A-Fib) Consult Discharge Plan - Plan Referrals: NONE,PCP [Primary Care Provider] -
[2018-10-10] MEDS ORDERED: traMADol 50 MG TABLET PO PRN (16:13)
[2018-10-10] MEDS: traMADol 50 MG TABLET PO PRN (18:15)
[2018-10-11] MEDS: Insulin LISPRO 300 UNITS/3 ML VIAL SQ SCH ×6 (00:28→21:08)
[2018-10-11] MEDS: Piperacillin/Tazobactam 3.375 GM in 0.9 % Sodium Chloride Mini Bag 100 ML IVPB SCH ×3 (00:31→17:19)
[2018-10-11] MEDS: Levalbuterol Neb 1.25 MG/3 ML IH SCH ×4 (04:00→22:18)
[2018-10-11] MEDS: Pantoprazole 40 MG VIAL IVP SCH ×2 (05:18→17:19)
[2018-10-11] MEDS: Lactulose Oral Soln 20 GM/30 ML UDC PO SCH ×3 (08:45→21:21)
[2018-10-11] MEDS: Metoprolol XL (24 HR) Succ 25 MG TAB.ER.24H PO SCH ×2 (08:45→21:19)
[2018-10-11] MEDS: Doxycycline 100 MG in 0.9 % Sodium Chloride Mini Bag 100 ML IVPB SCH ×2 (08:46→22:33)
[2018-10-11] MEDS ORDERED: Spironolactone 25 MG TABLET PO SCH (09:00)
[2018-10-11 09:45] LABS: Hematocrit 39.4 % (35.3-44.9)
[2018-10-11 09:47] LABS: Basophils % 0.2 %; Eosinophils # 0.1 K/mcL (0.0-0.6); Eosinophils % 0.7 %; Hemoglobin 12.9 g/dL (11.5-15.4); Immature Granulocytes % 1.1 % (0-4); Lymphocytes % 11.4 %; Mean Corpuscular HGB Conc 32.7 g/dL (31.6-35.5); Mean Corpuscular Hemoglobin 31.2 pg (28.0-33.3); Mean Corpuscular Volume 95.4 fL (83.0-100.0); Mean Platelet Volume 11.9 fL (9.4-12.4); Monocytes # 2.3 K/mcL (0.0-1.3); Monocytes % 13.1 %; Neutrophils # 13.1 K/mcL (1.6-8.9); Nucleated Red Blood Cells 0.1 /100 WBC (0); Red Blood Count 4.13 M/mcL (3.82-4.97); Segmented Neutrophils % 73.5 %
[2018-10-11 09:53] LABS: INR 1.8; Prothrombin Time 20.4 Seconds (9.4-12.1)
[2018-10-11 09:55] LABS: BUN/Creatinine Ratio 56 (6-26); Blood Urea Nitrogen 23 mg/dL (6-20); Carbon Dioxide 31 mEq/L (23-29); Chloride 104 mEq/L (98-107); Glucose 129 mg/dL (70-105); Osmolality,Calculated 291 (280-300); Potassium 4.1 mEq/L (3.5-5.1); Sodium 138 mEq/L (136-145); eGFR For Non-African Americans > 60 (> 60)
[2018-10-11 10:04] LABS: Platelet Count 57 K/mcL (140-400)
[2018-10-11 10:05] LABS: Platelet Estimate Decreased (Normal)
--- NOTE | 2018-10-11 10:25 | Internal Med Progress Note ---
Hospitalist Progress Note - Encounter Date of Encounter: 10/11/18 Time of Encounter: 09:25 - Subjective Interval History: Patient seen and examined this morning at bedside. No acute overnight events. Denies any fevers chills nausea vomiting or diarrhea. Denies any headache or abdominal pain. Denies bowel or bladder complaints. - Exam Vitals: Temp Pulse Resp BP Pulse Ox 98.5 F 77 17 109/70 96 10/11/18 06:49 10/11/18 06:49 10/11/18 06:49 10/11/18 06:49 10/11/18 08:54 Exam: Exam General: In no acute distress. Respiratory exam: coarse breath sounds. rales at base Cardiovascular exam: RRR +S1, +S2. no murmur, gallop, rubs. GI/Abdominal exam: Non-tender, Non-distended, soft, no peritoneal signs. Cabrera in place Extremities exam: 2+ pedal edema and on b/l UE and LE as well, no calf tenderness. has epcd Neurological exam: CN II-XII intact, AO X3, no focal deficits. - Summary of Assessment and Plan Summary of Assessment and Plan: Assessment Acute Afib with RVR Pneumonia Septic shock-resolved Acute on chronic systolic CHF Acute hypoxic respiratory failure Shock liver- resolved EMMA-resolved toxic metabolic encephelopathy-resolved. Cardiomyopathy Chronic h/o nonalcoholic cirrhosis Hepatitis B and C Anemia thrombocytopenia Plan - Blood cx NGTD from 09/30/18 and 10/04/18. Urine cx NGTD. sputum aspirate with yeast, likely contaminant. c/w empiric zosyn and doxycycline. MRSA positive. Vancomycin stopped after 9 days. Urine antigen negative. Leukocytosis improving however still elevated. possibly from steroid,although finished 5 days ago. ID consulted for length of antibiotic therapy. - EMMA resolved. Nephrology signed off. Has good urine output. Started on spironolactone and lasix for. Monitor renal function and BP remain stable. - Coagulopathy likely from liver shock on baseline cirrhosis. Liver function gradually improving. No signs of bleeding. Hold any anticoagulation for afib - afib Rate controlled with metoprolol. EF of 15-20% with intermediate diastolic function, mod pulm htn. Cardio consulted. Recommendation appreciated. Does not think cardiomyopathy ischemic in nature. No LHC or life vest was recommended. will consult palliative care. Holding acei/arb because of low BP for now. - c/w lactulose for cirrhosis - SCD for dvt prophylaxis. - Time Spent with Patient Total time spent is greater than 50% in coordination of care (as documented) at patient's floor/unit and/or counseling patient: Internal Medicine: Result - Labs CBC & Chem 7: 10/11/18 09:20 10/11/18 09:20 Labs: Short CBC 10/11/18 Range/Units 09:20 WBC 17.8 H (4.3-11.1) K/mcL Hgb 12.9 (11.5-15.4) g/dL Hct 39.4 (35.3-44.9) % Plt Count 57 L (140-400) K/mcL Neutrophils # 13.1 H (1.6-8.9) K/mcL BMP 10/10/18 10/11/18 07:01 09:20 Sodium 140 138 Potassium 4.0 4.1 Chloride 106 104 Carbon Dioxide 34 H 31 H BUN 26 H 23 H Creatinine 0.53 L 0.41 L Glucose 112 H 129 H Calcium 9.3 9.0 Liver Function 10/10/18 Range/Units 07:01 Total Bilirubin 3.5 H (0.3-1.0) mg/dL AST 61 H (13-39) Units/L ALT 138 H (7-52) Units/L Alkaline Phosphatase 163 H (34-104) Units/L Albumin 1.9 L (3.5-5.7) g/dL - ABG Interpretation ABG results: ABG ABG pH 7.42 pH Units (7.32-7.45) 10/08/18 05:34 ABG pH 7.42 pH Units (7.32-7.45) 10/08/18 05:34 ABG pH 7.42 pH Units (7.32-7.45) 10/08/18 05:34 ABG pCO2 47 mmHg (35-45) H 10/08/18 05:34 ABG pCO2 47 mmHg (35-45) H 10/08/18 05:34 ABG pCO2 47 mmHg (35-45) H 10/08/18 05:34 ABG pO2 68 mmHg (85-104) L 10/08/18 05:34 ABG pO2 68 mmHg (85-104) L 10/08/18 05:34 ABG pO2 68 mmHg (85-104) L 10/08/18 05:34 ABG O2 Saturation 94 % (95-98) L 10/08/18 05:34 ABG O2 Saturation 94 % (95-98) L 10/08/18 05:34 ABG O2 Saturation 94 % (95-98) L 10/08/18 05:34 PT/INR, D-dimer PT 20.4 Seconds (9.4-12.1) H 10/11/18 09:20 Consult Discharge Plan - Plan Referrals: NONE,PCP [Primary Care Provider] -
[2018-10-11] MEDS: Furosemide 20 MG/2 ML VIAL IVP SCH (11:57)
--- NOTE | 2018-10-11 15:10 | Palliative - Consult Note ---
Date of Encounter: 10/11/18 Time of Encounter: 15:00 - Assessment and Plan (1) Advance care planning Current Visit: Yes Status: Acute Assessment and plan: Discussion with patient and daughter Mary at bedside regarding current c linical condition, chronic illness, code status, adv directives, and goals of care. Patient and daughter appear to have limited insight on the severity of her conditions. Although pt can express that physician have explained her liver disease is worsening, and heart failure is worse as well, she continues to desire to do everything to stay alive as long as possible. Discussed that her underlying medical problems cannot be cured, and discussed what heroic measure if she approaches end of life would entail. Daughter became visible upset with discussion, and stated "we will do whatever it takes to keep her alive as long as possible". Discussed that it is patient's decision what all she would like done, and she confirms that she wants to continue to be full code, and would be ok with intubation, life support. Daughter states, if she would need a trach/feeding tube, that's what we would do. Again expressed that these measures would not improve her heart or liver. They verbalized understanding. 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 She did not desire another alternate on this form. Signed by patient and witnessed by Humberto Prasad and myself. Copies placed on medical record as well as given to daughter. Reiterated to patient the importance of medical compliance and follow ups. Discussed even missing one day of medications may be enough to land her back in the hospital. She verbalized understanding. She plans on discharging to [facility] for rehab. Will f/u on Sunday. 45 min spent with Adv care planning discussion. (2) Cirrhosis Current Visit: No Status: Acute Assessment and plan: Meld score 18 with today's labwork. 6% mortality rate in next 3 months. Qualifiers: Hepatic cirrhosis type: unspecified hepatic cirrhosis Qualified Code(s): K74.60 - Unspecified cirrhosis of liver (3) Pneumonia Current Visit: Yes Status: Acute Assessment and plan: Continues with supportive o2, nebs, and IV atb treatment. Qualifiers: Pneumonia type: due to unspecified organism Laterality: right Lung location: unspecified part of lung Qualified Code(s): J18.9 - Pneumonia, unspecified organism (4) A-fib Current Visit: Yes Status: Acute Qualifiers: Atrial fibrillation type: unspecified Qualified Code(s): I48.91 - Un specified atrial fibrillation (5) Cardiomyopathy Current Visit: Yes Status: Chronic Assessment and plan: Cardiology following. Medical management only at this point. Qualifiers: Cardiomyopathy type: unspecified Qualified Code(s): I42.9 - Cardiomyopathy, unspecified (6) Palliative care encounter Current Visit: Yes Status: Acute Palliative-CN HPI - Data of Consult Requesting Physician: Ana Luisa Chambers MD Primary Care Provider: PCP NONE - Consult Narrative History of present illness: Ms. Sales is a 58 year old female who presented with resp failure, pneumonia, CHF. She has been hospitalized since and initially was intubated in the ICU. Had EMMA and required nephrology consult and CRRT temporarily. She has had issues with atrial fib/RVR and cardiology has been following and managing those medications. She was on Amiodarone drip at ont point during this stay. TTE this admission demonstrated EF 15-20% compared to 35% last August. She also had some cardiac testing last yr at [facility] - stress test neg for ishemia. Cardiology d id not feel AICD warranted at this time r/t no arrhythmias. She is not a candidate for anticoagulation r/t thrombocytopenia/cirrhosis. Patient has history of CHF, Cirrhosis, Atrial fibrillation. States she does not have primary physician. Unsure of her compliance at home with appts and medicat ions. but states she doesn't miss appts. Upon my visit, she is alert, oriented x3. Appears very weak. Extremities are edematous and she is having hard time even lifting her arms as she is extremely weak. States breathing is better and she is feeling a little better each day, anxious to continue therapy. States edema has made it difficult to use upper extremities. Daughter is at bedside. CC: Ana Luisa Chambers MD - Time Spent with Patient Time: Total time spent is greater than 50% in coordination of care (as documented) at patient's floor/unit and/or counseling patient: Past Med Surg Social Fam HX - Past Medical History Medical history: atrial fibrillation, cardiomyopathy, cirrhosis, COPD, hepatitis Additional medical history: 4 herniated disks to lower back Psychiatric history: anxiety - Past Surgical History Additional surgical history: tubal ligation. cataracts - Social History Smoking Status: Current every day smoker Smokeless Tobacco Status: No Alcohol use: none Drug use: none - Family History Mother Adopted: No Hx Family Cardiac Disorders: Yes ([place]) Hx Family Respiratory Disorders: Yes (mother, brother, father COPD) Hx Family Cancer: Yes (breast, stomach) Hx Family GI Disorders: No Hx Family Endocrine Disorder: Yes (mother dm) Hx Family Neuromuscular Disorders: No Hx Family Neurologic Disorders: No Hx Family HEENT Disorders: No Hx Family Autoimmune Disorders: No Medications and Allergies Warfarin [Coumadin] 1.25 mg PO SUMOWETHFR 01/10/18 [History] Warfarin [Coumadin] 2.5 mg PO MOWEFR 01/10/18 [History] Metoprolol XL (24 HR) Succ [Toprol Xl] 25 mg PO BID 30 Days #60 tab.er.24h 01/11/18 [Rx] Spironolactone [Aldactone] 50 mg PO DAILY 30 Days #30 tablet 01/11/18 [Rx] Tenofovir Alafenamide Fumarate [Vemlidy] 25 mg PO DAILY 09/30/18 [History] Allergy/AdvReac Type Severity Reaction Status Date / Time No Known Allergies Allergy Verified 12/19/17 21:16 All systems: reviewed and no additional remarkable complaints except as stated (extreme weakness, swelling of upper/lower extremities, shortness of breath) Palliative Care-Exam - Constitutional Vitals: Temp Pulse Resp BP Pulse Ox 98.2 F 78 16 106/70 95 10/11/18 10:39 10/11/18 10:39 10/11/18 10:59 10/11/18 10:39 10/11/18 10:59 General appearance: Present: cooperative, morbidly obese, no acute distress - Head Head Exam: Present: normal inspection, normocephalic - Eye Eye exam: Present: normal appearance, PERRL - Respiratory Respiratory exam: Present: decreased breath sounds, CTAB - Cardiovascular Cardiovascular exam: Present: irregular rhythm - GI/Abdominal Exam GI/Abdominal exam: Present: distended, normal bowel sounds, soft - Catheter Type: Urethral (Cabrera) - Extremities Exam Additional comments: 2-3+ bilateral edema upper and lower extremities - Neurological Exam Neurological exam: Present: alert, oriented X3, strengths equal and symetr throughout - Skin Skin exam: Present: dry, pallor, warm Internal Medicine - CN: Reslt - Labs CBC & Chem 7: 05/31/19 09:20 10/11/18 09:20 Labs: Short CBC 10/11/18 Range/Units 09:20 WBC 17.8 H (4.3-11.1) K/mcL Hgb 12.9 (11.5-15.4) g/dL Hct 39.4 (35.3-44.9) % Plt Count 57 L (140-400) K/mcL Neutrophils # 13.1 H (1.6-8.9) K/mcL BMP 10/11/18 09:20 Sodium 138 Potassium 4.1 Chloride 104 Carbon Dioxide 31 H BUN 23 H Creatinine 0.41 L Glucose 129 H Calcium 9.0 - ABG Interpretation ABG results: ABG ABG pH 7.42 pH Units (7.32-7.45) 10/08/18 05:34 ABG pH 7.42 pH Units (7.32-7.45) 10/08/18 05:34 ABG pH 7.42 pH Units (7.32-7.45) 10/08/18 05:34 ABG pCO2 47 mmHg (35-45) H 10/08/18 05:34 ABG pCO2 47 mmHg (35-45) H 10/08/18 05:34 ABG pCO2 47 mmHg (35-45) H 10/08/18 05:34 ABG pO2 68 mmHg (85-104) L 10/08/18 05:34 ABG pO2 68 mmHg (85-104) L 10/08/18 05:34 ABG pO2 68 mmHg (85-104) L 10/08/18 05:34 ABG O2 Saturation 94 % (95-98) L 10/08/18 05:34 ABG O2 Saturation 94 % (95-98) L 10/08/18 05:34 ABG O2 Saturation 94 % (95-98) L 10/08/18 05:34 PT/INR, D-dimer PT 20.4 Seconds (9.4-12.1) H 10/11/18 09:20 Consult Discharge Plan - Plan Referrals: NONE,PCP [Primary Care Provider] - Palliative Quality Palliative Quality: Screen for Code Status: Yes, Screen for Goals of Care: Yes, Screen for Pain: Yes, If Pain Regimen Started, Initiate Bowel Regimen: NA, Screen for Nausea/Vomitting: Yes Code Status: 09/30/18 10:10 CODE [Resuscitation Status: Active] [RES] Routine Comment: Resuscitation Status: Full Code
--- NOTE | 2018-10-11 15:28 | Infectious Disease Consult ---
Infectious Disease-Consult - Encounter Date/Time Date of Encounter: 10/11/18 Time of Encounter: 15:17 - Data of Consult Patient: new to practice Reason for consult: Persistent leukocytosis, length of antibiotics recommendations Consult date: 10/11/18 Requesting Physician: Ana Luisa Chambers MD Primary Care Provider: PCP NONE - HPI HPI: Patient is a 58-year-old woman who presented to [place] on 09/30/2018 with slade rtness of breath and was admitted for pneumonia and septic shock. We are consulted on 10/11/2018 for persistent leukocytosis Patient is a 58-year-old woman who has extensive past medical history including history of liver cirrhosis etiology not clear, congestive heart failure, atrial fibrillation presented to the emergency department shortness of breath and was intubated for significant hypoxia. Apparently patient was having sharp stabbing back pain and chest pain. Most of the information was taken from medical records. Hospital course: On admission patient was febrile with a MAXIMUM TEMPERATURE of 101.5 leukocytosis with a WBC of around 27,000 lactic acidosis with a peak of 4.8. Blood cultures on admission are no growth. Urine legionella and pneumococcal antigen were negative. Sputum aspirate only grew Zaida tropicalis. MRSA screen was positive. Respiratory infectious panel was done and came back negative. CT chest revealed pulmonary nodules and chest x-ray revealed persi stent right lower lobe pneumonia. Patient was started on vancomycin, azithromycin and Zosyn. 10/04/2018 doxycycline was added and patient was treated with doxycycline, vancomycin and Zosyn through 10/08/2018. Since then antibiotics are only Zosyn and doxycycline at this time. Patient continues to have leukocytosis. Keep in mind that patient is on high-dose steroids. Repeat blood cultures from 10/04/2018 are no growth. Repeat chest x-ray 10/09/2017 revealed right basilar pleural parenchymal disease is improved as compared to prior and left basilar pleural parenchymal disease is not significantly changed. Currently patient laying in bed and appears comfortable no acute distress. Awake alert oriented answers questions. Meant. States that she has a hard time moving her upper extremities because she feels that the way too much. - ROS Review of Systems: 10 point review of systems done, negative other for what is mentioned in history of present illness - Results CBC & Chem 7: 10/11/18 09:20 10/11/18 09:20 - Exam Vitals: Temp Pulse Resp BP Pulse Ox 98.2 F 78 16 106/70 95 10/11/18 10:39 10/11/18 10:39 10/11/18 10:59 10/11/18 10:39 10/11/18 10:59 Exam: GENERAL: Laying in bed, appears comfortable. HEAD: Normocephalic atraumatic EYES: PERRLA, EOMI, no conjunctival hemorrhage, sclera anicteric ENT: Mucous membranes moist, no oral thrush NECK: Supple. No meningeal signs. No masses LUNGS: Chest expanding symmetrically. Lungs sounds audible both lung fuller. No wheezing, no rhonchi CV: RRR, S1S2, ABDOMEN: Soft, nontender, nondistended. Bowel sounds audible BACK: No CVA tenderness. Normal inspection. No tenderness over the spine EXTREMITY: Adequate perfusion. No joint effusion diffuse edema upper and lower extremity anasarca like picture SKIN: Normal color. No rash. NEURO: Awake alert oriented 3. Decreased strength in the upper extremities bilaterally. No pain on passive movement of the upper extremities. PSYCH: Calm and appropriate. No agitation. Warfarin [Coumadin] 1.25 mg PO SUMOWETHFR 01/10/18 [History] Warfarin [Coumadin] 2.5 mg PO MOWEFR 01/10/18 [History] Metoprolol XL (24 HR) Succ [Toprol Xl] 25 mg PO BID 30 Days #60 tab.er.24h 01/11/18 [Rx] Spironolactone [Aldactone] 50 mg PO DAILY 30 Days #30 tablet 01/11/18 [Rx] Tenofovir Alafenamide Fumarate [Vemlidy] 25 mg PO DAILY 09/30/18 [History] Allergy/AdvReac Type Severity Reaction Status Date / Time No Known Allergies Allergy Verified 12/19/17 21:16 - Assessment and Plan (1) Pneumonia Current Visit: Yes Status: Acute Causative organism not clear Urine legionella and pneumococcal antigen were negative. Sputum aspirate only grew Zaida tropicalis. MRSA screen was positive. Infectious panel negative CT chest revealed pulmonary nodules and chest x-ray revealed persistent right lower lobe pneumonia and now there is concern for left lower lobe pneumonia. Patient has been on antibiotics since admission including vancomycin and Zosyn doxycycline through 09/30/2018 Currently on Zosyn and doxycycline Check pro calcitonin Repeat CT chest Not sure if this source control issue or the pneumonia has resolved and were seen on the x-rays probably pleural effusion and atelectasis Hopefully this until we have more information Discussed with Dr. Chambers Qualifiers: Pneumonia type: due to unspecified organism Laterality: right Lung location: unspecified part of lung Qualified Code(s): J18.9 - Pneumonia, unspecified organism SNOMED Code(s): 831817258 (2) Metabolic encephalopathy Current Visit: Yes Status: Acute Could be multifactorial from underlying infection or hepatic encephalopathy Currently patient appears awake alert oriented. Not sure what her baseline is. SNOMED Code(s): 47764518 (3) Atrial fibrillation with RVR Current Visit: Yes Status: Acute SNOMED Code(s): 057434613589427 (4) Cirrhosis Current Visit: No Status: Acute Etiology not clear. Qualifiers: Hepatic cirrhosis type: unspecified hepatic cirrhosis Qualified Code(s): K74.60 - Unspecified cirrhosis of liver SNOMED Code(s): 78715465 (5) Acute respiratory failure with hypoxia Current Visit: Yes Status: Acute Resolved. Patient was not intubated at one point SNOMED Code(s): 15426104, 278529922 (6) Septic shock Current Visit: Yes Status: Acute On admission patient was in septic shock and was admitted to the ICU Resolved Patient is hemodynamically stable Likely was secondary to pneumonia SNOMED Code(s): 31402505 (7) EMMA (acute kidney injury) Current Visit: Yes Status: Acute Creatinine back at baseline. SNOMED Code(s): 43978130, 07487508 Past Med Surg Social Fam HX - Past Medical History Medical history: atrial fibrillation, cardiomyopathy, cirrhosis, COPD, hepatitis Additional medical history: 4 herniated disks to lower back Psychiatric history: anxiety - Past Surgical History Additional surgical history: tubal ligation. cataracts - Social History Smoking Status: Current every day smoker Smokeless Tobacco Status: No Alcohol use: none Drug use: none - Family History Mother Adopted: No Hx Family Cardiac Disorders: Yes ([place]) Hx Family Respiratory Disorders: Yes (mother, brother, father COPD) Hx Family Cancer: Yes (breast, stomach) Hx Family GI Disorders: No Hx Family Endocrine Disorder: Yes (mother dm) Hx Family Neuromuscular Disorders: No Hx Family Neurologic Disorders: No Hx Family HEENT Disorders: No Hx Family Autoimmune Disorders: No Consult Discharge Plan - Plan Referrals: NONE,PCP [Primary Care Provider] -
[2018-10-11] MEDS ORDERED: Isovue-370 500 ML BOTTLE IVP ONE (17:02)
[2018-10-11] MEDS: traMADol 50 MG TABLET PO PRN (18:54)
[2018-10-12] MEDS: Piperacillin/Tazobactam 3.375 GM in 0.9 % Sodium Chloride Mini Bag 100 ML IVPB SCH ×3 (00:46→15:59)
[2018-10-12] MEDS: Insulin LISPRO 300 UNITS/3 ML VIAL SQ SCH ×6 (00:47→22:22)
[2018-10-12 01:55] LABS: Basophils % 0.2 %; Hematocrit 37.1 % (35.3-44.9)
[2018-10-12 01:57] LABS: Eosinophils # 0.1 K/mcL (0.0-0.6); Eosinophils % 0.5 %; Hemoglobin 12.1 g/dL (11.5-15.4); Immature Granulocytes % 1.1 % (0-4); Lymphocytes # 2.6 K/mcL (0.6-4.6); Lymphocytes % 13.6 %; Mean Corpuscular HGB Conc 32.6 g/dL (31.6-35.5); Mean Corpuscular Hemoglobin 30.6 pg (28.0-33.3); Mean Corpuscular Volume 93.9 fL (83.0-100.0); Mean Platelet Volume 11.5 fL (9.4-12.4); Monocytes # 2.7 K/mcL (0.0-1.3); Monocytes % 14.2 %; Neutrophils # 13.6 K/mcL (1.6-8.9); Red Blood Count 3.95 M/mcL (3.82-4.97); Red Cell Distribution Width 20.8 % (11.5-14.5); Segmented Neutrophils % 70.4 %
[2018-10-12 02:02] LABS: Platelet Count 57 K/mcL (140-400)
[2018-10-12 02:12] LABS: Alanine Aminotransferase 91 Units/L (7-52); Albumin 1.7 g/dL (3.5-5.7); Albumin/Globulin Ratio 0.6 (1.1-2.2); Alkaline Phosphatase 154 Units/L (34-104); Aspartate Amino Transferase 57 Units/L (13-39); BUN/Creatinine Ratio 51 (6-26); Bilirubin,Total 2.5 mg/dL (0.3-1.0); Blood Urea Nitrogen 19 mg/dL (6-20); Calcium 8.4 mg/dL (8.6-10.3); Carbon Dioxide 28 mEq/L (23-29); Chloride 104 mEq/L (98-107); Globulin 2.7 g/dL (2.4-3.5); Glucose 166 mg/dL (70-105); Osmolality,Calculated 284 (280-300); Potassium 3.9 mEq/L (3.5-5.1); Sodium 134 mEq/L (136-145); Total Protein 4.4 g/dL (6.4-8.9); eGFR For Non-African Americans > 60 (> 60)
[2018-10-12] MEDS: Levalbuterol Neb 1.25 MG/3 ML IH SCH ×4 (03:58→22:35)
[2018-10-12] MEDS: Pantoprazole 40 MG VIAL IVP SCH ×2 (05:06→17:32)
[2018-10-12] MEDS: Acetaminophen 325 MG TABLET PO PRN (05:20)
[2018-10-12] MEDS: Lactulose Oral Soln 20 GM/30 ML UDC PO SCH ×3 (09:56→21:37)
[2018-10-12] MEDS: Doxycycline 100 MG in 0.9 % Sodium Chloride Mini Bag 100 ML IVPB SCH ×2 (09:59→21:42)
[2018-10-12] MEDS: Metoprolol XL (24 HR) Succ 25 MG TAB.ER.24H PO SCH ×2 (10:00→21:37)
[2018-10-12] MEDS: Furosemide 20 MG/2 ML VIAL IVP SCH ×2 (10:00→17:33)
[2018-10-12] MEDS: Spironolactone 25 MG TABLET PO SCH (10:00)
--- NOTE | 2018-10-12 10:58 | Internal Med Progress Note ---
Hospitalist Progress Note - Encounter Date of Encounter: 10/12/18 Time of Encounter: 10:58 - Subjective Interval History: Patient seen and examined this morning at bedside. No acute overnight events. Denies any nausea vomiting or diarrhea. Feels weak. Afebrile and hemodynamically stable. Denies any chest pain abdominal pain difficulty breathing. Feels sweating slightly decreased. - Exam Vitals: Temp Pulse Resp BP Pulse Ox 97.7 F 71 14 100/65 98 10/12/18 07:25 10/12/18 07:25 10/12/18 07:25 10/12/18 07:25 10/12/18 07:25 Exam: Exam General: In no acute distress. Respiratory exam: coarse breath sounds. rales at base Cardiovascular exam: RRR +S1, +S2. no murmur, gallop, rubs. GI/Abdominal exam: Non-tender, Non-distended, soft, no peritoneal signs. Cabrera in place Extremities exam: 2+ pedal edema and on b/l UE and LE as well, no calf tenderness. has epcd Neurological exam: CN II-XII intact, AO X3, no focal deficits. - Summary of Assessment and Plan Summary of Assessment and Plan: Assessment Acute Afib with RVR Pneumonia Septic shock-resolved Acute on chronic systolic CHF Acute hypoxic respiratory failure Shock liver- resolved EMMA-resolved toxic metabolic encephelopathy-resolved. Cardiomyopathy Chronic h/o nonalcoholic cirrhosis Hepatitis B and C Anemia thrombocytopenia Plan - Blood cx NGTD from 09/30/18 and 10/04/18. Urine cx NGTD. sputum aspirate with yeast, likely contaminant. MRSA positive. Vancomycin stopped after 9 days. Urine antigen negative. ID consulted for persistant Leukocytosis. possibly from steroid. CT showed pleural effusion, LLL and RLL consolidation. c/w empiric zosyn and doxycycline for now as patient afebrile and prolactine normal. f/u ID for duratio of treatment. - EMMA resolved. Nephrology signed off. Has good urine output. c/w spironolactone. Not significant diuresis with 20 iv lasix. will increase with albumin. Monitor renal function and BP remain stable. - Coagulopathy likely from liver shock on baseline cirrhosis. Liver function gradually improving. No signs of bleeding. Hold any anticoagulation for afib - afib Rate controlled with metoprolol. EF of 15-20% with intermediate diastolic function, mod pulm htn. Cardio consulted. Recommendation appreciated. Does not think cardiomyopathy ischemic in nature. No LHC or life vest was recommended. Holding acei/arb because of low BP for now. - Palliative care consulted, recommendation appreciated. Patient want to be full code and want aggressive measures done if needed. - c/w lactulose for cirrhosis. Patient refusing before. Maintain 2-3 BM per day. - SCD for dvt prophylaxis. - Time Spent with Patient Total time spent is greater than 50% in coordination of care (as documented) at patient's floor/unit and/or counseling patient: Internal Medicine: Result - Labs CBC & Chem 7: 10/12/18 01:40 10/12/18 01:40 Labs: Short CBC 10/12/18 Range/Units 01:40 WBC 19.3 H (4.3-11.1) K/mcL Hgb 12.1 (11.5-15.4) g/dL Hct 37.1 (35.3-44.9) % Plt Count 57 L (140-400) K/mcL Neutrophils # 13.6 H (1.6-8.9) K/mcL BMP 10/12/18 01:40 Sodium 134 L Potassium 3.9 Chloride 104 Carbon Dioxide 28 BUN 19 Creatinine 0.37 L Glucose 166 H Calcium 8.4 L Liver Function 10/12/18 Range/Units 01:40 Total Bilirubin 2.5 H (0.3-1.0) mg/dL AST 57 H (13-39) Units/L ALT 91 H (7-52) Units/L Alkaline Phosphatase 154 H (34-104) Units/L Albumin 1.7 L (3.5-5.7) g/dL - ABG Interpretation ABG results: ABG ABG pH 7.42 pH Units (7.32-7.45) 10/08/18 05:34 ABG pH 7.42 pH Units (7.32-7.45) 10/08/18 05:34 ABG pH 7.42 pH Units (7.32-7.45) 10/08/18 05:34 ABG pCO2 47 mmHg (35-45) H 10/08/18 05:34 ABG pCO2 47 mmHg (35-45) H 10/08/18 05:34 ABG pCO2 47 mmHg (35-45) H 10/08/18 05:34 ABG pO2 68 mmHg (85-104) L 10/08/18 05:34 ABG pO2 68 mmHg (85-104) L 10/08/18 05:34 ABG pO2 68 mmHg (85-104) L 10/08/18 05:34 ABG O2 Saturation 94 % (95-98) L 10/08/18 05:34 ABG O2 Saturation 94 % (95-98) L 10/08/18 05:34 ABG O2 Saturation 94 % (95-98) L 10/08/18 05:34 PT/INR, D-dimer PT 20.4 Seconds (9.4-12.1) H 10/11/18 09:20 - Impressions Impressions Chest CT 10/11/18 17:02 IMPRESSION: Interval development of bilateral pleural effusions, larger on the left. Right lower lobe consolidation has increased, now almost complete. Left lower lobe complete consolidation is new since the prior study. Follow-up to resolution is recommended. Interval development of a moderate amount of upper abdominal ascites and mesenteric edema. Again noted is cirrhotic morphology liver with upper abdominal venous collaterals. Question wall thickening of the stomach. Correlation for inflammation is recommended. D/ / Kaylin Low Cha, MD / Kaylin Low Cha, MD Interpreting Provider: Kaylin Low Cha, MD Consult Discharge Plan - Plan Referrals: NONE,PCP [Primary Care Provider] -
[2018-10-12] MEDS: Albumin 25% 25gram/100mL 25 GM/100 ML IV.SOLN IVPB SCH (15:57)
[2018-10-12] MEDS: traMADol 50 MG TABLET PO PRN (21:37)
[2018-10-13] MEDS: Melatonin 3 MG TABLET PO PRN ×2 (00:07→21:33)
[2018-10-13] MEDS: Albumin 25% 25gram/100mL 25 GM/100 ML IV.SOLN IVPB SCH ×3 (00:11→15:12)
[2018-10-13] MEDS: Insulin LISPRO 300 UNITS/3 ML VIAL SQ SCH (01:30)
[2018-10-13] MEDS: Piperacillin/Tazobactam 3.375 GM in 0.9 % Sodium Chloride Mini Bag 100 ML IVPB SCH ×3 (01:53→16:29)
[2018-10-13] MEDS: Levalbuterol Neb 1.25 MG/3 ML IH SCH ×4 (04:01→22:31)
[2018-10-13] MEDS: Pantoprazole 40 MG VIAL IVP SCH ×2 (06:05→16:30)
[2018-10-13] MEDS: Furosemide 20 MG/2 ML VIAL IVP SCH ×2 (08:44→16:29)
[2018-10-13] MEDS: Metoprolol XL (24 HR) Succ 25 MG TAB.ER.24H PO SCH ×2 (08:45→20:01)
[2018-10-13] MEDS: Lactulose Oral Soln 20 GM/30 ML UDC PO SCH ×3 (08:45→20:01)
[2018-10-13] MEDS: Spironolactone 25 MG TABLET PO SCH (08:45)
[2018-10-13] MEDS: Doxycycline 100 MG in 0.9 % Sodium Chloride Mini Bag 100 ML IVPB SCH ×2 (08:45→20:00)
--- NOTE | 2018-10-13 09:30 | Internal Med Progress Note ---
Hospitalist Progress Note - Encounter Date of Encounter: 10/13/18 Time of Encounter: 08:29 - Subjective Interval History: Patient seen and examined this morning at bedside. No acute overnight events. Denies any chest pain shortness of breath abdominal pain nausea vomiting or diarrhea. Still feeling weak. - Exam Vitals: Temp Pulse Resp BP Pulse Ox 98.7 F 83 14 112/61 90 10/13/18 06:51 10/13/18 06:51 10/13/18 06:51 10/13/18 06:51 10/13/18 08:47 Exam: Exam General: In no acute distress. Respiratory exam: coarse breath sounds. rales at base Cardiovascular exam: RRR +S1, +S2. no murmur, gallop, rubs. GI/Abdominal exam: Non-tender, Non-distended, soft, no peritoneal signs. Cabrera in place Extremities exam: 2+ pedal edema and on b/l UE and LE as well, slighlty improved and less tense, no calf tenderness. has epcd Neurological exam: CN II-XII intact, AO X3, no focal deficits. - Summary of Assessment and Plan Summary of Assessment and Plan: Assessment Acute Afib with RVR Pneumonia Septic shock-resolved Acute on chronic systolic CHF Acute hypoxic respiratory failure Shock liver- resolved EMMA-resolved toxic metabolic encephelopathy-resolved. Cardiomyopathy Thrombocytopenia Chronic h/o nonalcoholic cirrhosis Hepatitis B and C Anemia thrombocytopenia Plan - Blood cx NGTD from 09/30/18 and 10/04/18. Urine cx NGTD. sputum aspirate with yeast, likely contaminant. MRSA positive. Vancomycin stopped after 9 days. Urine antigen negative. ID consulted for persistant Leukocytosis. possibly from steroid. CT showed pleural effusion, LLL and RLL consolidation. c/w empiric zosyn and doxycycline for now as patient afebrile and prolactine normal and leukocytosis improving. f/u ID for duration of treatment. - EMMA resolved. Nephrology signed off. Has good urine output. c/w spironolactone and lasix 40 IV BID with albumin. Monitor renal function. - Coagulopathy likely from liver shock on baseline cirrhosis. Liver function improving. No signs of bleeding. thrombocytopenia stable - afib Rate controlled with metoprolol. EF of 15-20% with intermediate diastolic function, mod pulm htn. Cardio consulted. Recommendation appreciated. EF 35% last year and stress test negative. Does not think cardiomyopathy ischemic in nature. No LHC or life vest/aicd was recommended. Holding acei/arb because of low BP for now. Will start if BP and renal function remains stable. - c/w lactulose for cirrhosis. Patient refusing before. Maintain 2-3 BM per day. Child Matthew C, Latest MELD of 16. Has poor prognosis. Palliative care consulted, recommendation appreciated. Patient want to be full code and want aggressive measures done understanding her poor prognosis. - SCD for dvt prophylaxis. - Time Spent with Patient Total time spent is greater than 50% in coordination of care (as documented) at patient's floor/unit and/or counseling patient: Internal Medicine: Result - Labs CBC & Chem 7: 10/13/18 10:23 10/13/18 10:23 - ABG Interpretation ABG results: ABG ABG pH 7.42 pH Units (7.32-7.45) 10/08/18 05:34 ABG pH 7.42 pH Units (7.32-7.45) 10/08/18 05:34 ABG pH 7.42 pH Units (7.32-7.45) 10/08/18 05:34 ABG pCO2 47 mmHg (35-45) H 10/08/18 05:34 ABG pCO2 47 mmHg (35-45) H 10/08/18 05:34 ABG pCO2 47 mmHg (35-45) H 10/08/18 05:34 ABG pO2 68 mmHg (85-104) L 10/08/18 05:34 ABG pO2 68 mmHg (85-104) L 10/08/18 05:34 ABG pO2 68 mmHg (85-104) L 10/08/18 05:34 ABG O2 Saturation 94 % (95-98) L 10/08/18 05:34 ABG O2 Saturation 94 % (95-98) L 10/08/18 05:34 ABG O2 Saturation 94 % (95-98) L 10/08/18 05:34 PT/INR, D-dimer PT 20.4 Seconds (9.4-12.1) H 10/11/18 09:20 Consult Discharge Plan - Plan Referrals: NONE,PCP [Primary Care Provider] -
[2018-10-13 10:33] LABS: Hematocrit 33.5 % (35.3-44.9); Hemoglobin 11.3 g/dL (11.5-15.4); Immature Platelets 7.4 % (1.1-6.1); Mean Corpuscular HGB Conc 33.7 g/dL (31.6-35.5); Mean Corpuscular Hemoglobin 32.2 pg (28.0-33.3); Mean Corpuscular Volume 95.4 fL (83.0-100.0); Mean Platelet Volume 11.9 fL (9.4-12.4); Red Blood Count 3.51 M/mcL (3.82-4.97); Red Cell Distribution Width 21.2 % (11.5-14.5)
[2018-10-13 10:36] LABS: Platelet Count 63 K/mcL (140-400)
[2018-10-13 10:51] LABS: BUN/Creatinine Ratio 40 (6-26); Blood Urea Nitrogen 17 mg/dL (6-20); Calcium 8.9 mg/dL (8.6-10.3); Carbon Dioxide 29 mEq/L (23-29); Chloride 102 mEq/L (98-107); Glucose 185 mg/dL (70-105); Osmolality,Calculated 292 (280-300); Potassium 4.2 mEq/L (3.5-5.1); Sodium 138 mEq/L (136-145); eGFR For Non-African Americans > 60 (> 60)
--- NOTE | 2018-10-13 10:57 | Palliative Progress Note ---
Date of Encounter: 10/13/18 Time of Encounter: 10:30 - Assessment and plan (1) Nasal dryness Current Visit: Yes Status: Acute Assessment and plan: Reports new onset nasal dryness. Add humidified oxygen. (2) Pneumonia Current Visit: Yes Status: Acute Assessment and plan: Continue supportive oxygen, nebulizers, and IV Antibiotics, per primary team. Qualifiers: Pneumonia type: due to unspecified organism Laterality: right Lung location: unspecified part of lung Qualified Code(s): J18.9 - Pneumonia, unspecified organism (3) Cirrhosis Current Visit: Yes Status: Acute Assessment and plan: Worsening ascites. Qualifiers: Hepatic cirrhosis type: unspecified hepatic cirrhosis Ascites presence: without ascites Qualified Code(s): K74.60 - Unspecified cirrhosis of liver (4) A-fib Current Visit: Yes Status: Acute Qualifiers: Atrial fibrillation type: unspecified Qualified Code(s): I48.91 - Unspecified atrial fibrillation (5) Cardiomyopathy Current Visit: Yes Status: Chronic Assessment and plan: Cardiology recommends medical management at this time. Qualifiers: Cardiomyopathy type: unspecified Qualified Code(s): I42.9 - Cardiomyopathy, unspecified (6) Palliative care encounter Current Visit: Yes Status: Acute (7) Advance care planning Current Visit: Yes Status: Acute Assessment and plan: Patient continues to desire to be FULL CODE and go to [facility] for rehab at discharge. - Time Spent With Patient Total time spent is greater than 50% in coordination of care (as documented) at patient's floor/unit and/or counseling patient: - Subjective Interval history: Patient lying in bed watching television upon arrival for assessment. Reports she feels "peachy." Patient's daughter resting at bedside. Patient is alert and oriented times 3. Patient reports she overall feels pretty well. Reviewed CT results and Labwork with patient. Patient reports she feels the pleural effusions have gotten worse due to her not wearing her oxygen. Reports she had "lots of fluid come off yesterday." Inquiring when she can leave to go to [facility] for rehab, informed that it would be a decision by the primary team, but felt would require some more time for treatment; agreeable. - Constitutional Vitals: Abnormal lab results WBC 16.6 K/mcL (4.3-11.1) H 10/13/18 10:23 RBC 3.51 M/mcL (3.82-4.97) L 10/13/18 10:23 Hgb 11.3 g/dL (11.5-15.4) L 10/13/18 10:23 Hct 33.5 % (35.3-44.9) L 10/13/18 10:23 MCHC 31.1 g/dL (31.6-35.5) L 10/01/18 04:10 RDW 21.2 % (11.5-14.5) H 10/13/18 10:23 Plt Count 63 K/mcL (140-400) L 10/13/18 10:23 MPV 12.6 fL (9.4-12.4) H 10/07/18 04:15 14.0 % (0-4) H 10/02/18 03:35 2.0 % (0) H 10/01/18 04:10 13.6 K/mcL (1.6-8.9) H 10/12/18 01:40 0.5 K/mcL (0.6-4.6) L 10/02/18 03:35 2.7 K/mcL (0.0-1.3) H 10/12/18 01:40 Nucleated RBCs/100 WBC 0.1 /100 WBC (0) H 10/11/18 09:20 Present (Not Present) A 10/02/18 03:35 Decreased (Normal) L 10/11/18 09:20 Immature Plt Fraction 7.4 % (1.1-6.1) H 10/13/18 10:23 1+ (Not Present) A 10/08/18 04:05 1+ (Not Present) A 10/08/18 04:05 Present (Not Present) A 10/03/18 03:25 Present (Not Present) A 10/03/18 03:25 1+ (Not Present) A 10/02/18 03:35 Acanthocytes (Spur) 2+ (Not Present) A 10/02/18 03:35 PT 20.4 Seconds (9.4-12.1) H 10/11/18 09:20 104 mg/dL (169-393) L 10/04/18 13:40 ABG pH 7.48 pH Units (7.32-7.45) H 10/04/18 04:53 ABG pCO2 47 mmHg (35-45) H 10/08/18 05:34 ABG pCO2 47 mmHg (35-45) H 10/08/18 05:34 ABG pCO2 47 mmHg (35-45) H 10/08/18 05:34 ABG pO2 68 mmHg (85-104) L 10/08/18 05:34 ABG pO2 68 mmHg (85-104) L 10/08/18 05:34 ABG pO2 68 mmHg (85-104) L 10/08/18 05:34 ABG HCO3 31 mEq/L (21-27) H 10/08/18 05:34 ABG HCO3 31 mEq/L (21-27) H 10/08/18 05:34 ABG HCO3 31 mEq/L (21-27) H 10/08/18 05:34 ABG Total CO2 32 mEq/L (20-26) H 10/08/18 05:34 ABG Total CO2 32 mEq/L (20-26) H 10/08/18 05:34 ABG Total CO2 32 mEq/L (20-26) H 10/08/18 05:34 ABG O2 Saturation 94 % (95-98) L 10/08/18 05:34 ABG O2 Saturation 94 % (95-98) L 10/08/18 05:34 ABG O2 Saturation 94 % (95-98) L 10/08/18 05:34 ABG Base Excess 5 mEq/L (-2 to 3) H 10/08/18 05:34 ABG Base Excess 5 mEq/L (-2 to 3) H 10/08/18 05:34 ABG Base Excess 5 mEq/L (-2 to 3) H 10/08/18 05:34 Sodium 134 mEq/L (136-145) L 10/12/18 01:40 Potassium 3.3 mEq/L (3.5-5.1) L D 10/02/18 03:35 Chloride 112 mEq/L (98-107) H 10/08/18 04:05 Carbon Dioxide 31 mEq/L (23-29) H 10/11/18 09:20 BUN 23 mg/dL (6-20) H 10/11/18 09:20 0.42 mg/dL (0.60-1.20) L 10/13/18 10:23 Est GFR ( Amer) 33 (> 60) L 10/01/18 13:55 Est GFR (Non-Af Amer) 59 (> 60) L 10/04/18 03:45 40 (6-26) H 10/13/18 10:23 Glucose 185 mg/dL (70-105) H 10/13/18 10:23 POC Glucose 129 mg/dL (70-99) H 10/12/18 22:06 317 (280-300) H 10/08/18 04:05 Lactic Acid 3.1 mmol/L (0.5-2.2) H 10/02/18 13:00 Calcium 8.4 mg/dL (8.6-10.3) L 10/12/18 01:40 Magnesium 1.4 mg/dL (1.6-2.6) L 09/30/18 04:00 2.5 mg/dL (0.3-1.0) H 10/12/18 01:40 1.7 mg/dL (0.0-0.2) H 10/08/18 04:05 1.8 mg/dL (0.0-1.2) H 10/08/18 04:05 AST 57 Units/L (13-39) H 10/12/18 01:40 ALT 91 Units/L (7-52) H 10/12/18 01:40 154 Units/L (34-104) H 10/12/18 01:40 68 mcmol/L (16-53) H 10/07/18 17:50 550 Units/L (140-271) H 10/04/18 13:40 0.06 ng/mL (< 0.04) H* 10/01/18 20:10 B-Natriuretic Peptide 856 pg/mL (Less than 100) H 09/30/18 04:00 4.4 g/dL (6.4-8.9) L 10/12/18 01:40 1.7 g/dL (3.5-5.7) L 10/12/18 01:40 3.6 g/dL (2.4-3.5) H 10/01/18 13:55 0.6 (1.1-2.2) L 10/12/18 01:40 7.75 ng/mL (0.00-0.15) H 09/30/18 14:51 [place] (Yellow) A 10/03/18 03:50 Cloudy (Clear) A 10/03/18 03:50 Ur Specific [place] > 1.030 (1.010-1.025) H 10/03/18 03:50 100 mg/dL (Neg-Trace) H 10/03/18 03:50 Trace mg/dL (Negative) H 10/03/18 03:50 Large (Negative) H 10/03/18 03:50 Moderate (Negative) H 10/03/18 03:50 Ur Leukocyte Esterase Small (Negative) H 10/03/18 03:50 TNTC per hpf (0-3) H 10/03/18 03:50 30-50 per hpf (0-3) H 10/03/18 03:50 Ur Squamous Epith Cells Many per lpf (None-Few) H 10/03/18 03:50 Positive (Negative) A 09/30/18 11:20 Vancomycin Trough 13 mcg/mL (5-10) H 10/07/18 04:15 14 IU/mL (Less than 14) H 10/03/18 03:25 General appearance: Present: cooperative, no acute distress - Head Head exam: Present: atraumatic, normal inspection - Eye Eye exam: Present: normal appearance. Absent: periorbital swelling, periorbital tenderness Pupils: Present: normal accommodation - ENT ENT exam: Present: mucous membranes moist, normal external ear exam - Neck Neck exam: Present: normal inspection - Respiratory Respiratory exam: Present: decreased breath sounds, wheezes. Absent: respiratory distress - Cardiovascular Cardiovascular exam: Present: +S1, +S2 - GI/Abdominal GI/Abdominal exam: Present: distended, hypoactive bowel sounds, soft. Absent: tenderness - Rectal Rectal exam: Present: deferred - Extremities Exam Extremities exam: Present: pedal edema (Generalized 3+ to 4+ edema.) - Back Exam Back exam: Present: normal inspection - Neurological Exam Neurological exam: Present: alert, oriented X3, strengths equal and symetr throu ghout (4-). Absent: altered - Psychiatric Psychiatric exam: Present: normal affect, normal mood - Skin Skin exam: Present: intact, warm. Absent: dry (anasarca present.) Palliative Quality Palliative Quality: Screen for Code Status: Yes, Screen for Goals of Care: Yes, Screen for Pain: Yes, If Pain Regimen Started, Initiate Bowel Regimen: NA, Screen for Nausea/Vomitting: Yes Code Status: 09/30/18 10:10 CODE [Resuscitation Status: Active] [RES] Routine Comment: Resuscitation Status: Full Code - Labs CBC & Chem 7: 10/13/18 10:23 10/13/18 10:23 Labs: Laboratory Results - last 24 hr 10/11/18 10/11/18 10/12/18 17:27 19:48 00:46 WBC RBC Hgb Hct MCV MCH MCHC RDW Plt Count MPV Immature Plt Fraction Sodium Potassium Chloride Carbon Dioxide BUN Creatinine Est GFR ( Amer) Est GFR (Non-Af Amer) BUN/Creatinine Ratio Glucose POC Glucose 96 126 H 128 H Calculated Osmolality Calcium 10/12/18 10/12/18 10/12/18 07:21 11:20 15:43 WBC RBC Hgb Hct MCV MCH MCHC RDW Plt Count MPV Immature Plt Fraction Sodium Potassium Chloride Carbon Dioxide BUN Creatinine Est GFR ( Amer) Est GFR (Non-Af Amer) BUN/Creatinine Ratio Glucose POC Glucose 130 H 128 H 111 H Calculated Osmolality Calcium 10/12/18 10/13/18 10/13/18 22:06 10:23 10:23 WBC 16.6 H RBC 3.51 L Hgb 11.3 L Hct 33.5 L MCV 95.4 MCH 32.2 MCHC 33.7 RDW 21.2 H Plt Count 63 L MPV 11.9 Immature Plt Fraction 7.4 H Sodium 138 Potassium 4.2 Chloride 102 Carbon Dioxide 29 BUN 17 Creatinine 0.42 L Est GFR ( Amer) > 60 Est GFR (Non-Af Amer) > 60 BUN/Creatinine Ratio 40 H Glucose 185 H POC Glucose 129 H Calculated Osmolality 292 Calcium 8.9 - ABG Interpretation ABG results: ABG ABG pH 7.42 pH Units (7.32-7.45) 10/08/18 05:34 ABG pH 7.42 pH Units (7.32-7.45) 10/08/18 05:34 ABG pH 7.42 pH Units (7.32-7.45) 10/08/18 05:34 ABG pCO2 47 mmHg (35-45) H 10/08/18 05:34 ABG pCO2 47 mmHg (35-45) H 10/08/18 05:34 ABG pCO2 47 mmHg (35-45) H 10/08/18 05:34 ABG pO2 68 mmHg (85-104) L 10/08/18 05:34 ABG pO2 68 mmHg (85-104) L 10/08/18 05:34 ABG pO2 68 mmHg (85-104) L 10/08/18 05:34 ABG O2 Saturation 94 % (95-98) L 10/08/18 05:34 ABG O2 Saturation 94 % (95-98) L 10/08/18 05:34 ABG O2 Saturation 94 % (95-98) L 10/08/18 05:34 PT/INR, D-dimer PT 20.4 Seconds (9.4-12.1) H 10/11/18 09:20 Palliative Scale - Palliative Performance Scale How ambulatory is this patient?: Totally bed bound What is patient's level of activity and evidence of disease?: Unable to do most activity, Extensive disease How much self-care assistance does patient require?: Total care How much oral intake does the patient have?: Normal or reduced What is this patient's level of consciousness?: Full or confusion Palliative Performance Score: 60 % Consult Discharge Plan - Plan Referrals: NONE,PCP [Primary Care Provider] -
[2018-10-13 11:14] LABS: Lymphocytes # 1.3 K/mcL (0.6-4.6); Monocytes # 0.7 K/mcL (0.0-1.3); Neutrophils # 14.6 K/mcL (1.6-8.9); Platelet Estimate Decreased (Normal)
[2018-10-13] MEDS: traMADol 50 MG TABLET PO PRN ×2 (13:14→23:25)
[2018-10-13] MEDS ORDERED: Ondansetron 4 MG/2 ML VIAL IVP ONE (15:32)
[2018-10-13] MEDS: Acetaminophen 325 MG TABLET PO PRN (20:01)
[2018-10-14] MEDS: Piperacillin/Tazobactam 3.375 GM in 0.9 % Sodium Chloride Mini Bag 100 ML IVPB SCH ×4 (00:33→20:38)
[2018-10-14] MEDS: Levalbuterol Neb 1.25 MG/3 ML IH SCH ×4 (04:16→21:46)
[2018-10-14] MEDS: Pantoprazole 40 MG VIAL IVP SCH (06:31)
[2018-10-14 08:56] LABS: Basophils % 0.2 %; Eosinophils % 0.4 %; Hemoglobin 11.3 g/dL (11.5-15.4); Mean Corpuscular Hemoglobin 32.1 pg (28.0-33.3); Red Blood Count 3.52 M/mcL (3.82-4.97)
[2018-10-14 08:57] LABS: Hematocrit 33.7 % (35.3-44.9); Immature Platelets 6.6 % (1.1-6.1); Mean Corpuscular HGB Conc 33.5 g/dL (31.6-35.5); Mean Corpuscular Volume 95.7 fL (83.0-100.0); Mean Platelet Volume 12.9 fL (9.4-12.4); Red Cell Distribution Width 21.6 % (11.5-14.5); Segmented Neutrophils % 64.2 %
[2018-10-14 08:58] LABS: Eosinophils # 0.1 K/mcL (0.0-0.6); Immature Granulocytes % 2.9 % (0-4); Lymphocytes # 2.1 K/mcL (0.6-4.6); Lymphocytes % 15.2 %; Monocytes # 2.3 K/mcL (0.0-1.3); Monocytes % 17.1 %; Neutrophils # 8.8 K/mcL (1.6-8.9); Platelet Count 68 K/mcL (140-400)
[2018-10-14] MEDS: Spironolactone 25 MG TABLET PO SCH (10:06)
[2018-10-14] MEDS: Lactulose Oral Soln 20 GM/30 ML UDC PO SCH ×3 (10:06→20:41)
[2018-10-14] MEDS: Metoprolol XL (24 HR) Succ 25 MG TAB.ER.24H PO SCH ×2 (10:07→20:43)
[2018-10-14] MEDS: Doxycycline 100 MG in 0.9 % Sodium Chloride Mini Bag 100 ML IVPB SCH ×2 (10:07→20:43)
[2018-10-14] MEDS: Furosemide 20 MG/2 ML VIAL IVP SCH ×2 (10:11→18:56)
[2018-10-14 12:11] LABS: BUN/Creatinine Ratio 39 (6-26); Blood Urea Nitrogen 16 mg/dL (6-20); Calcium 8.9 mg/dL (8.6-10.3); Carbon Dioxide 33 mEq/L (23-29); Chloride 101 mEq/L (98-107); Glucose 190 mg/dL (70-105); Osmolality,Calculated 290 (280-300); Potassium 3.7 mEq/L (3.5-5.1); Sodium 137 mEq/L (136-145); eGFR For Non-African Americans > 60 (> 60)
[2018-10-14] MEDS: traMADol 50 MG TABLET PO PRN ×2 (13:20→22:08)
--- NOTE | 2018-10-14 13:20 | Internal Med Progress Note ---
Hospitalist Progress Note - Encounter Date of Encounter: 10/14/18 Time of Encounter: 11:17 - Subjective Interval History: Patient seen and examined this morning at bedside. No acute overnight events. Patient without new complaints. Denies any chest pain, difficulty breathing, abdominal pain, nausea vomiting or diarrhea. afebrile. BP slightly on lower end. - Exam Vitals: Temp Pulse Resp BP Pulse Ox 98.2 F 71 14 97/61 91 10/14/18 07:25 10/14/18 07:25 10/14/18 10:21 10/14/18 07:25 10/14/18 10:21 Exam: General: In no acute distress. Respiratory exam: coarse breath sounds. rales at base bilaterally Cardiovascular exam: RRR +S1, +S2. no murmur, gallop, rubs. GI/Abdominal exam: Non-tender, Non-distended, soft, no peritoneal signs. Cabrera in place Extremities exam: 2+ pedal edema and on b/l UE and LE as well, slighlty improved and less tense, no calf tenderness. has epcd Neurological exam: CN II-XII intact, AO X3, no focal deficits. weakness of all extremities - Summary of Assessment and Plan Summary of Assessment and Plan: Assessment Acute Acute on chronic systolic CHF Fluid overload Afib with RVR-resolved Pneumonia- unclear organism- likely bacterial Septic shock-resolved Acute hypoxic respiratory failure -resolved Shock liver- resolved EMMA-resolved toxic metabolic encephelopathy-resolved. severe non ischemic Cardiomyopathy Thrombocytopenia Morbid obesity Chronic h/o nonalcoholic cirrhosis Hepatitis B and C Anemia thrombocytopenia Plan - Blood cx NGTD from 09/30/18 and 10/04/18. Urine cx NGTD. sputum aspirate with yeast, likely contaminant. MRSA positive. Vancomycin stopped after 9 days. Urine antigen negative. ID consulted for persistant Leukocytosis. possibly from steroid. CT showed pleural effusion, LLL and RLL consolidation. c/w empiric zosyn and doxycycline for now as patient afebrile and procalcitonin normal and leukocytosis improving. f/u ID for duration of treatment. - EMMA resolved. Nephrology signed off. Has good urine output. c/w spironolactone 25 and lasix 40 IV BID with albumin. Monitor renal function. Cannot increase spironolactone to home dose given low BP. - Coagulopathy likely from liver shock on baseline cirrhosis. Liver function improving. No signs of bleeding. thrombocytopenia stable - afib Rate controlled with metoprolol. EF of 15-20% with intermediate diastolic function, mod pulm htn. Cardio consulted. EF 35% last year and stress test negative. Does not think cardiomyopathy ischemic in nature. No LHC or aicd was recommended. Discussed case again with cardiology as with some improvement in MELD score and patient want aggressive measure even after discussion of benefits/risk. Will get life vest before discharge. Holding acei/arb because of low BP for now. Will start if BP and renal function remains stable. - c/w lactulose for cirrhosis. Maintain 2-3 BM per day. Child Matthew C. Has poor prognosis. Palliative care consulted. Patient want to be full code and want aggressive measures done understanding her poor prognosis. - SCD for dvt prophylaxis. - Time Spent with Patient Total time spent is greater than 50% in coordination of care (as documented) at patient's floor/unit and/or counseling patient: Internal Medicine: Result - Labs CBC & Chem 7: 10/14/18 08:33 10/14/18 11:42 Labs: Short CBC 10/14/18 Range/Units 08:33 WBC 13.7 H (4.3-11.1) K/mcL Hgb 11.3 L (11.5-15.4) g/dL Hct 33.7 L (35.3-44.9) % Plt Count 68 L (140-400) K/mcL Neutrophils # 8.8 (1.6-8.9) K/mcL BMP 10/14/18 11:42 Sodium 137 Potassium 3.7 Chloride 101 Carbon Dioxide 33 H BUN 16 Creatinine 0.41 L Glucose 190 H Calcium 8.9 - ABG Interpretation ABG results: ABG ABG pH 7.42 pH Units (7.32-7.45) 10/08/18 05:34 ABG pH 7.42 pH Units (7.32-7.45) 10/08/18 05:34 ABG pH 7.42 pH Units (7.32-7.45) 10/08/18 05:34 ABG pCO2 47 mmHg (35-45) H 10/08/18 05:34 ABG pCO2 47 mmHg (35-45) H 10/08/18 05:34 ABG pCO2 47 mmHg (35-45) H 10/08/18 05:34 ABG pO2 68 mmHg (85-104) L 10/08/18 05:34 ABG pO2 68 mmHg (85-104) L 10/08/18 05:34 ABG pO2 68 mmHg (85-104) L 10/08/18 05:34 ABG O2 Saturation 94 % (95-98) L 10/08/18 05:34 ABG O2 Saturation 94 % (95-98) L 10/08/18 05:34 ABG O2 Saturation 94 % (95-98) L 10/08/18 05:34 PT/INR, D-dimer PT 20.4 Seconds (9.4-12.1) H 10/11/18 09:20 Consult Discharge Plan - Plan Referrals: NONE,PCP [Primary Care Provider] -
[2018-10-14] MEDS: Acetaminophen 325 MG TABLET PO PRN (15:11)
[2018-10-14] MEDS ORDERED: Albumin 25% 25gram/100mL 25 GM/100 ML IV.SOLN IVPB SCH (16:00)
--- NOTE | 2018-10-14 18:09 | Infectious Disease Progress No ---
ID Progress Note Date of Encounter: 10/14/18 Time of Encounter: 18:05 - Subjective Subjective: Patient seen and examined. sitting up at bedside. NO chest pain no shortness of breath. No cough, no diarrhea. no urinary symptoms. Vital signs noted MAXIMUM TEMPERATURE 99.5, tachycardic Labs reviewed WBC 13.7 - Objective CBC & Chem 7: 10/14/18 08:33 10/14/18 11:42 - Exam Vitals: Temp Pulse Resp BP Pulse Ox 98.3 F 102 16 111/75 91 10/14/18 15:17 10/14/18 15:17 10/14/18 16:55 10/14/18 15:17 10/14/18 16:55 Exam: GENERAL: Comfortable. Laying in bed NAD HEENT: [place], EOMI LUNGS: Good air sounds bilaterally, no wheezing or rhonchi CV: RRR, S1 S2 ABDOMEN: Soft, nontender, + bowel sounds EXT: Adequate perfusion. No edema NEURO: A&OX3; no focal deficit - Assessment and Plan (1) Pneumonia Current Visit: Yes Status: Acute Causative organism not clear Urine legionella and pneumococcal antigen were negative. Sputum aspirate only grew Zaida tropicalis. MRSA screen was positive. Infectious panel negative CT chest revealed pulmonary nodules and chest x-ray revealed persistent right lower lobe pneumonia and now there is concern for left lower lobe pneumonia. Patient has been on antibiotics since admission including vancomycin and Zosyn doxycycline through 09/30/2018 Currently on Zosyn and doxycycline Check pro calcitonin Repeat CT chest Noted; looking worse will ask pulmonary to reevaluate; i'm concerned that this is mostly fluid etc. patient currently on zosyn and doxy will continue current treatment for now Qualifiers: Pneumonia type: due to unspecified organism Laterality: right Lung location: unspecified part of lung Qualified Code(s): J18.9 - Pneumonia, unspecified organism SNOMED Code(s): 573566375 (2) Metabolic encephalopathy Current Visit: Yes Status: Acute Could be multifactorial from underlying infection or hepatic encephalopathy Currently patient appears awake alert oriented. Not sure what her baseline is. SNOMED Code(s): 90664241 (3) Atrial fibrillation with RVR Current Visit: Yes Status: Acute SNOMED Code(s): 827009238578688 (4) Cirrhosis Current Visit: No Status: Acute Etiology not clear. Patient does not recall where she was diagnosed denies having had a biopsy in the past history of Hepatitis B and C Qualifiers: Hepatic cirrhosis type: unspecified hepatic cirrhosis Qualified Code(s): K74.60 - Unspecified cirrhosis of liver SNOMED Code(s): 02511632 (5) Acute respiratory failure with hypoxia Current Visit: Yes Status: Acute Resolved. repeat CT 10/11: Interval development of bilateral pleural effusions, larger on the left. Right lower lobe consolidation has increased, now almost complete. Left lower lobe complete consolidation is new since the prior study. Follow-up to resolution is recommended. Interval development of a moderate amount of upper abdominal ascites and mesenteric edema. Again noted is cirrhotic morphology liver with upper abdominal venous collaterals. Will ask pulmonary to reevaluate SNOMED Code(s): 47792712, 104677954 (6) Septic shock Current Visit: Yes Status: Acute On admission patient was in septic shock and was admitted to the ICU Resolved Patient is hemodynamically stable Likely was secondary to pneumonia SNOMED Code(s): 99307734 (7) EMMA (acute kidney injury) Current Visit: Yes Status: Acute Creatinine back at baseline. SNOMED Code(s): 68613162, 97677964 Consult Discharge Plan - Plan Referrals: NONE,PCP [Primary Care Provider] -
[2018-10-14] MEDS: Melatonin 3 MG TABLET PO PRN (22:08)
[2018-10-15] MEDS: Piperacillin/Tazobactam 3.375 GM in 0.9 % Sodium Chloride Mini Bag 100 ML IVPB SCH ×4 (00:07→23:46)
[2018-10-15] MEDS: Acetaminophen 325 MG TABLET PO PRN ×2 (02:54→13:38)
[2018-10-15] MEDS ORDERED: Albumin 25% 25gram/100mL 25 GM/100 ML IV.SOLN IVPB SCH (04:00)
[2018-10-15] MEDS: Levalbuterol Neb 1.25 MG/3 ML IH SCH ×4 (04:32→22:24)
[2018-10-15 06:34] LABS: BUN/Creatinine Ratio 42 (6-26); Blood Urea Nitrogen 16 mg/dL (6-20); Calcium 8.6 mg/dL (8.6-10.3); Carbon Dioxide 33 mEq/L (23-29); Chloride 100 mEq/L (98-107); Glucose 236 mg/dL (70-105); Osmolality,Calculated 291 (280-300); Potassium 3.6 mEq/L (3.5-5.1); Sodium 136 mEq/L (136-145); eGFR For Non-African Americans > 60 (> 60)
[2018-10-15 07:02] LABS: Eosinophils % 0.5 %; Mean Corpuscular HGB Conc 33.1 g/dL (31.6-35.5); Mean Corpuscular Hemoglobin 31.8 pg (28.0-33.3)
[2018-10-15 07:03] LABS: Basophils % 0.4 %; Eosinophils # 0.1 K/mcL (0.0-0.6); Hematocrit 30.8 % (35.3-44.9); Hemoglobin 10.2 g/dL (11.5-15.4); Immature Granulocytes % 0.4 % (0-4); Immature Platelets 6.2 % (1.1-6.1); Lymphocytes % 14.8 %; Mean Platelet Volume 11.5 fL (9.4-12.4); Red Blood Count 3.21 M/mcL (3.82-4.97); Red Cell Distribution Width 21.5 % (11.5-14.5); Segmented Neutrophils % 65.9 %
[2018-10-15 07:04] LABS: Lymphocytes # 1.5 K/mcL (0.6-4.6); Monocytes # 1.9 K/mcL (0.0-1.3); Neutrophils # 6.8 K/mcL (1.6-8.9)
[2018-10-15 07:13] LABS: Platelet Count 56 K/mcL (140-400)
[2018-10-15] MEDS: Furosemide 20 MG/2 ML VIAL IVP SCH ×2 (07:59→16:12)
[2018-10-15] MEDS: Metoprolol XL (24 HR) Succ 25 MG TAB.ER.24H PO SCH ×2 (08:02→20:15)
[2018-10-15] MEDS: Spironolactone 25 MG TABLET PO SCH (08:02)
[2018-10-15] MEDS: Lactulose Oral Soln 20 GM/30 ML UDC PO SCH ×3 (08:03→20:17)
[2018-10-15] MEDS: Doxycycline 100 MG in 0.9 % Sodium Chloride Mini Bag 100 ML IVPB SCH ×3 (08:04→23:44)
--- NOTE | 2018-10-15 11:09 | Internal Med Progress Note ---
Hospitalist Progress Note - Encounter Date of Encounter: 10/15/18 Time of Encounter: 11:08 - Subjective Interval History: Patient seen and examined this morning at bedside. No acute overnight events. Diuresed well yesterday. Denies new complaints. Swelling decreasing. Denies any chest pain or left arm pain. Denies any difficulty breathing. Afebrile. - Exam Vitals: Temp Pulse Resp BP Pulse Ox 99.0 F 99 18 105/61 100 10/15/18 07:12 10/15/18 07:12 10/15/18 10:27 10/15/18 07:12 10/15/18 10:27 Exam: General: In no acute distress. sitting in chair Respiratory exam: coarse breath sounds. rales at base bilaterally Cardiovascular exam: RRR +S1, +S2. no murmur, gallop, rubs. GI/Abdominal exam: Non-tender, Non-distended, soft, no peritoneal signs. Cabrera in place Extremities exam: 2+ pedal edema b/l. LUE more swollen than Rt. edema decreasing. no calf tenderness. has epcd Neurological exam: CN II-XII intact, AO X3, no focal deficits. weakness of all extremities - Summary of Assessment and Plan Summary of Assessment and Plan: Assessment Acute Acute on chronic systolic CHF Fluid overload Afib with RVR-resolved Pneumonia- unclear organism- likely bacterial Septic shock-resolved Acute hypoxic respiratory failure -resolved Shock liver- resolved EMMA-resolved toxic metabolic encephelopathy-resolved. severe non ischemic Cardiomyopathy Thrombocytopenia Morbid obesity Chronic h/o nonalcoholic cirrhosis Hepatitis B and C Anemia thrombocytopenia Plan - Blood cx NGTD from 09/30/18 and 10/04/18. Urine cx NGTD. sputum aspirate with yeast, likely contaminant. MRSA positive. Vancomycin stopped after 9 days. Urine antigen negative. ID consulted for persistant Leukocytosis. possibly from steroid. CT showed pleural effusion, LLL and RLL consolidation. ID consulted. c/w empiric zosyn and doxycycline for now. Pulm reconsulted given new infiltrate s and effusion. However clinically improved with wbc normalized. f/u ID and pulm. - EMMA resolved. Nephrology signed off. Having good urine output. c/w spironolactone 25 and lasix 40 IV BID with albumin. Monitor renal function. Cannot increase spironolactone to home dose given low BP - Coagulopathy likely from liver shock on baseline cirrhosis. Liver function improving. thrombocytopenia stable. Hb downtrending. No signs of active bleeding. Will monitor for now. Will consult GI if further decrease. f/u INR. - afib Rate controlled with metoprolol. EF of 15-20% with intermediate diastolic function, mod pulm htn. Cardio consulted. EF 35% last year and stress test negative. Does not think cardiomyopathy ischemic in nature. No LHC or aicd was recommended. Discussed case again with cardiology as with some improvement in MELD score and patient want aggressive measure even after discussion of bene fits/risk. Will get life vest before discharge. Holding acei/arb because of low BP for now. Will start if BP and renal function remains stable. - c/w lactulose for cirrhosis. Maintain 2-3 BM per day. Child Matthew C. Has poor prognosis. Palliative care consulted. Patient want to be full code and want a ggressive measures done understanding her poor prognosis. Will consult GI if Hb trends down if we need EGD inpatient. - SCD for dvt prophylaxis. - Time Spent with Patient Total time spent is greater than 50% in coordination of care (as documented) at patient's floor/unit and/or counseling patient: Internal Medicine: Result - Labs CBC & Chem 7: 10/15/18 05:35 10/15/18 05:35 Labs: Short CBC 10/15/18 Range/Units 05:35 WBC 10.3 (4.3-11.1) K/mcL Hgb 10.2 L (11.5-15.4) g/dL Hct 30.8 L (35.3-44.9) % Plt Count 56 L (140-400) K/mcL Neutrophils # 6.8 (1.6-8.9) K/mcL BMP 10/14/18 10/15/18 11:42 05:35 Sodium 137 136 Potassium 3.7 3.6 Chloride 101 100 Carbon Dioxide 33 H 33 H BUN 16 16 Creatinine 0.41 L 0.38 L Glucose 190 H 236 H Calcium 8.9 8.6 - ABG Interpretation ABG results: ABG ABG pH 7.42 pH Units (7.32-7.45) 10/08/18 05:34 ABG pH 7.42 pH Units (7.32-7.45) 10/08/18 05:34 ABG pH 7.42 pH Units (7.32-7.45) 10/08/18 05:34 ABG pCO2 47 mmHg (35-45) H 10/08/18 05:34 ABG pCO2 47 mmHg (35-45) H 10/08/18 05:34 ABG pCO2 47 mmHg (35-45) H 10/08/18 05:34 ABG pO2 68 mmHg (85-104) L 10/08/18 05:34 ABG pO2 68 mmHg (85-104) L 10/08/18 05:34 ABG pO2 68 mmHg (85-104) L 10/08/18 05:34 ABG O2 Saturation 94 % (95-98) L 10/08/18 05:34 ABG O2 Saturation 94 % (95-98) L 10/08/18 05:34 ABG O2 Saturation 94 % (95-98) L 10/08/18 05:34 PT/INR, D-dimer PT 20.4 Seconds (9.4-12.1) H 10/11/18 09:20 Consult Discharge Plan - Plan Referrals: NONE,PCP [Primary Care Provider] -
[2018-10-15] MEDS: traMADol 50 MG TABLET PO PRN ×2 (11:32→20:15)
[2018-10-15] MEDS: Albumin 25% 25gram/100mL 25 GM/100 ML IV.SOLN IVPB SCH ×3 (13:42→23:44)
--- NOTE | 2018-10-15 14:32 | Infectious Disease Progress No ---
ID Progress Note Date of Encounter: 10/15/18 Time of Encounter: 10:00 - Subjective Subjective: Patient seen and examined. No acute events noted overnight. Patient states overall she feels well. Denies fevers, chills, or rigors. Denies chest pain, shortness of breath, or cough. Denies nausea, vomiting, diarrhea, or constipation. Denies abdominal pain or urinary complaints. Denies oral thrush or skin rashes. Reports chronic back pain that is at baseline. - Objective CBC & Chem 7: 10/17/18 03:20 10/17/18 03:20 - Exam Vitals: Temp Pulse Resp BP Pulse Ox 98.6 F 84 16 99/75 100 10/15/18 11:53 10/15/18 11:53 10/15/18 11:53 10/15/18 11:53 10/15/18 10:27 Exam: Head: Atraumatic, normal inspection, normocephalic. Eye: EOMI, PERRLA, no scleral icterus noted. ENT: Mucous membranes moist. No odontogenic infection noted. Neck: Normal inspection, no meningismus. Respiratory: Clear to auscultation. No rales, respiratory distress, rhonchi, or wheezes noted. Cardiovascular: Regular rate and rhythm, S1 and S2 audible. No murmurs, rubs, or gallops. GI: Soft, nondistended, normal bowel sounds. Extremities:No joint swelling or tenderness noted. 1+ edema noted to the bilateral upper and lower extremities. Back: Normal inspection. No vertebral tenderness noted. Neurological: Alert, oriented 3, no focal deficits. Psychiatric: normal affect, normal mood. Skin: Dry, intact, warm. Normal color. No rashes. - Assessment and Plan (1) Septic shock Current Visit: Yes Status: Resolved On admission, patient was in septic shock and was admitted to the ICU. Likely secondary to pneumonia. Resolved. Patient is hemodynamically stable. SNOMED Code(s): 42519020 (2) Pneumonia Current Visit: Yes Status: Acute Causative organism not clear. Urine legionella and pneumococcal antigen were negative. Sputum aspirate only grew Zaida tropicalis. MRSA screen was positive. Respiratory infectious panel negative. CT chest revealed pulmonary nodules and chest x-ray revealed persistent right lower lobe pneumonia and now there is concern for left lower lobe pneumonia. Patient has been on antibiotics since admission including vancomycin and Zosyn ,doxycycline through 09/30/2018. Repeat imaging unchanged despite clinical improvement. Currently on Zosyn and doxycycline. Qualifiers: Pneumonia type: due to unspecified organism Laterality: right Lung location: unspecified part of lung Qualified Code(s): J18.9 - Pneumonia, unspecified organism SNOMED Code(s): 203504415 (3) Metabolic encephalopathy Current Visit: Yes Status: Resolved Could be multifactorial from underlying infection or hepatic encephalopathy. Currently patient appears awake alert oriented. Resolved. SNOMED Code(s): 77437511 (4) EMMA (acute kidney injury) Current Visit: Yes Status: Resolved Likely secondary to sepsis. Creatinine back at baseline. SNOMED Code(s): 81171368, 05478741 (5) Acute respiratory failure with hypoxia Current Visit: Yes Status: Resolved Likely secondary to PNA and COPD. Resolved. Pulmonology consulted and signed off. SNOMED Code(s): 02900525, 065971022 (6) Atrial fibrillation with RVR Current Visit: Yes Status: Acute SNOMED Code(s): 747767823974792 (7) Cirrhosis Current Visit: No Status: Chronic Etiology not clear. Patient does not recall where she was diagnosed. Denies having had a biopsy in the past. history of Hepatitis B and C. Qualifiers: Hepatic cirrhosis type: unspecified hepatic cirrhosis Qualified Code(s): K74.60 - Unspecified cirrhosis of liver SNOMED Code(s): 02716816 - Recommendations Recommendations: Recommend pulmonology to evaluate. Continue doxycycline 100mg IV Q12H for now. Continue Zosyn 3.375 grams IV Q8H for now. Duration of treatment depends on the clinical picture. May discontinue antibiotics once evaluated by pulmonology if okay with them since the patient has been on IV antibiotics since 09/30/18 and is clinically improved. Monitor renal function and dose-adjust antibiotics. Contact precautions per hospital policy. Consult Discharge Plan - Plan Instructions: Heart Failure (DC), Atrial Fibrillation (DC), Pacemaker (DC), Acute Respiratory Distress Syndrome (DC), Cirrhosis (DC), Hypothyroidism (DC), Viral Hepatitis C (GEN), Viral Hepatitis B (DC), Chronic Obstructive Pulmonary Disease (DC), Anemia (GEN), Anxiety (DC), Pneumonia (DC), Cigarette Smoking and Your Health, Photo Mask Processor (GEN) Referrals: NONE,PCP [Primary Care Provider] - - Attending Attestation I have personally performed a face to face evaluation on this patient. I have reviewed and agree with the care plan. History and Exam by me shows: Patient seen and examined. Doing well clinically. I discussed the CAT scan results with Dr. rosenthal. He feels that it is all fluid. Patient has no sepsis criteria. We will DC antibiotics in the a.m. and observe.
--- NOTE | 2018-10-15 18:27 | Pulmonology Progress Note ---
Date of Encounter: 10/16/18 Time of Encounter: 16:45 Assessment and Plan (1) Pneumonia Current Visit: Yes Status: Acute Reviewed her CT chest and discussed the result with the patient. It seems to me there is area of most likely compression atelectasis and bilateral pleural effusion and clinically patient is volume overloaded. Diuresis as much as p ossible. I have explained to the patient about her pneumonia and she may need bronchoscopy and explained to her all the risks, alternative, benefits of the procedure, but patient stated she is feeling much better and she wants conservative approach with empiric antibiotics. She agreed if she does not feel better then she would consider bronchoscopy. I feel that is reasonable especially since clinically she is feeling better. Please call for any questions. Qualifiers: Pneumonia type: due to unspecified organism Laterality: right Lung location: unspecified part of lung Qualified Code(s): J18.9 - Pneumonia, unspecified organism (2) Acute exacerbation of chronic obstructive pulmonary disease (COPD) Current Visit: No Status: Resolved Overall patient is improving and to continue bronchodilators. Diuresis will help the situation as well. Subjective Principal diagnosis: Septic shock secondary to pneumonia complicated by worsening of systolic he Interval history: Patient is feeling much better Objective PUL Vital signs: Last Vital Signs Temp 98.3 F 10/15/18 15:58 Pulse 94 10/15/18 15:58 Resp 18 10/15/18 15:58 BP 100/69 10/15/18 15:58 Pulse Ox 100 10/15/18 10:27 General appearance: no acute distress Eyes: nonicteric ENT: oropharynx moist Neck: supple Effort: normal Auscultation: bilateral: diminished breath sounds Percussion: bilateral: not dull Cardiovascular: regular rate and rhythm Gastrointestinal: normoactive bowel sounds, non-distended Extremities: no cyanosis, edema normal mental status, non-focal exam mood appropriate Results - Laboratory Findings CBC and BMP: 10/16/18 04:00 10/16/18 05:28 ABG ABG pH 7.42 pH Units (7.32-7.45) 10/08/18 05:34 ABG pH 7.42 pH Units (7.32-7.45) 10/08/18 05:34 ABG pH 7.42 pH Units (7.32-7.45) 10/08/18 05:34 ABG pCO2 47 mmHg (35-45) H 10/08/18 05:34 ABG pCO2 47 mmHg (35-45) H 10/08/18 05:34 ABG pCO2 47 mmHg (35-45) H 10/08/18 05:34 ABG pO2 68 mmHg (85-104) L 10/08/18 05:34 ABG pO2 68 mmHg (85-104) L 10/08/18 05:34 ABG pO2 68 mmHg (85-104) L 10/08/18 05:34 ABG O2 Saturation 94 % (95-98) L 10/08/18 05:34 ABG O2 Saturation 94 % (95-98) L 10/08/18 05:34 ABG O2 Saturation 94 % (95-98) L 10/08/18 05:34 PT/INR, D-dimer PT 20.4 Seconds (9.4-12.1) H 10/11/18 09:20 Abnormal lab findings: Abnormal lab results WBC 13.7 K/mcL (4.3-11.1) H 10/14/18 08:33 RBC 3.21 M/mcL (3.82-4.97) L 10/15/18 05:35 Hgb 10.2 g/dL (11.5-15.4) L 10/15/18 05:35 Hct 30.8 % (35.3-44.9) L 10/15/18 05:35 MCHC 31.1 g/dL (31.6-35.5) L 10/01/18 04:10 RDW 21.5 % (11.5-14.5) H 10/15/18 05:35 Plt Count 56 K/mcL (140-400) L 10/15/18 05:35 MPV 12.9 fL (9.4-12.4) H 10/14/18 08:33 14.0 % (0-4) H 10/02/18 03:35 2.0 % (0) H 10/01/18 04:10 14.6 K/mcL (1.6-8.9) H 10/13/18 10:23 0.5 K/mcL (0.6-4.6) L 10/02/18 03:35 1.9 K/mcL (0.0-1.3) H 10/15/18 05:35 Nucleated RBCs/100 WBC 0.1 /100 WBC (0) H 10/11/18 09:20 Present (Not Present) A 10/02/18 03:35 Decreased (Normal) L 10/13/18 10:23 Immature Plt Fraction 6.2 % (1.1-6.1) H 10/15/18 05:35 1+ (Not Present) A 10/08/18 04:05 1+ (Not Present) A 10/08/18 04:05 Present (Not Present) A 10/03/18 03:25 Present (Not Present) A 10/03/18 03:25 1+ (Not Present) A 10/02/18 03:35 Acanthocytes (Spur) 2+ (Not Present) A 10/02/18 03:35 PT 20.4 Seconds (9.4-12.1) H 10/11/18 09:20 104 mg/dL (169-393) L 10/04/18 13:40 ABG pH 7.48 pH Units (7.32-7.45) H 10/04/18 04:53 ABG pCO2 47 mmHg (35-45) H 10/08/18 05:34 ABG pCO2 47 mmHg (35-45) H 10/08/18 05:34 ABG pCO2 47 mmHg (35-45) H 10/08/18 05:34 ABG pO2 68 mmHg (85-104) L 10/08/18 05:34 ABG pO2 68 mmHg (85-104) L 10/08/18 05:34 ABG pO2 68 mmHg (85-104) L 10/08/18 05:34 ABG HCO3 31 mEq/L (21-27) H 10/08/18 05:34 ABG HCO3 31 mEq/L (21-27) H 10/08/18 05:34 ABG HCO3 31 mEq/L (21-27) H 10/08/18 05:34 ABG Total CO2 32 mEq/L (20-26) H 10/08/18 05:34 ABG Total CO2 32 mEq/L (20-26) H 10/08/18 05:34 ABG Total CO2 32 mEq/L (20-26) H 10/08/18 05:34 ABG O2 Saturation 94 % (95-98) L 10/08/18 05:34 ABG O2 Saturation 94 % (95-98) L 10/08/18 05:34 ABG O2 Saturation 94 % (95-98) L 10/08/18 05:34 ABG Base Excess 5 mEq/L (-2 to 3) H 10/08/18 05:34 ABG Base Excess 5 mEq/L (-2 to 3) H 10/08/18 05:34 ABG Base Excess 5 mEq/L (-2 to 3) H 10/08/18 05:34 Sodium 134 mEq/L (136-145) L 10/12/18 01:40 Potassium 3.3 mEq/L (3.5-5.1) L D 10/02/18 03:35 Chloride 112 mEq/L (98-107) H 10/08/18 04:05 Carbon Dioxide 33 mEq/L (23-29) H 10/15/18 05:35 BUN 23 mg/dL (6-20) H 10/11/18 09:20 0.38 mg/dL (0.60-1.20) L 10/15/18 05:35 Est GFR ( Amer) 33 (> 60) L 10/01/18 13:55 Est GFR (Non-Af Amer) 59 (> 60) L 10/04/18 03:45 42 (6-26) H 10/15/18 05:35 Glucose 236 mg/dL (70-105) H 10/15/18 05:35 POC Glucose 192 mg/dL (70-99) H 10/15/18 07:17 317 (280-300) H 10/08/18 04:05 Lactic Acid 3.1 mmol/L (0.5-2.2) H 10/02/18 13:00 Calcium 8.4 mg/dL (8.6-10.3) L 10/12/18 01:40 Magnesium 1.4 mg/dL (1.6-2.6) L 09/30/18 04:00 2.5 mg/dL (0.3-1.0) H 10/12/18 01:40 1.7 mg/dL (0.0-0.2) H 10/08/18 04:05 1.8 mg/dL (0.0-1.2) H 10/08/18 04:05 AST 57 Units/L (13-39) H 10/12/18 01:40 ALT 91 Units/L (7-52) H 10/12/18 01:40 154 Units/L (34-104) H 10/12/18 01:40 68 mcmol/L (16-53) H 10/07/18 17:50 550 Units/L (140-271) H 10/04/18 13:40 0.06 ng/mL (< 0.04) H* 10/01/18 20:10 B-Natriuretic Peptide 856 pg/mL (Less than 100) H 09/30/18 04:00 4.4 g/dL (6.4-8.9) L 10/12/18 01:40 1.7 g/dL (3.5-5.7) L 10/12/18 01:40 3.6 g/dL (2.4-3.5) H 10/01/18 13:55 0.6 (1.1-2.2) L 10/12/18 01:40 7.75 ng/mL (0.00-0.15) H 09/30/18 14:51 [place] (Yellow) A 10/03/18 03:50 Cloudy (Clear) A 10/03/18 03:50 Ur Specific [place] > 1.030 (1.010-1.025) H 10/03/18 03:50 100 mg/dL (Neg-Trace) H 10/03/18 03:50 Trace mg/dL (Negative) H 10/03/18 03:50 Large (Negative) H 10/03/18 03:50 Moderate (Negative) H 10/03/18 03:50 Ur Leukocyte Esterase Small (Negative) H 10/03/18 03:50 TNTC per hpf (0-3) H 10/03/18 03:50 30-50 per hpf (0-3) H 10/03/18 03:50 Ur Squamous Epith Cells Many per lpf (None-Few) H 10/03/18 03:50 Positive (Negative) A 09/30/18 11:20 Vancomycin Trough 13 mcg/mL (5-10) H 10/07/18 04:15 14 IU/mL (Less than 14) H 10/03/18 03:25 - Diagnostic Findings CT scan - chest: report reviewed, image reviewed - Clinical Findings Intake & Output: Intake & Output 10/15/18 10/15/18 10/15/18 07:59 15:59 23:59 Intake Total 200 / 900 700 / 900 Output Total 0 / 2100 1800 / 2100 300 / 2100 Balance 200 / -1200 -1100 / -1200 -300 / -1200 Weight 186.6 kg Consult Discharge Plan - Plan Referrals: NONE,PCP [Primary Care Provider] -
[2018-10-16] MEDS: Melatonin 3 MG TABLET PO PRN ×2 (00:08→22:55)
[2018-10-16] MEDS: Acetaminophen 325 MG TABLET PO PRN ×2 (02:42→19:56)
[2018-10-16] MEDS: Albumin 25% 25gram/100mL 25 GM/100 ML IV.SOLN IVPB SCH ×3 (03:31→22:52)
[2018-10-16] MEDS: Levalbuterol Neb 1.25 MG/3 ML IH SCH ×4 (04:05→22:48)
[2018-10-16] MEDS: traMADol 50 MG TABLET PO PRN ×3 (05:13→22:53)
[2018-10-16 05:39] LABS: Basophils % 0.3 %
[2018-10-16 05:41] LABS: Eosinophils # 0.1 K/mcL (0.0-0.6); Eosinophils % 0.7 %; Hematocrit 27.6 % (35.3-44.9); Hemoglobin 9.3 g/dL (11.5-15.4); Immature Granulocytes % 0.5 % (0-4); Immature Platelets 5.3 % (1.1-6.1); Lymphocytes # 1.3 K/mcL (0.6-4.6); Lymphocytes % 17.1 %; Mean Corpuscular HGB Conc 33.7 g/dL (31.6-35.5); Mean Corpuscular Hemoglobin 32.4 pg (28.0-33.3); Mean Corpuscular Volume 96.2 fL (83.0-100.0); Monocytes # 1.1 K/mcL (0.0-1.3); Monocytes % 14.8 %; Red Blood Count 2.87 M/mcL (3.82-4.97); Segmented Neutrophils % 66.6 %
[2018-10-16 05:45] LABS: Neutrophils # 4.9 K/mcL (1.6-8.9); Platelet Count 57 K/mcL (140-400)
[2018-10-16 05:46] LABS: INR 1.8; Prothrombin Time 19.9 Seconds (9.4-12.1)
[2018-10-16 05:58] LABS: BUN/Creatinine Ratio 38 (6-26); Blood Urea Nitrogen 14 mg/dL (6-20); Calcium 8.7 mg/dL (8.6-10.3); Carbon Dioxide 36 mEq/L (23-29); Chloride 98 mEq/L (98-107); Glucose 202 mg/dL (70-105); Osmolality,Calculated 292 (280-300); Potassium 3.4 mEq/L (3.5-5.1); Sodium 138 mEq/L (136-145); eGFR For Non-African Americans > 60 (> 60)
[2018-10-16] MEDS: Spironolactone 25 MG TABLET PO SCH (08:35)
[2018-10-16] MEDS: Metoprolol XL (24 HR) Succ 25 MG TAB.ER.24H PO SCH ×2 (08:35→19:56)
[2018-10-16] MEDS: Furosemide 20 MG/2 ML VIAL IVP SCH ×2 (08:36→17:52)
[2018-10-16] MEDS: Doxycycline 100 MG in 0.9 % Sodium Chloride Mini Bag 100 ML IVPB SCH (08:36)
[2018-10-16] MEDS: Lactulose Oral Soln 20 GM/30 ML UDC PO SCH ×3 (08:37→21:58)
[2018-10-16] MEDS: Piperacillin/Tazobactam 3.375 GM in 0.9 % Sodium Chloride Mini Bag 100 ML IVPB SCH (10:25)
--- NOTE | 2018-10-16 10:47 | Infectious Disease Progress No ---
ID Progress Note Date of Encounter: 10/16/18 Time of Encounter: 09:55 - Subjective Subjective: Patient seen and examined. No acute events noted overnight. Patient states overall she feels well. Denies fevers, chills, or rigors. Denies chest pain, shortness of breath, or cough. Denies nausea, vomiting, diarrhea, or constipation. Denies abdominal pain or urinary complaints. Denies oral thrush or skin rashes. Denies pain at this time. States she feels stronger today and i s planning to go home with home health. - Objective CBC & Chem 7: 10/17/18 03:20 10/17/18 03:20 - Exam Vitals: Temp Pulse Resp BP Pulse Ox 98.7 F 85 16 106/71 96 10/16/18 03:56 10/16/18 07:42 10/16/18 10:18 10/16/18 07:42 10/16/18 10:18 Exam: Head: Atraumatic, normal inspection, normocephalic. Eye: EOMI, PERRLA, no scleral icterus noted. ENT: Mucous membranes moist. No odontogenic infection noted. Neck: Normal inspection, no meningismus. Respiratory: Clear to auscultation. No rales, respiratory distress, rhonchi, or wheezes noted. Cardiovascular: Regular rate and rhythm, S1 and S2 audible. No murmurs, rubs, or gallops. GI: Soft, nondistended, normal bowel sounds. Extremities:No joint swelling or tenderness noted. 1+ edema noted to the bilateral upper and lower extremities. Neurological: Alert, oriented 3, no focal deficits. Psychiatric: normal affect, normal mood. Skin: Dry, intact, warm. Normal color. No rashes. - Assessment and Plan (1) Septic shock Current Visit: Yes Status: Resolved On admission, patient was in septic shock and was admitted to the ICU. Likely secondary to pneumonia. Resolved. Patient is hemodynamically stable. SNOMED Code(s): 28567301 (2) Pneumonia Current Visit: Yes Status: Acute Causative organism not clear. Urine legionella and pneumococcal antigen were negative. Sputum aspirate only grew Zaida tropicalis. MRSA screen was positive. Respiratory infectious panel negative. CT chest revealed pulmonary nodules and chest x-ray revealed persistent right lower lobe pneumonia and now there is concern for left lower lobe pneumonia. Patient has been on antibiotics since admission including vancomycin and Zosyn ,doxycycline through 09/30/2018. Repeat imaging unchanged despite clinical improvement. Pulmonology notes reviewed. Most likely reflect pulmonary edema since the patient is clinically improved despite worsening of the imaging. This could also represent a lag in radiological changes from the patient's clinical picture. Currently on Zosyn and doxycycline. Qualifiers: Pneumonia type: due to unspecified organism Laterality: right Lung location: unspecified part of lung Qualified Code(s): J18.9 - Pneumonia, unspecified organism SNOMED Code(s): 011460455 (3) Metabolic encephalopathy Current Visit: Yes Status: Resolved Could be multifactorial from underlying infection or hepatic encephalopathy. Currently patient appears awake alert oriented. Resolved. SNOMED Code(s): 69474118 (4) EMMA (acute kidney injury) Current Visit: Yes Status: Resolved Likely secondary to sepsis. Creatinine back at baseline. SNOMED Code(s): 14200541, 01836384 (5) Acute respiratory failure with hypoxia Current Visit: Yes Status: Resolved Likely secondary to PNA and COPD. Resolved. Pulmonology consulted. Appreciate recommendations. SNOMED Code(s): 60508904, 029956146 (6) Atrial fibrillation with RVR Current Visit: Yes Status: Acute SNOMED Code(s): 464389018869844 (7) Cirrhosis Current Visit: No Status: Chronic Etiology not clear. Patient does not recall where she was diagnosed. Denies having had a biopsy in the past. history of Hepatitis B and C. Chronically thrombocytopenic. Qualifiers: Hepatic cirrhosis type: unspecified hepatic cirrhosis Qualified Code(s): K74.60 - Unspecified cirrhosis of liver SNOMED Code(s): 84070496 - Recommendations Recommendations: Appreciate pulmonology recommendations. The patient has been on doxycycline for 13 days and zosyn for 17 days. She was treated with Vancomycin for 9 days as well. Clinically, the patient is improved and has completed an adequate course of antibiotics. If okay with pulmonology, will discontinue antibiotics and observe. Contact precautions per hospital policy. Consult Discharge Plan - Plan Instructions: Heart Failure (DC), Atrial Fibrillation (DC), Pacemaker (DC), Acute Respiratory Distress Syndrome (DC), Cirrhosis (DC), Hypothyroidism (DC), Viral Hepatitis C (GEN), Viral Hepatitis B (DC), Chronic Obstructive Pulmonary Disease (DC), Anemia (GEN), Anxiety (DC), Pneumonia (DC), Cigarette Smoking and Your Health, Holistic Health Practitioner (GEN) Referrals: NONE,PCP [Primary Care Provider] - - Attending Attestation I have personally performed a face to face evaluation on this patient. I have reviewed and agree with the care plan. History and Exam by me shows: Patient seen and examined. Appears comfortable. After discussion with pulmonary and reviewing the CAT scans, we will decide to stop all antibiotics unobserved. No further recommendations. We will sign off. Please call us with any further changes.
[2018-10-16] MEDS ORDERED: Piperacillin/Tazobactam 3.375 GM in 0.9 % Sodium Chloride Mini Bag 100 ML IVPB SCH (11:00)
--- NOTE | 2018-10-16 11:53 | Internal Med Progress Note ---
Hospitalist Progress Note - Encounter Date of Encounter: 10/16/18 Time of Encounter: 08:45 - Subjective Interval History: No acute events overnight. Patient reports improvement in her breathing. No longer requires oxygen supplementation. Denies any melena, hematochezia, or bright red blood per rectum. - Exam Vitals: Temp Pulse Resp BP Pulse Ox 98.7 F 85 16 106/71 96 10/16/18 03:56 10/16/18 07:42 10/16/18 10:18 10/16/18 07:42 10/16/18 10:18 Exam: General: In no acute distress. Speaking in full sentences Respiratory exam: rales at both lung bases with scattered rhonchi R>L. Good air entry Cardiovascular exam: RRR +S1, +S2. GI/Abdominal exam: Non-tender, Non-distended, soft, no peritoneal signs. Extremities exam: 2+ pedal edema b/l. LUE swelling more prominent than the right Neurological exam: no focal deficits. - Assessment and Plan (1) Septic shock Current Visit: Yes Status: Resolved (2) Acute respiratory failure with hypoxia Current Visit: Yes Status: Resolved (3) Pneumonia Current Visit: Yes Status: Acute (4) Acute exacerbation of CHF (congestive heart failure) Current Visit: Yes Status: Acute (5) A-fib Current Visit: Yes Status: Acute (6) Cirrhosis Current Visit: Yes Status: Acute (7) Cardiomyopathy Current Visit: Yes Status: Chronic (8) EMMA (acute kidney injury) Current Visit: Yes Status: Resolved (9) Metabolic encephalopathy Current Visit: Yes Status: Resolved (10) Anemia Current Visit: No Status: Acute (11) Physical deconditioning Current Visit: Yes Status: Acute - Summary of Assessment and Plan Summary of Assessment and Plan: In summary, this is 58-year-old female with history of cirrhosis, HFrEF, afib, who was admitted on 09/30 due to acute hypoxic respiratory failure, septic shock secondary to pneumonia. Required intubation initially. Also had EMMA requiring CRRT and afib with RVR requiring amiodarone gtt. She was successfully extubated 10/08 and transferred to the floor. Had been on broad spectrum abx since the admission with questionable new infiltrate on L lung on CT 10/11. However, after repeat evaluation from pulmonary, it was deemed that the findings likely represent compressive atelectasis with bilateral pleural effusion and she is tolerating diuresis well. WBC x 2 now and procalicitonin on 2 separate occasions were negative. Will discontinue abx unless ID has compelling reason to continue. Echocardiogram showed worsening EF 15-20% for which cardiology evaluated; likely non-ischemic cardiomyopathy, no LHC indicated, and pt is currently waiting for lifevest. Also noted to have L UE SVT which will be managed conservatively and elevation. Given her prolonged hospital stay with ICU admission, she was recommended to be transferred to [facility] for rehab but pt today told me that she would like to return home with home health. Would continue diuresis, a/w for lifevest, and plan to discharge home with home health once the lifevest is made available. Not started back on AC due to thrombocytopenia and worsening anemia; checking FOBT to ensure no GI bleed - Time Spent with Patient Total time spent is greater than 50% in coordination of care (as documented) at patient's floor/unit and/or counseling patient: 25 - 35 minutes (discussed with SW/CM and ID for discharge planning and further course of abx) Plan of Care Discussed with: patient (discussed with SW/CM and ID) Internal Medicine: Result - Labs CBC & Chem 7: 10/16/18 04:00 10/16/18 05:28 Labs: Short CBC 10/16/18 Range/Units 04:00 WBC 7.4 (4.3-11.1) K/mcL Hgb 9.3 L (11.5-15.4) g/dL Hct 27.6 L (35.3-44.9) % Plt Count 57 L (140-400) K/mcL Neutrophils # 4.9 (1.6-8.9) K/mcL BMP 10/16/18 05:28 Sodium 138 Potassium 3.4 L Chloride 98 Carbon Dioxide 36 H BUN 14 Creatinine 0.37 L Glucose 202 H Calcium 8.7 - ABG Interpretation ABG results: ABG ABG pH 7.42 pH Units (7.32-7.45) 10/08/18 05:34 ABG pH 7.42 pH Units (7.32-7.45) 10/08/18 05:34 ABG pH 7.42 pH Units (7.32-7.45) 10/08/18 05:34 ABG pCO2 47 mmHg (35-45) H 10/08/18 05:34 ABG pCO2 47 mmHg (35-45) H 10/08/18 05:34 ABG pCO2 47 mmHg (35-45) H 10/08/18 05:34 ABG pO2 68 mmHg (85-104) L 10/08/18 05:34 ABG pO2 68 mmHg (85-104) L 10/08/18 05:34 ABG pO2 68 mmHg (85-104) L 10/08/18 05:34 ABG O2 Saturation 94 % (95-98) L 10/08/18 05:34 ABG O2 Saturation 94 % (95-98) L 10/08/18 05:34 ABG O2 Saturation 94 % (95-98) L 10/08/18 05:34 PT/INR, D-dimer PT 19.9 Seconds (9.4-12.1) H 10/16/18 04:00 Consult Discharge Plan - Plan Referrals: NONE,PCP [Primary Care Provider] - (3) Pneumonia Qualifiers: Pneumonia type: due to unspecified organism Laterality: right Lung location: unspecified part of lung Qualified Code(s): J18.9 - Pneumonia, unspecified organism (4) Acute exacerbation of CHF (congestive heart failure) Qualifiers: Heart failure type: systolic Qualified Code(s): I50.23 - Acute on chronic systolic (congestive) heart failure (5) A-fib Qualifiers: Atrial fibrillation type: unspecified Qualified Code(s): I48.91 - Unspecified atrial fibrillation (6) Cirrhosis Qualifiers: Hepatic cirrhosis type: unspecified hepatic cirrhosis Ascites presence: witho ut ascites Qualified Code(s): K74.60 - Unspecified cirrhosis of liver (7) Cardiomyopathy Qualifiers: Cardiomyopathy type: unspecified Qualified Code(s): I42.9 - Cardiomyopathy, unspecified (10) Anemia Qualifiers: Anemia type: unspecified type Qualified Code(s): D64.9 - Anemia, unspecified
--- NOTE | 2018-10-16 11:59 | Palliative Progress Note ---
Date of Encounter: 10/16/18 - Assessment and plan (1) Advance care planning Current Visit: Yes Status: Acute (2) Cirrhosis Current Visit: No Status: Chronic Qualifiers: Qualified Code(s): K74.60 - Unspecified cirrhosis of liver (3) Pneumonia Current Visit: Yes Status: Acute Qualifiers: Qualified Code(s): J18.9 - Pneumonia, unspecified organism (4) A-fib Current Visit: Yes Status: Acute Qualifiers: Qualified Code(s): I48.91 - Unspecified atrial fibrillation (5) Cardiomyopathy Current Visit: Yes Status: Chronic Qualifiers: Qualified Code(s): I42.9 - Cardiomyopathy, unspecified (6) Palliative care encounter Current Visit: Yes Status: Acute - Time Spent With Patient Total time spent is greater than 50% in coordination of care (as documented) at patient's floor/unit and/or counseling patient: - Constitutional Vitals: Abnormal lab results WBC 13.7 K/mcL (4.3-11.1) H 10/14/18 08:33 RBC 2.87 M/mcL (3.82-4.97) L 10/16/18 04:00 Hgb 9.3 g/dL (11.5-15.4) L 10/16/18 04:00 Hct 27.6 % (35.3-44.9) L 10/16/18 04:00 MCHC 31.1 g/dL (31.6-35.5) L 10/01/18 04:10 RDW 22.0 % (11.5-14.5) H 10/16/18 04:00 Plt Count 57 K/mcL (140-400) L 10/16/18 04:00 MPV 12.9 fL (9.4-12.4) H 10/14/18 08:33 14.0 % (0-4) H 10/02/18 03:35 2.0 % (0) H 10/01/18 04:10 14.6 K/mcL (1.6-8.9) H 10/13/18 10:23 0.5 K/mcL (0.6-4.6) L 10/02/18 03:35 1.9 K/mcL (0.0-1.3) H 10/15/18 05:35 Nucleated RBCs/100 WBC 0.1 /100 WBC (0) H 10/11/18 09:20 Present (Not Present) A 10/02/18 03:35 Decreased (Normal) L 10/13/18 10:23 Immature Plt Fraction 6.2 % (1.1-6.1) H 10/15/18 05:35 1+ (Not Present) A 10/08/18 04:05 1+ (Not Present) A 10/08/18 04:05 Present (Not Present) A 10/03/18 03:25 Present (Not Present) A 10/03/18 03:25 1+ (Not Present) A 10/02/18 03:35 Acanthocytes (Spur) 2+ (Not Present) A 10/02/18 03:35 PT 19.9 Seconds (9.4-12.1) H 10/16/18 04:00 104 mg/dL (169-393) L 10/04/18 13:40 ABG pH 7.48 pH Units (7.32-7.45) H 10/04/18 04:53 ABG pCO2 47 mmHg (35-45) H 10/08/18 05:34 ABG pCO2 47 mmHg (35-45) H 10/08/18 05:34 ABG pCO2 47 mmHg (35-45) H 10/08/18 05:34 ABG pO2 68 mmHg (85-104) L 10/08/18 05:34 ABG pO2 68 mmHg (85-104) L 10/08/18 05:34 ABG pO2 68 mmHg (85-104) L 10/08/18 05:34 ABG HCO3 31 mEq/L (21-27) H 10/08/18 05:34 ABG HCO3 31 mEq/L (21-27) H 10/08/18 05:34 ABG HCO3 31 mEq/L (21-27) H 10/08/18 05:34 ABG Total CO2 32 mEq/L (20-26) H 10/08/18 05:34 ABG Total CO2 32 mEq/L (20-26) H 10/08/18 05:34 ABG Total CO2 32 mEq/L (20-26) H 10/08/18 05:34 ABG O2 Saturation 94 % (95-98) L 10/08/18 05:34 ABG O2 Saturation 94 % (95-98) L 10/08/18 05:34 ABG O2 Saturation 94 % (95-98) L 10/08/18 05:34 ABG Base Excess 5 mEq/L (-2 to 3) H 10/08/18 05:34 ABG Base Excess 5 mEq/L (-2 to 3) H 10/08/18 05:34 ABG Base Excess 5 mEq/L (-2 to 3) H 10/08/18 05:34 Sodium 134 mEq/L (136-145) L 10/12/18 01:40 Potassium 3.4 mEq/L (3.5-5.1) L 10/16/18 05:28 Chloride 112 mEq/L (98-107) H 10/08/18 04:05 Carbon Dioxide 36 mEq/L (23-29) H 10/16/18 05:28 BUN 23 mg/dL (6-20) H 10/11/18 09:20 0.37 mg/dL (0.60-1.20) L 10/16/18 05:28 Est GFR ( Amer) 33 (> 60) L 10/01/18 13:55 Est GFR (Non-Af Amer) 59 (> 60) L 10/04/18 03:45 38 (6-26) H 10/16/18 05:28 Glucose 202 mg/dL (70-105) H 10/16/18 05:28 POC Glucose 235 mg/dL (70-99) H 10/15/18 21:00 317 (280-300) H 10/08/18 04:05 Lactic Acid 3.1 mmol/L (0.5-2.2) H 10/02/18 13:00 Calcium 8.4 mg/dL (8.6-10.3) L 10/12/18 01:40 Magnesium 1.4 mg/dL (1.6-2.6) L 09/30/18 04:00 2.5 mg/dL (0.3-1.0) H 10/12/18 01:40 1.7 mg/dL (0.0-0.2) H 10/08/18 04:05 1.8 mg/dL (0.0-1.2) H 10/08/18 04:05 AST 57 Units/L (13-39) H 10/12/18 01:40 ALT 91 Units/L (7-52) H 10/12/18 01:40 154 Units/L (34-104) H 10/12/18 01:40 68 mcmol/L (16-53) H 10/07/18 17:50 550 Units/L (140-271) H 10/04/18 13:40 0.06 ng/mL (< 0.04) H* 10/01/18 20:10 B-Natriuretic Peptide 856 pg/mL (Less than 100) H 09/30/18 04:00 4.4 g/dL (6.4-8.9) L 10/12/18 01:40 1.7 g/dL (3.5-5.7) L 10/12/18 01:40 3.6 g/dL (2.4-3.5) H 10/01/18 13:55 0.6 (1.1-2.2) L 10/12/18 01:40 7.75 ng/mL (0.00-0.15) H 09/30/18 14:51 [place] (Yellow) A 10/03/18 03:50 Cloudy (Clear) A 10/03/18 03:50 Ur Specific [place] > 1.030 (1.010-1.025) H 10/03/18 03:50 100 mg/dL (Neg-Trace) H 10/03/18 03:50 Trace mg/dL (Negative) H 10/03/18 03:50 Large (Negative) H 10/03/18 03:50 Moderate (Negative) H 10/03/18 03:50 Ur Leukocyte Esterase Small (Negative) H 10/03/18 03:50 TNTC per hpf (0-3) H 10/03/18 03:50 30-50 per hpf (0-3) H 10/03/18 03:50 Ur Squamous Epith Cells Many per lpf (None-Few) H 10/03/18 03:50 Positive (Negative) A 09/30/18 11:20 Vancomycin Trough 13 mcg/mL (5-10) H 10/07/18 04:15 14 IU/mL (Less than 14) H 10/03/18 03:25 Palliative Quality Palliative Quality: Screen for Code Status: Yes, Screen for Goals of Care: Yes, Screen for Pain: Yes, If Pain Regimen Started, Initiate Bowel Regimen: NA, Screen for Nausea/Vomitting: Yes Code Status: 09/30/18 10:10 CODE [Resuscitation Status: Active] [RES] Routine Comment: Resuscitation Status: Full Code - Labs CBC & Chem 7: 10/16/18 04:00 10/16/18 05:28 Labs: Laboratory Results - last 24 hr 10/15/18 10/15/18 10/15/18 11:57 12:55 16:16 WBC RBC Hgb Hct MCV MCH MCHC RDW Plt Count MPV Immature Gran % Seg Neutrophils % Lymphocytes % Monocytes % Eosinophils % Basophils % Neutrophils # Lymphocytes # Monocytes # Eosinophils # Basophils # Immature Plt Fraction PT INR Sodium Potassium Chloride Carbon Dioxide BUN Creatinine Est GFR ( Amer) Est GFR (Non-Af Amer) BUN/Creatinine Ratio Glucose POC Glucose 174 H 234 H Calculated Osmolality Calcium Procalcitonin 0.10 10/15/18 10/16/18 10/16/18 21:00 04:00 04:00 WBC 7.4 RBC 2.87 L Hgb 9.3 L Hct 27.6 L MCV 96.2 MCH 32.4 MCHC 33.7 RDW 22.0 H Plt Count 57 L MPV 11.0 Immature Gran % 0.5 Seg Neutrophils % 66.6 Lymphocytes % 17.1 Monocytes % 14.8 Eosinophils % 0.7 Basophils % 0.3 Neutrophils # 4.9 Lymphocytes # 1.3 Monocytes # 1.1 Eosinophils # 0.1 Basophils # 0.0 Immature Plt Fraction 5.3 PT 19.9 H INR 1.8 Sodium Potassium Chloride Carbon Dioxide BUN Creatinine Est GFR ( Amer) Est GFR (Non-Af Amer) BUN/Creatinine Ratio Glucose POC Glucose 235 H Calculated Osmolality Calcium Procalcitonin 10/16/18 05:28 WBC RBC Hgb Hct MCV MCH MCHC RDW Plt Count MPV Immature Gran % Seg Neutrophils % Lymphocytes % Monocytes % Eosinophils % Basophils % Neutrophils # Lymphocytes # Monocytes # Eosinophils # Basophils # Immature Plt Fraction PT INR Sodium 138 Potassium 3.4 L Chloride 98 Carbon Dioxide 36 H BUN 14 Creatinine 0.37 L Est GFR ( Amer) > 60 Est GFR (Non-Af Amer) > 60 BUN/Creatinine Ratio 38 H Glucose 202 H POC Glucose Calculated Osmolality 292 Calcium 8.7 Procalcitonin - ABG Interpretation ABG results: ABG ABG pH 7.42 pH Units (7.32-7.45) 10/08/18 05:34 ABG pH 7.42 pH Units (7.32-7.45) 10/08/18 05:34 ABG pH 7.42 pH Units (7.32-7.45) 10/08/18 05:34 ABG pCO2 47 mmHg (35-45) H 10/08/18 05:34 ABG pCO2 47 mmHg (35-45) H 10/08/18 05:34 ABG pCO2 47 mmHg (35-45) H 10/08/18 05:34 ABG pO2 68 mmHg (85-104) L 10/08/18 05:34 ABG pO2 68 mmHg (85-104) L 10/08/18 05:34 ABG pO2 68 mmHg (85-104) L 10/08/18 05:34 ABG O2 Saturation 94 % (95-98) L 10/08/18 05:34 ABG O2 Saturation 94 % (95-98) L 10/08/18 05:34 ABG O2 Saturation 94 % (95-98) L 10/08/18 05:34 PT/INR, D-dimer PT 19.9 Seconds (9.4-12.1) H 10/16/18 04:00 Palliative Scale - Palliative Performance Scale How ambulatory is this patient?: Totally bed bound What is patient's level of activity and evidence of disease?: Unable to do most activity, Extensive disease How much self-care assistance does patient require?: Total care How much oral intake does the patient have?: Normal or reduced What is this patient's level of consciousness?: Full or confusion Palliative Performance Score: 60 % Consult Discharge Plan - Plan Referrals: NONE,PCP [Primary Care Provider] -
--- NOTE | 2018-10-16 13:21 | Event Note ---
Date of Encounter: 10/16/18 Time of Encounter: 13:15 Patient awake and alert, daughter at bedside. Patient in good spirits stating she is feeling better. Pulmonology note from yesterday reviewed. States "I have agreed to Lifevest". States she is not going to [facility] and going home "in a few days" with home health care. She does not desire to discuss anything with me regarding her goals of care and desires to remain full code. D/W Humberto SIMMONS as well. Palliative not managing any symptoms and will sign off. Please call if needed.
[2018-10-17 03:42] LABS: Hemoglobin 8.9 g/dL (11.5-15.4)
[2018-10-17 03:48] LABS: INR 1.8; Prothrombin Time 19.9 Seconds (9.4-12.1)
[2018-10-17 04:00] LABS: BUN/Creatinine Ratio 42 (6-26); Blood Urea Nitrogen 16 mg/dL (6-20); Calcium 8.7 mg/dL (8.6-10.3); Carbon Dioxide 36 mEq/L (23-29); Chloride 99 mEq/L (98-107); Glucose 257 mg/dL (70-105); Magnesium 1.1 mg/dL (1.6-2.6); Osmolality,Calculated 298 (280-300); Potassium 3.6 mEq/L (3.5-5.1); Sodium 139 mEq/L (136-145); eGFR For Non-African Americans > 60 (> 60)
[2018-10-17] MEDS: Levalbuterol Neb 1.25 MG/3 ML IH SCH ×2 (04:05→10:45)
[2018-10-17] MEDS: Furosemide 20 MG/2 ML VIAL IVP SCH ×2 (08:45→16:20)
[2018-10-17] MEDS: Albumin 25% 25gram/100mL 25 GM/100 ML IV.SOLN IVPB SCH ×3 (08:45→23:04)
[2018-10-17] MEDS: Insulin LISPRO 300 UNITS/3 ML VIAL SQ SCH ×3 (08:46→16:21)
[2018-10-17] MEDS: Spironolactone 25 MG TABLET PO SCH (08:47)
[2018-10-17] MEDS: Metoprolol XL (24 HR) Succ 25 MG TAB.ER.24H PO SCH ×2 (08:47→20:21)
[2018-10-17] MEDS: Lactulose Oral Soln 20 GM/30 ML UDC PO SCH ×3 (08:52→20:25)
--- NOTE | 2018-10-17 10:51 | Infectious Disease Progress No ---
ID Progress Note Date of Encounter: 10/17/18 Time of Encounter: 09:15 - Subjective Subjective: Patient seen and examined sitting up in the bedside chair. No acute events noted overnight. Patient states overall she feels well and wants to go home. Denies fevers, chills, or rigors. Denies chest pain, shortness of breath, or cough. Denies nausea, vomiting, diarrhea, or constipation. States she needs to have a bowel movement at this time. Denies abdominal pain or urinary complaints. Denies oral thrush or skin rashes. Denies pain at this time. States she feels stronger today and is planning to go home with home health. - Objective CBC & Chem 7: 10/17/18 03:20 10/17/18 03:20 - Exam Vitals: Temp Pulse Resp BP Pulse Ox 97.7 F 90 18 108/61 95 10/17/18 07:00 10/17/18 07:00 10/17/18 10:47 10/17/18 07:00 10/17/18 10:47 Exam: Head: Atraumatic, normal inspection, normocephalic. Eye: EOMI, PERRLA, no scleral icterus noted. ENT: Mucous membranes moist. No odontogenic infection noted. Neck: Normal inspection, no meningismus. Respiratory: Clear to auscultation. No rales, respiratory distress, rhonchi, or wheezes noted. Cardiovascular: Regular rate and rhythm, S1 and S2 audible. No murmurs, rubs, or gallops. GI: Soft, nondistended, normal bowel sounds. Extremities:No joint swelling or tenderness noted. 1+ edema noted to the bilat eral upper and lower extremities. Neurological: Alert, oriented 3, no focal deficits. Psychiatric: normal affect, normal mood. Skin: Dry, intact, warm. Normal color. No rashes. - Assessment and Plan (1) Septic shock Current Visit: Yes Status: Resolved On admission, patient was in septic shock and was admitted to the ICU. Likely secondary to pneumonia. Resolved. Patient is hemodynamically stable. SNOMED Code(s): 02308566 (2) Pneumonia Current Visit: Yes Status: Acute Causative organism not clear. Urine legionella and pneumococcal antigen were negative. Sputum aspirate only grew Zaida tropicalis. MRSA screen was positive. Respiratory infectious panel negative. CT chest revealed pulmonary nodules and chest x-ray revealed persistent right lower lobe pneumonia and now there is concern for left lower lobe pneumonia. Patient has been on antibiotics since admission including vancomycin and Zosyn ,doxycycline through 09/30/2018. Repeat imaging unchanged despite clinical improvement. Pulmonology notes reviewed. Most likely reflect pulmonary edema since the patient is clinically improved despite worsening of the imaging. This could also represent a lag in radiological changes from the patient's clinical picture. Completed 9 days of Vanc, 13 days of doxycycline, and 17 days of Zosyn. Antibiotics discontinued. Qualifiers: Pneumonia type: due to unspecified organism Laterality: right Lung location: unspecified part of lung Qualified Code(s): J18.9 - Pneumonia, unspecified organism SNOMED Code(s): 555318233 (3) Metabolic encephalopathy Current Visit: Yes Status: Resolved Could be multifactorial from underlying infection or hepatic encephalopathy. Currently patient appears awake alert oriented. Resolved. SNOMED Code(s): 36232231 (4) EMMA (acute kidney injury) Current Visit: Yes Status: Resolved Likely secondary to sepsis. Creatinine back at baseline. SNOMED Code(s): 59430808, 72923033 (5) Acute respiratory failure with hypoxia Current Visit: Yes Status: Resolved Likely secondary to PNA and COPD. Resolved. Pulmonology consulted and signed off. SNOMED Code(s): 42103039, 320778069 (6) Atrial fibrillation with RVR Current Visit: Yes Status: Acute SNOMED Code(s): 039350726869720 (7) Cirrhosis Current Visit: No Status: Chronic Etiology not clear. Patient does not recall where she was diagnosed. Denies having had a biopsy in the past. history of Hepatitis B and C. Qualifiers: Hepatic cirrhosis type: unspecified hepatic cirrhosis Qualified Code(s): K74.60 - Unspecified cirrhosis of liver SNOMED Code(s): 79245584 - Recommendations Recommendations: Appreciate pulmonology recommendations. The patient has been on doxycycline for 13 days and zosyn for 17 days. She was treated with Vancomycin for 9 days as well. Clinically, the patient is improved and has completed an adequate course of antibiotics. Continue to observe off antibiotics. Contact precautions per hospital policy. No further recommendations from the ID team. We will sign off. Please re-consult if needed. Consult Discharge Plan - Plan Instructions: Heart Failure (DC), Atrial Fibrillation (DC), Pacemaker (DC), Acute Respiratory Distress Syndrome (DC), Cirrhosis (DC), Hypothyroidism (DC), Viral Hepatitis C (GEN), Viral Hepatitis B (DC), Chronic Obstructive Pulmonary Disease (DC), Anemia (GEN), Anxiety (DC), Pneumonia (DC), Cigarette Smoking and Your Health, Vertical Punch Operator (GEN) Referrals: NONE,PCP [Primary Care Provider] -
[2018-10-17 11:15] LABS: Estimated Average Glucose 123 mg/dl; Hemoglobin A1C 5.9 %
[2018-10-17] MEDS: traMADol 50 MG TABLET PO PRN ×2 (12:57→21:38)
--- NOTE | 2018-10-17 13:17 | Internal Med Progress Note ---
Hospitalist Progress Note - Encounter Date of Encounter: 10/17/18 Time of Encounter: 11:45 - Subjective Interval History: No acute events overnight. Reports that generalized swelling is improving as well as her breathing. Does not feel like she needs any more breathing treatment. No fever overnight. - Exam Vitals: Temp Pulse Resp BP Pulse Ox 97.7 F 90 18 108/61 95 10/17/18 07:00 10/17/18 07:00 10/17/18 10:47 10/17/18 07:00 10/17/18 10:47 Exam: General: In no acute distress. Speaking in full sentences Respiratory exam: rales at both lung bases with scattered rhonchi R>L. Good air entry Cardiovascular exam: RRR +S1, +S2. GI/Abdominal exam: Non-tender, Non-distended, soft, no peritoneal signs. Extremities exam: 2+ pedal edema b/l. LUE swelling more prominent than the right Neurological exam: no focal deficits. - Assessment and Plan (1) Septic shock Current Visit: Yes Status: Resolved (2) Acute respiratory failure with hypoxia Current Visit: Yes Status: Resolved (3) Pneumonia Current Visit: Yes Status: Acute (4) Acute exacerbation of CHF (congestive heart failure) Current Visit: Yes Status: Acute (5) A-fib Current Visit: Yes Status: Acute (6) Cirrhosis Current Visit: Yes Status: Acute (7) Cardiomyopathy Current Visit: Yes Status: Chronic (8) EMMA (acute kidney injury) Current Visit: Yes Status: Resolved (9) Metabolic encephalopathy Current Visit: Yes Status: Resolved (10) Anemia Current Visit: No Status: Acute (11) Superficial venous thrombosis of left upper extremity Current Visit: Yes Status: Acute (12) Physical deconditioning Current Visit: Yes Status: Acute - Summary of Assessment and Plan Summary of Assessment and Plan: In summary, this is 58-year-old female with history of cirrhosis, HFrEF, afib, who was admitted on 09/30 due to acute hypoxic respiratory failure, septic shock secondary to pneumonia. Required intubation initially. Also had EMMA requiring CRRT and afib with RVR requiring amiodarone gtt. She was successfully extubated 10/08 and transferred to the floor. Had been on broad spectrum abx since the admission with questionable new infiltrate on L lung on CT 10/11. However, after repeat evaluation from pulmonology and ID, it was deemed that the findings likely represent compressive atelectasis with bilateral pleural effusion rather than new bacterial pneumonia hence antibiotics were stopped on 10/16. WBC x 2 days and procalicitonin on 2 separate occasions were negative. She is tolerating diuresis well. Echocardiogram showed worsening EF 15-20% for which cardiology evaluated; likely non-ischemic cardiomyopathy, no LHC indicated. There has been a discussion about lifevest and whether it needs to be put on prior to d/c or not. Although it is a device that can be offered as an adjunct to the patient, I verified with the [id number] (who unfortunately did not see the patient at the time of initial consultation) that it is not something that is recommended at this juncture by the guideline. I discussed at length with PENNIE, RN, and the decision was made to try to have the lifevest fitted today but if not success ful, will arrange as outpatient with cardiology if deemed necessary at that point. 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 Also noted to have L UE SVT which will be managed conservatively and elevation. Given her prolonged hospital stay with ICU admission, she was recommended to be transferred to [facility] for rehab but pt again confirmed with me that she would like to return home with home health. Once the plan for lifevest is finalized today, will plan for d/c tomorrow with home health. Not started back on AC due to thrombocytopenia and worsening anemia; FOBT pending to ensure no GI bleed but given her clinical stability, can likely follow up as outpatient. - Time Spent with Patient Total time spent is greater than 50% in coordination of care (as documented) at patient's floor/unit and/or counseling patient: 25 - 35 minutes Plan of Care Discussed with: patient (discussed with PENNIE and RN) Internal Medicine: Result - Labs CBC & Chem 7: 10/17/18 03:20 10/17/18 03:20 Labs: Short CBC 10/17/18 Range/Units 03:20 Hgb 8.9 L (11.5-15.4) g/dL Hct 27.0 L (35.3-44.9) % BMP 10/17/18 03:20 Sodium 139 Potassium 3.6 Chloride 99 Carbon Dioxide 36 H BUN 16 Creatinine 0.38 L Glucose 257 H Calcium 8.7 - ABG Interpretation ABG results: ABG ABG pH 7.42 pH Units (7.32-7.45) 10/08/18 05:34 ABG pH 7.42 pH Units (7.32-7.45) 10/08/18 05:34 ABG pH 7.42 pH Units (7.32-7.45) 10/08/18 05:34 ABG pCO2 47 mmHg (35-45) H 10/08/18 05:34 ABG pCO2 47 mmHg (35-45) H 10/08/18 05:34 ABG pCO2 47 mmHg (35-45) H 10/08/18 05:34 ABG pO2 68 mmHg (85-104) L 10/08/18 05:34 ABG pO2 68 mmHg (85-104) L 10/08/18 05:34 ABG pO2 68 mmHg (85-104) L 10/08/18 05:34 ABG O2 Saturation 94 % (95-98) L 10/08/18 05:34 ABG O2 Saturation 94 % (95-98) L 10/08/18 05:34 ABG O2 Saturation 94 % (95-98) L 10/08/18 05:34 PT/INR, D-dimer PT 19.9 Seconds (9.4-12.1) H 10/17/18 03:20 Consult Discharge Plan - Plan Instructions: Heart Failure (DC), Atrial Fibrillation (DC), Pacemaker (DC), Acute Respiratory Distress Syndrome (DC), Cirrhosis (DC), Hypothyroidism (DC), Viral Hepatitis C (GEN), Viral Hepatitis B (DC), Chronic Obstructive Pulmonary Disease (DC), Anemia (GEN), Anxiety (DC), Pneumonia (DC), Cigarette Smoking and Your Health, Pesticide Chemist (GEN) Referrals: NONE,PCP [Primary Care Provider] - (3) Pneumonia Qualifiers: Pneumonia type: due to unspecified organism Laterality: right Lung location: unspecified part of lung Qualified Code(s): J18.9 - Pneumonia, unspecified organism (4) Acute exacerbation of CHF (congestive heart failure) Qualifiers: Heart failure type: systolic Qualified Code(s): I50.23 - Acute on chronic systolic (congestive) heart failure (5) A-fib Qualifiers: Atrial fibrillation type: unspecified Qualified Code(s): I48.91 - Unspecified atrial fibrillation (6) Cirrhosis Qualifiers: Hepatic cirrhosis type: unspecified hepatic cirrhosis Ascites presence: without ascites Qualified Code(s): K74.60 - Unspecified cirrhosis of liver (7) Cardiomyopathy Qualifiers: Cardiomyopathy type: unspecified Qualified Code(s): I42.9 - Cardiomyopathy, unspecified (10) Anemia Qualifiers: Anemia type: unspecified type Qualified Code(s): D64.9 - Anemia, unspecified
[2018-10-17] MEDS: Acetaminophen 325 MG TABLET PO PRN (17:02)
[2018-10-17] MEDS ORDERED: Insulin LISPRO 300 UNITS/3 ML VIAL SQ SCH (21:00)
[2018-10-17] MEDS: Melatonin 3 MG TABLET PO PRN (21:38)
[2018-10-18 07:32] VITALS: BP 111/71
[2018-10-18] MEDS: Spironolactone 25 MG TABLET PO SCH (09:44)
[2018-10-18] MEDS: Metoprolol XL (24 HR) Succ 25 MG TAB.ER.24H PO SCH (09:44)
[2018-10-18] MEDS: traMADol 50 MG TABLET PO PRN (09:45)
[2018-10-18] MEDS: Albumin 25% 25gram/100mL 25 GM/100 ML IV.SOLN IVPB SCH (09:46)
[2018-10-18] MEDS: Furosemide 20 MG/2 ML VIAL IVP SCH (09:46)
[2018-10-18] MEDS: Lactulose Oral Soln 20 GM/30 ML UDC PO SCH (09:46)
[2018-10-18] MEDS: Insulin LISPRO 300 UNITS/3 ML VIAL SQ SCH ×2 (09:47→11:49)
--- NOTE | 2018-10-18 12:23 | Discharge Summary ---
- NOTES TO OUTPATIENT PROVIDER Notes to Outpatient Provider: Follow up with cardiology and hepatology. H&H and BMP in 5 days. Orders not resulted at time of discharge: Pending orders 10/16/18 11:56 Stool guiac [Occult Blood,Stool] [BF] Routine Date of Encounter: 10/18/18 Time of Encounter: 09:45 - Discharge Diagnosis (1) Septic shock Priority: Primary Status: Resolved (2) Acute respiratory failure with hypoxia Priority: Secondary Status: Resolved (3) Pneumonia Priority: Secondary Status: Acute Qualifiers: Pneumonia type: due to unspecified organism Laterality: right Lung location: unspecified part of lung Qualified Code(s): J18.9 - Pneumonia, unspecified organism (4) Acute exacerbation of CHF (congestive heart failure) Priority: Secondary Status: Acute Qualifiers: Heart failure type: systolic Qualified Code(s): I50.23 - Acute on chronic systolic (congestive) heart failure (5) A-fib Priority: Secondary Status: Acute Qualifiers: Atrial fibrillation type: unspecified Qualified Code(s): I48.91 - Unspecified atrial fibrillation (6) Cirrhosis Priority: Secondary Status: Acute Qualifiers: Hepatic cirrhosis type: unspecified hepatic cirrhosis Ascites presence: without ascites Qualified Code(s): K74.60 - Unspecified cirrhosis of liver (7) Cardiomyopathy Priority: Secondary Status: Chronic Qualifiers: Cardiomyopathy type: unspecified Qualified Code(s): I42.9 - Cardiomyopathy, unspecified (8) EMMA (acute kidney injury) Priority: Secondary Status: Resolved (9) Metabolic encephalopathy Priority: Secondary Status: Resolved (10) Anemia Priority: Secondary Status: Acute Qualifiers: Anemia type: unspecified type Qualified Code(s): D64.9 - Anemia, unspecified (11) Superficial venous thrombosis of left upper extremity Priority: Secondary Status: Acute (12) Physical deconditioning Priority: Secondary Status: Acute Hospital course: Ms. Sales is a 58 year old female with history of cirrhosis, HFrEF from non- ischemic cardiomyopathy, afib, who was admitted on 09/30 due to acute hypoxic respiratory failure, septic shock secondary to pneumonia. Required intubation initially. Also had EMMA from [facility] requiring CRRT and afib with RVR requiring amiodarone gtt. She was successfully extubated 10/08 and transferred to the floor after being treated with IV abx. Had been on broad spectrum abx since 09/30 but had persistent leukocytosis. She had repeat CT which showed questionable new infiltrate on 10/11. However, after repeat evaluation from pulmonology and ID, it was deemed that the findings likely represent compressive atelectasis with bilateral pleural effusion rather than new bacterial pneumonia hence antibiotics were stopped on 10/16 (total of 13 days of doxy and 17 days of zosyn). WBC remained normal since 10/15 till the day of discharge and procalicitonin on 2 separate occasions were also negative. She is tolerating diuresis well with no further oxygen requirement at the time of discharge. Echocardiogram that was done during the hospitalization showed worsening EF 15- 20% for which cardiology evaluated; likely non-ischemic cardiomyopathy, no LHC indicated. Pt was aggressively diuresed which she tolerated well and was fitted lifevest prior to d/c as she wishes to remain full code and made relatively good recovery from septic shock and respiratory failure. She was also provided with bb, LOBITO-i, and aldactone prior to d/c. Also noted to have L UE SVT which will be managed conservatively and elevation. Given her prolonged hospital stay with ICU admission, she was recommended to be transferred to [facility] for rehab but after discussing with her family members, pt refused to be placed at any facility and will be discharged home with home health. Wheelchair and hospital bed will be provided. Of note, she is not start ed back on AC due to thrombocytopenia, borderline therapeutic INR with cirrhosis, and anemia that will still need to be investigated as outpatient. She will need repeat bloodwork in 5 days and follow up with Cardiology and GI/hepatology as outpatient. Discharge discussed with: patient, nurse, social work, case management, small business consultant - Time Spent with Patient Total time spent providing and/or coordinating discharge services: 45 mins - Discharge Medications Prescriptions: New Spironolactone [Aldactone] 25 mg PO DAILY #30 tablet Lactulose 30 gm PO BID #90 udc Furosemide [Lasix] 40 mg PO BID 30 Days #60 tablet Omeprazole [PriLOSEC] 20 mg PO BIDAC #60 capsule. Acetaminophen [Tylenol] 325 mg PO Q6HR PRN #30 tablet PRN Reason: Pain Lisinopril [Zestril] 2.5 mg PO DAILY #30 tablet Continued Metoprolol XL (24 HR) Succ [Toprol Xl] 25 mg PO BID 30 Days #60 tab.er.24h Tenofovir Alafenamide Fumarate [Vemlidy] 25 mg PO DAILY Discontinued Warfarin [Coumadin] 2.5 mg PO MOWEFR Warfarin [Coumadin] 1.25 mg PO SUMOWETHFR Spironolactone [Aldactone] 50 mg PO DAILY 30 Days #30 tablet Home Medications: Metoprolol XL (24 HR) Succ [Toprol Xl] 25 mg PO BID 30 Days #60 tab.er.24h 01/11/18 [Rx] Tenofovir Alafenamide Fumarate [Vemlidy] 25 mg PO DAILY 09/30/18 [History] Acetaminophen [Tylenol] 325 mg PO Q6HR PRN #30 tablet 10/18/18 [Rx] Furosemide [Lasix] 40 mg PO BID 30 Days #60 tablet 10/18/18 [Rx] Lactulose 30 gm PO BID #90 udc 10/18/18 [Rx] Lisinopril [Zestril] 2.5 mg PO DAILY #30 tablet 10/18/18 [Rx] Omeprazole [PriLOSEC] 20 mg PO BIDAC #60 capsule. 10/18/18 [Rx] Spironolactone [Aldactone] 25 mg PO DAILY #30 tablet 10/18/18 [Rx] Allergies/Adverse Reactions: Allergy/AdvReac Type Severity Reaction Status Date / Time No Known Allergies Allergy Verified 12/19/17 21:16 Date of admission: 09/30/18 09:50 Primary care physician: PCP NONE Consults: 10/01/18 07:43 Consult to Nephrology [CONS] Routine Consulting Provider: Kidney Agnieszka/SNOW/MAURY/BISHNU Reason for Consult: worsening renal function, hyperkalemia Call Completed: No 10/01/18 09:36 Consult to Interventional Radiology [CONS] Routine Consulting Provider: Radiology Interventional [place] Reason for Consult: Dialysis catheter placement Call Completed: No 10/03/18 11:44 Consult to Nutrition [CONS] Routine Comment: Consulting Provider: NUTRITION Reason for Dietary Consult: Tube Feed Start & Manage 10/08/18 23:43 Consult to Speech Therapy [CONS] Routine Comment: Evaluate, develop and implement POC Reason for Consult: Coughing with fluids Call Completed: No 10/09/18 15:53 PT [Consult to Physical Therapy] [CONS] Routine Comment: Evaluate, develop and implement POC Reason for Consult: Strengthening Does patient have active BEDREST order?: Yes Is patient medically & hemodynamically stable?: Yes Patient assessed for mobility or mobilized this visit?: Yes 10/09/18 15:54 OT [Consult to Occupational Therapy] [CONS] Routine Comment: Evaluate, develop and implement POC Reason for Consult: Stengthening Does patient have active BEDREST order?: Yes Is patient medically & hemodynamically stable?: Yes Patient assessed for mobility or mobilized this visit?: Yes 10/10/18 14:27 Consult to Cardiology [CONS] Routine Comment: Consulting Provider: Cardiology [place] Reason for Consult: systolic chf, evaluate for AICD Call Completed: Yes 10/10/18 17:09 Consult to Infectious Diseases [CONS] Routine Consulting Provider: Infectious Disease Agnies[place]ka Reason for Consult: persistant leukocytosis, length of antibiotic recommendation Call Completed: No 10/11/18 14:24 Consult to Palliative Care [CONS] Routine Comment: Consulting Provider: Palliative Care [place] Reason for Consult: severe cardiomyopathy Call Completed: Yes - Constitutional Vitals: Temp Pulse Resp BP Pulse Ox 97.9 F 105 18 111/71 98 10/18/18 07:21 10/18/18 07:21 10/18/18 07:21 10/18/18 07:21 10/18/18 07:21 Exam: General: In no acute distress. Speaking in full sentences Respiratory exam: rales at both lung bases with scattered rhonchi R>L. Good air entry Cardiovascular exam: RRR +S1, +S2. GI/Abdominal exam: Non-tender, Non-distended, soft, no peritoneal signs. Extremities exam: 2+ pedal edema b/l. LUE swelling more prominent than the right Neurological exam: no focal deficits. - Patient Status Disposition: Home Health Service Condition: Serious Overall status at discharge: patient is progressing back to baseline - Discharge Instructions Instructions: Heart Failure (DC), Atrial Fibrillation (DC), Acute Respiratory Distress Syndrome (DC), Cirrhosis (DC), Pneumonia (DC), Cigarette Smoking and Your Health, First Helper (GEN), Anemia (GEN) Follow Up With: Cardiology [Other] (Referral put in for cardiology, note was put in that the patient is being discharged with a Life Vest.) Bret Arredondo DO [Resident] - Marlyn Mitchell MD [Partnered Physician] - - Diet and Activity Activity: as per physical therapy Diet: low salt diet - VTE Documentation of Mechanical Device: Intermittent pneumatic compression device
--- NOTE | 2018-10-18 13:14 | Physician Discharge Referral ---
Home Health/Hosp Referral Info Transfer to: Home Health Provider in Charge Post Discharge: PCP - Diagnosis (1) Septic shock Priority: Primary Status: Resolved (2) Acute respiratory failure with hypoxia Priority: Secondary Status: Resolved (3) Pneumonia Priority: Secondary Status: Acute (4) Acute exacerbation of CHF (congestive heart failure) Priority: Secondary Status: Acute (5) A-fib Priority: Secondary Status: Acute (6) Cirrhosis Priority: Secondary Status: Acute (7) Cardiomyopathy Priority: Secondary Status: Chronic (8) EMMA (acute kidney injury) Priority: Secondary Status: Resolved (9) Metabolic encephalopathy Priority: Secondary Status: Resolved (10) Anemia Priority: Secondary Status: Acute (11) Superficial venous thrombosis of left upper extremity Priority: Secondary Status: Acute (12) Physical deconditioning Priority: Secondary Status: Acute - Respiratory Orders Smoking Cessation: Smoking cessation has been advised. For more information, call the [place] Tobacco Quit Line at 4-477-SBHA-NOW. - Diet/Nutrition Diet/Nutrition Orders: Regular - Services Needed Following services are medically necessary services: Nursing, Home Health Aide, Physical Therapy, Occupational Therapy - Transfer Medications Prescriptions: RX: Spironolactone [Aldactone] 25 mg PO DAILY #30 tablet RX: Lactulose 30 gm PO BID #90 udc Furosemide [Lasix] 40 mg PO BID 30 Days #60 tablet RX: Omeprazole [PriLOSEC] 20 mg PO BIDAC #60 capsule.dr RX: Acetaminophen [Tylenol] 325 mg PO Q6HR PRN #30 tablet PRN Reason: Pain RX: Lisinopril [Zestril] 2.5 mg PO DAILY #30 tablet Home Medications: RX: Metoprolol XL (24 HR) Succ [Toprol Xl] 25 mg PO BID 30 Days #60 tab.er.24h 01/11/18 [Rx] RX: Tenofovir Alafenamide Fumarate [Vemlidy] 25 mg PO DAILY 09/30/18 [History] Furosemide [Lasix] 40 mg PO BID 30 Days #60 tablet 10/18/18 [Rx] RX: Acetaminophen [Tylenol] 325 mg PO Q6HR PRN #30 tablet 10/18/18 [Rx] RX: Lactulose 30 gm PO BID #90 udc 10/18/18 [Rx] RX: Lisinopril [Zestril] 2.5 mg PO DAILY #30 tablet 10/18/18 [Rx] RX: Omeprazole [PriLOSEC] 20 mg PO BIDAC #60 capsule. 10/18/18 [Rx] RX: Spironolactone [Aldactone] 25 mg PO DAILY #30 tablet 10/18/18 [Rx] Allergies/Adverse Reactions: Allergy/AdvReac Type Severity Reaction Status Date / Time No Known Allergies Allergy Verified 12/19/17 21:16 Certification: Further, I certify that my clinical findings support that this patient is homebound (i.e. absences from home require considerable and taxing effort and are for medical reasons or sikh services or infrequently or short duration when for other reasons) because: Homebound Reason: Patient requires assistance of a person or device to safely leave home, Severity of cardiac or pulmonary status limits activity tolerance Attestation: My signature below is to certify that this patient is under my care and that I, or nurse practitioner, or a physician's assistant paralegal working with me, has a [id number] encounter with this patient.
== END 2018-10-18 15:12 | disposition home health service (06) | DRG 870 ==
LOC: EMEROOARM 03:43 → SUATTDRO 09:50 → ICNU 09:50 → 2NENU 10-09 17:02
PROVIDERS: ADMIT Internal Medicine Pulmonary Disease; ATTEND Internal Medicine
PROC: IRPERMA (2018-10-01 14:00)

== ENCOUNTER 2019-01-19 10:50 | Inpatient (IN) ==
[~2019-01-19 10:50] MED LIST: *HR* Etomidate 20 MG/10 ML AMPUL IVP ONE; *HR* Rocuronium Bromide 100 MG/10 ML VIAL IVC ONE
--- NOTE | 2019-01-19 10:54 | Emergency Department Note ---
Disposition Clinical Impression: Atrial fibrillation with RVR, Third degree heart block, Elevated troponin, Hyperammonemia, Septic shock, Cardiogenic shock Altered mental status Qualifiers: Altered mental status type: unspecified Qualified Code(s): R41.82 - Altered me ntal status, unspecified UTI (urinary tract infection) Qualifiers: Urinary tract infection type: site unspecified Hematuria presence: with hematuria Qualified Code(s): N39.0 - Urinary tract infection, site not specified; R31.9 - Hematuria, unspecified DKA (diabetic ketoacidoses) Qualifiers: Diabetes mellitus type: type 2 Diabetes mellitus complication detail: without coma Qualified Code(s): E11.10 - Type 2 diabetes mellitus with ketoacidosis without coma Sepsis with acute hypoxic respiratory failure Qualifiers: Sepsis type: sepsis due to unspecified organism Severe sepsis shock status: with septic shock Qualified Code(s): A41.9 - Sepsis, unspecified organism; R65.21 - Severe sepsis with septic shock; J96.01 - Acute respiratory failure with hypoxia Acute PR Qualifiers: Myocardial infarction type: unspecified Involved coronary artery: unspecified coronary artery Qualified Code(s): I21.9 - Acute myocardial infarction, unspecified Disposition: Admitted As Inpatient Condition: Critical Time of Disposition: 15:44 General Adult HPI - General Stated complaint: AMS Time Seen by Provider: 01/19/19 10:52 Nursing Notes Reviewed: Yes Vital Signs Reviewed: Yes - History of Present Illness HPI Narrative: 58-year-old female past medical history of heart failure, liver cirrhosis, presents to the emergency department concern for altered mental status. Patient used to be on hospice, but has been off hospice for the last 2 days. She was found down at her home in her bathroom. She has been flapping her arms. Had heart catheterization at the [facility] who stated that she was not a candidate for any further intervention. - Related Data Home Medications Medication Instructions Recorded Confirmed ALPRAZolam [Xanax 0.5 MG Tablet] 0.5 mg PO TID PRN 01/19/19 01/19/19 Furosemide [Lasix] 40 mg PO BID 01/19/19 01/19/19 OxyCODONE Immed Rel [Roxicodone 20 20 mg PO Q4H PRN 01/19/19 01/19/19 MG] Previous Rx's Medication Instructions Recorded Metoprolol XL (24 HR) Succ [Toprol 25 mg PO BID 30 Days #60 tab.er.24h 01/11/18 Xl] Lactulose 30 gm PO BID #90 udc 10/18/18 Lisinopril [Zestril] 2.5 mg PO DAILY #30 tablet 10/18/18 Omeprazole [PriLOSEC] 20 mg PO BIDAC #60 capsule. 10/18/18 Spironolactone [Aldactone] 25 mg PO DAILY #30 tablet 10/18/18 Allergies Allergy/AdvReac Type Severity Reaction Status Date / Time No Known Allergies Allergy Verified 12/19/17 21:16 All systems ED: reviewed and negative except as stated. Review of Systems: As Per HPI Limitations: ROS unobtainable due to patients medical condition (Patient with altered mental status) Cardiovascular: Denies: chest pain Past Medical History - Past Medical History Attestation: Yes The following information was validated with the patient. Medical history: Reports: atrial fibrillation, cardiomyopathy, cirrhosis, COPD, hepatitis Psychiatric history: Reports: anxiety - Social History Smoking Status: Current every day smoker Smokeless Tobacco Status: No Alcohol use: Reports: none Drug use: Reports: none Physical Exam - General Limitations: no limitations, altered mental status - Head Head exam: normal inspection - Eye Eye exam: Absent: scleral icterus - ENT ENT exam: mucous membranes dry - Neck Neck exam: Present: trachea midline - Chest Chest inspection: Present: symmetric chest wall rise - Respiratory Respiratory exam: Present: normal lung sounds bilaterally. Absent: respiratory distress, accessory muscle use - Cardiovascular Cardiovascular exam: Present: tachycardia, irregular rhythm - Abdominal Exam Abdominal exam: Present: soft, Non-Tender. Absent: distention, guarding, rebound, rigidity - Extremities Exam Extremities exam: Present: normal capillary refill - Back Exam Back exam: Present: full ROM - Neurological Exam Neurological exam: Present: other (No focal neurologic deficits. Patient responds to questions with yes or no answers. However, she does say inappropriate things.) - Psychiatric Psychiatric exam: Present: agitated Course Vital Signs Temperature 97.6 F 01/19/19 11:05 Pulse Rate 141 01/19/19 11:05 Respiratory Rate 20 01/19/19 11:05 Blood Pressure 128/71 01/19/19 11:05 O2 Sat by Pulse Oximetry 96 01/19/19 11:05 Temperature 98.4 F 01/19/19 18:58 Pulse Rate 141 01/19/19 19:53 Respiratory Rate 27 01/19/19 20:02 Blood Pressure 97/70 01/19/19 20:02 O2 Sat by Pulse Oximetry 79 01/19/19 20:02 Oxygen Delivery Oxygen Delivery Ventilator Procedures - Central Line Placement Right IJ Central Line Inserted*: Yes Central Line Catheter Replacement*: Yes Central Line Insertion: emergent Consent Obtained: verbal consent Procedural Pause: verify patient name and date of , lana and assess the site, assemble equipment and verify supplies, perform hand hygiene Patient Placed on Monitor/Pulse Ox: Yes During the Procedure: clinician is wearing sterile gloves, cap, mask,& gown during insertion, sterile field and sterile technique are maintained, patient's face is covered with drape or mask and wearing a cap, everyone in room is wearing a mask Central Line Prep: Chlorhexidine scrub Prep the Procedure Site: apply chloraprep to the skin using a back and forth scrubbing motion Local Anesthetic: lidocaine 1%, with epi Ultrasound Used for Placement: Yes Central Line Lumen Inserted: triple Post Procedure: sutured in place, good blood return, all ports aspirated, flushed, capped, sterile dressing applied, guide wire removed and visualized, dressing is dated Post Procedure X-Ray: tip of catheter in good position Patient Tolerated Procedure: well, no complications Complications: none Name of Clinician Inserting Central Line: Jignesh Polanco D.O. Date: 01/19/19 Time: 15:07 - Intubation Time out performed: Yes sedative: Etomidate Mg Given: 20 paralytic: Rocuronium Mg Given: 100 Laryngoscope: fiber optic video scope ET Tube Size: 8 Tube Secured Depth (cm): 20 Tube Secured Location: lips Tube Placement Confirmation: visualized tube passing through cords Patient Tolerated Procedure: well, no complications Intubation Complications: none Medical Decision Making - MDM Narrative Medical decision making narrative: 52 seizure female presents emergency department with concern for altered mental status. Initially, patient was reported to be DO NOT RESUSCITATE and DO NOT INTUBATE. Patient was initially reported to be in atrial fibrillation with rapid ventricular response. Rate was initially in the 140s. Shortly afterward, and increased up to approximately 200. Patient was given 5 mg of IV Lopressor. Heart rate dropped, however, patient became bradycardic and had third-degree heart block. There was evidence of ST elevations in the inferior leads. I asked patient if she was having chest pain, she stated that she was not. Previous report showed that patient has had chronic congestive heart failure with a ejection fraction of approximately 15%. She has right-sided as well as left-sided heart failure as well with normal motion abnormalities throughout. Within 10 minutes after this finding, patient's heart rate increased to sinus tachycardia. The ischemia resolved on the ECG. I spoke with Dr. Burr, php mysql developer about patient who believes the ischemia on ECG was secondary to the beta blockade. He gave recommendations to give amiodarone if heart rate was to increase. Patient was difficult to access vascularly. That time, an emergent central line was placed in the right internal jugular vein. After placement, patient started to become hypoxic with oxygen saturation in approximate 83%. She had accessory muscle use and we initially started BiPAP. Due to wishes for no intubation initially, patient was held on BiPAP for comfort measures. During this time, daughter had a change of heart and wanted patient to be intubated if we felt it was medically necessary. Patient was intubated using etomidate and rocuronium. Intubation was successful, first pass attempt, no airway trauma. Patient remained hypoxic after intubation O2 saturations has 85%. Heart rate did increase. It increased back to the high 100s and 200 before intubation. Amiodarone bolus was given per my discussion with interventional cardiology and an infusion was started. After bolus and infusion, and after intubation, patient's heart rate began to decrease again. Infusion was stopped for about 15 minutes. Heart rate began to increase again and we restarted the amiodarone infusion as well. Patient was given vancomycin and Zosyn. Patient did have fluctuation of blood pressure prior to intubation. We did have Levophed at bedside. After intubation, map was less than 65. We started Levophed and titrated to 14 mcg/kg/m. Patient admitted to Dr. Sol for further management for altered mental status. Patient currently DO NOT RESUSCITATE but given full medical measures otherwise. CT of head without contrast pending. We will not give aspirin or blood thinners due to patient having thrombocytopenia without having current CT scan of the head for ischemia. - Lab Data Result diagrams: 01/19/19 10:54 01/19/19 17:30 Lab Results 01/19/19 01/19/1919 Range/Units 10:54 10:54 10:54 WBC 8.8 (4.3-11.1) K/mcL RBC 5.47 H (3.82-4.97) M/mcL Hgb 15.8 H (11.5-15.4) g/dL Hct 49.0 H (35.3-44.9) % MCV 89.6 (83.0-100.0) fL MCH 28.9 (28.0-33.3) pg MCHC 32.2 (31.6-35.5) g/dL RDW 19.2 H (11.5-14.5) % Plt Count 23 L* (140-400) K/mcL MPV TNP Seg Neutrophils % 86.0 % Band Neutrophils % 4.0 (0-4) % Lymphocytes % 6.0 % Monocytes % 4.0 % Neutrophils # 7.9 (1.6-8.9) K/mcL Lymphocytes # 0.5 L (0.6-4.6) K/mcL Monocytes # 0.4 (0.0-1.3) K/mcL Nucleated RBCs/100 WBC 0.3 H (0) /100 WBC Toxic Granulation Present A (Not Present) Platelet Estimate Decreased L (Normal) Immature Plt Fraction 8.2 H (1.1-6.1) % PT 18.1 H (9.4-12.1) Seconds INR 1.6 APTT 20.4 L (26.0-36.0) Seconds VBG pH (7.32-7.42) pH Units VBG pCO2 (41-51) mmHg VBG pO2 (25-50) mmHg VBG HCO3 (21-27) mEq/L Sodium 144 (136-145) mEq/L Potassium 3.0 L (3.5-5.1) mEq/L Chloride 103 (98-107) mEq/L Carbon Dioxide 26 (23-29) mEq/L BUN 43 H (6-20) mg/dL Creatinine 1.17 (0.60-1.20) mg/dL Est GFR ( Amer) 58 L (> 60) Est GFR (Non-Af Amer) 48 L (> 60) BUN/Creatinine Ratio 37 H (6-26) Glucose 564 H* (70-105) mg/dL POC Glucose (70-99) mg/dL Calculated Osmolality 335 H (280-300) Lactic Acid (0.5-2.2) mmol/L Calcium 9.9 (8.6-10.3) mg/dL Total Bilirubin 3.4 H (0.3-1.0) mg/dL Direct Bilirubin 1.4 H (0.0-0.2) mg/dL Indirect Bilirubin 2.0 H (0.0-1.2) mg/dL AST 17 (13-39) Units/L ALT 24 (7-52) Units/L Alkaline Phosphatase 223 H (34-104) Units/L Ammonia (16-53) mcmol/L Creatine Kinase 38 (30-223) Units/L Troponin I 0.17 H* (< 0.04) ng/mL B-Natriuretic Peptide (Less than 100) pg/mL Serum Total Protein 5.5 L (6.4-8.9) g/dL Albumin 2.4 L (3.5-5.7) g/dL Globulin 3.1 (2.4-3.5) g/dL Albumin/Globulin Ratio 0.8 L (1.1-2.2) Beta-Hydroxybutyric Acd (0.02-0.27) mmol/L Procalcitonin (0.00-0.15) ng/mL TSH 1.283 (0.340-5.600) mcIU/mL Urine Color (Yellow) Urine Clarity (Clear) Urine pH (5.0-8.0) pH Units Ur Specific [place] (1.010-1.025) Urine Protein (Neg-Trace) mg/dL Urine Glucose (UA) (Normal) mg/dL Urine Ketones (Negative) mg/dL Urine Blood (Negative) Urine Nitrite (Negative) Urine Bilirubin (Negative) Urine Urobilinogen (Normal) mg/dL Ur Leukocyte Esterase (Negative) Urine Microscopic RBC (0-3) per hpf Urine Microscopic WBC (0-3) per hpf Ur Squamous Epith Cells (None-Few) per lpf Urine Bacteria (None-Few) per hpf Hyaline Casts (None-Few) per lpf Ur Culture Indicated? (NO) Salicylates < 2.5 L (15.0-30.0) mg/dL Urine Opiates Screen (Syvdgo=636) ng/mL Ur Buprenorphine Scrn (Cutoff=5) ng/mL Acetaminophen < 10 L (10-20) mcg/mL Ur Barbiturates Screen (Tfgzsu=591) ng/mL Ur Phencyclidine Scrn (Cutoff=25) ng/mL Ur Amphetamines Screen (Jeiefc=8260) ng/mL U Benzodiazepines Scrn (Xqcknt=217) ng/mL Urine Cocaine Screen (Cutoff= 300) ng/mL U Marijuana (THC) Screen (Cutoff = 50) ng/mL Ur Drug Screen Interp Ethyl Alcohol < 10 (Less than 10) mg/dL 01/19/19 01/19/19 01/19/19 Range/Units 11:03 11:04 11:53 WBC (4.3-11.1) K/mcL RBC (3.82-4.97) M/mcL Hgb (11.5-15.4) g/dL Hct (35.3-44.9) % MCV (83.0-100.0) fL MCH (28.0-33.3) pg MCHC (31.6-35.5) g/dL RDW (11.5-14.5) % Plt Count (140-400) K/mcL MPV Seg Neutrophils % % Band Neutrophils % (0-4) % Lymphocytes % % Monocytes % % Neutrophils # (1.6-8.9) K/mcL Lymphocytes # (0.6-4.6) K/mcL Monocytes # (0.0-1.3) K/mcL Nucleated RBCs/100 WBC (0) /100 WBC Toxic Granulation (Not Present) Platelet Estimate (Normal) Immature Plt Fraction (1.1-6.1) % PT (9.4-12.1) Seconds INR APTT (26.0-36.0) Seconds VBG pH (7.32-7.42) pH Units VBG pCO2 (41-51) mmHg VBG pO2 (25-50) mmHg VBG HCO3 (21-27) mEq/L Sodium (136-145) mEq/L Potassium (3.5-5.1) mEq/L Chloride (98-107) mEq/L Carbon Dioxide (23-29) mEq/L BUN (6-20) mg/dL Creatinine (0.60-1.20) mg/dL Est GFR ( Amer) (> 60) Est GFR (Non-Af Amer) (> 60) BUN/Creatinine Ratio (6-26) Glucose (70-105) mg/dL POC Glucose 482 H* 526 H* (70-99) mg/dL Calculated Osmolality (280-300) Lactic Acid (0.5-2.2) mmol/L Calcium (8.6-10.3) mg/dL Total Bilirubin (0.3-1.0) mg/dL Direct Bilirubin (0.0-0.2) mg/dL Indirect Bilirubin (0.0-1.2) mg/dL AST (13-39) Units/L ALT (7-52) Units/L Alkaline Phosphatase (34-104) Units/L Ammonia (16-53) mcmol/L Creatine Kinase (30-223) Units/L Troponin I (< 0.04) ng/mL B-Natriuretic Peptide (Less than 100) pg/mL Serum Total Protein (6.4-8.9) g/dL Albumin (3.5-5.7) g/dL Globulin (2.4-3.5) g/dL Albumin/Globulin Ratio (1.1-2.2) Beta-Hydroxybutyric Acd (0.02-0.27) mmol/L Procalcitonin (0.00-0.15) ng/mL TSH (0.340-5.600) mcIU/mL Urine Color (Yellow) Urine Clarity (Clear) Urine pH (5.0-8.0) pH Units Ur Specific [place] (1.010-1.025) Urine Protein (Neg-Trace) mg/dL Urine Glucose (UA) (Normal) mg/dL Urine Ketones (Negative) mg/dL Urine Blood (Negative) Urine Nitrite (Negative) Urine Bilirubin (Negative) Urine Urobilinogen (Normal) mg/dL Ur Leukocyte Esterase (Negative) Urine Microscopic RBC (0-3) per hpf Urine Microscopic WBC (0-3) per hpf Ur Squamous Epith Cells (None-Few) per lpf Urine Bacteria (None-Few) per hpf Hyaline Casts (None-Few) per lpf Ur Culture Indicated? (NO) Salicylates (15.0-30.0) mg/dL Urine Opiates Screen Negative (Ktlsbi=543) ng/mL Ur Buprenorphine Scrn Positive H (Cutoff=5) ng/mL Acetaminophen (10-20) mcg/mL Ur Barbiturates Screen Negative (Pzhvcc=523) ng/mL Ur Phencyclidine Scrn Negative (Cutoff=25) ng/mL Ur Amphetamines Screen Negative (Akqojp=1315) ng/mL U Benzodiazepines Scrn Negative (Xuehhk=836) ng/mL Urine Cocaine Screen Negative (Cutoff= 300) ng/mL U Marijuana (THC) Screen Negative (Cutoff = 50) ng/mL Ur Drug Screen Interp See Below Ethyl Alcohol (Less than 10) mg/dL 01/19/19 01/19/19 01/19/19 Range/Units 11:56 13:15 13:19 WBC (4.3-11.1) K/mcL RBC (3.82-4.97) M/mcL Hgb (11.5-15.4) g/dL Hct (35.3-44.9) % MCV (83.0-100.0) fL MCH (28.0-33.3) pg MCHC (31.6-35.5) g/dL RDW (11.5-14.5) % Plt Count (140-400) K/mcL MPV Seg Neutrophils % % Band Neutrophils % (0-4) % Lymphocytes % % Monocytes % % Neutrophils # (1.6-8.9) K/mcL Lymphocytes # (0.6-4.6) K/mcL Monocytes # (0.0-1.3) K/mcL Nucleated RBCs/100 WBC (0) /100 WBC Toxic Granulation (Not Present) Platelet Estimate (Normal) Immature Plt Fraction (1.1-6.1) % PT (9.4-12.1) Seconds INR APTT (26.0-36.0) Seconds VBG pH (7.32-7.42) pH Units VBG pCO2 (41-51) mmHg VBG pO2 (25-50) mmHg VBG HCO3 (21-27) mEq/L Sodium (136-145) mEq/L Potassium (3.5-5.1) mEq/L Chloride (98-107) mEq/L Carbon Dioxide (23-29) mEq/L BUN (6-20) mg/dL Creatinine (0.60-1.20) mg/dL Est GFR ( Amer) (> 60) Est GFR (Non-Af Amer) (> 60) BUN/Creatinine Ratio (6-26) Glucose (70-105) mg/dL POC Glucose (70-99) mg/dL Calculated Osmolality (280-300) Lactic Acid (0.5-2.2) mmol/L Calcium (8.6-10.3) mg/dL Total Bilirubin (0.3-1.0) mg/dL Direct Bilirubin (0.0-0.2) mg/dL Indirect Bilirubin (0.0-1.2) mg/dL AST (13-39) Units/L ALT (7-52) Units/L Alkaline Phosphatase (34-104) Units/L Ammonia 94 H (16-53) mcmol/L Creatine Kinase (30-223) Units/L Troponin I (< 0.04) ng/mL B-Natriuretic Peptide 1188 H (Less than 100) pg/mL Serum Total Protein (6.4-8.9) g/dL Albumin (3.5-5.7) g/dL Globulin (2.4-3.5) g/dL Albumin/Globulin Ratio (1.1-2.2) Beta-Hydroxybutyric Acd (0.02-0.27) mmol/L Procalcitonin (0.00-0.15) ng/mL TSH (0.340-5.600) mcIU/mL Urine Color Red A (Yellow) Urine Clarity Turbid A (Clear) Urine pH 6.0 (5.0-8.0) pH Units Ur Specific [place] 1.024 (1.010-1.025) Urine Protein 100 H (Neg-Trace) mg/dL Urine Glucose (UA) >=1000 H (Normal) mg/dL Urine Ketones Trace H (Negative) mg/dL Urine Blood Large H (Negative) Urine Nitrite Negative (Negative) Urine Bilirubin Negative (Negative) Urine Urobilinogen Normal (Normal) mg/dL Ur Leukocyte Esterase Moderate H (Negative) Urine Microscopic RBC TNTC H (0-3) per hpf Urine Microscopic WBC TNTC H (0-3) per hpf Ur Squamous Epith Cells Many H (None-Few) per lpf Urine Bacteria Many H (None-Few) per hpf Hyaline Casts None Seen (None-Few) per lpf Ur Culture Indicated? YES A (NO) Salicylates (15.0-30.0) mg/dL Urine Opiates Screen (Etznoe=287) ng/mL Ur Buprenorphine Scrn (Cutoff=5) ng/mL Acetaminophen (10-20) mcg/mL Ur Barbiturates Screen (Lyraok=296) ng/mL Ur Phencyclidine Scrn (Cutoff=25) ng/mL Ur Amphetamines Screen (Qvmgxq=3578) ng/mL U Benzodiazepines Scrn (Jhkpvn=203) ng/mL Urine Cocaine Screen (Cutoff= 300) ng/mL U Marijuana (THC) Screen (Cutoff = 50) ng/mL Ur Drug Screen Interp Ethyl Alcohol (Less than 10) mg/dL 01/19/19 01/19/19 01/19/19 Range/Units 13:19 13:19 13:19 WBC (4.3-11.1) K/mcL RBC (3.82-4.97) M/mcL Hgb (11.5-15.4) g/dL Hct (35.3-44.9) % MCV (83.0-100.0) fL MCH (28.0-33.3) pg MCHC (31.6-35.5) g/dL RDW (11.5-14.5) % Plt Count (140-400) K/mcL MPV Seg Neutrophils % % Band Neutrophils % (0-4) % Lymphocytes % % Monocytes % % Neutrophils # (1.6-8.9) K/mcL Lymphocytes # (0.6-4.6) K/mcL Monocytes # (0.0-1.3) K/mcL Nucleated RBCs/100 WBC (0) /100 WBC Toxic Granulation (Not Present) Platelet Estimate (Normal) Immature Plt Fraction (1.1-6.1) % PT (9.4-12.1) Seconds INR APTT (26.0-36.0) Seconds VBG pH (7.32-7.42) pH Units VBG pCO2 (41-51) mmHg VBG pO2 (25-50) mmHg VBG HCO3 (21-27) mEq/L Sodium (136-145) mEq/L Potassium (3.5-5.1) mEq/L Chloride (98-107) mEq/L Carbon Dioxide (23-29) mEq/L BUN (6-20) mg/dL Creatinine (0.60-1.20) mg/dL Est GFR ( Amer) (> 60) Est GFR (Non-Af Amer) (> 60) BUN/Creatinine Ratio (6-26) Glucose (70-105) mg/dL POC Glucose (70-99) mg/dL Calculated Osmolality (280-300) Lactic Acid 8.0 H* (0.5-2.2) mmol/L Calcium (8.6-10.3) mg/dL Total Bilirubin (0.3-1.0) mg/dL Direct Bilirubin (0.0-0.2) mg/dL Indirect Bilirubin (0.0-1.2) mg/dL AST (13-39) Units/L ALT (7-52) Units/L Alkaline Phosphatase (34-104) Units/L Ammonia (16-53) mcmol/L Creatine Kinase (30-223) Units/L Troponin I (< 0.04) ng/mL B-Natriuretic Peptide (Less than 100) pg/mL Serum Total Protein (6.4-8.9) g/dL Albumin (3.5-5.7) g/dL Globulin (2.4-3.5) g/dL Albumin/Globulin Ratio (1.1-2.2) Beta-Hydroxybutyric Acd 0.44 H (0.02-0.27) mmol/L Procalcitonin 4.96 H (0.00-0.15) ng/mL TSH (0.340-5.600) mcIU/mL Urine Color (Yellow) Urine Clarity (Clear) Urine pH (5.0-8.0) pH Units Ur Specific [place] (1.010-1.025) Urine Protein (Neg-Trace) mg/dL Urine Glucose (UA) (Normal) mg/dL Urine Ketones (Negative) mg/dL Urine Blood (Negative) Urine Nitrite (Negative) Urine Bilirubin (Negative) Urine Urobilinogen (Normal) mg/dL Ur Leukocyte Esterase (Negative) Urine Microscopic RBC (0-3) per hpf Urine Microscopic WBC (0-3) per hpf Ur Squamous Epith Cells (None-Few) per lpf Urine Bacteria (None-Few) per hpf Hyaline Casts (None-Few) per lpf Ur Culture Indicated? (NO) Salicylates (15.0-30.0) mg/dL Urine Opiates Screen (Clbtgc=479) ng/mL Ur Buprenorphine Scrn (Cutoff=5) ng/mL Acetaminophen (10-20) mcg/mL Ur Barbiturates Screen (Ypulpj=194) ng/mL Ur Phencyclidine Scrn (Cutoff=25) ng/mL Ur Amphetamines Screen (Gozvxq=2392) ng/mL U Benzodiazepines Scrn (Tufjai=090) ng/mL Urine Cocaine Screen (Cutoff= 300) ng/mL U Marijuana (THC) Screen (Cutoff = 50) ng/mL Ur Drug Screen Interp Ethyl Alcohol (Less than 10) mg/dL 01/19/19 Range/Units 13:53 WBC (4.3-11.1) K/mcL RBC (3.82-4.97) M/mcL Hgb (11.5-15.4) g/dL Hct (35.3-44.9) % MCV (83.0-100.0) fL MCH (28.0-33.3) pg MCHC (31.6-35.5) g/dL RDW (11.5-14.5) % Plt Count (140-400) K/mcL MPV Seg Neutrophils % % Band Neutrophils % (0-4) % Lymphocytes % % Monocytes % % Neutrophils # (1.6-8.9) K/mcL Lymphocytes # (0.6-4.6) K/mcL Monocytes # (0.0-1.3) K/mcL Nucleated RBCs/100 WBC (0) /100 WBC Toxic Granulation (Not Present) Platelet Estimate (Normal) Immature Plt Fraction (1.1-6.1) % PT (9.4-12.1) Seconds INR APTT (26.0-36.0) Seconds VBG pH 7.34 (7.32-7.42) pH Units VBG pCO2 51 (41-51) mmHg VBG pO2 43 (25-50) mmHg VBG HCO3 27 (21-27) mEq/L Sodium (136-145) mEq/L Potassium (3.5-5.1) mEq/L Chloride (98-107) mEq/L Carbon Dioxide (23-29) mEq/L BUN (6-20) mg/dL Creatinine (0.60-1.20) mg/dL Est GFR ( Amer) (> 60) Est GFR (Non-Af Amer) (> 60) BUN/Creatinine Ratio (6-26) Glucose (70-105) mg/dL POC Glucose (70-99) mg/dL Calculated Osmolality (280-300) Lactic Acid (0.5-2.2) mmol/L Calcium (8.6-10.3) mg/dL Total Bilirubin (0.3-1.0) mg/dL Direct Bilirubin (0.0-0.2) mg/dL Indirect Bilirubin (0.0-1.2) mg/dL AST (13-39) Units/L ALT (7-52) Units/L Alkaline Phosphatase (34-104) Units/L Ammonia (16-53) mcmol/L Creatine Kinase (30-223) Units/L Troponin I (< 0.04) ng/mL B-Natriuretic Peptide (Less than 100) pg/mL Serum Total Protein (6.4-8.9) g/dL Albumin (3.5-5.7) g/dL Globulin (2.4-3.5) g/dL Albumin/Globulin Ratio (1.1-2.2) Beta-Hydroxybutyric Acd (0.02-0.27) mmol/L Procalcitonin (0.00-0.15) ng/mL TSH (0.340-5.600) mcIU/mL Urine Color (Yellow) Urine Clarity (Clear) Urine pH (5.0-8.0) pH Units Ur Specific [place] (1.010-1.025) Urine Protein (Neg-Trace) mg/dL Urine Glucose (UA) (Normal) mg/dL Urine Ketones (Negative) mg/dL Urine Blood (Negative) Urine Nitrite (Negative) Urine Bilirubin (Negative) Urine Urobilinogen (Normal) mg/dL Ur Leukocyte Esterase (Negative) Urine Microscopic RBC (0-3) per hpf Urine Microscopic WBC (0-3) per hpf Ur Squamous Epith Cells (None-Few) per lpf Urine Bacteria (None-Few) per hpf Hyaline Casts (None-Few) per lpf Ur Culture Indicated? (NO) Salicylates (15.0-30.0) mg/dL Urine Opiates Screen (Rmessj=535) ng/mL Ur Buprenorphine Scrn (Cutoff=5) ng/mL Acetaminophen (10-20) mcg/mL Ur Barbiturates Screen (Samrme=253) ng/mL Ur Phencyclidine Scrn (Cutoff=25) ng/mL Ur Amphetamines Screen (Ytcmaq=3678) ng/mL U Benzodiazepines Scrn (Vfxzca=603) ng/mL Urine Cocaine Screen (Cutoff= 300) ng/mL U Marijuana (THC) Screen (Cutoff = 50) ng/mL Ur Drug Screen Interp Ethyl Alcohol (Less than 10) mg/dL - EKG Data EKG #1 EKG attestation: Yes I reviewed and interpreted this EKG. EKG results narrative: 11:01 ecg 1 Heart rate 172 bpm, No P waves, left eyes deviation. Atrial fibrillation with RVR. 11:54 ecg 2 HR 43 bpm, FL interval 157 seconds, QRS duration 99 ms, QT 538 ms, QTC 455 msecs There is elevation in the inferior leads as well as T wave inversion in 1, aVL, V2. Third degree heart block. Patient chest pain-free Dr. Burr aware of changes. 11:55 ecg 3 Heart rate 44 bpm, FL interval is associated, QRS duration 92 ms, QTC 367, right axis deviation Third degree AV block, elevations in the inferior leads 11:59 ecg 4 Sinus tachycardia. There is no evidence of third degree heart block. ST elevations have resolved. 1450 ecg 5 Heart rate 55 bpm, no P waves, QRS duration 110 ms, QTC 470 ms, Atrial fibrillation with ST elevations in the inferior leads and T-wave inversions in aVL, V1, V2, 1. Critical Care Time Critical Care Time: Yes Total Critical Care Time: 90 Attestation: Total care time 35 minutes managing patient's multiple medical problems. Attestation Statement - Attestation Attestation: Patient was seen with resident physician. I reviewed the history, physical, assessment and plan, and agree with the findings. I also personally evaluated this patient and had [id number] time with this patient. 58-year-old female presents to the emergency Department chief complaint of metal status change. Patient was brought via EMS from home with a complaint of worsening mental status. Patient had been on hospice for liver failure but was taken off because her ammonia levels were not rising. She is unable to provide a history. Review of systems unable secondary to patient condition. Physical exam vital signs show significant elevation in heart rate in the 180s. ENT is shows no signs of traumatic injury. Heart tachycardic irregularly irregular rhythm. Lungs clear. Abdomen soft nontender. Extremities tremulous but no gross deformities. Neck and back were nontender. Neurologically she is awake does not really answer questions well seems to move all extremities. Skin no obvious rashes. Psych unable. ED course. We will have to do an extensive workup initially her glucose done at bedside was in the 500s. Her heart rates in the 180s. She appears to be very critically ill. Patient's workup was made more difficult by the fact that we had some questions as to what her DNR status was. She also had very poor IV access. I we eventually put in a triple-lumen into the right IJ. Patient was placed on BiPAP to help with breathing. After multiple hours we able to have family come and sign DNR paperwork but then they changed her mind and wanted the patient to be intubated when they realized that she was decompensating is not tolerating BiPAP. We accommodated his request and intubate the patient did her best to stabilize her. Essentially the patient has multisystem organ failure. For complete list of the diagnosis is that we discovered please refer to the resident note. The patient remained critically ill I while in the emergency department. We spoke with the abstract clerk who agreed to accept the patient to admission for the intensive care unit. I agree with the resident physician assessment and plan. Critical care time 90 minutes exclusive of time spent on other billable procedures her activities.. ED procedures.I reviewed the patient's EKG as well as the resident physician interpretation and I agree with the findings. Central line was placed using ultrasound guidance. I was present for the critical portions of the procedure. There were no immediate complications. I also reviewed the resident procedure note and agree with it. Patient required endotracheal intubation. I was present for the entirety of the procedure. I agree with the resident physician procedure note.
[2019-01-19] MEDS ORDERED: 0.9 % Sodium Chloride 1,000 ML IVC ONE (11:11)
[2019-01-19] MEDS ORDERED: *HR* Metoprolol 5 MG/5 ML VIAL IVP ONE ×2 (11:21→11:41)
[2019-01-19 12:17] LABS: Bilirubin,Urine Negative (Negative); Blood,Urine Large (Negative); Clarity,Urine Turbid (Clear); Color,Urine Red (Yellow); Glucose,Urine (UA) >=1000 mg/dL (Normal); Ketones,Urine Trace mg/dL (Negative); Leukocyte Esterase,Urine Moderate (Negative); Nitrite,Urine Negative (Negative); Protein,Urine 100 mg/dL (Neg-Trace); Specific Gravity,Urine 1.024 (1.010-1.025); Urobilinogen,Urine Normal (Normal)
[2019-01-19 12:19] LABS: Amphetamine Screen,Urine Negative ng/mL (Cutoff=1000); Barbiturate Screen,Urine Negative ng/mL (Cutoff=200); Benzodiazepines Screen,Urine Negative ng/mL (Cutoff=200); Cannabinoid Screen,Urine Negative ng/mL (Cutoff = 50); Cocaine Screen,Urine Negative ng/mL (Cutoff= 300); Opiate Screen,Urine Negative ng/mL (Cutoff=300); Phencyclidine Screen,Urine Negative ng/mL (Cutoff=25)
[2019-01-19 12:23] LABS: Bacteria,Urine Many per hpf (None-Few); Hyaline Casts,Urine None Seen per lpf (None-Few); Squamous Epithelial Cell,Urine Many per lpf (None-Few); WBC,Urine TNTC per hpf (0-3)
[2019-01-19 12:38] LABS: RBC,Urine TNTC per hpf (0-3)
[2019-01-19] MEDS ORDERED: *HR* LORazepam 2 MG/ML VIAL ONE ×2 (12:42→13:41)
[2019-01-19] MEDS ORDERED: Piperacillin/Tazobactam 3.375 GM in 0.9 % Sodium Chloride Mini Bag 100 ML IVPB ONE (13:05)
[2019-01-19] MEDS ORDERED: Aminoglycoside Consult 1 EACH MC ONE (13:08)
[2019-01-19] MEDS ORDERED: *HR* Norepinephrine 4 MG/4 ML VIAL IVC ONE (13:10)
[2019-01-19] MEDS ORDERED: 0.9 % Sodium Chloride 250 ML ONE (13:10)
[2019-01-19] MEDS: Norepinephrine 4 MG in 0.9 % Sodium Chloride 250 ML IVC SCH ×3 (13:15→20:22)
[2019-01-19] MEDS ORDERED: Amiodarone Premix 150 MG/100 ML BAG IVPB ONE (13:21)
[2019-01-19] MEDS ORDERED: Amiodarone Premix 360 MG/200 ML BAG IVC ONE (13:21)
[2019-01-19] MEDS ORDERED: *HR* LORazepam 2 MG/ML VIAL IVP ONE (13:40)
[2019-01-19] MEDS ORDERED: Dexmedetomidine HCl 400 MCG/100 ML MLS IVC ONE (13:41)
[2019-01-19] MEDS ORDERED: Dexmedetomidine HCl 400 MCG/100 ML MLS IVC SCH (13:50)
[2019-01-19 13:54] LABS: INR 1.6; Prothrombin Time 18.1 Seconds (9.4-12.1)
[2019-01-19 13:57] LABS: Activated Partial Thrombo Time 20.4 Seconds (26.0-36.0)
[2019-01-19 13:57] LABS: VBG HCO3 27 mEq/L (21-27); VBG PCO2 51 mmHg (41-51); VBG PH 7.34 pH Units (7.32-7.42); VBG PO2 43 mmHg (25-50)
[2019-01-19 14:02] LABS: Hemoglobin 15.8 g/dL (11.5-15.4); Immature Platelets 8.2 % (1.1-6.1); Mean Corpuscular HGB Conc 32.2 g/dL (31.6-35.5); Mean Corpuscular Hemoglobin 28.9 pg (28.0-33.3); Mean Corpuscular Volume 89.6 fL (83.0-100.0); Nucleated Red Blood Cells 0.3 /100 WBC (0); Red Blood Count 5.47 M/mcL (3.82-4.97); Red Cell Distribution Width 19.2 % (11.5-14.5); White Blood Count 8.8 K/mcL (4.3-11.1)
[2019-01-19 14:05] LABS: Platelet Count 23 K/mcL (140-400)
[2019-01-19 14:13] LABS: Acetaminophen < 10 mcg/mL (10-20); Alanine Aminotransferase 24 Units/L (7-52); Albumin 2.4 g/dL (3.5-5.7); Albumin/Globulin Ratio 0.8 (1.1-2.2); Alkaline Phosphatase 223 Units/L (34-104); Aspartate Amino Transferase 17 Units/L (13-39); BUN/Creatinine Ratio 37 (6-26); Bilirubin,Direct 1.4 mg/dL (0.0-0.2); Bilirubin,Total 3.4 mg/dL (0.3-1.0); Blood Urea Nitrogen 43 mg/dL (6-20); Calcium 9.9 mg/dL (8.6-10.3); Carbon Dioxide 26 mEq/L (23-29); Chloride 103 mEq/L (98-107); Creatine Kinase 38 Units/L (30-223); Ethanol < 10 mg/dL (Less than 10); Globulin 3.1 g/dL (2.4-3.5); Osmolality,Calculated 335 (280-300); Salicylate < 2.5 mg/dL (15.0-30.0); Sodium 144 mEq/L (136-145); Total Protein 5.5 g/dL (6.4-8.9); Troponin I 0.17 ng/mL (< 0.04); eGFR For African Americans 58 (> 60); eGFR For Non-African Americans 48 (> 60)
[2019-01-19] MEDS ORDERED: *HR* Rocuronium Bromide 50 MG/5 ML VIAL IVP ONE (14:22)
[2019-01-19] MEDS ORDERED: *HR* Etomidate 40 MG/20 ML VIAL IVP ONE (14:22)
[2019-01-19 14:26] LABS: Glucose 564 mg/dL (70-105)
[2019-01-19 14:28] LABS: Thyroid Stimulating Hormone 1.283 mcIU/mL (0.340-5.600)
[2019-01-19 14:34] LABS: Lymphocytes # 0.5 K/mcL (0.6-4.6); Monocytes # 0.4 K/mcL (0.0-1.3); Neutrophils # 7.9 K/mcL (1.6-8.9); Platelet Estimate Decreased (Normal)
[2019-01-19 14:35] LABS: Toxic Granulation Present (Not Present)
[2019-01-19] MEDS ORDERED: Lactulose Oral Soln 20 GM/30 ML UDC PO ONE (14:41)
[2019-01-19 15:22] LABS: ABG Base Excess -3 mEq/L (-2 to 3); ABG HCO3 26 mEq/L (21-27); ABG Oxygen Saturation 86 % (95-98); ABG PCO2 58 mmHg (35-45); ABG PH 7.25 pH Units (7.32-7.45); ABG PO2 61 mmHg (85-104); ABG TCO2 28 mEq/L (20-26); Blood Gas Modality ASSIST CONTROL; Blood Gas PEEP 5 cm H2O; Blood Gas VT 400 cc
[2019-01-19] MEDS ORDERED: Naloxone 0.4 MG/ML INJ IVP PRN (15:53)
[2019-01-19] MEDS ORDERED: *HR* Dextrose 50 % in Water (Syg) 50 ML SYRINGE IVP PRN (15:53)
[2019-01-19] MEDS ORDERED: Potassium Chloride Elixir 20 MEQ/15 ML UDC GTUBE ONE ×2 (15:53→19:29)
[2019-01-19] MEDS ORDERED: Artificial Tears SOLN 15 ML BOTTLE BOTH EYES PRN (15:53)
[2019-01-19] MEDS ORDERED: Insulin Human Regular 100 UNIT in 0.9 % Sodium Chloride 100 ML IVC SCH (16:00)
[2019-01-19] MEDS ORDERED: Vancomycin (wt based) 1,000 MG VIAL IVPB SCH (16:00)
--- NOTE | 2019-01-19 16:10 | Internal Med History&Physical ---
<Saulo Resendiz - Last Filed: 01/19/19 15:49> Date of Encounter: 01/19/19 Time of Encounter: 15:49 Internal Medicine - H&P: HPI Chief complaint: AMS Admitted From: Emergency Dept History of present illness: Ms. Sales is a 58 year old female with a past medical history of A. fib, HFrEF (LVE 15-20% in 09/2018) with nonischemic cardiomyopathy, COPD, cirrhosis, hepatitis B and C, thrombocytopenia, T2DM who presents with altered mental status starting since Sunday. Patient had been experiencing increased confusion since Sunday and the daughter suspected that her ammonia levels were increasing due to her chronic cirrhosis. The daughter tried to give more lactulose, however the patient was not producing any bowel movements. Today, patient was walking to the bathroom and started to fall. The patient was caught before she hit the floor. At that time, the patient was making incomprehensible sounds and was no longer responsive to verbal or physical stimuli. The patient otherwise did not have any chest pain, shortness of breath, cough, abdominal pain, nausea, vomiting, fevers, chills. Patient had previously been on hospice for liver failure but was taken off hospice care since she did not meet requirements for decline. In the emergency department, patient was was put on BiPAP, however the patient continued to have difficulty breathing and was intubated and sedated. Heart side with etomidate and rocuronium. Sedated with Precedex. Patient also had a heart rate in the 150s to 170s. Patient was also hypotensive with a systolic blood pressure in the 70s. A levophed drip was started to support BP. Amiodarone was started to control heart rate, likely A. fib. An EKG was performed which showed ST elevations in the inferior leads. Cardiology was consulted, however the patient is too unstable for a left heart catheter and has an LVEF of 15%. She was also recently admitted on 10/18/2018 for septic shock, acute respiratory failure with hypoxia secondary to pneumonia, CHF exacerbation. Also required intubation and was treated with doxycycline and Zosyn. Labs are significant a WBC of 9, hemoglobin 15.8, platelets 23. INR 1.6. ABG pH 7.25, PCO2 58, PO2 61, bicarbonate 26. K of 3, creatinine of 1.17. Lactic acid of 8. Glucose 564. Troponin 0.17. BNP 1188. Ammonia of 94. CXR also s howed masslike airspace opacity at the right lung base suggestive of atelectasis versus pneumonia. A UA also showed ketones, moderate LE, many bacteria. Lead and urine cultures were obtained. At bedside, the patient was intubated and sedated. Daughter was at bedside with secure software assessor. She endorsed understanding of her mother's condition and poor prognosis. States that she would not want chest compressions or further resuscitative efforts such as defibrillation if the patient were to go into ca rdiac arrest. Patient's daughter confirmed DNR CCA. Past Med Surg Social Fam HX - Past Medical History Source: unable to obtain, old records reviewed, obtained from family, nursing notes reviewed Medical history: atrial fibrillation, cardiomyopathy, cirrhosis, COPD, hepatitis, liver disease Additional medical history: liver failure Psychiatric history: anxiety - Past Surgical History Additional surgical history: tubal ligation. cataracts - Social History Smoking Status: Current every day smoker Smokeless Tobacco Status: No Alcohol use: none Drug use: none - Family History Mother Adopted: No Hx Family Cardiac Disorders: Yes (ME) Hx Family Respiratory Disorders: Yes (mother, brother, father COPD) Hx Family Cancer: Yes (breast, stomach) Hx Family GI Disorders: No Hx Family Endocrine Disorder: Yes (mother dm) Hx Family Neuromuscular Disorders: No Hx Family Neurologic Disorders: No Hx Family HEENT Disorders: No Hx Family Autoimmune Disorders: No Internal Medicine - H&P: Meds Metoprolol XL (24 HR) Succ [Toprol Xl] 25 mg PO BID 30 Days #60 tab.er.24h 01/11/18 [Rx] Lactulose 30 gm PO BID #90 udc 10/18/18 [Rx] Lisinopril [Zestril] 2.5 mg PO DAILY #30 tablet 10/18/18 [Rx] Omeprazole [PriLOSEC] 20 mg PO BIDAC #60 capsule. 10/18/18 [Rx] Spironolactone [Aldactone] 25 mg PO DAILY #30 tablet 10/18/18 [Rx] ALPRAZolam [Xanax 0.5 MG Tablet] 0.5 mg PO TID PRN 01/19/19 [History] Furosemide [Lasix] 40 mg PO BID 01/19/19 [History] OxyCODONE Immed Rel [Roxicodone 20 MG] 20 mg PO Q4H PRN 01/19/19 [History] Allergy/AdvReac Type Severity Reaction Status Date / Time No Known Allergies Allergy Verified 12/19/17 21:16 ROS unobtainable: due to endotracheal tube All Systems PM: A 10-system review of systems was performed and is negative for pertinent findings except as documented above in the HPI. - Constitutional Vitals: Temp Pulse Resp BP Pulse Ox 97.8 F 180 16 106/75 85 01/19/19 15:37 01/19/19 15:37 01/19/19 15:37 01/19/19 15:37 01/19/19 15:37 Exam: GEN: Intubated and sedated on ventilator. HEAD: Normocephalic, atraumatic. EYES: PERRL, anicteric. ENT: MMM. oropharynx without erythema or drainage. NECK: Supple. No LAD. No stiffness or restricted ROM. No tracheal deviation. HEART: Tachycardic rate and irregular rhythm LUNGS: On ventilator, insp/exp wheezing/crackles in all lung fuller. ABDO: Soft, nontender, nondistended with active bowel sounds. : No suprapubic tenderness or CVA tenderness. BACK: No obvious stepoffs or deformities. EXT: Without cyanosis, clubbing or edema. SKIN: Warm and dry without any rash. NEURO: Deeply sedated, not responding to verbal or physical stimuli, otherwise unable to assess. PSYCH: Unable to assess. Internal Med - H&P Results - Labs CBC & Chem 7: 01/19/19 10:54 01/19/19 10:54 Labs: Short CBC 01/19/19 Range/Units 10:54 WBC 8.8 (4.3-11.1) K/mcL Hgb 15.8 H (11.5-15.4) g/dL Hct 49.0 H (35.3-44.9) % Plt Count 23 L* (140-400) K/mcL Neutrophils # 7.9 (1.6-8.9) K/mcL BMP 01/19/19 10:54 Sodium 144 Potassium 3.0 L Chloride 103 Carbon Dioxide 26 BUN 43 H Creatinine 1.17 Glucose 564 H* Calcium 9.9 Cardiac Enzymes 01/19/19 Range/Units 10:54 Troponin I 0.17 H* (< 0.04) ng/mL Liver Function 01/19/19 Range/Units 10:54 Total Bilirubin 3.4 H (0.3-1.0) mg/dL Direct Bilirubin 1.4 H (0.0-0.2) mg/dL AST 17 (13-39) Units/L ALT 24 (7-52) Units/L Alkaline Phosphatase 223 H (34-104) Units/L Albumin 2.4 L (3.5-5.7) g/dL Urine 01/19/19 Range/Units 11:56 Urine Color Red A (Yellow) Urine Clarity Turbid A (Clear) Urine pH 6.0 (5.0-8.0) pH Units Ur Specific Brant 1.024 (1.010-1.025) Urine Protein 100 H (Neg-Trace) mg/dL Urine Glucose (UA) >=1000 H (Normal) mg/dL - ABG Interpretation ABG results: 01/19/19 01/19/19 13:53 15:18 ABG pH 7.25 L ABG pCO2 58 H ABG pO2 61 L ABG HCO3 26 ABG Total CO2 28 H ABG O2 Saturation 86 L ABG Base Excess -3 L VBG pH 7.34 VBG pCO2 51 VBG pO2 43 VBG HCO3 27 - Impressions ITS Impressions Chest X-Ray 01/19/19 10:54 IMPRESSION: Masslike airspace opacity at the right lung base, may be related to atelectasis versus pneumonia, mildly improved. Recommend follow-up to resolution and exclude underlying lung mass. D/ / Jim Frey MD / Jim Frey MD Interpreting Provider: Jim Frey MD Pelvis X-Ray 01/19/19 11:30 IMPRESSION: 1. No acute abnormality. D/ / Christ Adan MD / Christ Adan MD Interpreting Provider: Christ Adan MD Chest X-Ray 01/19/19 13:12 IMPRESSION: 1. Right internal jugular catheter terminating in the distal SVC. D/ / Christ Adan MD / Christ Adan MD Interpreting Provider: Christ Adan MD Chest X-Ray 01/19/19 14:16 IMPRESSION: Endotracheal and enteric tubes appropriately positioned. Unchanged airspace disease in the mid to lower right lung. D/ / Mihai Fierro MD / Mihai Fierro MD Interpreting Provider: Mihai Fierro MD X-Ray 01/19/19 14:37 IMPRESSION: OG tube tip projects over the body of the stomach with the side hole over the gastric fundus. D/ / Jose Martin Riojas MD / Jose Martin Riojas MD Interpreting Provider: Jose Martin Riojas MD - Assessment and Plan (1) Acute respiratory failure with hypoxia Current Visit: Yes Status: Acute Assessment and plan: Presented with AMS, dyspnea likely d/t hyperammonemia, PNA, UTI, DKA, septic shock. Could not maintain oxygenation on bipap. CXR showed evidence of PNA. Patient was intubated to protect airway and maintain oxygenation. Plan: - Intubated/sedated on fentanyl and propofol gtt - Vent on 400/18/5/100% with ABG of 7.25, 58, 61, 26. - Started vancomycin and zosyn, levaquin on 01/19 - Inhalers to help with breathing - Pulmonary consulted for vent management and treatment - Palliative consulted (2) Septic shock Current Visit: Yes Status: Acute Assessment and plan: Presented with septic shock likely due to PNA and UTI. Underlying cirrhosis with likely immunocompromise. Hyperammonemic. Plan: - Started on levophed gtt to support blood pressure - Given 3L NS for fluid resuscitation - Started vancomycin and zosyn - Blood and urine cultures pending - Given 2 L NS bolus, starting MIVFs with NS and 20 meq K for DKA/hyperglycemia (3) Metabolic encephalopathy Current Visit: Yes Status: Acute Assessment and plan: Presented with AMS likely due to metabolic encephalopathy. Multifactorial etiologies from septic shock 2/2 PNA/UTI, hyperammonemia, hepatic encephalopathy, atrial fibrillation with RVR. Currently intubated/sedated on fentanyl/propofol. Plan: - Will obtain CT head and cervical spine when patient is more stable - Treating septic shock as above - Treating hyperammonemia with lactulose - Treating afib with RVR with amiodarone gtt; was given metoprolol in the ED (4) Pneumonia Current Visit: Yes Status: Acute Assessment and plan: CXR with findings suggestive of PNA. Acute hypoxic respiratory failure. Plan: - Started vanc and zosyn, levaquin - See plan above Qualifiers: Pneumonia type: due to unspecified organism Laterality: unspecified laterality Lung location: lower lobe of lung Qualified Code(s): J18.1 - Lobar pneumonia, unspecified organism (5) STEMI (ST elevation myocardial infarction) Current Visit: Yes Status: Acute Assessment and plan: Patient presented in afib with RVR. EKG also showed ST elevations in inferior leads. Per daughter, patient was not having any chest pain. Plan: - Cardiology consulted, patient is not stable for [facility] - Cannot be anticoagulated d/t liver failure and risk of bleeding; also thrombocytopenic - Will continue to monitor Qualifiers: Involved coronary artery: unspecified coronary artery Qualified Code(s): I21.3 - ST elevation (STEMI) myocardial infarction of unspecified site (6) DKA (diabetic ketoacidoses) Current Visit: Yes Status: Acute Assessment and plan: Arrived in septic shock. Hx of diabetes. ABG shows pH of 7.25, BG of 564, and ketones with pos betahydroxybutryate. K of 3.0. Gap of 15. Acidosis also most likely d/t septic shock. Plan: - Replete K with supplementation and MIVFs - Once K repleted, can start insulin and glucose supplementation - Continue to closely monitor glucose and electrolytes Qualifiers: Diabetes mellitus type: type 2 Diabetes mellitus complication detail: without coma Qualified Code(s): E11.10 - Type 2 diabetes mellitus with ketoacidosis without coma (7) Atrial fibrillation with RVR Current Visit: Yes Status: Acute Assessment and plan: Presented with afib in RVR. Plan: - Started on amiodarone gtt - Cont tele monitoring (8) CHF (congestive heart failure) Current Visit: Yes Status: Acute Assessment and plan: History of HFrEF with echo LVEF 15% in 09/2018. Also dilated LV, biatrial enlargement, MR, TR, moderate pHTN. Ischemic changes on EKG. Plan: - Cardiology consulted - Will bolus fluids to support perfusion - Monitor for fluid overload Qualifiers: Heart failure type: systolic Heart failure chronicity: chronic Qualified Code(s): I50.22 - Chronic systolic (congestive) heart failure (9) Thrombocytopenia Current Visit: Yes Status: Acute Assessment and plan: Low platelets likely d/t cirrhosis and liver failure. Plan: - Cont to monitor with CBC (10) Hyperammonemia Current Visit: Yes Status: Acute Assessment and plan: Likely due to cirrhosis and liver failure. Plan: - Lactulose - Monitor ammonia levels (11) Cirrhosis Current Visit: Yes Status: Chronic Assessment and plan: Hx of cirrhosis. Likely etiology for liver failure, hyperammonemia, and thrombocytopenia. Plan: - See plan above Qualifiers: Hepatic cirrhosis type: unspecified hepatic cirrhosis Ascites presence: unspecified Qualified Code(s): K74.60 - Unspecified cirrhosis of liver (12) UTI (urinary tract infection) Current Visit: Yes Status: Acute Assessment and plan: Likely contributing to septic shock. Plan: - Urine cx pending - Currently on vanc, zosyn, levaquin Qualifiers: Urinary tract infection type: site unspecified Hematuria presence: with hematuria Qualified Code(s): N39.0 - Urinary tract infection, site not specified; R31.9 - Hematuria, unspecified (13) DVT prophylaxis Current Visit: Yes Status: Acute Assessment and plan: DVT PPX: SCDs Analgesia: fentanyl Sedation: propofol, precedex SBT: pending further stabilization Glycemic control: DKA protocol Bowl regimen: none Activity: intubated/sedated Fluids: MIVFs NS with K Electrolytes: replete as necessary Nutrition: NPO with meds GI ppx: PPI Lines: 1x PIV, 1x R IJ CVC, ET tube, OG tube, ram Consults: cards, pulm, palliative Code: DNR CCA Dispo: ICU - Time Spent With Patient Total time spent is greater than 50% in coordination of care (as documented) at patient's floor/unit and/or counseling patient: less than 15 minutes <Fortunato Sol - Last Filed: 01/19/19 17:50> Date of Encounter: 01/19/19 Time of Encounter: 16:00 ROS unobtainable: due to endotracheal tube - Constitutional Vitals: Temp Pulse Resp BP Pulse Ox 99.6 F 149 18 94/77 82 01/19/19 16:00 01/19/19 17:00 01/19/19 17:00 01/19/19 17:00 01/19/19 17:00 Exam: intubated and sedated - Head Head exam: Present: atraumatic, normal inspection - Eye Eye exam: Present: PERRL. Absent: scleral icterus - ENT ENT exam: Present: mucous membranes dry Additional comments: ETT and OG in place - Neck Neck exam general surgery: Present: full ROM, supple, trachea midline. Absent: lymphadenopathy - Respiratory Respiratory exam: Present: prolonged expiratory phase, rales (right lower lung), rhonchi, wheezes. Absent: chest wall tenderness - Cardiovascular Cardiovascular exam: Present: distant heart sounds, irregular rhythm, +S1, +S2, tachycardia. Absent: diastolic murmur, systolic murmur - GI/Abdominal GI/Abdominal exam: Present: hypoactive bowel sounds, soft. Absent: guarding, hepatomegaly, rebound, splenomegaly, tenderness - Extremities Exam Extremities exam: Present: cyanotic, full ROM, mottling. Absent: joint swelling, normal capillary refill (absent cap refill), pedal edema, radial pulses palpable and symmetrical (weak and thready) - Neurological Exam Additional comments: sedated, minimally responsive - Skin Skin exam: Present: dry, intact, mottled (peripherally), pallor Internal Med - H&P Results - Labs CBC & Chem 7: 01/19/19 10:54 01/19/19 10:54 Labs: Short CBC 01/19/19 Range/Units 10:54 WBC 8.8 (4.3-11.1) K/mcL Hgb 15.8 H (11.5-15.4) g/dL Hct 49.0 H (35.3-44.9) % Plt Count 23 L* (140-400) K/mcL Neutrophils # 7.9 (1.6-8.9) K/mcL BMP 01/19/19 10:54 Sodium 144 Potassium 3.0 L Chloride 103 Carbon Dioxide 26 BUN 43 H Creatinine 1.17 Glucose 564 H* Calcium 9.9 Cardiac Enzymes 01/19/19 Range/Units 10:54 Troponin I 0.17 H* (< 0.04) ng/mL Liver Function 01/19/19 Range/Units 10:54 Total Bilirubin 3.4 H (0.3-1.0) mg/dL Direct Bilirubin 1.4 H (0.0-0.2) mg/dL AST 17 (13-39) Units/L ALT 24 (7-52) Units/L Alkaline Phosphatase 223 H (34-104) Units/L Albumin 2.4 L (3.5-5.7) g/dL Urine 01/19/19 Range/Units 11:56 Urine Color Red A (Yellow) Urine Clarity Turbid A (Clear) Urine pH 6.0 (5.0-8.0) pH Units Ur Specific Brant 1.024 (1.010-1.025) Urine Protein 100 H (Neg-Trace) mg/dL Urine Glucose (UA) >=1000 H (Normal) mg/dL - ABG Interpretation Interpretation: ABG interpreted by me ABG results: 01/19/19 01/19/19 13:53 15:18 ABG pH 7.25 L ABG pCO2 58 H ABG pO2 61 L ABG HCO3 26 ABG Total CO2 28 H ABG O2 Saturation 86 L ABG Base Excess -3 L VBG pH 7.34 VBG pCO2 51 VBG pO2 43 VBG HCO3 27 Interpretation: respiratory acidosis - EKG Data -: EKG Interpreted by Myself - EKG Data Prior EKG available for review: no EKG comments: 01/19/19 17:30 Atrial fibrillation/RVR - Impressions ITS Impressions Chest X-Ray 01/19/19 10:54 IMPRESSION: Masslike airspace opacity at the right lung base, may be related to atelectasis versus pneumonia, mildly improved. Recommend follow-up to resolution and exclude underlying lung mass. D/ / Jim Frey MD / Jim Frey MD Interpreting Provider: Jim Frey MD Pelvis X-Ray 01/19/19 11:30 IMPRESSION: 1. No acute abnormality. D/ / Christ Adan MD / Christ Adan MD Interpreting Provider: Christ Adan MD Chest X-Ray 01/19/19 13:12 IMPRESSION: 1. Right internal jugular catheter terminating in the distal SVC. D/ / Christ Adan MD / Christ Adan MD Interpreting Provider: Christ Adan MD Chest X-Ray 01/19/19 14:16 IMPRESSION: Endotracheal and enteric tubes appropriately positioned. Unchanged airspace disease in the mid to lower right lung. D/ / Mihai Fierro MD / Mihai Fierro MD Interpreting Provider: Mihai Fierro MD X-Ray 01/19/19 14:37 IMPRESSION: OG tube tip projects over the body of the stomach with the side hole over the gastric fundus. D/ / Jose Martin Riojas MD / Jose Martin Riojas MD Interpreting Provider: Jose Martin Riojas MD - Diagnostic Studies Chest x-ray Status: image reviewed by me (ETT in place; RML and RLL infiltrate) - Time Spent With Patient Total time spent is greater than 50% in coordination of care (as documented) at patient's floor/unit and/or counseling patient: - Attending Attestation I discussed the patient case with the ER physician and then with Dr. Resendiz. I reviewed the [place], past medical history, labs, imaging data, and ER course together with ER staff and Dr. Resendiz. I then saw and examined patient independently in the ER. I met patient's daughter/power of tester sound in the ER and had a long [id number] talk with her. Reportedly, patient was enrolled in Hospice up until a few days ago. She was dismissed from Hospice because she was making clinical improvement with regards to her functional capacity. Patient has been enrolled in Hospice for last 3 months due to end-stage liver disease, cardiomyopathy with ejection fraction 15%, and chronic hepatitis B and C. Reportedly, patient was not feeling well yesterday and today when she collapsed while trying to go to the bathroom today. Her son-in-law caught her and broke her fall. Patient was unresponsive. Family called 911 and she was brought to ER. In the ER, patient was noted to have significant tachyarrhythmia and findings concerning for shock and respiratory failure. Because of difficulty breathing and struggling as witnessed by the daughter, she requested patient be intubated. Patient was emergently intubated in the ER. Labs revealed the patient had evidence of lactic acidosis. EKG was concerning for atrial fibrillation and questionable findings for possible ST elevation. These findings reviewed with cardiology. Patient was deemed NOT a candidate for left heart catheterization due to her thrombocytopenia, end stage liver disease, and critical state. Upon my review of her labs, x-ray, and exam findings, I suspect patient is in septic shock from right middle and right lower lobe pneumonia. Despite the fact she has an EF of 15%, I recommend fluid resuscitation. ER was reluctant to give IV fluids because of her history of heart failure. Therefore, upon arrival to the ICU, I started fluid bolus per sepsis protocol. I discussed this at length with her daughter and verified CODE STATUS. I do not feel she will survive the next 24 hours and that she might pass away tonight. Daughter voiced understanding. She does not wish to proceed with any further heroic measures. In particular, patient is not to receive any chest compressions, defibrillation, or cardioversion. Patient is NOT a candidate for left heart catherization due to her coagulopathy of liver disease and thrombocytopenia. Daughter agrees and confirms she would not want her mother to go through inva sive heart procedure anyway. She wishes to continue ventilation for now and supportive measures with fluids and antibiotics. If she fails to improve the next 24-48 hours, daughter wishes to terminally extubate patient. Meanwhile, we'll continue current measures. I did inform daughter that I will consult palliative care to see her in the morning to help coordinate care after hospital stay and plan for goals of care counseling and likely re-enrollment in Hospice if capable. She voiced agreement with my plan and further understanding. Overall, patient is critically ill from septic shock secondary to pneumonia. Her co-morbid conditions include end-stage liver disease from cirrhosis and ca rdiomyopathy with EF 15%. Chances of survival are very slim and prognosis is extremely poor. I do not anticipate she will survive the next 24 hours and communicated that to daughter. She understands. Other than my above comments and documented exam findings, I agree with Dr. Resendiz's assessment and plan. Total 65 minutes critical care time spent with patient, coordinating care, and medical-decision making process.
[2019-01-19] MEDS ORDERED: 0.9 % Sodium Chloride 3,000 ML ONE (16:27)
[2019-01-19] MEDS: 0.9 % Sodium Chloride 1,000 ML IVC SCH ×3 (16:32→19:16)
[2019-01-19] MEDS: Artificial Tears SOLN 15 ML BOTTLE BOTH EYES SCH ×3 (16:48→23:12)
[2019-01-19] MEDS: levoFLOXacin 750 MG/150 ML 750 MG/150 ML BAG IVPB SCH (17:02)
[2019-01-19 17:46] LABS: ABG Base Excess -5 mEq/L (-2 to 3); ABG HCO3 23 mEq/L (21-27); ABG Oxygen Saturation 83 % (95-98); ABG PCO2 54 mmHg (35-45); ABG PH 7.24 pH Units (7.32-7.45); ABG PO2 57 mmHg (85-104); ABG TCO2 25 mEq/L (20-26); Blood Gas Modality ASSIST CONTROL; Blood Gas PEEP 5 cm H2O; Blood Gas VT 400 cc
[2019-01-19] MEDS ORDERED: *HR* Metoprolol 5 MG/5 ML VIAL IVP PRN (18:45)
[2019-01-19] MEDS: Hydrocortisone Sodium Succ 100 MG/2 ML VIAL IVP SCH ×2 (18:51→23:12)
[2019-01-19] MEDS: FentaNYL (PF) 1,000 MCG in 0.9 % Sodium Chloride 80 ML IVC SCH ×2 (19:14→20:25)
[2019-01-19] MEDS: 0.9 % Sodium Chloride w KCl 20 MEQ/1,000 ML MLS IVC SCH ×2 (19:15→23:13)
[2019-01-19 19:21] LABS: Calcium 8.2 mg/dL (8.6-10.3); Magnesium 2.2 mg/dL (1.6-2.6); Phosphorous 3.2 mg/dL (2.7-4.5); Potassium 2.7 mEq/L (3.5-5.1)
[2019-01-19] MEDS ORDERED: Potassium Chloride 40 MEQ, Lidocaine 1% 2 ML in D5% in Water 500 ML IVPB ONE (19:28)
[2019-01-19] MEDS ORDERED: Amiodarone Premix 360 MG/200 ML BAG IVC SCH (19:30)
[2019-01-19] MEDS: Chlorhexidine Rinse 15 ML MOUTHWASH MM SCH (19:49)
[2019-01-19] MEDS: Pantoprazole 40 MG VIAL IVP SCH (19:51)
[2019-01-19] MEDS ORDERED: Vasopressin 40 UNIT in D5% in Water 100 ML IV SCH (20:00)
[2019-01-19] MEDS ORDERED: *HR* Atropine Sulfate 1 MG/10 ML SYRINGE ONE (21:13)
[2019-01-19] MEDS: Budesonide/Formoterol 160/4.5 1 PUFF INH IH SCH (22:01)
[2019-01-19] MEDS ORDERED: Piperacillin/Tazobactam 3.375 GM VIAL ONE (22:10)
[2019-01-19] MEDS ORDERED: Levalbuterol Neb 1.25 MG/3 ML IH PRN (22:16)
[2019-01-19] MEDS: Piperacillin/Tazobactam 3.375 GM in 0.9 % Sodium Chloride Mini Bag 100 ML IVPB SCH (23:10)
[2019-01-20] MEDS: Norepinephrine 4 MG in 0.9 % Sodium Chloride 250 ML IVC SCH ×2 (00:06→01:57)
[2019-01-20] MEDS: Artificial Tears SOLN 15 ML BOTTLE BOTH EYES SCH ×2 (02:06→07:58)
[2019-01-20 04:05] LABS: Albumin 1.9 g/dL (3.5-5.7); Albumin/Globulin Ratio 0.7 (1.1-2.2); Bilirubin,Total 2.4 mg/dL (0.3-1.0); Globulin 2.6 g/dL (2.4-3.5); Potassium 4.7 mEq/L (3.5-5.1); Total Protein 4.5 g/dL (6.4-8.9)
[2019-01-20 04:06] LABS: INR 2.4; Prothrombin Time 27.2 Seconds (9.4-12.1)
[2019-01-20 04:07] LABS: Eosinophils % 0.1 %; Monocytes % 2.4 %; Red Cell Distribution Width 19.8 % (11.5-14.5)
[2019-01-20 04:08] LABS: Basophils % 0.3 %; Hematocrit 54.2 % (35.3-44.9); Hemoglobin 15.2 g/dL (11.5-15.4); Lymphocytes # 1.2 K/mcL (0.6-4.6); Lymphocytes % 16.5 %; Mean Corpuscular Hemoglobin 29.1 pg (28.0-33.3); Mean Corpuscular Volume 103.6 fL (83.0-100.0); Monocytes # 0.2 K/mcL (0.0-1.3); Neutrophils # 5.8 K/mcL (1.6-8.9); Nucleated Red Blood Cells 1.4 /100 WBC (0); Red Blood Count 5.23 M/mcL (3.82-4.97); Segmented Neutrophils % 78.7 %; White Blood Count 7.4 K/mcL (4.3-11.1)
[2019-01-20 04:09] LABS: Acinetobacter baumannii by PCR Not Detected (Not Detect); Enterobacter cloacae Cmplx PCR Not Detected (Not Detect); Enterococcus by PCR Not Detected (Not Detect); Staphylococcus aureus by PCR Not Detected (Not Detect); Staphylococcus by PCR Not Detected (Not Detect); Streptococcus agalactiae(B)PCR Not Detected (Not Detect); Streptococcus by PCR Not Detected (Not Detect); Streptococcus pneumoniae PCR Not Detected (Not Detect); Streptococcus pyogenes (A) PCR Not Detected (Not Detect); blaKPC Carbapenem-Resist Gene Not Detected (Not Detect)
[2019-01-20 04:10] LABS: Candida albicans by PCR Not Detected (Not Detect); Candida glabrata by PCR Not Detected (Not Detect); Candida krusei by PCR Not Detected (Not Detect); Candida parapsilosis by PCR Not Detected (Not Detect); Candida tropicalis by PCR Not Detected (Not Detect); Escherichia coli by PCR DETECTED (Not Detect); Klebsiella oxytoca by PCR Not Detected (Not Detect); Klebsiella pneumoniae by PCR Not Detected (Not Detect); Proteus by PCR Not Detected (Not Detect); Pseudomonas aeruginosa by PCR Not Detected (Not Detect); Serratia marcescens by PCR Not Detected (Not Detect)
[2019-01-20 04:20] LABS: Platelet Count 20 K/mcL (140-400)
[2019-01-20] MEDS ORDERED: Norepinephrine 8 MG in 0.9 % Sodium Chloride 500 ML IVC SCH (04:30)
[2019-01-20 04:34] LABS: Platelet Estimate Marked Decrease (Normal)
[2019-01-20] MEDS: Hydrocortisone Sodium Succ 100 MG/2 ML VIAL IVP SCH (05:00)
[2019-01-20 07:25] VITALS: BP 65/49
[2019-01-20] MEDS: levoFLOXacin 750 MG/150 ML 750 MG/150 ML BAG IVPB SCH (07:58)
[2019-01-20] MEDS: Chlorhexidine Rinse 15 ML MOUTHWASH MM SCH (07:58)
[2019-01-20] MEDS: Pantoprazole 40 MG VIAL IVP SCH (07:58)
[2019-01-20] MEDS: Piperacillin/Tazobactam 3.375 GM in 0.9 % Sodium Chloride Mini Bag 100 ML IVPB SCH (07:58)
--- NOTE | 2019-01-20 09:26 | Death Note ---
Pronouncement Note - Date and Time of Date of : 01/20/19 Time of : 09:21 - PCOD Preliminary cause of : Cardiac arrest - Additional Data Confirmation of : no pulse, no respirations, no heart sounds, pupils fixed and dilated Family: at bedside Additional persons at bedside: other (Nursing) Attending/PCP notified?: No Attending physician: Fortunato Sol Was code activated?: No Autopsy requested?: No forensic examiner notified?: No Organ bank notified?: No
--- NOTE | 2019-01-20 09:28 | Death Note ---
Discharge Sum: Summary - Date and Time Date of admission: 01/19/19 15:17 Date of : 01/20/19 Time of : 09:21 - Summary Details: Ms. Sales is a 58-year-old female with significant past medical history for A. fib, HFrEF with an EF of 15-20%, COPD, cirrhosis, hepatitis B and C, thrombocytopenia, type 2 diabetes who was admitted to the ICU on 01/19/19 due to 4 days of altered mental status. Patient was having some difficulty walking at home are all attempting to get to the bathroom, but was caught by family member prior to hitting the floor. At that time patient was no longer responsive to verbal or physical stimuli and patient was brought to the emergency room. Patient was started on BiPAP in the emergency room, but respiratory symptoms deteriorated and patient was sedated and intubated at that time. Patient was unstable at that time with hypotension and elevated heart rate in the 150s. Labs are significant a WBC of 9, hemoglobin 15.8, platelets 23. INR 1.6. ABG pH 7.25, PCO2 58, PO2 61, bicarbonate 26. K of 3, creatinine of 1.17. Lactic acid of 8. Glucose 564. Troponin 0.17. BNP 1188. Ammonia of 94. CXR also showed masslike airspace opacity at the right lung base suggestive of atelectasis versus pneumonia. A UA also showed ketones, moderate LE, many bacteria. Lead and urine cultures were obtained. Patient admitted for acute respiratory failure with hypoxia due to PNA, septic shock, metabolic encephalopathy, DKA, atrial fibrillation, and NSTEMI. Pt was started on vancomycin, Zosyn, and Levaquin for PNA. DKA protocol started. Patient was on amiodarone for atrial fibrillation. Overnight patient continued to be hypotensive and bradycardic despite maximum doses of pressors. During the morning patient heart rate and blood pressure continued to deteriorate until she was found to have passed at 9:21 am on 01/20. The patient was a DNR-CCA. I personally examined the patient and confirmed that the pulses were not present, heart sounds were no longer present, pupils were fixed and dilated, and following turning off the ventilator patient no longer had respirations present. - Additional Data Confirmation of as documented by pronouncing clinician: no pulse, no respirations, no heart sounds, pupils fixed and dilated Family: at bedside Additional persons at bedside: other (Nursing) Attending physician: Fortunato Sol Was code activated?: No Autopsy requested?: No legal examiner notified?: No Organ bank notified?: No Advance directives: No Hospice patient?: No Discharge Sum: Diag - PCOD Probable Cause of : Cardiac arrest Discharge Sum: Prov - Provider Primary care physician: PCP NONE Consults: 01/19/19 14:45 Consult to Cardiology [CONS] Stat Comment: Consulting Provider: Cardiology [place] Reason for Consult: afib w/ RVR Time Notified: 12:00 Call Completed: Yes 01/19/19 15:53 Consult to Palliative Care [CONS] Routine Comment: Consulting Provider: Palliative Care Agnieszka Reason for Consult: goals of care discussion/planning Call Completed: No Consult to Pulmonology [CONS] Routine Consulting Provider: Pulm [facility] Agnieszka Reason for Consult: vent management Call Completed: No Pronouncing clinician: Gennaro George
[2019-01-20] MEDS: Budesonide/Formoterol 160/4.5 1 PUFF INH IH SCH (10:37)
--- NOTE | 2019-01-20 15:53 | Electrocardiograph Report ---
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
--- NOTE | 2019-01-20 15:57 | Electrocardiograph Report ---
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
--- NOTE | 2019-01-21 15:52 | Electrocardiograph Report ---
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
--- NOTE | 2019-01-21 15:53 | Electrocardiograph Report ---
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
[2019-01-22] MEDS ORDERED: levoFLOXacin 750 MG/150 ML 750 MG/150 ML BAG IVPB SCH (09:00)
--- NOTE | 2019-01-27 09:26 | Electrocardiograph Report ---
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
== END 2019-01-20 09:21 | disposition expired ==
LOC: EMEROOARM 10:50 → ICNU 15:17
PROVIDERS: ADMIT Pediatrics; ATTEND Pediatrics